=== PATIENT | female | born 1945 | race Caucasian/White ===

== ENCOUNTER 2019-11-11 13:44 | Outpatient (CLI) | payer MEDICARE, OTHER, SELFPAY ==
--- NOTE | 2019-11-11 | MR_ITS ---
WS: [id number] MRI THORACIC SPINE WITHOUT CONTRAST TECHNIQUE: Sagittal T1, T2 and STIR imaging. Axial T2 imaging. Noncontrast imaging obtained. Contrast not administered due to renal insufficiency. GFR less than 30. CLINICAL INFORMATION: SYRNIX OF SPINAL CORD COMPARISON: None. FINDINGS: Mild thoracic curve. Mild thoracic kyphosis. Chronic anterior wedging in the mid thoracic spine. 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 Small syrinx in the thoracic cord most prominent at T7-T8. This measu res 1.7 mm in maximum AP dimension. Degenerative disease worse at T6-T7. Tiny central disc protrusions more prominent at T4-T5, T9-T10, a nd T10-T11. Moderate facet arthropathy in the lower thoracic spine. Normal visualized thoracic aorta. Adrenal glands appear normal. MR/MR thoracic spin wo con* [id number] IMPRESSION: 1. Small syrinx within the thoracic cord most prominent at T7-T8 measuring 1.7 mm in maximum AP dimension. No cord edema. 2. Mild thoracic curve and thoracic kyphosis. No acute compression fractures. 3. Degenerative disc disease worse at T6-C7. 4. A few small disc protrusions more prominent at left T4-T5, right T9-T10, an d T10-11. 5. Mild to moderate facet arthropathy in the lower thoracic spine.
[2019-11-11 14:36] LABS: Blood Urea Nitrogen 25 mg/dL (8-23)
== END 2019-11-11 13:45 | disposition home or self-care (01) ==
PROVIDERS: Family Provider Physician Assistant; PCP Physician Assistant; Visit Provider Licensed Practical Nurse
DX: G95.0 Syringomyelia and syringobulbia (principal); M47.893 Other spondylosis, cervicothoracic region; M51.24 Other intervertebral disc displacement, thoracic region
CPT/HCPCS: 36415; 72146; 82565; 84520

== ENCOUNTER → 2019-12-02 13:53 | Outpatient (BNVA) | payer MEDICARE, OTHER, SELFPAY | PROVIDERS: Family Provider Physician Assistant; PCP Physician Assistant; Visit Provider Nurse Practitioner | DX: M48.062 Spinal stenosis, lumbar region with neurogenic claudication (principal); M47.816 Spondylosis without myelopathy or radiculopathy, lumbar region; M25.561 Pain in right knee; M25.562 Pain in left knee; E11.40 Type 2 diabetes mellitus with diabetic neuropathy, unspecified; F17.210 Nicotine dependence, cigarettes, uncomplicated; Z79.891 Long term (current) use of opiate analgesic | CPT/HCPCS: 99213; 99214 ==

== ENCOUNTER 2019-12-31 15:02 | Outpatient (CLI) | payer MEDICARE, OTHER, SELFPAY ==
--- NOTE | 2019-12-31 15:10 | MM_ITS ---
WS: [id number] BILATERAL SCREENING DIGITAL MAMMOGRAM WITH CAD HISTORY: SCREENING COMPARISON: 09/23/2018 and 12/07/2016 Bilateral CC and MLO views submitted. Computer aided detection analyzed. Breast composition: There are scattered areas of fibroglandular density. No suspicious masses, microc alcifications or architectural distortion. Stable 5 mm nodule upper outer quadrant of the RIGHT breas t and benign calcifications. MM/[place] [id number] IMPRESSION: BI-RADS: 2-Benign FOLLOW UP: 1 Year Follow-up
== END 2019-12-31 15:03 | disposition home or self-care (01) ==
PROVIDERS: Family Provider Physician Assistant; PCP Physician Assistant; Visit Provider Physician Assistant
DX: Z12.31 Encounter for screening mammogram for malignant neoplasm of breast (principal)
CPT/HCPCS: 77067

== ENCOUNTER → 2020-01-27 12:11 | Outpatient (BNVA) | payer MEDICARE, OTHER, SELFPAY | PROVIDERS: Family Provider Physician Assistant; PCP Physician Assistant; Visit Provider Anesthesiology | DX: Z76.89 Persons encountering health services in other specified circumstances (principal) ==

== ENCOUNTER → 2020-06-01 13:45 | Outpatient (BNVA) | payer MEDICARE, OTHER, SELFPAY | PROVIDERS: Family Provider Physician Assistant; PCP Physician Assistant; Visit Provider Anesthesiology | DX: M48.062 Spinal stenosis, lumbar region with neurogenic claudication (principal); M47.816 Spondylosis without myelopathy or radiculopathy, lumbar region; F17.210 Nicotine dependence, cigarettes, uncomplicated; Z79.891 Long term (current) use of opiate analgesic; Z71.6 Tobacco abuse counseling | CPT/HCPCS: 99214 ==

== ENCOUNTER → 2020-07-28 13:14 | Outpatient (BNVA) | payer MEDICARE, OTHER, SELFPAY | PROVIDERS: Family Provider Physician Assistant; PCP Physician Assistant; Visit Provider Anesthesiology | DX: M54.41 Lumbago with sciatica, right side (principal); M54.42 Lumbago with sciatica, left side; M48.062 Spinal stenosis, lumbar region with neurogenic claudication; M47.816 Spondylosis without myelopathy or radiculopathy, lumbar region; F17.210 Nicotine dependence, cigarettes, uncomplicated; Z79.891 Long term (current) use of opiate analgesic | CPT/HCPCS: 99213; 99214 ==

== ENCOUNTER 2020-08-18 13:08 | Outpatient (CLI) | payer MEDICARE, OTHER, SELFPAY ==
--- NOTE | 2020-08-18 13:14 | CT_ITS ---
WS: [id number] LDCT LUNG CANCER SCREENING TECHNIQUE: Noncontrast CT of the chest with coronal and sagittal reformatted images. CLINICAL INFORMATION: NICOTINE DEPENDENCE COMPARISON: None. DLP: 61.0 mGy.cm DIvol: 1.[address] scans at [facility] use at least one of these dose optimization techniques: automat ed exposure control; mA and/or kV adjustment per patient size (includes targeted exams where dose is matched to clinical indication); or iterative reconstruction. FINDINGS: No suspicious pulmonary parenchymal opacities Subsegmental atelectasis in the right midlung along the fissure. Subsegmental atelectasis in the righ t middle lobe. Slight atelectasis in the lung bases. Prior sternotomy. Aortic calcification. Coronary calcification. No axillary lymphadenopathy. No mediastinal or hilar lymphadenopathy. Adrenal glands appear normal where visualized. Moderate thoracic kyphosis. Mild thoracic curve. CT/CT lung screening [id number] IMPRESSION: LUNG-RADS: 1-Negative FOLLOW UP: 12 Month: Continue annual screening with LDCT
== END 2020-08-18 13:09 | disposition home or self-care (01) ==
LOC: RAD 13:12
PROVIDERS: PCP Physician Assistant; Visit Provider Physician Assistant
DX: Z12.2 Encounter for screening for malignant neoplasm of respiratory organs (principal); F17.210 Nicotine dependence, cigarettes, uncomplicated
CPT/HCPCS: G0297

== ENCOUNTER → 2020-09-30 12:41 | Outpatient (BNVA) | payer MEDICARE, OTHER, SELFPAY | PROVIDERS: PCP Physician Assistant; Visit Provider Anesthesiology | DX: M54.42 Lumbago with sciatica, left side (principal); M54.41 Lumbago with sciatica, right side; M48.062 Spinal stenosis, lumbar region with neurogenic claudication; M47.816 Spondylosis without myelopathy or radiculopathy, lumbar region; M25.561 Pain in right knee; M25.562 Pain in left knee; E11.40 Type 2 diabetes mellitus with diabetic neuropathy, unspecified; F17.210 Nicotine dependence, cigarettes, uncomplicated; Z79.891 Long term (current) use of opiate analgesic | CPT/HCPCS: 99214 ==

== ENCOUNTER 2020-10-04 13:59 | Outpatient (CLI) | payer MEDICARE, OTHER, SELFPAY ==
--- NOTE | 2020-10-04 14:05 | MR_ITS ---
WS: [id number] MRI LUMBAR SPINE NONCONTRAST TECHNIQUE: Sagittal T1, T2 and STIR imaging. Axial T1 and T2 imaging. CLINICAL INFORMATION: RADICULOPATHY COMPARISON: MRI 6 18,019 FINDINGS: Thoracic cord syrinx described on the thoracic spine MRI. Degenerative disc disease worse at L2-3 wit h endplate degenerative changes. This is slightly progressed since 2019. Mild edema in the superior e ndplate at L2 progressed from previous likely due to mild interval compression. L1-L2: Normal. L2-L3: Mild disc bulging with endplate ridging. New/progressed right subarticular protrusion impinges the traversing right L3 nerve root in the subarticular recess. Moderate central canal stenosis. Mild right and no significant left foraminal narrowing. Moderate facet arthropathy. L3-L4: Shallow left pericentral protrusion impinges the traversing left L4 nerve root. Mild central c anal stenosis. Foramen are patent. Mild facet arthropathy. L4-L5: Mild disc bulging with slight effacement of ventral thecal sac. Moderate central canal stenosi s. Moderate to advanced facet arthropathy. Mild right and no significant left foraminal narrowing. Sm all facet effusions. L5-S1: Disc osteophyte complex with endplate ridging. Slight effacement of ventral thecal sac. Mild l eft and no significant right foraminal narrowing. Mild facet arthropathy. Visualized pelvic bony structures: Normal. Paravertebral soft tissues: Normal. MR/MR lumbar spine wo con* [id number] IMPRESSION: 1. Mild lumbar curve. Mild compression superior endplate L2 with edema appears progressed from previous. No significant loss of vertebral body height. 2. Degenerative disc disease worse at L2-L3 slightly progressed from previous with a new right subarticular protrusion impinges the traversing right L3 nerve root. Moderate central canal stenosis at this level. Recommend correlation for right L3 nerve root symptoms. 3. Shallow left pericentral protrusion L3-4 impinges the traversing left L4 ne rve root. 4. Moderate central canal stenosis L4-5 due to disc bulging with facet arthrop athy and ligament flavum hypertrophy. Advanced facet arthropathy at this level. Mild right L4-5 foraminal narrowing. 5. No other significant changes from previous.
--- NOTE | 2020-10-04 14:05 | MR_ITS ---
WS: [id number] MRI THORACIC SPINE WITHOUT CONTRAST TECHNIQUE: Sagittal T1, T2 and STIR imaging. Axial T2 imaging. Noncontrast imaging obtained. CLINICAL INFORMATION: RADICULOPATHY COMPARISON: MRI November 11, 2019 FINDINGS: Mild thoracic curve. Mild thoracic kyphosis. Chronic anterior wedging in the mid thoracic spine. Thor acic cord atrophy unchanged. Small syrinx in the thoracic cord most prominent at T7-T8 is unchanged. This measures approximately 1.8 mm in maximum AP dimension. Degenerative disc disease worse at T6-T7. Tiny central disc protrusions more prominent at T4-T5, T9-T 10, and T10-T11 unchanged. Moderate facet arthropathy in the lower thoracic spine. Normal visualized thoracic aorta. Adrenal glands appear normal. MR/MR thoracic spin wo con* [id number] IMPRESSION: 1. Small syrinx within the thoracic cord most prominent at T7-T8 measuring 1.8 mm in maximum AP dimension unchanged. No progressed cord edema. 2. Mild thoracic curve and thoracic kyphosis. No acute compression fractures. 3. Degenerative disc disease worse at T6-T7 unchanged. 4. A few small disc protrusions described above unchanged.
== END 2020-10-04 14:00 | disposition home or self-care (01) ==
LOC: RADWPI 14:03
PROVIDERS: PCP Physician Assistant; Visit Provider Physician Assistant
DX: M54.10 Radiculopathy, site unspecified (principal); M51.34 Other intervertebral disc degeneration, thoracic region; M51.24 Other intervertebral disc displacement, thoracic region; M48.061 Spinal stenosis, lumbar region without neurogenic claudication; M51.36 Other intervertebral disc degeneration, lumbar region
CPT/HCPCS: 72146; 72148

== ENCOUNTER 2020-10-13 12:58 | Outpatient (CLI) | payer MEDICARE, OTHER, SELFPAY ==
--- NOTE | 2020-10-13 13:10 | USCV_ITS ---
Ivette Ruiz Age: 75 Gender: F : 1945 Exam Date: 10/13/2020 12:57 Ordering Phys: Leena Calderon Technologist: Exam Location: [facility] [place]_ Indication: PAD RIGHT LEFT Brachial 158.00 mmHg Brachial 159.00 mmHg Pressure (mmHg) Waveform Pressure (mmHg) Waveform 176.00 Below Knee 152.00 176.00 BRASS ROLLER 148.00 158.00 DPA 141.00 1.11 Ankle/Brachial Index 0.93 132.00 Pre-Exercise Toe Pressure 129.00 0.83 Pre-Exercise Toe/Brachial Index 0.81 FINDINGS Resting ABIs bilaterally Normal resting TBIs bilaterally PVR waveforms showing loss of dicrotic notch with a low amplitude waveforms CONCLUSIONS No significant arterial obstruction, based on the above findings. Possible extensive arterio sclerosis bilaterally Dr Luma Gonzales MD FAC (Electronically Signed) Final Date: 14 October 2020 18:45 S
== END 2020-10-13 12:59 | disposition home or self-care (01) ==
LOC: RAD 13:07
PROVIDERS: PCP Physician Assistant; Visit Provider Physician Assistant
DX: I73.9 Peripheral vascular disease, unspecified (principal)
CPT/HCPCS: 93923

== ENCOUNTER → 2020-12-01 13:20 | Outpatient (BNVA) | payer OTHER, SELFPAY | PROVIDERS: PCP Physician Assistant; Visit Provider Anesthesiology | DX: M48.062 Spinal stenosis, lumbar region with neurogenic claudication (principal); M47.816 Spondylosis without myelopathy or radiculopathy, lumbar region; M25.562 Pain in left knee; M25.561 Pain in right knee; F17.210 Nicotine dependence, cigarettes, uncomplicated; Z79.891 Long term (current) use of opiate analgesic | CPT/HCPCS: 99213 ==

== ENCOUNTER → 2021-02-04 13:48 | Outpatient (BNVA) | payer OTHER, SELFPAY | PROVIDERS: PCP Physician Assistant; Visit Provider Anesthesiology | DX: M48.062 Spinal stenosis, lumbar region with neurogenic claudication (principal); M47.816 Spondylosis without myelopathy or radiculopathy, lumbar region; M25.561 Pain in right knee; M25.562 Pain in left knee; E11.40 Type 2 diabetes mellitus with diabetic neuropathy, unspecified; F17.210 Nicotine dependence, cigarettes, uncomplicated; Z79.891 Long term (current) use of opiate analgesic | CPT/HCPCS: 99213 ==

== ENCOUNTER 2021-03-07 17:48 | Emergency (ER) | payer MEDICARE, OTHER, SELFPAY ==
[2021-03-07 18:23] VITALS: BP 176/73; PULSE 78; RESP 16; TEMP 36.8; O2SAT 94; BMI 34.9
[2021-03-07 21:06] VITALS: BP 173/94; PULSE 92; RESP 18; O2SAT 92
--- NOTE | 2021-03-07 21:09 | CTR_ITS ---
PROCEDURE INFORMATION: Exam: CT Abdomen And Pelvis With Contrast Exam date and time: 03/07/2021 11:00 PM Age: 75 years old Clinical indication: Nausea; Prior surgery; Surgery type: Hyst, cabg; Additional info: Abd pain TECHNIQUE: Imaging protocol: Computed tomography of the abdomen and pelvis with contrast. Radiation optimization: All CT scans at this facility use at least one of these dose optimization techniques: automated exposure control; mA and/or kV adjustment per patient size (includes targeted exams where dose is matched to clinical indication); or iterative reconstruction. Contrast material: VISI 320; Contrast volume: 95 ml; Contrast route: INTRAVENOUS (IV); COMPARISON: CR XR hip BI 3-4V wo/w pel [id number] 04/12/2020 3:38 PM RADIATION DOSE METRICS: Total DLP (mGy-cm): 1462.96 FINDINGS: Liver: There is no focal abnormality within the liver. There is a diffuse decrease in hepatic parenchymal density, consistent with mild fatty infiltration. Gallbladder and bile ducts: The gallbladder is normal. Pancreas: The pancreas is normal. Spleen: The spleen is normal. Adrenal glands: The adrenal glands are normal. Kidneys and ureters: The kidneys are normal. There is no evidence of hydronephrosis. Stomach and bowel: There is no evidence of colitis/diverticulitis. Appendix: A normal appendix is identified. Intraperitoneal space: Unremarkable. No free air. No significant fluid collection. Vasculature: The aorta demonstrates moderate atherosclerotic calcification. There is no evidence of an abdominal aortic aneurysm. Lymph nodes: Unremarkable. No enlarged lymph nodes. Urinary bladder: Unremarkable as visualized. Reproductive: There has been a hysterectomy. Bones/joints: The lumbar spine demonstrates marked degenerative changes at multiple levels. Soft tissues: Unremarkable. CT/CT abdomen pelvis w con* [id number] IMPRESSION: 1. Fatty liver 2. No acute finding Radiation Dose CTDIVOL = (mGy): DLP = 1462.96 (mGy-cm)
--- NOTE | 2021-03-07 21:27 | W.ED.NAVMDI ---
HPI - Nausea/Vomiting/Diarrhea General: Chief complaint: Nausea/Vomiting/Diarrhea Stated complaint: NAUSEA, DIARRHEA Time Seen by Provider: 03/07/21 21:03 Source: patient Mode of arrival: ambulatory Limitations: no limitations History of Present Illness: HPI Narrative: 75-year-old female states over the last week she has been having nausea and vomiting and very decreased appetite. States she just feels like she can eat anything or keep anything down. States she has had some diarrhea as well. States she has been taking Pepto-Bismol with slight improvement. Denies any worsening factors. She is got diffuse abdominal cramping. Denies any fevers. Associated nausea: Yes Associated symtoms: Reports nausea; Denies chest pain, dysuria or headache(s) Review of Systems Const: Denies: fever(s), chills, body aches or change in appetite Eyes: Denies: blurry vision or eye discomfort ENMT: Denies: throat pain or dental pain Card: Denies: chest pain Resp: Denies: dyspnea GI: Reports: nausea and vomiting : Denies: dysuria Musc: Denies: neck pain or back pain Skin/Breast: Denies: rash Neuro: Denies: headache(s) Psych: Denies: depression Shiva/Lymph: Denies: easy bruising All/Imm: Denies: urticaria PFSH ED PFSH: Medical History (Updated 03/08/21 @ 01:42 by Thalia Reyes MD) ASHD (arteriosclerotic heart disease) Bilateral knee pain Carotid stenosis, bilateral CHF (congestive heart failure) Chronic fatigue CKD (chronic kidney disease) COPD (chronic obstructive pulmonary disease) Diabetes Diabetic neuropathy DJD (degenerative joint disease), lumbar Dyslipidemia Essential hypertension GERD (gastroesophageal reflux disease) Long-term current use of opiate analgesic Lumbar stenosis with neurogenic claudication Lupus anticoagulant disorder Myocardial infarction Obesity PAD (peripheral artery disease) Pain management contract signed TIA (transient ischemic attack) Tobacco use disorder Surgical History S/P CABG (coronary artery bypass graft) (~10/01/14) S/P carotid endarterectomy S/P carpal tunnel release (Unknown) LEFT S/P cataract extraction (Unknown) RIGHT DR BATISTA S/P cataract extraction S/P hysterectomy Family History Unknown Adopted Social History (Updated 02/04/21 @ 14:02 by Nakia Sampson LPN) Smoking and tobacco status: current every day smoker cigarettes Packs smoked per day: 2 Quit status (tobacco): has tried quititng Alcohol intake: never Adopted: Yes Lives independently: Yes Household members: spouse Marital status: History of recent travel: No Physical Exam Const: COMMON NORMALS: no acute distress, patient oriented x3 and healthy appearing HENMT: COMMON NORMALS: normocephalic and atraumatic HEAD & SCALP: normocephalic and atraumatic Eye: COMMON NORMALS: Equal, round and reactive pupils present and EOMs intact bilaterally PUPIL: Yes Equal, round and reactive pupils present Neck/C-Spine: COMMON NORMALS: full ROM and supple Chest: COMMONS NORMALS: normal inspection of the chest and normal palpation of entire chest wall Resp: COMMON NORMALS: normal respiratory effort, No retractions, No use of accessory muscles and clear to auscultation bilaterally AUSCULTATION: clear to auscultation bilaterally Cardio: COMMON NORMALS: regular rate, regular rhythm and No murmurs present (Cardio) RATE: regular rate RHYTHM: regular rhythm GI: COMMON NORMALS: Normal to inspection, nondistended, normoactive bowel sounds present, Soft to palpation, non-tender and no masses PALPATION: Yes Soft to palpation Extremity: COMMON NORMALS: normal to inspection and full ROM Neuro: COMMON NORMALS: patient oriented x3, moves all extremities and no focal motor deficits Psych: COMMON NORMALS: mental status grossly normal, Normal thought process present and cooperative THOUGHT PROCESS: Normal thought process present Skin: COMMON NORMALS: no rashes or lesions noted and no wounds GENERAL SKIN EXAM: no rashes or lesions noted Course Vital Signs: Vital signs: Vital Signs Temperature 98.0 F 03/07/21 23:32 Pulse Rate 88 03/08/21 01:49 Respiratory Rate 21 H 03/08/21 01:49 Blood Pressure 156/89 03/08/21 01:49 Pulse Oximetry 94 03/08/21 01:49 MDM - Nausea/Vomiting/Diarrhea MDM Narrative: Medical decision making narrative: Patient presents her vomiting is likely viral in origin. She feels improved here after Zofran and blood work and CT abdomen are all negative. She has been able to tolerate p.o. fluids here. We will place her on Zofran and she is stable for discharge. She is to follow-up with her primary care doctor and return if worsening. Lab Data: Labs: Lab Results 03/07/21 03/07/21 Range/Units 22:20 22:20 WBC 11.4 H (4.0-10.0) 10^3/ uL RBC 5.18 (4.1-5.3) 10^6/u L Hgb 15.6 H (11.5-15.3) g/dL Hct 50.4 H (37.0-47.0) % MCV 97.3 (81-99) fL MCH 30.1 (28.0-34.0) pg MCHC 31.0 (30.0-36.0) g/dL RDW 13.5 (12.1-15.1) % Plt Count 212 (130-400) 10^3/c mm MPV 11.4 H (7.4-10.4) fL Neut % (Auto) 64.3 % Lymph % (Auto) 26.4 % [place] % (Auto) 7.0 % Eos % (Auto) 1.2 % Baso % (Auto) 0.7 % Neut # (Auto) 7.32 (1.8-7.7) 10^3/u L Lymph # (Auto) 3.0 (0.8-4.8) 10^3/u L [place] # (Auto) 0.8 (0.2-0.9) 10^3/u L Eos # (Auto) 0.1 (0.0-0.8) 10^3/u L Baso # (Auto) 0.1 (0.0-0.1) 10^3/u L Nucleated RBC % (a uto) 0 % Nucleated RBCs # 0.0 /100WBC Sodium 137 (136-145) mmol/L Potassium 4.0 (3.5-5.1) mmol/L Chloride 98 (98-107) mmol/L Carbon Dioxide 27 (22-29) mmol/L Anion Gap 16.0 (5-19) BUN 19 (8-23) mg/dL Creatinine 1.1 H (0.5-0.9) mg/dL GFR Calculation Not Reportable Glucose 127 H (65-115) mg/dL Calculated Osmolal ity 288 (285-295) mOsm/k g Calcium 9.4 (8.5-10.5) mg/dL Total Bilirubin 0.6 (0.15-1.2) mg/dL AST 19 (0-32) U/L ALT 14 (0-33) U/L Alkaline Phosphata se 91 (35-105) IU/L Total Protein 7.6 (6.6-8.7) g/dL Albumin 4.0 (3.5-5.2) g/dL Globulin 3.6 (1.3-4.6) g/dL Lipase 15 (13-60) U/L Imaging Data^: CT Abd/Pel: Attestation: I personally reviewed and interpreted this imaging study as follows: Radiologist's impression: [address] [address] [address] Scan Report Signed Patient: Ivette Ruiz Unit #: [id number] : 1945 Age/Sex: 75 / F ADM Date: 03/07/21 Loc: ER Room/Bed: Attending Dr: Ordering Provider/Ordering MD: Thalia Reyes MD Date of Service: 03/07/21 Procedure(s): CT abdomen pelvis w con* [id number] Accession Number(s): [id number] Report Number: [id number] PROCEDURE INFORMATION: Exam: CT Abdomen And Pelvis With Contrast Exam date and time: 03/07/2021 11:00 PM Age: 75 years old Clinical indication: Nausea; Prior surgery; Surgery type: Hyst, cabg; Additional info: Abd pain TECHNIQUE: Imaging protocol: Computed tomography of the abdomen and pelvis with contrast. Radiation optimization: All CT scans at this facility use at least one of these dose optimization techniques: automated exposure control; mA and/or kV adjustment per patient size (includes targeted exams where dose is matched to clinical indication); or iterative reconstruction. Contrast material: VISI 320; Contrast volume: 95 ml; Contrast route: INTRAVENOUS (IV); COMPARISON: CR XR hip BI 3-4V wo/w pel [id number] 04/12/2020 3:38 PM RADIATION DOSE METRICS: Total DLP (mGy-cm): 1462.96 FINDINGS: Liver: There is no focal abnormality within the liver. There is a diffuse decrease in hepatic parenchymal density, consistent with mild fatty infiltration. Gallbladder and bile ducts: The gallbladder is normal. Pancreas: The pancreas is normal. Spleen: The spleen is normal. Adrenal glands: The adrenal glands are normal. Kidneys and ureters: The kidneys are normal. There is no evidence of hydronephrosis. Stomach and bowel: There is no evidence of colitis/diverticulitis. Appendix: A normal appendix is identified. Intraperitoneal space: Unremarkable. No free air. No significant fluid collection. Vasculature: The aorta demonstrates moderate atherosclerotic calcification. There is no evidence of an abdominal aortic aneurysm. Lymph nodes: Unremarkable. No enlarged lymph nodes. Urinary bladder: Unremarkable as visualized. Reproductive: There has been a hysterectomy. Bones/joints: The lumbar spine demonstrates marked degenerative changes at multiple levels. Soft tissues: Unremarkable. CT/CT abdomen pelvis w con* [id number] IMPRESSION: 1. Fatty liver 2. No acute finding Radiation Dose CTDIVOL = (mGy): DLP Discharge Plan Discharge Patient Disposition: Home Clinical Impression: Vomiting Qualifiers: Vomiting type: unspecified Vomiting Intractability: non-intractable Nausea presence: with nausea Qualified Code(s): R11.2 - Nausea with vomiting, unspecified Condition: Stable Prescriptions: New ondansetron 4 mg tablet,disintegrating 4 mg PO Q6H PRN (Reason: nausea and vomiting) Qty: 14 RF: 0 No Action bupivacaine (PF) 0.25 % (2.5 mg/mL) solution 1 ml Infiltration ONCE Qty: 1 RF: 0 nitroglycerin [Nitrostat] 0.4 mg tablet, sublingual 0.4 mg SUBLINGUAL Q5M PRNRF: 0 One-A-Day Vitacraves [place]-3 200-16 mcg-mg tablet,chewable PO RF: 0 levothyroxine 25 mcg tablet 25 mcg PO DAILY RF: 0 magnesium oxide 400 mg magnesium capsule 400 mg PO DAILY RF: 0 fluticasone propion-salmeterol [Advair Diskus] 250-50 mcg/dose blister with device 1 inh INHALATION BID RF: 0 amlodipine 2.5 mg tablet 2.5 mg PO QDAY RF: 0 aspirin [Adult Low Dose Aspirin] 81 mg tablet,delayed release (DR/EC) 81 mg PO QDAY RF: 0 atenolol 50 mg tablet 50 mg PO QDAY RF: 0 [place] 5 mcg/dose (250 mcg/mL) 1.2 mL pen injector 5 mcg SUBCUT BID RF: 0 calcium carbonate 600 mg calcium (1,500 mg) tablet 600 mg PO QDAY RF: 0 cranberry extract 200 mg capsule 200 mg PO QDAY RF: 0 cholecalciferol (vitamin D3) 1,000 unit capsule 1,000 unit PO QDAY RF: 0 desloratadine 5 mg tablet 5 mg PO QDAY RF: 0 isosorbide mononitrate 120 mg tablet extended release 24 hr 120 mg PO BID RF: 0 Lantus U-100 Insulin 100 unit/mL solution 30 unit SUBCUT QDAY RF: 0 furosemide 40 mg tablet 40 mg PO QAM RF: 0 atorvastatin [Lipitor] 40 mg tablet 40 mg PO QDAY RF: 0 lisinopril 10 mg tablet 10 mg PO QDAY RF: 0 lovastatin 40 mg tablet 40 mg PO QDAY RF: 0 melatonin 5 mg tablet 5 mg PO QDAY RF: 0 metoclopramide HCl 10 mg tablet 10 mg PO Q6H PRNRF: 0 metoprolol succinate 50 mg tablet extended release 24 hr 50 mg PO QDAY RF: 0 clopidogrel 75 mg tablet 75 mg PO QDAY RF: 0 pantoprazole [Protonix] 40 mg tablet,delayed release (DR/EC) 40 mg PO QDAY RF: 0 albuterol sulfate [Proventil HFA] 90 mcg/actuation HFA aerosol inhaler 2 puff INHALATION Q6H PRNRF: 0 ranolazine [Ranexa] 500 mg tablet extended release 12 hr 500 mg PO BID RF: 0 ropinirole 0.5 mg tablet 0.5 mg PO QDAY RF: 0 methocarbamol 500 mg tablet 500 mg PO QID PRNRF: 0 Spiriva with HandiHaler 18 mcg capsule, w/inhalation device 1 cap INHALATION QDAY RF: 0 trazodone 100 mg tablet 100 mg PO QDAY RF: 0 venlafaxine 37.5 mg tablet 37.5 mg PO QDAY RF: 0 vitamin B complex [B Complex-Vitamin B12] Tablet 1 tab PO QDAY RF: 0 ascorbic acid (vitamin C) 500 mg tablet 250 mg PO QDAY RF: 0 ezetimibe [Zetia] 10 mg tablet 10 mg PO QDAY RF: 0 gabapentin 800 mg tablet 800 mg PO TID 90 Days Qty: 270 RF: 0 lidocaine 5 % adhesive patch,medicated 3 patch topical DAILY 90 Days Qty: 90 RF: 0 hydrocodone-acetaminophen 10-325 mg tablet 1 tab PO TID PRN (Reason: pain) 30 Days Qty: 90 RF: 0 hydrocodone-acetaminophen 10-325 mg tablet 1 tab PO TID PRN (Reason: pain) 30 Days Qty: 90 RF: 0 cyclobenzaprine 10 mg tablet 5 mg PO TID PRN (Reason: muscle spasm) 90 Days Qty: 135 RF: 0 Discharge Orders: Discharge ED (Routine); Ordered 03/08/21 Ordered By: Thalia Reyes Referrals: Leena Calderon PA [Primary Care Provider] - 1-3 days Discharge Diet: Advance as tolerated Discharge Activity: Resume usual activity Patient Instructions: Acute Nausea and Vomiting (ED) Coding Level of Care Code ED 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
[2021-03-07 22:27] LABS: Basophils # 0.1 10^3/uL (0.0-0.1); Basophils % 0.7 %; Eosinophils # 0.1 10^3/uL (0.0-0.8); Eosinophils % 1.2 %; Hematocrit 50.4 % (37.0-47.0); Hemoglobin 15.6 g/dL (11.5-15.3); Lymphocytes % 26.4 %; Mean Corpuscular Hemoglobin 30.1 pg (28.0-34.0); Mean Corpuscular Volume 97.3 fL (81-99); Mean Platelet Volume 11.4 fL (7.4-10.4); Monocytes # 0.8 10^3/uL (0.2-0.9); Neutrophils # 7.32 10^3/uL (1.8-7.7); Neutrophils % 64.3 %; Nucleated Red Blood Cells % 0 %; Platelet Count 212 10^3/cmm (130-400); Red Blood Count 5.18 10^6/uL (4.1-5.3); Red Cell Distribution Width 13.5 % (12.1-15.1); White Blood Count 11.4 10^3/uL (4.0-10.0)
[2021-03-07] MEDS: ondansetron 2 mg/ML SDV 2 mL 4 MG IVP (22:31)
[2021-03-07 22:42] LABS: Alanine Aminotransferase 14 U/L (0-33); Alkaline Phosphatase 91 IU/L (35-105); Aspartate Amino Transferase 19 U/L (0-32); Blood Urea Nitrogen 19 mg/dL (8-23); Calcium 9.4 mg/dL (8.5-10.5); Carbon Dioxide 27 mmol/L (22-29); Chloride 98 mmol/L (98-107); Globulin 3.6 g/dL (1.3-4.6); Glucose 127 mg/dL (65-115); Lipase 15 U/L (13-60); Osmolality Calculated 288 mOsm/kg (285-295); Sodium 137 mmol/L (136-145); Total Bilirubin 0.6 mg/dL (0.15-1.2); Total Protein 7.6 g/dL (6.6-8.7)
[2021-03-07 23:00] VITALS: BP 152/113; PULSE 71; RESP 18; TEMP 36.6; O2SAT 93
[2021-03-07 23:32] VITALS: BP 164/112; PULSE 98; RESP 20; TEMP 36.7; O2SAT 94
[2021-03-07] MEDS: LORazepam 2 mg/mL INJ 1 mL 0.5 MG IVP (23:57)
[2021-03-08] MEDS: iohexol 300 mg/mL 100 mL Btl IV (00:21)
[2021-03-08 01:49] VITALS: BP 156/89; PULSE 88; RESP 21; O2SAT 94
== END 2021-03-08 01:59 | disposition home or self-care (01) ==
PROVIDERS: Emergency Provider Emergency Medicine; PCP Physician Assistant
DX: R11.2 Nausea with vomiting, unspecified (principal); Z79.82 Long term (current) use of aspirin; Z79.02 Long term (current) use of antithrombotics/antiplatelets; Z79.4 Long term (current) use of insulin
CPT/HCPCS: 36415; 74177; 80053; 83690; 85025; 96374; 96375; 99283; J2060; J2405; Q9967

== ENCOUNTER → 2021-03-15 13:57 | Outpatient (BNVA) | payer MEDICARE, OTHER, SELFPAY | PROVIDERS: PCP Physician Assistant; Visit Provider Anesthesiology | DX: M48.062 Spinal stenosis, lumbar region with neurogenic claudication (principal); M47.816 Spondylosis without myelopathy or radiculopathy, lumbar region; F17.210 Nicotine dependence, cigarettes, uncomplicated; Z79.891 Long term (current) use of opiate analgesic | CPT/HCPCS: 99213 ==

== ENCOUNTER → 2021-05-26 08:27 | Outpatient (BNVA) | payer MEDICARE, OTHER, SELFPAY | PROVIDERS: PCP Physician Assistant; Visit Provider Anesthesiology | DX: G89.29 Other chronic pain (principal); M48.062 Spinal stenosis, lumbar region with neurogenic claudication; M47.816 Spondylosis without myelopathy or radiculopathy, lumbar region; M25.561 Pain in right knee; M25.562 Pain in left knee; M25.559 Pain in unspecified hip; F17.210 Nicotine dependence, cigarettes, uncomplicated; Z79.891 Long term (current) use of opiate analgesic | CPT/HCPCS: 99214 ==

== ENCOUNTER → 2021-07-27 12:56 | Outpatient (BNVA) | payer MEDICARE, OTHER, SELFPAY | PROVIDERS: PCP Physician Assistant; Visit Provider Anesthesiology | DX: M48.062 Spinal stenosis, lumbar region with neurogenic claudication (principal); M47.816 Spondylosis without myelopathy or radiculopathy, lumbar region; M25.561 Pain in right knee; M25.562 Pain in left knee; M25.559 Pain in unspecified hip; F17.210 Nicotine dependence, cigarettes, uncomplicated; Z79.891 Long term (current) use of opiate analgesic; Z71.6 Tobacco abuse counseling | CPT/HCPCS: 99214 ==

== ENCOUNTER → 2021-10-19 10:44 | Outpatient (BNVA) | payer MEDICARE, OTHER, SELFPAY | PROVIDERS: PCP Physician Assistant; Visit Provider Specialist | DX: M16.0 Bilateral primary osteoarthritis of hip (principal) | CPT/HCPCS: 73522; 73523 ==

== ENCOUNTER → 2021-11-16 14:34 | Outpatient (BNVA) | payer MEDICARE, OTHER, SELFPAY | PROVIDERS: PCP Physician Assistant; Visit Provider Specialist | DX: M17.0 Bilateral primary osteoarthritis of knee (principal) | CPT/HCPCS: 73560; 73565 ==

== ENCOUNTER → 2022-04-18 11:30 | Outpatient (BNVA) | payer MEDICARE, OTHER, SELFPAY | PROVIDERS: PCP Physician Assistant; Visit Provider Podiatrist Foot & Ankle Surgery | DX: E11.42 Type 2 diabetes mellitus with diabetic polyneuropathy (principal); L60.3 Nail dystrophy; L84 Corns and callosities; M21.41 Flat foot [pes planus] (acquired), right foot; M21.42 Flat foot [pes planus] (acquired), left foot; M21.611 Bunion of right foot; M21.612 Bunion of left foot | CPT/HCPCS: 11056; 11721; 99203; 99204 ==

== ENCOUNTER 2022-04-28 23:37 | Inpatient (IN) | payer MEDICARE, OTHER, SELFPAY ==
[2022-04-28 23:46] VITALS: BP 116/71; PULSE 95; RESP 22; TEMP 36.7; O2SAT 92; BMI 33.1
[2022-04-29] VITALS (44 sets, daily range): BP systolic 124–198; BP diastolic 65–120; PULSE 74–100; RESP 12–25; TEMP 36.4–37.1; O2SAT 78–100
--- NOTE | 2022-04-29 00:04 | XRR_ITS ---
PROCEDURE INFORMATION: Exam: XR Chest Exam date and time: 04/29/2022 12:11 AM Age: 76 years old Clinical indication: Angina; Additional info: Cp TECHNIQUE: Imaging protocol: Radiologic exam of the chest. Views: 1 view. COMPARISON: [facility] Chest 2 views 01/29/2019 2:01 PM FINDINGS: Lungs: Unremarkable. No consolidation. Pleural spaces: Unremarkable. No pleural effusion. No pneumothorax. Heart/Mediastinum: Cardiomegaly. Prior CABG. Bones/joints: Unremarkable. XR/XR chest 1V portable [id number] IMPRESSION: No acute chest abnormality identified.
--- NOTE | 2022-04-29 00:04 | ECG_ITS ---
[facility] Test Date: 2022-04-28 Pat Name: Ivette Ruiz Department: Room: Gender: Female Intramural Director: : 1945 Requested By: Juanjose Marcum Order Number: [id number] Ahsan MD: Malik Moore M.D. Measurements Intervals [place] Rate: 103 P: 81 SC: 149 QRS: 1 QRSD: 136 T: 119 QT: 375 QTc: 492 Interpretive Statements SINUS TACHYCARDIA WITH OCCASIONAL SUPRAVENTRICULAR PREMATURE COMPLEXES LEFT BUNDLE BRANCH BLOCK [120+ ms QRS DURATION, 80+ ms Q/S IN V1/V2, 85+ ms R IN I/aVL/V5/V6] Compared to ECG 06/08/2015 08:52:21 Sinus rhythm no longer present Electronically Signed On 04-29-2022 12:25:56 CDT by Malik Moore M.D. [id number]
[2022-04-29 00:15] LABS: Basophils # 0.1 10^3/uL (0.0-0.1); Basophils % 0.5 %; Eosinophils # 0.2 10^3/uL (0.0-0.8); Eosinophils % 1.5 %; Hemoglobin 15.2 g/dL (11.5-15.3); Lymphocytes # 5.8 10^3/uL (0.8-4.8); Mean Corpuscular Hemoglobin 30.2 pg (28.0-34.0); Mean Corpuscular Volume 91.5 fl (81-99); Mean Platelet Volume 12.4 fL (7.4-10.4); Monocytes # 1.1 10^3/uL (0.2-0.9); Monocytes % 7.5 %; Neutrophils # 7.26 10^3/uL (1.8-7.7); Nucleated Red Blood Cells % 0 %; Platelet Count 252 10^3/cmm (130-400); Red Blood Count 5.03 10^6/uL (4.1-5.3); Red Cell Distribution Width 12.8 % (12.1-15.1); White Blood Count 14.5 10^3/uL (4.0-10.0)
[2022-04-29 00:20] LABS: INR 0.88 (0.8-1.2)
[2022-04-29 00:21] LABS: Partial Thromboplastin Time 37.4 SECONDS (23.9-36.7)
[2022-04-29 00:32] LABS: Troponin(5th) Baseline 28 ng/L (0-10)
[2022-04-29 00:37] LABS: Alanine Aminotransferase 20 U/L (0-33); Alkaline Phosphatase 98 IU/L (35-105); Aspartate Amino Transferase 16 U/L (0-32); Blood Urea Nitrogen 31 mg/dL (8-23); Calcium 9.6 mg/dL (8.5-10.5); Carbon Dioxide 28 mmol/L (22-29); Chloride 92 mmol/L (98-107); Globulin 3.3 g/dL (1.3-4.6); Glucose 200 mg/dL (65-115); NT Pro B Type Natriuretic Pept 581 pg/mL (0-450); Osmolality Calculated 292 mOsm/kg (285-295); Sodium 135 mmol/L (136-145); Total Bilirubin 0.4 mg/dL (0.15-1.2); Total Protein 7.3 g/dL (6.6-8.7)
[2022-04-29 00:45] LABS: Slide Review Slide Review Perform
--- NOTE | 2022-04-29 02:04 | ECG_ITS ---
[facility] Test Date: 2022-04-29 Pat Name: Ivette Ruiz Department: Room: Gender: Female Unit Clerk: : 1945 Requested By: Juanjose Marcum Order Number: [id number] Ahsan MD: Malik Moore M.D. Measurements Intervals [place] Rate: 101 P: IA: QRS: 20 QRSD: 140 T: 92 QT: 353 QTc: 458 Interpretive Statements Sinus tachycardia with occasional PACs LEFT BUNDLE BRANCH BLOCK [120+ ms QRS DURATION, 80+ ms Q/S IN V1/V2, 85+ ms R IN I/aVL/V5/V6] Compared to ECG 06/08/2015 08:52:21 Sinus rhythm no longer present Electronically Signed On 04-29-2022 12:36:18 CDT by Malik Moore M.D. [id number]
[2022-04-29 02:55] LABS: Troponin 5 2HR 106.9 ng/L (0-10)
[2022-04-29 02:56] LABS: Troponin 5 2HR Delta 78.9 ABS# (0-10)
[2022-04-29] MEDS: metoprolol tartrate 1 mg/1 mL SDV 5 mL 5 MG IVP (03:12)
[2022-04-29] MEDS: nitroglycerin 1 gm/inch oint Pkt 2 INCH TOPICAL (03:13)
[2022-04-29] MEDS: enoxaparin 80 mg/0.8 mL Syringe 70 MG SUBCUT ×2 (03:13→15:30)
--- NOTE | 2022-04-29 04:36 | P.HP_ITS ---
Providers/Chief Complaint Admitting Physician: Elsie Strickland MD Primary Care Provider: Leena Calderon Chief Complaint: cp History of Present Illness Ivette Ruiz is a 76 year old female with past medical history of carotid disease, heavy tobacco abuse, diabetes, dyslipidemia, chronic kidney disease, obesity, coronary artery disease, COPD, history of myocardial infarction, history of bypass surgery, peripheral arterial disease?presenting with chest pain that started at 9:30 PM. Patient states the pain is central, radiates on to either side, was associated with diaphoresis and shortness of breath. She has noticed increased lower extremity edema, recently followed up with her hand upper and bottom lacer where it was recommended to discontinue amlodipine for lower extremity edema, however patient has not made this change yet. In the ER she was found to have elevated troponins. She additionally had an episode of 15 beats of V. tach during which she was transiently unresponsive recovered quickly. She is currently being admitted in view of NSTEMI. Review of Systems General: Reports: 10 or more systems reviewed and unremarkable except in HPI and below Const: Denies: fever(s), chills or body aches Eyes: Denies: change in vision, blurry vision or photophobia ENMT: Reports: hoarseness; Denies: throat pain, enlarged tonsils, odynophagia or nasal congestion Card: Denies: chest pain, palpitations, irregular heart rhythm, edema, swelling of feet/ankles, lightheadedness, pre-syncope, dyspnea on exertion or orthopnea Resp: Denies: dyspnea, productive cough, non-productive cough, wheezing, stridor, pain on inspiration, change in phlegm color, hemoptysis or chest congestion GI: Denies: abdominal pain, nausea, vomiting, hematemesis, coffee ground emesis, dysphagia, heartburn, diarrhea, constipation, GI cramping, change in stool character, hematochezia or melena : Denies: flank pain, difficulty voiding, dysuria, urinary frequency, urinary urgency, urinary hesitancy or hematuria Musc: Denies: neck pain, back pain, extremity pain, joint swelling, joint warmth or deformity Neuro: Denies: headache(s), numbness in extremities, weakness in extremities, sensory changes, difficulty walking, frequent falls, dizziness, vertigo, behavioral changes, Slurred speech present or seizure-like activity Psych: Denies: anxiety, depression, suicidal ideation or homicidal ideation Endo: Denies: polyuria, polydipsia, tired all the time, cold intolerance or hot flashes Shiva/Lymph: Denies: easy bruising or easy bleeding Medications/Allergies Home Medications Medication Instructions Recorded Confirmed Last Taken Type albuterol sulfate 90 mcg/actuation 2 puff INHALATION Q6H PRN 11/18/19 04/18/22 Unknown History aerosol inhaler (Proventil HFA) ascorbic acid (vitamin C) 500 mg 250 mg PO QDAY 11/18/19 04/18/22 Unknown History tablet aspirin 81 mg tablet,delayed 81 mg PO QDAY 11/18/19 04/18/22 Unknown History release (Adult Low Dose Aspirin) atenolol 50 mg tablet 50 mg PO QDAY 11/18/19 04/18/22 Unknown History atorvastatin 40 mg tablet (Lipitor) 40 mg PO QDAY 11/18/19 04/18/22 Unknown History calcium carbonate 600 mg calcium 600 mg PO QDAY 11/18/19 04/18/22 Unknown History (1,500 mg) tablet cholecalciferol (vitamin D3) 25 1,000 unit PO QDAY 11/18/19 04/18/22 Unknown History mcg (1,000 unit) capsule clopidogrel 75 mg tablet 75 mg PO QDAY 11/18/19 04/18/22 Unknown History cranberry extract 200 mg capsule 200 mg PO QDAY 11/18/19 04/18/22 Unknown History desloratadine 5 mg tablet 5 mg PO QDAY 11/18/19 04/18/22 Unknown History exenatide (Byetta) 5 mcg SUBCUT BID 11/18/19 04/18/22 Unknown History ezetimibe 10 mg tablet (Zetia) 10 mg PO QDAY 11/18/19 04/18/22 Unknown History fluticasone 250 mcg-salmeterol 50 1 inh INHALATION BID 11/18/19 04/18/22 Unknown History mcg/dose blistr powdr for inhalation (Advair Diskus) furosemide 40 mg tablet 40 mg PO QAM 11/18/19 04/18/22 Unknown History insulin glargine 100 unit/mL 30 unit SUBCUT QDAY ml 11/18/19 04/18/22 Unknown History subcutaneous solution (Lantus U-100 Insulin) isosorbide mononitrate 120 mg 120 mg PO BID tab 11/18/19 04/18/22 Unknown History tablet,extended release 24 hr lovastatin 40 mg tablet 40 mg PO QDAY 11/18/19 04/18/22 Unknown History melatonin 5 mg tablet 5 mg PO QDAY 11/18/19 04/18/22 Unknown History methocarbamol 500 mg tablet 500 mg PO QID PRN 11/18/19 04/18/22 Unknown History metoclopramide HCl 10 mg tablet 10 mg PO Q6H PRN 11/18/19 04/18/22 Unknown History metoprolol succinate 50 mg 50 mg PO QDAY 11/18/19 04/18/22 Unknown History tablet,extended release 24 hr pantoprazole 40 mg tablet,delayed 40 mg PO QDAY 11/18/19 04/18/22 Unknown History release (Protonix) ranolazine 500 mg tablet,extended 500 mg PO BID 11/18/19 04/18/22 Unknown History release,12 hr (Ranexa) ropinirole 0.5 mg tablet 0.5 mg PO QDAY 11/18/19 04/18/22 Unknown History tiotropium bromide 18 mcg capsule 1 cap INHALATION QDAY 11/18/19 04/18/22 Unknown History with inhalation device (Spiriva with HandiHaler) trazodone 100 mg tablet 100 mg PO QDAY 11/18/19 04/18/22 Unknown History venlafaxine 37.5 mg tablet 37.5 mg PO QDAY 11/18/19 04/18/22 Unknown History vitamin B complex (B 1 tab PO QDAY 11/18/19 04/18/22 Unknown History Complex-Vitamin B12) levothyroxine 25 mcg tablet 25 mcg PO DAILY 12/02/19 04/18/22 Unknown History magnesium oxide 400 mg PO DAILY 12/02/19 04/18/22 Unknown History zdhzyjmrqpst-AC-ibu 200 mcg-16 mg tab PO 12/02/19 04/18/22 Unknown History chewable tablet (One-A-Day Vitacraves [place]-3) nitroglycerin 0.4 mg sublingual 0.4 mg SUBLINGUAL Q5M PRN 12/02/19 04/18/22 Unknown History tablet (Nitrostat) gabapentin 800 mg tablet 800 mg PO TID 90 Days #270 tab 03/17/20 04/18/22 Unknown Rx lidocaine 5 % topical patch 3 patch TOPICAL DAILY 90 Days #90 03/17/20 04/18/22 Unknown Rx each ondansetron 4 mg disintegrating 4 mg PO Q6H PRN #14 tab 03/08/21 04/18/22 Unknown Rx tablet cyclobenzaprine 10 mg tablet 5 mg PO TID PRN 90 Days #135 tab 03/15/21 04/18/22 Unknown Rx lisinopril 10 mg tablet 20 mg PO QDAY tab 04/13/21 04/18/22 Unknown History hydrocodone 10 mg-acetaminophen 1 tab PO QID PRN 30 Days #120 tab 07/27/21 04/18/22 Unknown Rx 325 mg tablet hydrocodone 10 mg-acetaminophen 1 tab PO QID PRN 30 Days #120 tab 07/27/21 04/18/22 Unknown Rx 325 mg tablet meloxicam 15 mg tablet See Rx Instructions .ROUTE 12/13/21 04/18/22 Unknown Rx .COMPLEX #30 tab Diabetic Shoes with Inserts #1 ea 04/18/22 04/18/22 Unknown Rx Allergies Allergy/AdvReac Type Severity Reaction Status Date / Time No Known Allergies Allergy Verified 04/18/22 11:33 PFSH Acute PFSH: Medical History ASHD (arteriosclerotic heart disease) Bilateral knee pain Carotid stenosis, bilateral CHF (congestive heart failure) Chronic fatigue Chronic hip pain CKD (chronic kidney disease) COPD (chronic obstructive pulmonary disease) Diabetes Diabetic neuropathy DJD (degenerative joint disease), lumbar Dyslipidemia Essential hypertension GERD (gastroesophageal reflux disease) Long-term current use of opiate analgesic Lumbar stenosis with neurogenic claudication Lupus anticoagulant disorder Myocardial infarction Obesity PAD (peripheral artery disease) Pain management contract signed TIA (transient ischemic attack) Tobacco use disorder Surgical History S/P CABG (coronary artery bypass graft) (~10/01/14) S/P carotid endarterectomy S/P carpal tunnel release (Unknown) LEFT S/P cataract extraction (Unknown) RIGHT DR BATISTA S/P cataract extraction S/P hysterectomy Family History Unknown Adopted Social History Smoking and tobacco status: current every day smoker cigarettes Packs smoked per day: 2 Quit status (tobacco): has tried quititng Alcohol intake: never Adopted: Yes Lives independently: Yes Household members: spouse Marital status: History of recent travel: No Vitals/I&O/Wt Last Vital Signs Temp 98.2 F 04/29/22 00:22 Pulse 87 04/29/22 04:25 Resp 16 04/29/22 04:25 BP 140/80 04/29/22 04:25 Pulse Ox 100 04/29/22 04:25 04/28/22 04/28/22 04/29/22 14:59 22:59 06:59 Output Total 850 / 850 Balance -850 / -850 Weight last 48 hrs Weight 74.389 kg Physical Exam Narrative: General: No acute distress, AO x3 HEENT: PERRLA, pupils bilaterally equal and reactive, pallors not present Chest: B/L basal crepts CVS: S1-S2 regular, no murmurs, no tachycardia, no gallops, no rubs Abdomen: Soft, nontender, no organomegaly, bowel sounds present Neuro: No focal deficits, no facial deformity, AO x3, power 5/5 in all limbs Data : 04/28/22 23:55 04/28/22 23:55 A&P Assessment and plan (1) Non-STEMI (non-ST elevated myocardial infarction): Status: Acute (2) Chest pain: Status: Acute (3) CHF (congestive heart failure): Status: Acute (4) V-tach: Status: Acute Plan Admit to ICU in view of NSTEMI and arrhythmia. Baseline troponin 28, 2-hour at 106, 2-hour delta at 78.9 ruling in ACS. She has thus far received aspirin 325, Lovenox 70 and is already on Plavix. Will continue aspirin 81 Lovenox 1 mg/kg every 12 hours. Cardiology consult Monitor closely on telemetry, patient had transiently tach with routine visits associated with unresponsiveness. She is currently on metoprolol which will be continued. Home medication list lists both atenolol and metoprolol, for now we will DC atenolol and continue metoprolol only. N.p.o. postmidnight in case of angiogram. Attestations Medical Necessity Statement*: >2midnight admission anticipated for management of NSTEMI Coding Level of Care Code Acute [employer]ter[employer] T[employer]or for [employer]era Fwd Diagnoses Non-STEMI (non-ST elevated myocardial infarction) I21.4 Chest pain R07.9 CHF (congestive heart failure) I50.9 V-tach I47.2
[2022-04-29] MEDS: clopidogrel 75 mg Tablet PO (05:19)
[2022-04-29] MEDS: FUROsemide 10 mg/mL SDV 4mL 40 MG IVP (05:19)
[2022-04-29] MEDS: aspirin 81 mg EC Tablet PO (05:20)
[2022-04-29] MEDS: atorvastatin 40 mg Tablet PO ×2 (05:20→10:09)
[2022-04-29] MEDS: HYDROcodone-acetaminophen 10-325 mg Tablet 1 TAB PO ×2 (05:23→23:20)
[2022-04-29] MEDS: metoprolol succinate ER (24 HR) 50 mg Tablet PO (05:24)
--- NOTE | 2022-04-29 06:04 | ECG_ITS ---
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 Measurements Intervals Imogene Rate: 88 P: 76 DC: 158 QRS: 1 QRSD: 149 T: 157 QT: 396 QTc: 480 Interpretive Statements SINUS RHYTHM LEFT BUNDLE BRANCH BLOCK [120+ ms QRS DURATION, 80+ ms Q/S IN V1/V2, 85+ ms R IN I/aVL/V5/V6] Compared to ECG 04/29/2022 01:37:38 No change Electronically Signed On 04-29-2022 12:36:46 CDT by Malik Moore M.D. [id number]
--- NOTE | 2022-04-29 06:04 | PC.NURSE ---
ICU Arrival; Patient arrived to ICU via fredi @0454. A&O 4. 3LNC with VSS. Room orientation completed with current POC. Bed low and locked. Call light in reach. No further needs at this time.
--- NOTE | 2022-04-29 06:41 | PC.NURSE ---
Patients's daughter Ophelia updated on current POC. Contact information included below.
[2022-04-29 07:27] LABS: Glucose Point of Care 125 mg/dL (70-110)
[2022-04-29 08:11] LABS: Troponin 5 6HR 209.7 ng/L (0-10); Troponin 5 6HR Delta 181.7 ng/L (0-12)
[2022-04-29] MEDS: ipratropium-albuterol 3 mL Neb INHALATION ×3 (08:48→21:22)
--- NOTE | 2022-04-29 09:41 | P.CONIM_ITS ---
Providers/Reason For Consult Consulting Physician/Specialty*: Cardiovascular medicine Reason for Consult*: Non-ST segment elevation MD Requesting Physician: Hospitalist Attending Physician: Gerald Niño MD Primary Care Provider: Leena Calderon History of Present Illness History of Present Illness Ivette Ruiz is a 76 year old female who is well-known to me from when I was here full-time. She is a noncompliant woman with a very long list of medical problems. She has a history of coronary disease with prior MD. She had coronary bypass surgery in 2013 at this institution. She also has carotid disease and has had carotid endarterectomy I believe on both sides. She has a history of heart failure, chronic pain, chronic kidney disease, COPD, lifelong tobacco abuse which continues on oxygen, diabetes with neuropathy, dyslipidemia, hypertension and obesity. She does not take very good care of her self. Despite many admonitions to the contrary, she continues to insist upon smoking. Her also smokes heavily. Last evening after her meal she had shortness of breath, cold sweats, chest discomfort. She came to the emergency room. Her first troponin was 28. The second was 107 and the third 209. Her BNP is 581. Chest x-ray is basically normal. There might be some mild pulmonary vascular redistribution. Her EKG showed a left bundle branch block. I do not have her old bypass surgery report as it is in the old medical records. I am searching for that at this time. Review of Systems Narrative: Negative other than what is in the history of present illness. Medications/Allergies Home Medications Medication Instructions Recorded Confirmed Last Taken Type albuterol sulfate 90 mcg/actuation 2 puff INHALATION Q6H PRN 11/18/19 04/29/22 Unknown History aerosol inhaler (Proventil HFA) ascorbic acid (vitamin C) 500 mg 250 mg PO QDAY 11/18/19 04/29/22 Unknown History tablet aspirin 81 mg tablet,delayed 81 mg PO QDAY 11/18/19 04/29/22 Unknown History release (Adult Low Dose Aspirin) atenolol 50 mg tablet 50 mg PO QDAY 11/18/19 04/29/22 Unknown History atorvastatin 40 mg tablet (Lipitor) 40 mg PO QDAY 11/18/19 04/29/22 Unknown History calcium carbonate 600 mg calcium 600 mg PO QDAY 11/18/19 04/29/22 Unknown History (1,500 mg) tablet cholecalciferol (vitamin D3) 25 1,000 unit PO QDAY 11/18/19 04/29/22 Unknown History mcg (1,000 unit) capsule clopidogrel 75 mg tablet 75 mg PO QDAY 11/18/19 04/29/22 Unknown History cranberry extract 200 mg capsule 200 mg PO QDAY 11/18/19 04/29/22 Unknown History desloratadine 5 mg tablet 5 mg PO QDAY 11/18/19 04/29/22 Unknown History exenatide (Byetta) 5 mcg SUBCUT BID 11/18/19 04/29/22 Unknown History ezetimibe 10 mg tablet (Zetia) 10 mg PO QDAY 11/18/19 04/29/22 Unknown History fluticasone 250 mcg-salmeterol 50 1 inh INHALATION BID 11/18/19 04/29/22 Unknown History mcg/dose blistr powdr for inhalation (Advair Diskus) furosemide 40 mg tablet 40 mg PO QAM 11/18/19 04/29/22 Unknown History insulin glargine 100 unit/mL 10 unit SUBCUT QDAY ml 11/18/19 04/29/22 Unknown History subcutaneous solution (Lantus U-100 Insulin) isosorbide mononitrate 120 mg 120 mg PO BID tab 11/18/19 04/29/22 Unknown History tablet,extended release 24 hr melatonin 5 mg tablet 5 mg PO QDAY 11/18/19 04/29/22 Unknown History methocarbamol 500 mg tablet 500 mg PO QID PRN 11/18/19 04/29/22 Unknown History metoclopramide HCl 10 mg tablet 10 mg PO Q6H PRN 11/18/19 04/29/22 Unknown History metoprolol succinate 50 mg 50 mg PO QDAY 11/18/19 04/29/22 Unknown History tablet,extended release 24 hr pantoprazole 40 mg tablet,delayed 40 mg PO QDAY 11/18/19 04/29/22 Unknown History release (Protonix) ropinirole 0.5 mg tablet 0.5 mg PO QDAY 11/18/19 04/29/22 Unknown History tiotropium bromide 18 mcg capsule 1 cap INHALATION QDAY 11/18/19 04/29/22 Unknown History with inhalation device (Spiriva with HandiHaler) trazodone 100 mg tablet 100 mg PO QDAY 11/18/19 04/29/22 Unknown History venlafaxine 37.5 mg tablet 37.5 mg PO QDAY 11/18/19 04/29/22 Unknown History vitamin B complex (B 1 tab PO QDAY 11/18/19 04/29/22 Unknown History Complex-Vitamin B12) levothyroxine 25 mcg tablet 25 mcg PO DAILY 12/02/19 04/29/22 Unknown History magnesium oxide 400 mg PO BID 12/02/19 04/29/22 Unknown History bpigzifeeeds-MV-oie 200 mcg-16 mg 1 tab PO DAILY 12/02/19 04/29/22 Unknown History chewable tablet (One-A-Day Vitacraves [place]-3) nitroglycerin 0.4 mg sublingual 0.4 mg SUBLINGUAL Q5M PRN 12/02/19 04/29/22 Unknown History tablet (Nitrostat) gabapentin 800 mg tablet 800 mg PO TID 90 Days #270 tab 03/17/20 04/29/22 Unknown Rx lidocaine 5 % topical patch 3 patch TOPICAL DAILY 90 Days #90 03/17/20 04/29/22 Unknown Rx each cyclobenzaprine 10 mg tablet 5 mg PO TID PRN 90 Days #135 tab 03/15/21 04/29/22 Unknown Rx lisinopril 10 mg tablet 20 mg PO QDAY tab 04/13/21 04/29/22 Unknown History hydrocodone 10 mg-acetaminophen 1 tab PO QID PRN 30 Days #120 tab 07/27/21 04/29/22 Unknown Rx 325 mg tablet meloxicam 15 mg tablet See Rx Instructions .ROUTE 12/13/21 04/29/22 Unknown Rx .COMPLEX #30 tab Diabetic Shoes with Inserts #1 ea 04/18/22 04/29/22 Unknown Rx roflumilast 500 mcg tablet 500 mcg PO DAILY 04/29/22 04/29/22 Unknown History (Daliresp) Allergies Allergy/AdvReac Type Severity Reaction Status Date / Time No Known Allergies Allergy Verified 04/29/22 09:01 Current Medications Generic Name Dose Route Start Last Admin Trade Name Freq PRN Reason Stop Dose Admin Hydrocodone Bitart/Acetaminophen 1 tab 04/29/22 05:03 04/29/22 05:23 Hydrocodone-Acetaminophen 10-325 Mg Tablet PO 1 tab QID PRN Administration pain Albuterol/Ipratropium 3 ml 04/29/22 09:00 04/29/22 08:48 Ipratropium-Albuterol 3 Ml Neb INHALATION 3 ml Q6H.RESPIRATORY RIDGE Administration Aspirin 81 mg 04/29/22 05:03 04/29/22 05:20 Aspirin 81 Mg Ec Tablet PO 81 mg DAILY RIDGE Administration Atorvastatin Calcium 40 mg 04/29/22 05:03 04/29/22 05:20 Atorvastatin 40 Mg Tablet PO 40 mg DAILY RIDGE Administration Clopidogrel Bisulfate 75 mg 04/29/22 05:03 04/29/22 05:19 Clopidogrel 75 Mg Tablet PO 75 mg DAILY RIDGE Administration Insulin Human Lispro 0 unit 04/29/22 08:00 04/29/22 07:26 Insulin Lispro 100 Unit/1 Ml SUBCUT Not Given WM&BEDTIME RIDGE Protocol Metoprolol Succinate 50 mg 04/29/22 05:03 04/29/22 05:24 Metoprolol Succinate Er (24 Hr) 50 Mg Tablet PO 50 mg DAILY RIDGE Administration Fluticasone/Salmeterol 1 puff 04/29/22 08:00 04/29/22 08:47 Fluticasone-Salmeterol 250-50 Diskus INHALATION 1 puff BID.RESPIRATORY RIDGE Administration PFSH Acute PFSH: Medical History ASHD (arteriosclerotic heart disease) Bilateral knee pain Carotid stenosis, bilateral CHF (congestive heart failure) Chronic fatigue Chronic hip pain CKD (chronic kidney disease) COPD (chronic obstructive pulmonary disease) Diabetes Diabetic neuropathy DJD (degenerative joint disease), lumbar Dyslipidemia Essential hypertension GERD (gastroesophageal reflux disease) Long-term current use of opiate analgesic Lumbar stenosis with neurogenic claudication Lupus anticoagulant disorder Myocardial infarction Obesity PAD (peripheral artery disease) Pain management contract signed TIA (transient ischemic attack) Tobacco use disorder Surgical History S/P CABG (coronary artery bypass graft) (~10/01/14) S/P carotid endarterectomy S/P carpal tunnel release (Unknown) LEFT S/P cataract extraction (Unknown) RIGHT DR BATISTA S/P cataract extraction S/P hysterectomy Family History Unknown Adopted Social History Smoking and tobacco status: current every day smoker cigarettes Packs smoked per day: 2 Quit status (tobacco): has tried quititng Alcohol intake: never Adopted: Yes Lives independently: Yes Household members: spouse Marital status: History of recent travel: No Vitals/I&O/Wt Last Vital Signs Temp 98.6 F 04/29/22 08:00 Pulse 80 04/29/22 08:55 Resp 16 04/29/22 08:40 BP 124/82 04/29/22 08:00 Pulse Ox 97 04/29/22 08:40 04/28/22 04/29/22 04/29/22 22:59 06:59 14:59 Output Total 850 / 850 Balance -850 / -850 Weight last 48 hrs Weight 164 lb Physical Exam Narrative: GENERAL: She is comfortable at rest without any chest pain or shortness of breath HEENT: Exam within normal limits. NECK: Supple without jugular vein distention. The carotid upstroke is normal without bruits. BACK: Exam normal. LUNGS: Clear. Mild scattered inspiratory wheezes. HEART: Regular rate and rhythm. ABDOMEN: Benign without organomegaly or tenderness. EXTREMITIES: No edema. NEUROLOGIC: Exam normal. SKIN: Unremarkable. Data : 04/28/22 23:55 04/28/22 23:55 A&P Assessment and plan (1) V-tach: Status: Acute (2) Chest pain: Status: Acute (3) Non-STEMI (non-ST elevated myocardial infarction): Status: Acute (4) Diabetic peripheral neuropathy associated with type 2 diabetes mellitus: Status: Acute (5) S/P CABG (coronary artery bypass graft): Status: Acute (6) PAD (peripheral artery disease): Status: Acute (7) Myocardial infarction: Status: Acute (8) Essential hypertension: Status: Acute (9) Dyslipidemia: Status: Acute (10) Diabetes: Status: Acute (11) COPD (chronic obstructive pulmonary disease): Status: Acute (12) CKD (chronic kidney disease): Status: Acute (13) CHF (congestive heart failure): Status: Acute (14) Carotid stenosis, bilateral: Status: Acute (15) Tobacco use disorder: Status: Chronic (16) Obesity: Status: Chronic Plan This is an expected turn of events given her underlying illnesses and refusal to take care of her self. I had a lengthy conversation with her about how to manage this. The 2 choices really would be medical therapy and coronary angiography. She is at increased risk of angiography because of her underlying lung disease, heart disease and chronic kidney disease. Despite that she wishes to go through with angiography. I am making an attempt now to get into the old computerized medical record to find her bypass surgery report. In the meantime she is stable. Once I get the bypass surgery report we will schedule an angiogram. Consult Attestations Medical Necessity Statement: Hospitalization for acute non-ST segment elevation MD Coding Level of Care Code New Pt Acute Hand Collator for Chg Fwd Patient Type New History Comprehensive Exam Comprehensive Medical Decision Making High Complexity Diagnoses V-tach I47.2 Chest pain R07.9 Non-STEMI (non-ST elevated myocardial infarction) I21.4 Diabetic peripheral neuropathy associated with type 2 diabetes mellitus E11.42 S/P CABG (coronary artery bypass graft) Z95.1 PAD (peripheral artery disease) I73.9 Myocardial infarction I21.9 Essential hypertension I10 Dyslipidemia E78.5 Diabetes E11.9 COPD (chronic obstructive pulmonary disease) J44.9 CKD (chronic kidney disease) N18.9 CHF (congestive heart failure) I50.9 Carotid stenosis, bilateral I65.23 Tobacco use disorder F17.200 Obesity E66.9
[2022-04-29] MEDS: ropinirole 0.25 mg Tablet 0.5 MG PO (10:07)
[2022-04-29] MEDS: pantoprazole DR 40 mg Tablet PO (10:08)
[2022-04-29] MEDS: isosorbide mononitrate ER 60 mg Tablet 120 MG PO ×2 (10:08→17:26)
[2022-04-29] MEDS: gabapentin 400 mg Capsule 800 MG PO ×3 (10:08→21:00)
[2022-04-29] MEDS: ranolazine (12HR) 500 mg Tablet PO ×2 (10:08→17:26)
[2022-04-29] MEDS: levothyroxine 25 mcg Tablet PO (10:09)
[2022-04-29] MEDS: lisinopril 20 mg Tablet PO (10:09)
[2022-04-29] MEDS: atorvastatin 40 mg Tablet 20 MG PO (10:10)
[2022-04-29] MEDS: ezetimibe 10 mg Tablet PO (10:22)
[2022-04-29] MEDS: venlafaxine 75 mg Tablet 37.5 MG PO (10:22)
--- NOTE | 2022-04-29 11:10 | P.PN_ITS ---
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 Moore in the past Has started seeing Dr. Snyder Today Dr. Moore is seeing her today, might plan for an angiogram Previous CABG 2013 She had a left internal mammary artery to the LAD, single vein graft to the diagonal and single vein graft to the right coronary artery.? In May 2015 she underwent coronary angiography for similar problems and the diagonal graft was occluded.? The right coronary artery graft was patent as was the left internal mammary artery.? Her douglas circumflex was stented.? This was not bypassed at the time of surgery due to its intramyocardial location Vitals/I&O/Wt Last Vital Signs Temp 98.6 F 04/29/22 08:00 Pulse 80 04/29/22 08:55 Resp 16 04/29/22 08:40 BP 124/82 04/29/22 08:00 Pulse Ox 97 04/29/22 08:40 04/28/22 04/29/22 04/29/22 22:59 06:59 14:59 Output Total 850 / 850 Balance -850 / -850 Weight last 48 hrs Weight 74.389 kg Physical Exam Narrative: Very pleasant cooperative female Looks dehydrated No active wheezing or crackles Abdomen soft Patient using 5 to 6 L of oxygen No audible stridor Very pleasant and cooperative S1, S2 Awake and alert Nonfocal neuro exam Data : 04/28/22 23:55 04/28/22 23:55 A&P Assessment and plan (1) V-tach: Status: Acute (2) Chest pain: Status: Acute (3) Non-STEMI (non-ST elevated myocardial infarction): Status: Acute (4) Pes planus of both feet: Status: Acute (5) Bilateral bunions: Status: Acute (6) Callus of foot: Status: Acute (7) Onychodystrophy: Status: Acute (8) Diabetic peripheral neuropathy associated with type 2 diabetes mellitus: Status: Acute (9) Primary osteoarthritis of knees, bilateral: Status: Acute Plan NSTEMI: Plan for angiogram today by Dr. Hall Previous CABG report reviewed by Dr. Moore No active chest pain Currently on ACS/NSTEMI protocol Hemodynamically stable No recurrence of V. tach, currently managed with metoprolol, patient is hemodynamically stable, potassium 4.0, magnesium 2.0 Severe COPD uses 6 L of oxygen at home she is at high risk for worsening of COPD requiring intubation in any case of worsening of her respiratory status would recommend high settings of BiPAP with target O2 saturation above 88, I also recommended her to see Dr. Eaton outpatient Active smoker, patient has decided to quit smoking Hypothyroid: Continue levothyroxine Type 2 diabetes, sliding scale and start Lantus after her angiogram today Acute on chronic kidney disease current creatinine is 1.9 Clinically looks dehydrated Holding nephrotoxic agents Full code Attestations Medical Necessity Statement*: Continue medical management Time Spent in Patient Care: 30 Coding Level of Care Code Acute Joy Operator Helper for Chg Fwd Diagnoses V-tach I47.2 Chest pain R07.9 Non-STEMI (non-ST elevated myocardial infarction) I21.4 Pes planus of both feet M21.41; M21.42 Bilateral bunions M21.611; M21.612 Callus of foot L84 Onychodystrophy L60.3 Diabetic peripheral neuropathy associated with type 2 diabetes mellitus E11.42 Primary osteoarthritis of knees, bilateral M17.0
[2022-04-29 12:05] LABS: Glucose Point of Care 156 mg/dL (70-110)
[2022-04-29] MEDS: insulin lispro 100 unit/1 mL SUBCUT ×3 (12:15→21:38)
[2022-04-29 16:50] LABS: Glucose Point of Care 159 mg/dL (70-110)
--- NOTE | 2022-04-29 17:24 | ED_ITS ---
HPI - Chest Pain General: Chief Complaint: Chest Pain Stated Complaint: cp Time Seen by Provider: 04/28/22 23:54 Source: patient History of Present Illness: 76 year old female with a history of coronary disease, heart failure, and COPD. She presents with chest discomfort and shortness of breath. An ambulance was called, and she was given nitroglycerin times 3, 40 milligrams of furosemide, an albuterol treatment, and aspirin. She is essentially now pain free. She uses oxygen all the time at home. She is at her baseline oxygen level currently and not having significant symptoms. MD complaint: chest pain Pertinent past history: coronary artery disease, CABG and other Onset (ago): hour(s) Timing of current episode: constant Prior episodes: Yes Onset: during rest Pain location: substernal Pain radiation: none Severity: moderate Quality: aching and heaviness Relieving factors: nitroglycerin Exacerbating factors: nothing Associated symptoms: Reports dyspnea, leg edema, nausea and palpitations; Deny abdominal pain, diaphoresis, fever(s) or vomiting Treatment prior to arrival: aspirin, nitroglycerin, oxygen and other Review of Systems Const: Denies: fever(s) or diaphoresis Eyes: Reports: change in vision ENMT: Denies: throat pain Card: Reports: chest pain and palpitations Resp: Reports: dyspnea and productive cough GI: Reports: nausea; Denies: abdominal pain or vomiting Musc: Denies: neck pain Neuro: Reports: headache(s) PFS ED PFSH: Medical History ASHD (arteriosclerotic heart disease) Bilateral knee pain Carotid stenosis, bilateral CHF (congestive heart failure) Chronic fatigue Chronic hip pain CKD (chronic kidney disease) COPD (chronic obstructive pulmonary disease) Diabetes Diabetic neuropathy DJD (degenerative joint disease), lumbar Dyslipidemia Essential hypertension GERD (gastroesophageal reflux disease) Long-term current use of opiate analgesic Lumbar stenosis with neurogenic claudication Lupus anticoagulant disorder Myocardial infarction Obesity PAD (peripheral artery disease) Pain management contract signed TIA (transient ischemic attack) Tobacco use disorder Surgical History S/P CABG (coronary artery bypass graft) (~10/01/14) S/P carotid endarterectomy S/P carpal tunnel release (Unknown) LEFT S/P cataract extraction (Unknown) RIGHT DR BATISTA S/P cataract extraction S/P hysterectomy Family History Unknown Adopted Social History Smoking and tobacco status: current every day smoker cigarettes Packs smoked per day: 2 Quit status (tobacco): has tried quititng Alcohol intake: never Adopted: Yes Lives independently: Yes Household members: spouse Marital status: History of recent travel: No Physical Exam Const: GENERAL APPEARANCE: cooperative and frail appearing HENMT: COMMON NORMALS: normocephalic and atraumatic HEAD & SCALP: normocephalic and atraumatic FACE & SINUS: normal facial exam Eye: COMMON NORMALS: Equal, round and reactive pupils present and EOMs intact bilaterally PUPIL: Yes Equal, round and reactive pupils present Neck/C-Spine: GENERAL: Yes trachea midline Chest: CHEST: Yes Symmetrical chest wall rise Resp: EFFORT & INSPECTION: Yes tachypneic AUSCULTATION: rales and wheezes Cardio: COMMON NORMALS: regular rate RATE: regular rate GI: INSPECTION: Yes normal to inspection Extremity: GENERAL: Yes edema Neuro: ELSA COMA SCALE: document GCS findings [place] coma scale eye opening: Spontaneous [place] coma scale verbal response: Orientated Elsa coma scale motor response: Obey commands Elsa coma scale total score: 15 Course Vital Signs: Vital signs: Vital Signs Temperature 98.6 F 04/29/22 08:00 Pulse Rate 76 04/29/22 14:01 Respiratory Rate 16 04/29/22 14:01 Blood Pressure 134/88 04/29/22 12:00 Pulse Oximetry 92 04/29/22 14:01 MDM - Chest Pain Medical Decision Making No significant St changes on EKG. The patient is pain free now. She has been given nitroglycerin and aspirin. Her troponin level jeremi significantly at two hours indicating likely non-stemi. because of this she'll be hospitalized. Cardiology was consulted from the emergency room, and agrees with plan. She is already on Plavix. We will give her a dose of Lovenox. Topical nitroglycerin for blood pressure control. Lab Data : 04/28/22 23:55 04/28/22 23:55 Radiology Impressions Chest X-Ray 04/29/22 00:04 IMPRESSION: No acute chest abnormality identified. Laboratory Results WBC 14.5 10^3/uL (4.0-10.0) H 04/28/22 23:55 RBC 5.03 10^6/uL (4.1-5.3) 04/28/22 23:55 Hgb 15.2 g/dL (11.5-15.3) 04/28/22 23:55 Hct 46.0 % (37.0-47.0) 04/28/22 23:55 MCV 91.5 fl (81-99) 04/28/22 23:55 MCH 30.2 pg (28.0-34.0) 04/28/22 23:55 MCHC 33.0 g/dL (30.0-36.0) 04/28/22 23:55 RDW 12.8 % (12.1-15.1) 04/28/22 23:55 Plt Count 252 10^3/cmm (130-400) 04/28/22 23:55 MPV 12.4 fL (7.4-10.4) H 04/28/22 23:55 Neut % (Auto) 50.0 % 04/28/22 23:55 Lymph % (Auto) 40.0 % 04/28/22 23:55 [place] % (Auto) 7.5 % 04/28/22 23:55 Eos % (Auto) 1.5 % 04/28/22 23:55 Baso % (Auto) 0.5 % 04/28/22 23:55 Neut # (Auto) 7.26 10^3/uL (1.8-7.7) 04/28/22 23:55 Lymph # (Auto) 5.8 10^3/uL (0.8-4.8) H 04/28/22 23:55 [place] # (Auto) 1.1 10^3/uL (0.2-0.9) H 04/28/22 23:55 Eos # (Auto) 0.2 10^3/uL (0.0-0.8) 04/28/22 23:55 Baso # (Auto) 0.1 10^3/uL (0.0-0.1) 04/28/22 23:55 Nucleated RBC % (auto) 0 % 04/28/22 23:55 Nucleated RBCs # 0.0 /100WBC 04/28/22 23:55 PT 12.20 SECONDS (12.1-14.9) 04/28/22 23:55 INR 0.88 (0.8-1.2) 04/28/22 23:55 APTT 37.4 SECONDS (23.9-36.7) H 04/28/22 23:55 Sodium 135 mmol/L (136-145) L 04/28/22 23:55 Potassium 4.0 mmol/L (3.5-5.1) 04/28/22 23:55 Chloride 92 mmol/L (98-107) L 04/28/22 23:55 Carbon Dioxide 28 mmol/L (22-29) 04/28/22 23:55 Anion Gap 19.0 (5-19) 04/28/22 23:55 BUN 31 mg/dL (8-23) H 04/28/22 23:55 Creatinine 1.9 mg/dL (0.5-0.9) H 04/28/22 23:55 GFR Calculation Not Reportable 04/28/22 23:55 Glucose 200 mg/dL (65-115) H 04/28/22 23:55 Calculated Osmolality 292 mOsm/kg (285-295) 04/28/22 23:55 Calcium 9.6 mg/dL (8.5-10.5) 04/28/22 23:55 Total Bilirubin 0.4 mg/dL (0.15-1.2) 04/28/22 23:55 AST 16 U/L (0-32) 04/28/22 23:55 ALT 20 U/L (0-33) 04/28/22 23:55 Alkaline Phosphatase 98 IU/L (35-105) 04/28/22 23:55 Troponin T Baseline 28 ng/L (0-10) H 04/28/22 23:55 Troponin T 120 Minute 106.9 ng/L (0-10) H 04/29/22 01:50 Delta Troponin T 78.9 ABS# (0-10) H* 04/29/22 01:50 NT-Pro-B Natriuret Pep 581 pg/mL (0-450) H 04/28/22 23:55 Total Protein 7.3 g/dL (6.6-8.7) 04/28/22 23:55 Albumin 4.0 g/dL (3.5-5.2) 04/28/22 23:55 Globulin 3.3 g/dL (1.3-4.6) 04/28/22 23:55 Discharge Plan Discharge Patient Disposition: Admitted As Inpatient Admit Provider: Elsie Strickland Clinical Impression: Chest pain, Non-STEMI (non-ST elevated myocardial infarction) Condition: Stable Coding Level of Care Code ED Executive Chef for Chg Fwd Exam Comprehensive
[2022-04-29] MEDS: trazodone 100 mg Tablet PO (21:00)
[2022-04-29 21:30] LABS: Glucose Point of Care 148 mg/dL (70-110)
[2022-04-29] MEDS: insulin glargine 100 units/1 mL 30 UNIT SUBCUT (21:37)
[2022-04-30] VITALS (19 sets, daily range): BP systolic 81–139; BP diastolic 47–76; PULSE 70–95; RESP 13–30; TEMP 36.6–37.1; O2SAT 85–98
[2022-04-30] MEDS: ipratropium-albuterol 3 mL Neb INHALATION ×2 (03:05→08:31)
[2022-04-30] MEDS: enoxaparin 80 mg/0.8 mL Syringe 70 MG SUBCUT (03:15)
[2022-04-30 03:23] LABS: Basophils # 0.1 10^3/uL (0.0-0.1); Basophils % 0.4 %; Eosinophils # 0.2 10^3/uL (0.0-0.8); Eosinophils % 1.7 %; Hematocrit 40.5 % (37.0-47.0); Hemoglobin 13.2 g/dL (11.5-15.3); Lymphocytes # 3.7 10^3/uL (0.8-4.8); Lymphocytes % 32.6 %; Mean Corpuscular HGB Conc 32.6 g/dL (30.0-36.0); Mean Corpuscular Hemoglobin 29.9 pg (28.0-34.0); Mean Corpuscular Volume 91.6 fl (81-99); Mean Platelet Volume 11.8 fL (7.4-10.4); Monocytes # 1.1 10^3/uL (0.2-0.9); Monocytes % 9.8 %; Neutrophils % 55.1 %; Nucleated Red Blood Cells % 0 %; Platelet Count 211 10^3/cmm (130-400); Red Blood Count 4.42 10^6/uL (4.1-5.3); Red Cell Distribution Width 12.7 % (12.1-15.1); White Blood Count 11.4 10^3/uL (4.0-10.0)
[2022-04-30 03:46] LABS: Alanine Aminotransferase 15 U/L (0-33); Albumin Level 3.2 g/dL (3.5-5.2); Alkaline Phosphatase 77 IU/L (35-105); Aspartate Amino Transferase 19 U/L (0-32); Blood Urea Nitrogen 35 mg/dL (8-23); Calcium 9.7 mg/dL (8.5-10.5); Carbon Dioxide 29 mmol/L (22-29); Chloride 98 mmol/L (98-107); Globulin 2.9 g/dL (1.3-4.6); Glucose 112 mg/dL (65-115); Osmolality Calculated 295 mOsm/kg (285-295); Sodium 138 mmol/L (136-145); Total Bilirubin 0.3 mg/dL (0.15-1.2); Total Protein 6.1 g/dL (6.6-8.7)
[2022-04-30 03:51] LABS: Anion Gap 15.1 (5-19); Potassium 4.1 mmol/L (3.5-5.1)
--- NOTE | 2022-04-30 06:55 | PM.PN ---
Subjective Subjective: Ivette is feeling a little better this morning. She is not having more leg cramps but complains that her legs are restless. No further chest pain. Vitals/I&O/Wt Last Vital Signs Temp 97.8 F 04/30/22 04:00 Pulse 78 04/30/22 06:00 Resp 23 H 04/30/22 05:00 BP 119/63 04/30/22 05:00 Pulse Ox 97 04/30/22 05:00 04/29/22 04/29/22 04/30/22 14:59 22:59 06:59 Intake Total 370 / 370 Output Total 1300 / 1300 150 / 1450 Balance -930 / -930 -150 / -1080 Weight last 48 hrs Weight 164 lb Physical Exam Narrative: GENERAL: In general she is comfortable at rest HEENT: Exam within normal limits. NECK: Supple without jugular vein distention. The carotid upstroke is normal without bruits. BACK: Exam normal. LUNGS: Clear. HEART: Regular rate and rhythm. ABDOMEN: Benign without organomegaly or tenderness. EXTREMITIES: No edema. Some diminished pulses bilaterally NEUROLOGIC: Exam normal. SKIN: Unremarkable. Data : 04/30/22 03:06 04/30/22 03:06 A&P Assessment and plan (1) V-tach: Status: Acute (2) Chest pain: Status: Acute (3) Non-STEMI (non-ST elevated myocardial infarction): Status: Acute (4) S/P CABG (coronary artery bypass graft): Status: Acute (5) PAD (peripheral artery disease): Status: Acute (6) Myocardial infarction: Status: Acute (7) Essential hypertension: Status: Acute (8) Diabetes: Status: Acute (9) Dyslipidemia: Status: Acute (10) COPD (chronic obstructive pulmonary disease): Status: Acute (11) CKD (chronic kidney disease): Status: Acute (12) CHF (congestive heart failure): Status: Acute (13) Carotid stenosis, bilateral: Status: Acute (14) Tobacco use disorder: Status: Chronic Plan I spoke to her again about coronary angiography. She remains reluctant to lie flat after the procedure because of her legs. She is also quite nervous about her Kishore who is at home by himself. He is apparently not doing well. She is worried that something will happen to him while she is here. He is legally blind and is having difficulty negotiating things at home. After quite a long conversation she wishes to treat her cardiac status medically and be discharged to go home with her . Attestations Medical Necessity Statement*: Hospitalization for non-ST segment elevation ID. Coding Level of Care Code Established Pt Acute Bilingual Sales Assistant for Sera Harris Patient Type Established History Detailed Exam Detailed Medical Decision Making Moderate Complexity Diagnoses V-tach I47.2 Chest pain R07.9 Non-STEMI (non-ST elevated myocardial infarction) I21.4 S/P CABG (coronary artery bypass graft) Z95.1 PAD (peripheral artery disease) I73.9 Myocardial infarction I21.9 Essential hypertension I10 Diabetes E11.9 Dyslipidemia E78.5 COPD (chronic obstructive pulmonary disease) J44.9 CKD (chronic kidney disease) N18.9 CHF (congestive heart failure) I50.9 Carotid stenosis, bilateral I65.23 Tobacco use disorder F17.200
[2022-04-30 07:49] LABS: Glucose Point of Care 104 mg/dL (70-110)
[2022-04-30] MEDS: lidocaine 5% Patch 3 PATCH TOPICAL (08:25)
[2022-04-30] MEDS: atorvastatin 40 mg Tablet PO (08:25)
[2022-04-30] MEDS: aspirin 81 mg EC Tablet PO (08:25)
[2022-04-30] MEDS: atorvastatin 40 mg Tablet 20 MG PO (08:25)
[2022-04-30] MEDS: ezetimibe 10 mg Tablet PO (08:26)
[2022-04-30] MEDS: lisinopril 20 mg Tablet PO (08:26)
[2022-04-30] MEDS: metoprolol succinate ER (24 HR) 50 mg Tablet PO (08:26)
[2022-04-30] MEDS: clopidogrel 75 mg Tablet PO (08:26)
[2022-04-30] MEDS: ranolazine (12HR) 500 mg Tablet PO (08:26)
[2022-04-30] MEDS: levothyroxine 25 mcg Tablet PO (08:26)
[2022-04-30] MEDS: venlafaxine 75 mg Tablet 37.5 MG PO (08:27)
[2022-04-30] MEDS: pantoprazole DR 40 mg Tablet PO (08:27)
[2022-04-30] MEDS: ropinirole 0.25 mg Tablet 0.5 MG PO (08:28)
[2022-04-30] MEDS: gabapentin 400 mg Capsule 800 MG PO ×2 (08:28→12:54)
[2022-04-30] MEDS: isosorbide mononitrate ER 60 mg Tablet 120 MG PO (08:28)
[2022-04-30 12:09] LABS: Glucose Point of Care 155 mg/dL (70-110)
[2022-04-30] MEDS: insulin lispro 100 unit/1 mL SUBCUT (12:15)
--- NOTE | 2022-04-30 12:52 | PM.DCS ---
Discharge Providers Date of Admission: 04/29/22 03:21 Date of Discharge: April 30, 2022 Attending Provider at Admission: Elsie Strickland MD Attending Provider at Discharge: Gerald Niño MD Primary Care Provider: Leena Calderon Diagnoses at Discharge Discharge Diagnosis (1) V-tach: Status: Acute (2) Chest pain: Status: Acute (3) Non-STEMI (non-ST elevated myocardial infarction): Status: Acute (4) S/P CABG (coronary artery bypass graft): Status: Acute (5) PAD (peripheral artery disease): Status: Acute (6) Myocardial infarction: Status: Acute (7) Essential hypertension: Status: Acute (8) Diabetes: Status: Acute (9) Dyslipidemia: Status: Acute (10) COPD (chronic obstructive pulmonary disease): Status: Acute (11) CKD (chronic kidney disease): Status: Acute (12) CHF (congestive heart failure): Status: Acute (13) Carotid stenosis, bilateral: Status: Acute (14) Tobacco use disorder: Status: Chronic Reason for Visit Reason for Visit: cp Hospital Course Hospital Course 76-year female presented to the hospital with chief complaint of chest pain. She was diagnosed with unstable angina. She was treated for NSTEMI with ACS protocol. Dr. Moore was consulted. This patient is well-known to Dr. Moore. There was plan to do an angiogram considering her past history, patient refused angiogram because of her leg cramps. She is still smoking 2 packs of cigarettes daily, she stating that she is done with her smoking and she is not going to smoke anymore, she is also worried about her who is not able to take care of himself, he is blind and needs help with almost daily activities including his medicines. Her EKG is consistent with left bundle branch block, patient is known complaining of chest pain on 04/30 and wants to go home. She does understand the risk factors and complications involved related to her coronary disease and left bundle branch block, she is adamant that she does not want an angiogram at this point and would like to go home. She will be treated medically for now. At home she is requiring 6 L of oxygen, carries history of COPD has not seen a nuisance wildlife control operator. I would give her a referral to see Dr. Eaton outpatient. Previous CABG 2013 She had a left internal mammary artery to the LAD, single vein graft to the diagonal and single vein graft to the right coronary artery.? In May 2015 she underwent coronary angiography for similar problems and the diagonal graft was occluded.? The right coronary artery graft was patent as was the left internal mammary artery.? Her [place] circumflex was stented.? This was not bypassed at the time of surgery due to its intramyocardial location Physical Exam Narrative: ?In general she is comfortable at rest HEENT: Exam within normal limits. NECK: Supple without jugular vein distention. LUNGS: Clear. HEART: Regular rate and rhythm. ABDOMEN: Benign without organomegaly or tenderness. EXTREMITIES: No edema.? NEUROLOGIC: Exam normal. SKIN: Unremarkable Discharge Data Studies Completed and Pending Completed Studies During Hospitalization Category Date Time Status XR chest 1V portable [id number] Stat Exams 04/29/22 00:04 Completed Pending at discharge Category Date Time Status SUBWAY OPERATOR request for service Routine Exams 04/29/22 11:11 Ordered Radiology Impressions Chest X-Ray 04/29/22 00:04 IMPRESSION: No acute chest abnormality identified. Laboratory Results WBC 11.4 10^3/uL (4.0-10.0) H 04/30/22 03:06 RBC 4.42 10^6/uL (4.1-5.3) 04/30/22 03:06 Hgb 13.2 g/dL (11.5-15.3) 04/30/22 03:06 Hct 40.5 % (37.0-47.0) 04/30/22 03:06 MCV 91.6 fl (81-99) 04/30/22 03:06 MCH 29.9 pg (28.0-34.0) 04/30/22 03:06 MCHC 32.6 g/dL (30.0-36.0) 04/30/22 03:06 RDW 12.7 % (12.1-15.1) 04/30/22 03:06 Plt Count 211 10^3/cmm (130-400) 04/30/22 03:06 MPV 11.8 fL (7.4-10.4) H 04/30/22 03:06 Neut % (Auto) 55.1 % 04/30/22 03:06 Lymph % (Auto) 32.6 % 04/30/22 03:06 [place] % (Auto) 9.8 % 04/30/22 03:06 Eos % (Auto) 1.7 % 04/30/22 03:06 Baso % (Auto) 0.4 % 04/30/22 03:06 Neut # (Auto) 6.30 10^3/uL (1.8-7.7) 04/30/22 03:06 Lymph # (Auto) 3.7 10^3/uL (0.8-4.8) 04/30/22 03:06 [place] # (Auto) 1.1 10^3/uL (0.2-0.9) H 04/30/22 03:06 Eos # (Auto) 0.2 10^3/uL (0.0-0.8) 04/30/22 03:06 Baso # (Auto) 0.1 10^3/uL (0.0-0.1) 04/30/22 03:06 Nucleated RBC % (auto) 0 % 04/30/22 03:06 Nucleated RBCs # 0.0 /100WBC 04/30/22 03:06 PT 12.20 SECONDS (12.1-14.9) 04/28/22 23:55 INR 0.88 (0.8-1.2) 04/28/22 23:55 APTT 37.4 SECONDS (23.9-36.7) H 04/28/22 23:55 Sodium 138 mmol/L (136-145) 04/30/22 03:06 Potassium 4.1 mmol/L (3.5-5.1) 04/30/22 03:06 Chloride 98 mmol/L (98-107) 04/30/22 03:06 Carbon Dioxide 29 mmol/L (22-29) 04/30/22 03:06 Anion Gap 15.1 (5-19) 04/30/22 03:06 BUN 35 mg/dL (8-23) H 04/30/22 03:06 Creatinine 1.6 mg/dL (0.5-0.9) H 04/30/22 03:06 GFR Calculation Not Reportable 04/30/22 03:06 Glucose 112 mg/dL (65-115) 04/30/22 03:06 POC Glucose 155 mg/dL (70-110) H 04/30/22 12:06 Calculated Osmolality 295 mOsm/kg (285-295) 04/30/22 03:06 Calcium 9.7 mg/dL (8.5-10.5) 04/30/22 03:06 Magnesium 2.0 mg/dL (1.7-2.3) 04/30/22 03:06 Total Bilirubin 0.3 mg/dL (0.15-1.2) 04/30/22 03:06 AST 19 U/L (0-32) 04/30/22 03:06 ALT 15 U/L (0-33) 04/30/22 03:06 Alkaline Phosphatase 77 IU/L (35-105) 04/30/22 03:06 Troponin T Baseline 28 ng/L (0-10) H 04/28/22 23:55 Troponin T 120 Minute 106.9 ng/L (0-10) H 04/29/22 01:50 Delta Troponin T 78.9 ABS# (0-10) H* 04/29/22 01:50 Troponin T Hi Sens 6Hr 209.7 ng/L (0-10) H 04/29/22 07:30 Troponin T Hi Sens 6Hr Delta 181.7 ng/L (0-12) H* 04/29/22 07:30 NT-Pro-B Natriuret Pep 581 pg/mL (0-450) H 04/28/22 23:55 Total Protein 6.1 g/dL (6.6-8.7) L 04/30/22 03:06 Albumin 3.2 g/dL (3.5-5.2) L 04/30/22 03:06 Globulin 2.9 g/dL (1.3-4.6) 04/30/22 03:06 Vitals Last Vital Signs Temp 97.8 F 04/30/22 04:00 Pulse 89 04/30/22 08:45 Resp 16 04/30/22 08:32 BP 93/63 04/30/22 07:00 Pulse Ox 85 L 04/30/22 11:44 Discharge Plan Discharge Patient Disposition: Home Condition: Stable Prescriptions: New ranolazine 500 mg tablet extended release 12 hr 500 mg PO BID Qty: 60 3RF metoprolol succinate [Toprol XL] 25 mg tablet extended release 24 hr 12.5 mg PO DAILY Qty: 30 0RF Continued nitroglycerin [Nitrostat] 0.4 mg tablet, sublingual 0.4 mg SUBLINGUAL Q5M PRN (Reason: Chest Pain) 0RF One-A-Day Vitacraves [place]-3 200-16 mcg-mg tablet,chewable 1 tab PO DAILY 0RF levothyroxine 25 mcg tablet 25 mcg PO DAILY 0RF magnesium oxide 400 mg magnesium capsule 400 mg PO BID 0RF fluticasone propion-salmeterol [Advair Diskus] 250-50 mcg/dose blister with device 1 inh INHALATION BID 0RF aspirin [Adult Low Dose Aspirin] 81 mg tablet,delayed release (DR/EC) 81 mg PO QDAY 0RF [place] 5 mcg/dose (250 mcg/mL) 1.2 mL pen injector 5 mcg SUBCUT BID 0RF calcium carbonate 600 mg calcium (1,500 mg) tablet 600 mg PO QDAY 0RF cranberry extract 200 mg capsule 200 mg PO QDAY 0RF cholecalciferol (vitamin D3) 1,000 unit capsule 1,000 unit PO QDAY 0RF desloratadine 5 mg tablet 5 mg PO QDAY 0RF isosorbide mononitrate 120 mg tablet extended release 24 hr 120 mg PO BID 0RF Lantus U-100 Insulin 100 unit/mL solution 10 unit SUBCUT QDAY 0RF furosemide 40 mg tablet 40 mg PO QAM 0RF atorvastatin [Lipitor] 40 mg tablet 40 mg PO QDAY 0RF melatonin 5 mg tablet 5 mg PO QDAY 0RF metoclopramide HCl 10 mg tablet 10 mg PO Q6H PRN (Reason: Acid Reflux) 0RF metoprolol succinate 50 mg tablet extended release 24 hr 50 mg PO QDAY 0RF clopidogrel 75 mg tablet 75 mg PO QDAY 0RF pantoprazole [Protonix] 40 mg tablet,delayed release (DR/EC) 40 mg PO QDAY 0RF albuterol sulfate [Proventil HFA] 90 mcg/actuation HFA aerosol inhaler 2 puff INHALATION Q6H PRN (Reason: Shortness Of Breath) 0RF ropinirole 0.5 mg tablet 0.5 mg PO QDAY 0RF methocarbamol 500 mg tablet 500 mg PO QID PRN (Reason: Muscle Spasm) 0RF Spiriva with HandiHaler 18 mcg capsule, w/inhalation device 1 cap INHALATION QDAY 0RF trazodone 100 mg tablet 100 mg PO QDAY 0RF venlafaxine 37.5 mg tablet 37.5 mg PO QDAY 0RF vitamin B complex [B Complex-Vitamin B12] Tablet 1 tab PO QDAY 0RF ascorbic acid (vitamin C) 500 mg tablet 250 mg PO QDAY 0RF ezetimibe [Zetia] 10 mg tablet 10 mg PO QDAY 0RF gabapentin 800 mg tablet 800 mg PO TID 90 Days Qty: 270 0RF lidocaine 5 % adhesive patch,medicated 3 patch topical DAILY 90 Days Qty: 90 0RF Rx Instructions: APPLY 3 PATCHES TO AFFECTED AREA 12 HOURS ON / 12 HOURS OFF. cyclobenzaprine 10 mg tablet 5 mg PO TID PRN (Reason: muscle spasm) 90 Days Qty: 135 0RF (DME) Diabetic Shoes with Inserts See Rx Instructions .Route .MEDSUPPLY Qty: 1 3RF Rx Instructions: As directed lisinopril 10 mg tablet 20 mg PO QDAY 0RF hydrocodone-acetaminophen 10-325 mg tablet 1 tab PO QID PRN (Reason: pain) 30 Days Qty: 120 0RF Rx Instructions: fill on or after 08/26/21 meloxicam 15 mg tablet See Rx Instructions .ROUTE .COMPLEX Qty: 30 0RF Dose Instruction: TAKE 1 TABLET BY MOUTH DAILY Rx Instructions: TAKE 1 TABLET BY MOUTH DAILY Daliresp 500 mcg tablet 500 mcg PO DAILY 0RF Discontinued atenolol 50 mg tablet 50 mg PO QDAY 0RF Discharge Orders: Discharge Order (Routine); Ordered 04/30/22 Ordered By: Gerald Niño Other Ambulatory Orders: DME: Oxygen (Order) Location: None Selected Ordered By: Gerald Niño Referrals: ChristianrSelvin MD [Physician] - 1 week Rainer Anne M.D [Physician] - 4-7 days Leena Calderon PA [Primary Care Provider] - Discharge Diet: Cardiac Discharge Activity: Increase activity as tolerated Patient Instructions: Chest Pain (DC), Heart Healthy Diet (DC), Opioid Safety Discharge Attestations Time Spent in Discharge Care*: less than 30 min Quality Metrics Clinical Quality Measures [ No reported AMI, CVA or VTE this stay] Coding Level of Care Code Acute Chg FW DC note Diagnoses V-tach I47.2 Chest pain R07.9 Non-STEMI (non-ST elevated myocardial infarction) I21.4 S/P CABG (coronary artery bypass graft) Z95.1 PAD (peripheral artery disease) I73.9 Myocardial infarction I21.9 Essential hypertension I10 Diabetes E11.9 Dyslipidemia E78.5 COPD (chronic obstructive pulmonary disease) J44.9 CKD (chronic kidney disease) N18.9 CHF (congestive heart failure) I50.9 Carotid stenosis, bilateral I65.23 Tobacco use disorder F17.200
[2022-04-30] MEDS: HYDROcodone-acetaminophen 10-325 mg Tablet 1 TAB PO (12:53)
--- NOTE | 2022-04-30 13:31 | PC.NURSE ---
pt had monitor and blood pressure cuff off most of evening requesting to go home today doctor aware for discharge later
--- NOTE | 2022-04-30 15:02 | PC.NURSE ---
called and arranged for portable tank and company to check tank at home . dressed and assist called taxi discharged
== END 2022-04-30 15:04 | disposition home or self-care (01) | DRG 281 ==
LOC: ER 04-29 03:10 → ICU 04-29 04:02
PROVIDERS: Admitting Provider Student in an Organized Health Care Education/Training Program; Emergency Provider Emergency Medicine; PCP Physician Assistant; Visit Provider Internal Medicine
DX: I21.4 Non-ST elevation (NSTEMI) myocardial infarction (principal); I47.2 Ventricular tachycardia; I13.0 Hypertensive heart and chronic kidney disease with heart failure and stage 1 through stage 4 chronic kidney disease, or unspecified chronic kidney disease; F17.200 Nicotine dependence, unspecified, uncomplicated; I44.7 Left bundle-branch block, unspecified; I25.110 Atherosclerotic heart disease of native coronary artery with unstable angina pectoris; J44.9 Chronic obstructive pulmonary disease, unspecified; Z99.81 Dependence on supplemental oxygen; Z95.1 Presence of aortocoronary bypass graft; I73.9 Peripheral vascular disease, unspecified; E78.5 Hyperlipidemia, unspecified; I65.23 Occlusion and stenosis of bilateral carotid arteries; Z79.82 Long term (current) use of aspirin; Z79.02 Long term (current) use of antithrombotics/antiplatelets; Z79.4 Long term (current) use of insulin; E66.9 Obesity, unspecified; Z68.33 Body mass index [BMI] 33.0-33.9, adult; E11.22 Type 2 diabetes mellitus with diabetic chronic kidney disease; E11.51 Type 2 diabetes mellitus with diabetic peripheral angiopathy without gangrene; N18.9 Chronic kidney disease, unspecified; I50.9 Heart failure, unspecified; E11.40 Type 2 diabetes mellitus with diabetic neuropathy, unspecified; E03.9 Hypothyroidism, unspecified
CPT/HCPCS: 36415; 36416; 71045; 80053; 82962; 83735; 83880; 84484; 85025; 85610; 85730; 93005; 94640; 94664; 96372; 96374; 99285; J1644; J1650; J1815; J1940; J2250; J3010; J3490

== ENCOUNTER 2022-07-31 13:19 | Outpatient (CLI) | payer MEDICARE, OTHER, SELFPAY ==
--- NOTE | 2022-07-31 13:43 | CT_ITS ---
WS: [id number] LDCT LUNG CANCER SCREENING TECHNIQUE: Noncontrast CT of the chest with coronal and sagittal reformatted images. CLINICAL INFORMATION: NICOTINE DEPENDENCE,CIGARETTES COMPARISON: August 18, 2020 DLP: 65.40 mGy.cm DIvol: Mean CTDIvol: 1.60 (mGy) All CT scans at [facility] use at least one of these dose optimization techniques: automat ed exposure control; mA and/or kV adjustment per patient size (includes targeted exams where dose is matched to clinical indication); or iterative reconstruction. FINDINGS: Subsegmental atelectasis in the RIGHT middle lobe anteriorly and RIGHT lower lobe along the fissure similar to previous. Tiny noncalcified nodule RIGHT lower lobe measuring 3 mm. Sternotomy. Mediastinal clips. Normal caliber thoracic aorta. Aortic calcification. Coronary artery b ypass grafting. No axillary lymphadenopathy. No mediastinal or hilar lymphadenopathy. Normal GE junction. Adrenal glands are normal. Mild thoracic curve and kyphosis. Chronic anterior wed ging mid thoracic spine. CT/CT lung screening [id number] IMPRESSION: LUNG-RADS: 2-Benign Appearance or Behavior FOLLOW UP: 12 Month: Continue annual screening with LDCT
== END 2022-07-31 13:20 | disposition home or self-care (01) ==
PROVIDERS: PCP Physician Assistant; Visit Provider Physician Assistant
DX: Z12.2 Encounter for screening for malignant neoplasm of respiratory organs (principal); F17.210 Nicotine dependence, cigarettes, uncomplicated
CPT/HCPCS: 71271

== ENCOUNTER → 2023-01-09 13:13 | Outpatient (BNVA) | payer MEDICARE, OTHER, SELFPAY | PROVIDERS: PCP Physician Assistant; Visit Provider Nurse Practitioner Family | DX: M16.0 Bilateral primary osteoarthritis of hip (principal) | CPT/HCPCS: 73502; 99214 ==

== ENCOUNTER 2023-05-17 00:11 | Emergency (ER) | payer MEDICARE, OTHER, SELFPAY ==
[2023-05-17 00:13] VITALS: BP 191/87; PULSE 89; RESP 20; TEMP 36.6; O2SAT 92
--- NOTE | 2023-05-17 00:24 | XRR_ITS ---
PROCEDURE INFORMATION: Exam: XR Chest Exam date and time: 05/17/2023 12:49 AM Age: 77 years old Clinical indication: Shortness of breath; Prior surgery; Surgery date: 6+ months; Surgery type: Cabg; Additional info: SOB TECHNIQUE: Imaging protocol: Radiologic exam of the chest. Views: 1 view. COMPARISON: CT lung screening [id number] 07/31/2022 1:53 PM FINDINGS: Lungs: Unremarkable. No consolidation. Pleural spaces: Unremarkable. No pleural effusion. No pneumothorax. Heart/Mediastinum: CABG. Unremarkable cardiac silhouette. Bones/joints: Unremarkable. XR/XR chest 1V portable [id number] IMPRESSION: Negative for acute pathology.
--- NOTE | 2023-05-17 00:26 | ECG_ITS ---
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 Measurements Intervals [place] Rate: 86 P: 74 MT: 145 QRS: -3 QRSD: 143 T: 129 QT: 387 QTc: 463 Interpretive Statements SINUS RHYTHM WITH SINUS ARRHYTHMIA LEFT BUNDLE BRANCH BLOCK [120+ ms QRS DURATION, 80+ ms Q/S IN V1/V2, 85+ ms R IN I/aVL/V5/V6] Compared to ECG 04/29/2022 05:44:22 No significant changes Electronically Signed On 05-17-2023 12:33:21 CDT by Selma Pandey M.D. [id number]
--- NOTE | 2023-05-17 00:27 | ED_ITS ---
HPI - SOB/Dyspnea General: Chief Complaint: Shortness of Breath/Dyspnea Stated Complaint: SOB Time Seen by Provider: 05/17/23 00:13 Source: patient Limitations: no limitations History of Present Illness: HPI Narrative: 77-year-old female has a history of COPD she states that her air conditioning went out in her house tonight states she started to feel warm and started getting short of breath she wears oxygen as needed she is on 2 L here and is 94% she received Solu-Medrol breathing treatment in route states she had some slight increased wheezing denies any cough denies any fever denies any chest pain. Associated symptoms: Deny abdominal pain, chest pain, fever(s), nausea or vomiting Review of Systems Const: Denies: fever(s), chills, body aches or change in appetite Eyes: Denies: eye discomfort ENMT: Denies: throat pain or dental pain Card: Denies: chest pain Resp: Reports: dyspnea and wheezing GI: Denies: abdominal pain, nausea, vomiting or diarrhea : Denies: dysuria Musc: Denies: neck pain or back pain Skin/Breast: Denies: rash Neuro: Denies: headache(s) PFSH ED PFSH: Medical History ASHD (arteriosclerotic heart disease) Bilateral bunions Bilateral knee pain Callus of foot Carotid stenosis, bilateral Chest pain CHF (congestive heart failure) Chronic fatigue Chronic hip pain CKD (chronic kidney disease) COPD (chronic obstructive pulmonary disease) Diabetes Diabetic neuropathy Diabetic peripheral neuropathy associated with type 2 diabetes mellitus DJD (degenerative joint disease), lumbar Dyslipidemia Essential hypertension GERD (gastroesophageal reflux disease) Long-term current use of opiate analgesic Lumbar stenosis with neurogenic claudication Lupus anticoagulant disorder Myocardial infarction Non-STEMI (non-ST elevated myocardial infarction) Obesity Onychodystrophy PAD (peripheral artery disease) Pain management contract signed Pes planus of both feet Primary osteoarthritis of knees, bilateral TIA (transient ischemic attack) Tobacco use disorder V-tach Surgical History S/P CABG (coronary artery bypass graft) (~10/01/14) S/P carotid endarterectomy S/P carpal tunnel release (Unknown) LEFT S/P cataract extraction (Unknown) RIGHT DR BATISTA S/P cataract extraction S/P hysterectomy Family History Unknown Adopted Social History Smoking and tobacco status: current every day smoker cigarettes Packs smoked per day: 2 Quit status (tobacco): has tried quititng Alcohol intake: never Substance/Drug Use: never Adopted: Yes Lives independently: Yes Household members: spouse Marital status: Physical Exam Const: COMMON NORMALS: no acute distress, patient oriented x3 and healthy appearing HENMT: COMMON NORMALS: normocephalic and atraumatic HEAD & SCALP: normocephalic and atraumatic Eye: COMMON NORMALS: Equal, round and reactive pupils present and EOMs intact bilaterally PUPIL: Yes Equal, round and reactive pupils present Neck/C-Spine: COMMON NORMALS: full ROM and supple Chest: COMMONS NORMALS: normal inspection of the chest and normal palpation of entire chest wall Resp: COMMON NORMALS: normal respiratory effort, No retractions and No use of accessory muscles AUSCULTATION: wheezes Cardio: COMMON NORMALS: regular rate, regular rhythm and No murmurs present (Cardio) RATE: regular rate RHYTHM: regular rhythm GI: COMMON NORMALS: Normal to inspection, nondistended, normoactive bowel sounds present, Soft to palpation, non-tender and no masses PALPATION: Yes Soft to palpation Extremity: COMMON NORMALS: normal to inspection and full ROM Neuro: COMMON NORMALS: patient oriented x3, moves all extremities and no focal motor deficits Psych: COMMON NORMALS: mental status grossly normal, Normal thought process present and cooperative THOUGHT PROCESS: Normal thought process present Skin: COMMON NORMALS: no rashes or lesions noted and no wounds GENERAL SKIN EXAM: no rashes or lesions noted Course Vital Signs: Vital signs: Vital Signs Temperature 97.9 F 05/17/23 00:13 Pulse Rate 100 05/17/23 02:08 Respiratory Rate 18 05/17/23 02:08 Blood Pressure 185/107 05/17/23 02:00 Pulse Oximetry 96 05/17/23 02:07 Oxygen Delivery Me thod Room Air 05/17/23 02:07 MDM - SOB/Dyspnea Medical Decision Making Patient presents here with dyspnea likely from COPD exacerbation BNP is slightly elevated did give her dose of Lasix here she is continue her Lasix at home no signs of pneumonia she did not require any oxygen here she is stable for discharge she is to follow-up with PCP and return if worsening. Medical Records I reviewed the patient's medical records. Lab Data I reviewed the patient's lab results. 05/17/23 00:37 05/17/23 00:37 Labs/Radiology: Radiology Impressions Chest X-Ray 05/17/23 00:24 IMPRESSION: Negative for acute pathology. Laboratory Results WBC 8.8 10^3/uL (4.0-10.0) 05/17/23 00:37 RBC 5.05 10^6/uL (4.1-5.3) 05/17/23 00:37 Hgb 15.2 g/dL (11.5-15.3) 05/17/23 00:37 Hct 47.5 % (37.0-47.0) H 05/17/23 00:37 MCV 94.1 fl (81-99) 05/17/23 00:37 MCH 30.1 pg (28.0-34.0) 05/17/23 00:37 MCHC 32.0 g/dL (30.0-36.0) 05/17/23 00:37 RDW 12.6 % (12.1-15.1) 05/17/23 00:37 Plt Count 265 10^3/cmm (130-400) 05/17/23 00:37 MPV 11.6 fL (7.4-10.4) H 05/17/23 00:37 Neut % (Auto) 54.1 % 05/17/23 00:37 Lymph % (Auto) 37.1 % 05/17/23 00:37 [place] % (Auto) 5.9 % 05/17/23 00:37 Eos % (Auto) 1.9 % 05/17/23 00:37 Baso % (Auto) 0.7 % 05/17/23 00:37 Neut # (Auto) 4.76 10^3/uL (1.8-7.7) 05/17/23 00:37 Lymph # (Auto) 3.3 10^3/uL (0.8-4.8) 05/17/23 00:37 [place] # (Auto) 0.5 10^3/uL (0.2-0.9) 05/17/23 00:37 Eos # (Auto) 0.2 10^3/uL (0.0-0.8) 05/17/23 00:37 Baso # (Auto) 0.1 10^3/uL (0.0-0.1) 05/17/23 00:37 Nucleated RBC % (auto) 0 % 05/17/23 00:37 Nucleated RBCs # 0.0 /100WBC 05/17/23 00:37 Sodium 137 mmol/L (136-145) 05/17/23 00:37 Potassium 4.1 mmol/L (3.5-5.1) 05/17/23 00:37 Chloride 97 mmol/L (98-107) L 05/17/23 00:37 Carbon Dioxide 27 mmol/L (22-29) 05/17/23 00:37 Anion Gap 17.1 (5-19) 05/17/23 00:37 BUN 30 mg/dL (8-23) H 05/17/23 00:37 Creatinine 1.6 mg/dL (0.5-0.9) H 05/17/23 00:37 GFR Calculation Not Reportable 05/17/23 00:37 Glucose 133 mg/dL (65-115) H 05/17/23 00:37 Calculated Osmolality 292 mOsm/kg (285-295) 05/17/23 00:37 Calcium 10.2 mg/dL (8.5-10.5) 05/17/23 00:37 Total Bilirubin 0.5 mg/dL (0.15-1.2) 05/17/23 00:37 AST 13 U/L (0-32) 05/17/23 00:37 ALT 10 U/L (0-33) 05/17/23 00:37 Alkaline Phosphatase 82 U/L (35-105) 05/17/23 00:37 NT-Pro-B Natriuret Pep 4044 pg/mL (0-450) H 05/17/23 00:37 Total Protein 7.6 g/dL (6.6-8.7) 05/17/23 00:37 Albumin 4.1 g/dL (3.5-5.2) 05/17/23 00:37 Globulin 3.5 g/dL (1.3-4.6) 05/17/23 00:37 EKG Data EKG 1: I personally reviewed and interpreted this EKG as follows: EKG Interpretation Date: 05/17/23 EKG interpretation time: 00:26 Interpretation: nsr hr [address] or t wave abnormalities qrs 143 qtc 430 Discharge Plan Discharge Patient Disposition: Home Clinical Impression: Acute exacerbation of chronic obstructive airways disease Condition: Stable Prescriptions: No Action nitroglycerin [Nitrostat] 0.4 mg tablet, sublingual 0.4 mg SUBLINGUAL Q5M PRN (Reason: Chest Pain) One-A-Day Vitacraves Edwards-3 200-16 mcg-mg tablet,chewable 1 tab PO DAILY levothyroxine 25 mcg tablet 25 mcg PO DAILY magnesium oxide 400 mg magnesium capsule 400 mg PO BID fluticasone propion-salmeterol [Advair Diskus] 250-50 mcg/dose blister with device 1 inh INHALATION BID aspirin [Adult Low Dose Aspirin] 81 mg tablet,delayed release (DR/EC) 81 mg PO QDAY [place] 5 mcg/dose (250 mcg/mL) 1.2 mL pen injector 5 mcg SUBCUT BID calcium carbonate 600 mg calcium (1,500 mg) tablet 600 mg PO QDAY cranberry extract 200 mg capsule 200 mg PO QDAY cholecalciferol (vitamin D3) 1,000 unit capsule 1,000 unit PO QDAY desloratadine 5 mg tablet 5 mg PO QDAY isosorbide mononitrate 120 mg tablet extended release 24 hr 120 mg PO BID Lantus U-100 Insulin 100 unit/mL solution 10 unit SUBCUT QDAY furosemide 40 mg tablet 40 mg PO QAM atorvastatin [Lipitor] 40 mg tablet 40 mg PO QDAY melatonin 5 mg tablet 5 mg PO QDAY metoclopramide HCl 10 mg tablet 10 mg PO Q6H PRN (Reason: Acid Reflux) metoprolol succinate 50 mg tablet extended release 24 hr 50 mg PO QDAY clopidogrel 75 mg tablet 75 mg PO QDAY pantoprazole [Protonix] 40 mg tablet,delayed release (DR/EC) 40 mg PO QDAY albuterol sulfate [Proventil HFA] 90 mcg/actuation HFA aerosol inhaler 2 puff INHALATION Q6H PRN (Reason: Shortness Of Breath) ropinirole 0.5 mg tablet 0.5 mg PO QDAY methocarbamol 500 mg tablet 500 mg PO QID PRN (Reason: Muscle Spasm) Spiriva with HandiHaler 18 mcg capsule, w/inhalation device 1 cap INHALATION QDAY trazodone 100 mg tablet 100 mg PO QDAY venlafaxine 37.5 mg tablet 37.5 mg PO QDAY vitamin B complex [B Complex-Vitamin B12] Tablet 1 tab PO QDAY ascorbic acid (vitamin C) 500 mg tablet 250 mg PO QDAY ezetimibe [Zetia] 10 mg tablet 10 mg PO QDAY gabapentin 800 mg tablet 800 mg PO TID 90 Days Qty: 270 0RF lidocaine 5 % adhesive patch,medicated 3 patch topical DAILY 90 Days Qty: 90 0RF Rx Instructions: APPLY 3 PATCHES TO AFFECTED AREA 12 HOURS ON / 12 HOURS OFF. cyclobenzaprine 10 mg tablet 5 mg PO TID PRN (Reason: muscle spasm) 90 Days Qty: 135 0RF (DME) Diabetic Shoes with Inserts See Rx Instructions .Route .MEDSUPPLY Qty: 1 3RF Rx Instructions: As directed lisinopril 10 mg tablet 20 mg PO QDAY hydrocodone-acetaminophen 10-325 mg tablet 1 tab PO QID PRN (Reason: pain) 30 Days Qty: 120 0RF Rx Instructions: fill on or after 08/26/21 meloxicam 15 mg tablet See Rx Instructions .ROUTE .COMPLEX Qty: 30 0RF Dose Instruction: TAKE 1 TABLET BY MOUTH DAILY Rx Instructions: TAKE 1 TABLET BY MOUTH DAILY Daliresp 500 mcg tablet 500 mcg PO DAILY ranolazine 500 mg tablet extended release 12 hr 500 mg PO BID Qty: 60 3RF Toprol XL 25 mg tablet extended release 24 hr 12.5 mg PO DAILY Qty: 30 0RF Discharge Orders: Discharge ED (Routine); Ordered 05/17/23 Ordered By: Thalia Reyes Referrals: Leena Calderon PA [Primary Care Provider] - 1-3 days Discharge Diet: Advance as tolerated Discharge Activity: Resume usual activity Patient Instructions: COPD (Chronic Obstructive Pulmonary Disease) (ED) Coding Level of Care Code ED General Education Instructor for Sera Harris
[2023-05-17 00:52] LABS: Basophils # 0.1 10^3/uL (0.0-0.1); Basophils % 0.7 %; Eosinophils # 0.2 10^3/uL (0.0-0.8); Eosinophils % 1.9 %; Hematocrit 47.5 % (37.0-47.0); Hemoglobin 15.2 g/dL (11.5-15.3); Lymphocytes # 3.3 10^3/uL (0.8-4.8); Lymphocytes % 37.1 %; Mean Corpuscular Hemoglobin 30.1 pg (28.0-34.0); Mean Corpuscular Volume 94.1 fl (81-99); Mean Platelet Volume 11.6 fL (7.4-10.4); Monocytes # 0.5 10^3/uL (0.2-0.9); Monocytes % 5.9 %; Neutrophils # 4.76 10^3/uL (1.8-7.7); Neutrophils % 54.1 %; Nucleated Red Blood Cells % 0 %; Platelet Count 265 10^3/cmm (130-400); Red Blood Count 5.05 10^6/uL (4.1-5.3); Red Cell Distribution Width 12.6 % (12.1-15.1); White Blood Count 8.8 10^3/uL (4.0-10.0)
[2023-05-17 01:23] LABS: Alanine Aminotransferase 10 U/L (0-33); Albumin Level 4.1 g/dL (3.5-5.2); Alkaline Phosphatase 82 U/L (35-105); Aspartate Amino Transferase 13 U/L (0-32); Blood Urea Nitrogen 30 mg/dL (8-23); Calcium 10.2 mg/dL (8.5-10.5); Carbon Dioxide 27 mmol/L (22-29); Chloride 97 mmol/L (98-107); Globulin 3.5 g/dL (1.3-4.6); Glucose 133 mg/dL (65-115); NT Pro B Type Natriuretic Pept 4044 pg/mL (0-450); Osmolality Calculated 292 mOsm/kg (285-295); Sodium 137 mmol/L (136-145); Total Bilirubin 0.5 mg/dL (0.15-1.2); Total Protein 7.6 g/dL (6.6-8.7)
[2023-05-17 01:30] VITALS: BP 179/87; PULSE 97; RESP 29; O2SAT 95
[2023-05-17 01:38] LABS: Anion Gap 17.1 (5-19); Potassium 4.1 mmol/L (3.5-5.1)
[2023-05-17] MEDS: FUROsemide 10 mg/mL SDV 10mL 60 MG IVP (01:48)
[2023-05-17] MEDS: LORazepam 1 mg Tablet PO (01:48)
[2023-05-17 02:00] VITALS: BP 185/107; PULSE 99; RESP 23; O2SAT 99
[2023-05-17 02:07] VITALS: PULSE 97; RESP 18; O2SAT 96
[2023-05-17] MEDS: albuterol 2.5 mg/3 mL Neb INHALATION (02:07)
[2023-05-17 02:08] VITALS: PULSE 100; RESP 18
== END 2023-05-17 02:20 | disposition home or self-care (01) ==
PROVIDERS: Emergency Provider Emergency Medicine; PCP Physician Assistant
DX: J44.1 Chronic obstructive pulmonary disease with (acute) exacerbation (principal); F17.210 Nicotine dependence, cigarettes, uncomplicated
CPT/HCPCS: 36415; 71045; 80053; 83880; 85025; 93005; 94640; 96374; 99285; J1940; J7613

== ENCOUNTER 2023-06-09 16:04 | Inpatient (IN) | payer MEDICARE, OTHER, SELFPAY ==
[2023-06-09] VITALS (24 sets, daily range): BP systolic 135–199; BP diastolic 81–167; PULSE 91–164; RESP 16–31; TEMP 36.4–37.2; O2SAT 90–100; BMI 29.9
--- NOTE | 2023-06-09 16:15 | XRR_ITS ---
PROCEDURE INFORMATION: Exam: XR Chest Exam date and time: 06/09/2023 5:10 PM Age: 77 years old Clinical indication: Shortness of breath; Additional info: SOB TECHNIQUE: Imaging protocol: Radiologic exam of the chest. Views: 1 view. COMPARISON: CR (CHEST, ) 05/17/2023 12:49 AM FINDINGS: Lungs: There is increased density right lung base concerning for atelectasis and/or pneumonic infiltrate. Pleural spaces: Unremarkable. No pleural effusion. No pneumothorax. Heart/Mediastinum: The heart is enlarged. Bones/joints: Sternotomy wires and mediastinal surgical clips are present, consistent with previous coronary arterial bypass grafting. Old right rib fractures. No acute bony abnormality. XR/XR chest 1V portable [id number] IMPRESSION: There is increased density right lung base concerning for atelectasis and/or pneumonic infiltrate.
--- NOTE | 2023-06-09 16:15 | ECG_ITS ---
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 Measurements Intervals [place] Rate: 113 P: 0 WI: 0 QRS: 28 QRSD: 144 T: 150 QT: 342 QTc: 471 Interpretive Statements Sinus tachycardia with frequent PACs LEFT BUNDLE BRANCH BLOCK [120+ ms QRS DURATION, 80+ ms Q/S IN V1/V2, 85+ ms R IN I/aVL/V5/V6] Compared to ECG 05/17/2023 00:26:48 Sinus rhythm no longer present Sinus arrhythmia no longer present Electronically Signed On 06-10-2023 11:28:01 CDT by Malik Moore M.D. [id number]
[2023-06-09 17:13] LABS: Basophils # 0.1 10^3/uL (0.0-0.1); Basophils % 0.5 %; Eosinophils # 0.1 10^3/uL (0.0-0.8); Eosinophils % 0.5 %; Hematocrit 46.4 % (37.0-47.0); Hemoglobin 15.4 g/dL (11.5-15.3); Lymphocytes # 3.7 10^3/uL (0.8-4.8); Lymphocytes % 33.5 %; Mean Corpuscular HGB Conc 33.2 g/dL (30.0-36.0); Mean Corpuscular Hemoglobin 30.3 pg (28.0-34.0); Mean Corpuscular Volume 91.2 fl (81-99); Mean Platelet Volume 12.1 fL (7.4-10.4); Monocytes # 0.8 10^3/uL (0.2-0.9); Monocytes % 7.2 %; Neutrophils # 6.39 10^3/uL (1.8-7.7); Nucleated Red Blood Cells % 0 %; Platelet Count 221 10^3/cmm (130-400); Red Blood Count 5.09 10^6/uL (4.1-5.3); Red Cell Distribution Width 12.4 % (12.1-15.1)
[2023-06-09 17:31] LABS: INR 0.85 (0.8-1.2)
[2023-06-09] MEDS: dilTIAZem 100 MG in sodium chloride 0.9% (add-van) 100 ML 10 MG IV (17:39)
[2023-06-09] MEDS: dilTIAZem 5 mg/mL SDV 5 mL 10 MG IVP (17:39)
--- NOTE | 2023-06-09 17:48 | CTR_ITS ---
PROCEDURE INFORMATION: Exam: CT Chest Without Contrast; Diagnostic Exam date and time: 06/09/2023 6:01 PM Age: 77 years old Clinical indication: Cough and shortness of breath; Prior surgery; Surgery date: 6+ months; Surgery type: Cabg; Patient HX: Cough with SOB. ; Additional info: Tachycardia, hypoxia, possible pneumonia TECHNIQUE: Imaging protocol: Diagnostic computed tomography of the chest without contrast. Radiation optimization: All CT scans at this facility use at least one of these dose optimization techniques: automated exposure control; mA and/or kV adjustment per patient size (includes targeted exams where dose is matched to clinical indication); or iterative reconstruction. REPORTING DATA: Count of CT and Cardiac NM exams in prior 12 months: This patient has received [address] and 0 known cardiac nuclear medicine studies in the 12 months prior to the current study. COMPARISON: CT lung screening [id number] 07/31/2022 1:53 PM RADIATION DOSE METRICS: Total DLP (mGy-cm): 329.32 FINDINGS: Thyroid: There is a 6 mm hypodense nodule left thyroid lobe. No follow-up is necessary. Lungs: There is unchanged right middle lobe scarring. There is bronchiectasis with patchy mucous plugging and atelectasis right lower lobe. There is also mild ground-glass and tree-in-bud opacities in the lungs compatible with mild pneumonitis. Pleural spaces: Unremarkable. No pneumothorax. No pleural effusion. Heart: Unremarkable. No cardiomegaly. No pericardial effusion. Coronary arteries: There is severe atherosclerotic calcification of the coronary arteries. Lymph nodes: Unremarkable. No enlarged lymph nodes. Vasculature: Unremarkable. No aortic aneurysm. Diaphragm: A small hiatal hernia is present. Bones/joints: Sternotomy wires and mediastinal surgical clips are present, consistent with previous coronary arterial bypass grafting. Old right rib fracture deformities. No acute bony abnormality. Soft tissues: Unremarkable. CT/CT chest wo con [id number] IMPRESSION: 1. There is bronchiectasis with patchy mucous plugging and atelectasis right lower lobe. 2. There is also mild ground-glass and tree-in-bud opacities in the lungs compatible with mild pneumonitis. COMMENTS: Consistent with the [employer]'s Incidental Findings Committee white paper (J Am Gardenia Radiol 2015): In patients aged 35 years and older with an incidental thyroid nodule equal to or greater than 1.[address], MRI or extrathyroidal US, further evaluation with dedicated thyroid US is recommended for patients with normal life expectancy and without comorbidities. For smaller nodules without suspicious features, no further evaluation or follow up is recommended.
[2023-06-09 17:50] LABS: Alanine Aminotransferase 9 U/L (0-33); Alkaline Phosphatase 78 U/L (35-105); Anion Gap 18.7 (5-19); Aspartate Amino Transferase 14 U/L (0-32); Blood Urea Nitrogen 20 mg/dL (8-23); Calcium 10.1 mg/dL (8.5-10.5); Carbon Dioxide 24 mmol/L (22-29); Chloride 98 mmol/L (98-107); Creatinine Clr Calc Pharmacy 31.7012; Globulin 3.6 g/dL (1.3-4.6); Glucose 153 mg/dL (65-115); Magnesium 1.8 mg/dL (1.7-2.3); Osmolality Calculated 290 mOsm/kg (285-295); Potassium 3.7 mmol/L (3.5-5.1); Sodium 137 mmol/L (136-145); Thyroid Stimulating Hormone 0.99 uIU/mL (0.27-4.20); Total Bilirubin 0.5 mg/dL (0.15-1.2); Total Protein 7.6 g/dL (6.6-8.7)
[2023-06-09 18:16] LABS: NT Pro B Type Natriuretic Pept 45689 pg/mL (0-450)
--- NOTE | 2023-06-09 18:26 | ED_ITS ---
HPI - SOB/Dyspnea General: Chief Complaint: Shortness of Breath/Dyspnea Stated Complaint: swollen legs/ ankles Time Seen by Provider: 06/09/23 16:39 History of Present Illness: HPI Narrative: Presents to the ER with complaints of worsening shortness of breath over the last week or so. Patient normally wears home O2 only at night. Patient presents to the ER with O2 sat of about 90 to 92% on room air. With a heart rate of 130-140 beats a minute irregular. Atrial fibrillation that she knows of. Patient is on Plavix 75 mg a day. She does have a history of COPD. Review of Systems General: Reports: 10 or more systems reviewed and unremarkable except in HPI and below PFSH ED PFSH: Medical History ASHD (arteriosclerotic heart disease) Bilateral bunions Bilateral knee pain Callus of foot Carotid stenosis, bilateral Chest pain CHF (congestive heart failure) Chronic fatigue Chronic hip pain CKD (chronic kidney disease) COPD (chronic obstructive pulmonary disease) Diabetes Diabetic neuropathy Diabetic peripheral neuropathy associated with type 2 diabetes mellitus DJD (degenerative joint disease), lumbar Dyslipidemia Essential hypertension GERD (gastroesophageal reflux disease) Long-term current use of opiate analgesic Lumbar stenosis with neurogenic claudication Lupus anticoagulant disorder Myocardial infarction Non-STEMI (non-ST elevated myocardial infarction) Obesity Onychodystrophy PAD (peripheral artery disease) Pain management contract signed Pes planus of both feet Primary osteoarthritis of knees, bilateral TIA (transient ischemic attack) Tobacco use disorder V-tach Surgical History S/P CABG (coronary artery bypass graft) (~10/01/14) S/P carotid endarterectomy S/P carpal tunnel release (Unknown) LEFT S/P cataract extraction (Unknown) RIGHT DR BATISTA S/P cataract extraction S/P hysterectomy Family History Unknown Adopted Social History Smoking and tobacco status: current every day smoker cigarettes Packs smoked per day: 2 Quit status (tobacco): has tried quititng Alcohol intake: never Substance/Drug Use: never Adopted: Yes Lives independently: Yes Household members: spouse Marital status: Physical Exam Const: COMMON NORMALS: no acute distress, average body habitus, patient oriented x3, no limitations, healthy appearing, alert and well nourished HENMT: COMMON NORMALS: normocephalic, atraumatic, hearing grossly normal bilaterally, external ears normal, Normal external nose present and moist oral mucous membranes HEAD & SCALP: normocephalic and atraumatic NOSE: Normal external nose present EXTERNAL EAR: Yes external ears normal Neck/C-Spine: COMMON NORMALS: full ROM, no lymphadenopathy, supple, no me ningeal signs, no JVD and Thyroid normal THYROID: Thyroid normal Chest: COMMONS NORMALS: normal inspection of the chest and normal palpation of entire chest wall Resp: COMMON NORMALS: normal respiratory effort, No retractions and No use of accessory muscles; negative for clear to auscultation bilaterally (Rales rhonchi and wheezing diffusely) AUSCULTATION: not clear to auscultation bilaterally (Rales rhonchi and wheezing diffusely) Cardio: COMMON NORMALS: no JVD, S1 normal heart sound present and S2 normal heart sound present; negative for regular rate (Tachycardic) and negative for regular rhythm (Irregularly irregular) RATE: abnormal rate (Tachycardic) RHYTHM: abnormal rhythm (Irregularly irregular) HEART SOUNDS: S1 normal heart sound present and S2 normal heart sound present GI: COMMON NORMALS: Normal to inspection, nondistended, normoactive bowel sounds present, Soft to palpation, non-tender, No hepatosplenomegaly present and no masses PALPATION: Yes Soft to palpation and Yes No hepatosplenomegaly pre sent : COMMON NORMALS: Yes no CVA tenderness BLADDER/KIDNEY EXAM: Yes no CVA tenderness Back/Pelvis: COMMON NORMALS: no CVA tenderness Extremity: NARRATIVE EXTREMITY EXAM: 3+ pitting edema bilateral lower extremities Neuro: COMMON NORMALS: patient oriented x3 SENSORIUM/ORIENTATION: Yes alert MENINGEAL SIGNS: Yes no meningeal signs Course Vital Signs: Vital signs: Vital Signs Temperature 98.9 F 06/09/23 16:21 Pulse Rate 114 H 06/09/23 19:52 Respiratory Rate 22 H 06/09/23 19:52 Blood Pressure 150/113 06/09/23 19:22 Pulse Oximetry 96 06/09/23 19:52 Oxygen Delivery Me thod Nasal Cannula 06/09/23 19:52 Oxygen Flow Rate 4 06/09/23 19:52 Fraction of Inspir ed Oxygen 4 06/09/23 19:22 MDM - SOB/Dyspnea Medical Decision Making Presents to the ER with complaints of worsening shortness of breath. Patient coming to the ER hypoxic tachycardic and hypertensive. Patient was noted to be in atrial fibrillation with rapid ventricular response. Patient was given a 10 mg diltiazem bolus and then started on a diltiazem drip at first she started having good results bring her rate down from 130s to the 1 teens but then she creep back up to the 130s 140s and higher. Patient will be started on amiodarone drip after given an amiodarone bolus. Lab work was obtained which showed elevated creatinine of 1.6 along with a normal TSH, BNP of 45,000, elevated troponin of 79 and a 2-hour troponin of 82 patient be given a heparin bolus as well as started on heparin drip. Patient be transferred to the ICU, Dr. Niño is consulted for further evaluation and treatment as well as inpatient admission. Differential Diagnosis Unlikely acute exacerbation of chronic obstructive airways disease, congestive heart failure, community acquired pneumonia, asthma with exacerbation or pulmonary embolism Medical Records I reviewed the patient's medical records. Lab Data I reviewed the patient's lab results. 06/09/23 16:57 06/09/23 16:57 Labs/Radiology: Radiology Impressions Chest X-Ray 06/09/23 16:15 IMPRESSION: There is increased density right lung base concerning for atelectasis and/or pneumonic infiltrate. Chest CT 06/09/23 17:48 IMPRESSION: 1. There is bronchiectasis with patchy mucous plugging and atelectasis right lower lobe. 2. There is also mild ground-glass and tree-in-bud opacities in the lungs compatible with mild pneumonitis. COMMENTS: Consistent with the [employer]'s Incidental Findings Committee white paper (J Am [employer] Radiol 2015): In patients aged 35 years and older with an incidental thyroid nodule equal to or greater than 1.[address], MRI or extrathyroidal US, further evaluation with dedicated thyroid US is recommended for patients with normal life expectancy and without comorbidities. For smaller nodules without suspicious features, no further evaluation or follow up is recommended. Laboratory Results WBC 11.0 10^3/uL (4.0-10.0) H 06/09/23 16:57 RBC 5.09 10^6/uL (4.1-5.3) 06/09/23 16:57 Hgb 15.4 g/dL (11.5-15.3) H 06/09/23 16:57 Hct 46.4 % (37.0-47.0) 06/09/23 16:57 MCV 91.2 fl (81-99) 06/09/23 16:57 MCH 30.3 pg (28.0-34.0) 06/09/23 16:57 MCHC 33.2 g/dL (30.0-36.0) 06/09/23 16:57 RDW 12.4 % (12.1-15.1) 06/09/23 16:57 Plt Count 221 10^3/cmm (130-400) 06/09/23 16:57 MPV 12.1 fL (7.4-10.4) H 06/09/23 16:57 Neut % (Auto) 58.0 % 06/09/23 16:57 Lymph % (Auto) 33.5 % 06/09/23 16:57 Hudspeth % (Auto) 7.2 % 06/09/23 16:57 Eos % (Auto) 0.5 % 06/09/23 16:57 Baso % (Auto) 0.5 % 06/09/23 16:57 Neut # (Auto) 6.39 10^3/uL (1.8-7.7) 06/09/23 16:57 Lymph # (Auto) 3.7 10^3/uL (0.8-4.8) 06/09/23 16:57 Hudspeth # (Auto) 0.8 10^3/uL (0.2-0.9) 06/09/23 16:57 Eos # (Auto) 0.1 10^3/uL (0.0-0.8) 06/09/23 16:57 Baso # (Auto) 0.1 10^3/uL (0.0-0.1) 06/09/23 16:57 Nucleated RBC % (auto) 0 % 06/09/23 16:57 Nucleated RBCs # 0.0 /100WBC 06/09/23 16:57 PT 11.80 SECONDS (12.1-14.9) L 06/09/23 16:57 INR 0.85 (0.8-1.2) 06/09/23 16:57 Sodium 137 mmol/L (136-145) 06/09/23 16:57 Potassium 3.7 mmol/L (3.5-5.1) 06/09/23 16:57 Chloride 98 mmol/L (98-107) 06/09/23 16:57 Carbon Dioxide 24 mmol/L (22-29) 06/09/23 16:57 Anion Gap 18.7 (5-19) 06/09/23 16:57 BUN 20 mg/dL (8-23) 06/09/23 16:57 Creatinine 1.6 mg/dL (0.5-0.9) H 06/09/23 16:57 GFR Calculation Not Reportable 06/09/23 16:57 Glucose 153 mg/dL (65-115) H 06/09/23 16:57 Calculated Osmolality 290 mOsm/kg (285-295) 06/09/23 16:57 Calcium 10.1 mg/dL (8.5-10.5) 06/09/23 16:57 Magnesium 1.8 mg/dL (1.7-2.3) 06/09/23 16:57 Total Bilirubin 0.5 mg/dL (0.15-1.2) 06/09/23 16:57 AST 14 U/L (0-32) 06/09/23 16:57 ALT 9 U/L (0-33) 06/09/23 16:57 Alkaline Phosphatase 78 U/L (35-105) 06/09/23 16:57 Troponin T Gen 5 ng/L Cancelled 06/09/23 16:57 Troponin T Baseline 79 ng/L (0-10) H 06/09/23 16:57 Troponin T 120 Minute 82.56 ng/L (0-10) H 06/09/23 19:15 Delta Troponin T 3.56 ABS# (0-10) 06/09/23 19:15 NT-Pro-B Natriuret Pep 54012 pg/mL (0-450) H 06/09/23 16:57 Total Protein 7.6 g/dL (6.6-8.7) 06/09/23 16:57 Albumin 4.0 g/dL (3.5-5.2) 06/09/23 16:57 Globulin 3.6 g/dL (1.3-4.6) 06/09/23 16:57 TSH 0.99 uIU/mL (0.27-4.20) 06/09/23 16:57 EKG Data EKG 1: I personally reviewed and interpreted this EKG as follows: EKG Interpretation Date: 06/09/23 EKG interpretation time: 16:44 Prior EKG tracings: not available for review Interpretation: EKG shows atrial fibrillation with RVR, left bundle branch block, ventricular rate of 113 beats a minute, QRS duration 144, QTc of 409, EKG 2: I personally reviewed and interpreted this EKG as follows: EKG Interpretation Date: 06/09/23 EKG interpretation time: 19:22 Prior EKG tracings: available for review Interpretation: EKG showed A-fib with RVR with interventricular conduction delay, ventricular rate 135 bpm, QRS duration 143, QTc of 403, Discharge Plan Discharge Patient Disposition: Admitted As Inpatient Clinical Impression: Atrial fibrillation with rapid ventricular response, Hypertension, Hypoxia, Acute renal insufficiency, Pneumonitis, Elevated troponin, Elevated brain natriuretic peptide (BNP) level Condition: Stable Prescriptions: No Action nitroglycerin [Nitrostat] 0.4 mg tablet, sublingual 0.4 mg SUBLINGUAL Q5M PRN (Reason: Chest Pain) One-A-Day Vitacraves Woodruff-3 200-16 mcg-mg tablet,chewable 1 tab PO DAILY levothyroxine 25 mcg tablet 25 mcg PO DAILY magnesium oxide 400 mg magnesium capsule 400 mg PO BID fluticasone propion-salmeterol [Advair Diskus] 250-50 mcg/dose blister with device 1 inh INHALATION BID aspirin [Adult Low Dose Aspirin] 81 mg tablet,delayed release (DR/EC) 81 mg PO QDAY [place] 5 mcg/dose (250 mcg/mL) 1.2 mL pen injector 5 mcg SUBCUT BID calcium carbonate 600 mg calcium (1,500 mg) tablet 600 mg PO QDAY cranberry extract 200 mg capsule 200 mg PO QDAY cholecalciferol (vitamin D3) 1,000 unit capsule 1,000 unit PO QDAY desloratadine 5 mg tablet 5 mg PO QDAY isosorbide mononitrate 120 mg tablet extended release 24 hr 120 mg PO BID Lantus U-100 Insulin 100 unit/mL solution 10 unit SUBCUT QDAY furosemide 40 mg tablet 40 mg PO QAM atorvastatin [Lipitor] 40 mg tablet 40 mg PO QDAY melatonin 5 mg tablet 5 mg PO QDAY metoclopramide HCl 10 mg tablet 10 mg PO Q6H PRN (Reason: Acid Reflux) metoprolol succinate 50 mg tablet extended release 24 hr 50 mg PO QDAY clopidogrel 75 mg tablet 75 mg PO QDAY pantoprazole [Protonix] 40 mg tablet,delayed release (DR/EC) 40 mg PO QDAY albuterol sulfate [Proventil HFA] 90 mcg/actuation HFA aerosol inhaler 2 puff INHALATION Q6H PRN (Reason: Shortness Of Breath) ropinirole 0.5 mg tablet 0.5 mg PO QDAY methocarbamol 500 mg tablet 500 mg PO QID PRN (Reason: Muscle Spasm) Spiriva with HandiHaler 18 mcg capsule, w/inhalation device 1 cap INHALATION QDAY trazodone 100 mg tablet 100 mg PO QDAY venlafaxine 37.5 mg tablet 37.5 mg PO QDAY vitamin B complex [B Complex-Vitamin B12] Tablet 1 tab PO QDAY ascorbic acid (vitamin C) 500 mg tablet 250 mg PO QDAY ezetimibe [Zetia] 10 mg tablet 10 mg PO QDAY gabapentin 800 mg tablet 800 mg PO TID 90 Days Qty: 270 0RF lidocaine 5 % adhesive patch,medicated 3 patch topical DAILY 90 Days Qty: 90 0RF Rx Instructions: APPLY 3 PATCHES TO AFFECTED AREA 12 HOURS ON / 12 HOURS OFF. cyclobenzaprine 10 mg tablet 5 mg PO TID PRN (Reason: muscle spasm) 90 Days Qty: 135 0RF (DME) Diabetic Shoes with Inserts See Rx Instructions .Route .MEDSUPPLY Qty: 1 3RF Rx Instructions: As directed lisinopril 10 mg tablet 20 mg PO QDAY hydrocodone-acetaminophen 10-325 mg tablet 1 tab PO QID PRN (Reason: pain) 30 Days Qty: 120 0RF Rx Instructions: fill on or after 08/26/21 meloxicam 15 mg tablet See Rx Instructions .ROUTE .COMPLEX Qty: 30 0RF Dose Instruction: TAKE 1 TABLET BY MOUTH DAILY Rx Instructions: TAKE 1 TABLET BY MOUTH DAILY Daliresp 500 mcg tablet 500 mcg PO DAILY ranolazine 500 mg tablet extended release 12 hr 500 mg PO BID Qty: 60 3RF Toprol XL 25 mg tablet extended release 24 hr 12.5 mg PO DAILY Qty: 30 0RF Referrals: Leena Calderon PA [Primary Care Provider] - Coding Level of Care Code ED Group Account Director for Sera Harris
[2023-06-09] MEDS: morphine 4 mg/mL SDV 1 mL IVP (18:45)
[2023-06-09] MEDS: ondansetron 2 mg/ML SDV 2 mL 4 MG IVP (18:52)
[2023-06-09] MEDS: FUROsemide 10 mg/mL SDV 4mL 40 MG IVP (18:53)
[2023-06-09] MEDS: hyDRALAzine 20 mg/mL INJ 1 mL 10 MG IVP ×2 (18:53→20:04)
--- NOTE | 2023-06-09 18:57 | ECG_ITS ---
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 Measurements Intervals [place] Rate: 135 P: 0 VT: 0 QRS: 85 QRSD: 143 T: 90 QT: 324 QTc: 486 Interpretive Statements ATRIAL FIBRILLATION WITH RAPID VENTRICULAR RESPONSE Left bundle branch block Compared to ECG 06/09/2023 16:44:30 No change Electronically Signed On 06-10-2023 11:36:54 CDT by Malik Moore M.D. [id number]
[2023-06-09] MEDS: cefTRIAXone 1,000 MG in sodium chloride 0.9% (plus) 50 ML 100 MG IV (19:19)
[2023-06-09] MEDS: ipratropium-albuterol 3 mL Neb INHALATION (19:46)
[2023-06-09 19:53] LABS: Troponin(5th) Baseline 79 ng/L (0-10)
[2023-06-09 19:54] LABS: Troponin 5 2HR 82.56 ng/L (0-10); Troponin 5 2HR Delta 3.56 ABS# (0-10)
[2023-06-09] MEDS: amiodarone 50 mg/mL SDV 3 mL 150 MG IVP (20:32)
[2023-06-09] MEDS: heparin 5,000 unit/mL INJ 1 mL 4000 UNIT IVP (20:36)
[2023-06-09 20:55] LABS: D Dimer 16.18 ug/mIFEU (0-0.59)
--- NOTE | 2023-06-09 21:04 | P.HP_ITS ---
Providers/Chief Complaint Admitting Physician: Gerald Niño MD Primary Care Provider: Leena Calderon Chief Complaint: swollen legs/ ankles History of Present Illness Ivette Lj Ruiz is a 77 year old female who carries history of hypoxic respiratory failure required 5 to 6 L of oxygen at baseline, non-STEMI last year she did not go for angiogram considering chronic kidney disease creatinine baseline 1.5-1.6, lives with her at home, has dementia, presente d today with chief complaint of lower extremity weakness, pains all over her body. In the ER she was diagnosed with hypoxic respite failure requiring 5 L of oxygen, new onset A-fib RVR, non-STEMI, chronic kidney disease, she did not respond very well to Cardizem drip hence was switched to amiodarone, for non- STEMI she was put on heparin, she also has mucous plug with pneumonitis Patient is denying chest pain however endorsing orthopnea PND weight gain lower extremity severe edema She is still smoking 2 packs/day She is concerned about her who has severe dementia At the time of evaluation heart rate was 130s on amiodarone, she was given low- dose digoxin 250 mcg Patient is on vancomycin and Zosyn Mucomyst DuoNeb and steroids added Review of Systems Const: Denies: fever(s) Eyes: Denies: change in vision ENMT: Denies: throat pain Card: Reports: palpitations and swelling of feet/ankles Resp: Reports: dyspnea GI: Denies: abdominal pain : Denies: flank pain Musc: Reports: extremity pain; Denies: neck pain Skin/Breast: Denies: rash Neuro: Denies: headache(s) Psych: Reports: anxiety Medications/Allergies Home Medications Medication Instructions Recorded Confirmed Last Taken Type albuterol sulfate 90 mcg/actuation 2 puff inhalation Q6H PRN 11/18/19 06/09/23 06/09/23 History aerosol inhaler (Proventil HFA) Shortness Of Breath ascorbic acid (vitamin C) 500 mg 250 mg PO QDAY 11/18/19 06/09/23 06/07/23 History tablet aspirin 81 mg tablet,delayed 81 mg PO QDAY 11/18/19 06/09/23 Unknown History release (Adult Low Dose Aspirin) atorvastatin 40 mg tablet (Lipitor) 40 mg PO QDAY 11/18/19 06/09/23 Unknown Hi story calcium carbonate 600 mg calcium 600 mg PO QDAY 11/18/19 06/09/23 Unknown History (1,500 mg) tablet cholecalciferol (vitamin D3) 25 1,000 unit PO QDAY 11/18/19 06/09/23 Unknown History mcg (1,000 unit) capsule clopidogrel 75 mg tablet 75 mg PO QDAY 11/18/19 06/09/23 Unknown History cranberry extract 200 mg capsule 200 mg PO QDAY 11/18/19 06/09/23 Unknown History desloratadine 5 mg tablet 5 mg PO QDAY 11/18/19 06/09/23 Unknown History exenatide 5 mcg/dose (250 5 mcg SUBCUT BID 11/18/19 01/09/23 Unknown History mcg/mL)1.2 mL subcutaneous pen injector ([employer]) ezetimibe 10 mg tablet (Zetia) 10 mg PO QDAY 11/18/19 01/09/23 Unknown History fluticasone 250 mcg-salmeterol 50 1 inh inhalation BID 11/18/19 06/09/23 Unknown History mcg/dose blistr powdr for inhalation (Advair Diskus) furosemide 40 mg tablet 40 mg PO QAM 11/18/19 06/09/23 Unknown History insulin glargine 100 unit/mL 10 unit SUBCUT QDAY 11/18/19 01/09/23 Unknown History subcutaneous solution (Lantus U-100 Insulin) isosorbide mononitrate 120 mg 120 mg PO BID 11/18/19 06/09/23 Unknown History tablet,extended release 24 hr melatonin 5 mg tablet 5 mg PO QDAY 11/18/19 06/09/23 Unknown History methocarbamol 500 mg tablet 500 mg PO QID PRN Muscle Spasm 11/18/19 01/09/23 Unknown History metoclopramide HCl 10 mg tablet 10 mg PO Q6H PRN Acid Reflux 11/18/19 01/09/23 Unknown History metoprolol succinate 50 mg 50 mg PO QDAY 11/18/19 06/09/23 Unknown History tablet,extended release 24 hr pantoprazole 40 mg tablet,delayed 40 mg PO QDAY 11/18/19 06/09/23 Unknown History release (Protonix) ropinirole 0.5 mg tablet 0.5 mg PO QDAY 11/18/19 06/09/23 Unknown History tiotropium bromide 18 mcg capsule 1 cap inhalation QDAY 11/18/19 06/09/23 Unknown History with inhalation device (Spiriva with HandiHaler) trazodone 100 mg tablet 100 mg PO QDAY 11/18/19 06/09/23 Unknown History venlafaxine 37.5 mg tablet 37.5 mg PO QDAY 11/18/19 06/09/23 Unknown History vitamin B complex (B 1 tab PO QDAY 11/18/19 06/09/23 Unknown History Complex-Vitamin B12 tablet) levothyroxine 25 mcg tablet 25 mcg PO DAILY 12/02/19 06/09/23 Unknown History magnesium oxide 400 mg PO BID 12/02/19 06/09/23 Unknown History [id number]-FP-rrh 200 mcg-16 mg 1 tab PO DAILY 12/02/19 06/09/23 Unknown History chewable tablet (One-A-Day Vitacraves [place]-3) nitroglycerin 0.4 mg sublingual 0.4 mg sublingual Q5M PRN Chest 12/02/19 06/09/23 Unknown History tablet (Nitrostat) Pain gabapentin 800 mg tablet 800 mg PO TID PAIN 90 days #270 03/17/20 06/09/23 Unknown Rx tabs lidocaine 5 % topical patch 3 patch topical DAILY PAIN 90 days 03/17/20 06/09/23 Unknown Rx #90 ea cyclobenzaprine 10 mg tablet 5 mg PO TID PRN muscle spasm 90 03/15/21 06/09/23 Unknown Rx days #135 tabs lisinopril 10 mg tablet 20 mg PO QDAY 04/13/21 06/09/23 Unknown History hydrocodone 10 mg-acetaminophen 1 tab PO QID PRN pain 30 days #120 07/27/21 06/09/23 06/09/23 Rx 325 mg tablet tabs meloxicam 15 mg tablet See Rx Instructions .Route 12/13/21 06/09/23 Unknown Rx .COMPLEX #30 tabs Diabetic Shoes with Inserts #1 ea 04/18/22 01/09/23 Unknown Rx roflumilast 500 mcg tablet 500 mcg PO DAILY 04/29/22 06/09/23 Unknown History (Daliresp) metoprolol succinate 25 mg 12.5 mg PO DAILY #30 tabs 04/30/22 06/09/23 Unknown Rx tablet,extended release 24 hr (Toprol XL) ranolazine 500 mg tablet,extended 500 mg PO BID #60 tabs 04/30/22 06/09/23 Unknown Rx release,12 hr Allergies Allergy/AdvReac Type Severity Reaction Status Date / Time No Known Allergies Allergy Verified 05/17/23 00:24 PFSH Acute PFSH: Medical History ASHD (arteriosclerotic heart disease) Bilateral bunions Bilateral knee pain Callus of foot Carotid stenosis, bilateral Chest pain CHF (congestive heart failure) Chronic fatigue Chronic hip pain CKD (chronic kidney disease) COPD (chronic obstructive pulmonary disease) Diabetes Diabetic neuropathy Diabetic peripheral neuropathy associated with type 2 diabetes mellitus DJD (degenerative joint disease), lumbar Dyslipidemia Essential hypertension GERD (gastroesophageal reflux disease) Long-term current use of opiate analgesic Lumbar stenosis with neurogenic claudication Lupus anticoagulant disorder Myocardial infarction Non-STEMI (non-ST elevated myocardial infarction) Obesity Onychodystrophy PAD (peripheral artery disease) Pain management contract signed Pes planus of both feet Primary osteoarthritis of knees, bilateral TIA (transient ischemic attack) Tobacco use disorder V-tach Surgical History S/P CABG (coronary artery bypass graft) (~10/01/14) S/P carotid endarterectomy S/P carpal tunnel release (Unknown) LEFT S/P cataract extraction (Unknown) RIGHT DR BATISTA S/P cataract extraction S/P hysterectomy Family History Unknown Adopted Social History Smoking and tobacco status: current every day smoker cigarettes Packs smoked per day: 2 Quit status (tobacco): has tried quititng Alcohol intake: never Substance/Drug Use: never Adopted: Yes Lives independently: Yes Household members: spouse Marital status: Vitals/I&O/Wt Last Vital Signs Temp 98.9 F 06/09/23 16:21 Pulse 114 H 06/09/23 19:52 Resp 22 H 06/09/23 19:52 BP 150/113 06/09/23 19:22 Pulse Ox 96 06/09/23 19:52 O2 Del Method Nasal Cannula 06/09/23 19:52 O2 Flow Rate 4 06/09/23 19:52 FiO2 4 06/09/23 19:22 06/09/23 06/09/23 06/09/23 06:59 14:59 22:59 Intake Total 61.167 / 61.167 Balance 61.167 / 61.167 Weight last 48 hrs Weight 67.132 kg Physical Exam Narrative: Positive signs of fluid overload Tachycardic A-fib RVR Currently on 5 L of oxygen 3+ edema of legs GCS 15 Nonfocal neuro exam Abdomen soft Crackles positive bilaterally No active wheezing Pleasant and cooperative Data 06/09/23 16:57 06/09/23 16:57 Micro: Microbiology 06/09/23 19:17 Blood Culture - Preliminary Blood SPECIMEN COLLECTED 06/09/23 19:15 Blood Culture - Preliminary Blood SPECIMEN COLLECTED A&P Assessment and plan (1) Atrial fibrillation with rapid ventricular response: (2) Hypertension: Qualifiers: Hypertension type: primary hypertension Qualified Code(s): I10 - Essential (primary) hypertension (3) Hypoxia: (4) Pneumonitis: (5) Lupus anticoagulant disorder: (6) DJD (degenerative joint disease), lumbar: (7) Diabetic neuropathy: (8) CHF exacerbation: Plan Chronic hypoxia CT scan showing mucous plug bronchiectasis Patient is afebrile Mild leukocytosis Start patient on antibiotics Request urine cultures and antigen At baseline requires 5 to 6 L of oxygen Patient has not seen any overlock elastic attacher however referral was given to the patient last year around this month she is an active smoker smokes 2 packs/day My concern is related to thromboembolic phenomenon started patient on heparin Extremely high D-dimer Could not get CTA chest because she already got contrast for CT chest I will request venous Doppler Patient will stay on DuoNeb, steroids and Mucomyst in case of further worsening bronchoscopy might be needed Dr. Palacios will be on-call starting Sunday I will start chest vest physiotherapy in the morning Acute CHF exacerbation Start IV Lasix Patient is suffering from orthopnea PND with massive edema of legs Rule out DVT We will follow-up with echo report No previous echo to know her EF Start patient on IV Lasix with a goal urine output 100 mL/h Non-STEMI: Patient stating that she is willing to go for angiogram if that is indicated at this point, Currently on ACS protocol with heparin drip continue aspirin and Plavix No active chest pain EKG consistent with A-fib. Previous CABG 2013 She had a left internal mammary artery to the LAD, single vein graft to the diagonal and single vein graft to the right coronary artery.? In May 2015 she underwent coronary angiography for similar problems and the diagonal graft was occluded.? The right coronary artery graft was patent as was the left internal mammary artery.? Her [place] circumflex was stented.? This was not bypassed at the time of surgery due to its intramyocardial location New onset A-fib [id number] Currently on heparin drip Previous EKG showed left bundle branch block Currently patient is on amiodarone Received 250 mcg of digoxin Rule out thromboembolic phenomenon Acute on chronic kidney disease secondary to cardiorenal, baseline creatinine seems to be around 1.5 Anticipate improvement with diuresis Goals of care discussed with the patient: She is full code She is concerned about her who has Alzheimer's dementia, he is alone at home Patient stating that she would never go to a [facility] because she wants to take care of her Full code Cardiac diet/consistent carb with insulin and sliding scale Attestations Medical Necessity Statement*: More than 2 midnights anticipated Diagnoses Atrial fibrillation with rapid ventricular response I48.91 Hypertension I10 Hypertension type: primary hypertension Hypoxia R09.02 Pneumonitis J18.9 Lupus anticoagulant disorder D68.62 DJD (degenerative joint disease), lumbar M47.816 Diabetic neuropathy E11.40 CHF exacerbation I50.9
[2023-06-09 21:12] LABS: SARS Covid-2 Antigen negative (Negative)
[2023-06-09] MEDS: heparin drip 25,000 UNIT/500 ML PREMIX 42 UNIT IV (21:39)
--- NOTE | 2023-06-09 21:49 | PC.PHAR ---
Pharmacokinetic dosing service Date: 06/09/23 Time: 2148 Objective: Patient: Ivette Ruiz Floor: ICU-7 Age: 77 yo Serum creatinine: 1.6 mg/dL Height: 59.0 Inches Weight (kg): 67.132 Diagnosis: Relevant medical/social history: Cultures and sensitivities: Other labs: Assessment: IBW (kg): 44.74 Dosing wt(kg): 67.132 Estimated Creatinine clearance (ml/min): 21.1 CRCL method: Cockcroft and Gault using ibw(default). Drug selected: Vancomycin Loading dose (mg): 0 Vd (liters): 60.4 (factor used: 0.9 L/kg) Cem (hr-1): 0.022 Half life (hrs): 31.51 Recommended dose: 1000 mg Interval: 36 hrs Infusion time (hrs): 1.5 Predicted peak (mcg/mL): 29.8 Predicted trough (mcg/mL): 13.95 Total body weight is being used for vancomycin dosing. Renal function is stable [ ] /unstable [ ] Recommendations: Give Vancomycin 1000 mg q 36 hrs with an expected Cpeak of 29.8 mcg/ml and an expected Ctrough of 13.95 mcg/ml Renal dosing of other antibiotics (review renal dosing of other medications and list guidelines here): Thank you for the consult, will continue to follow. Signature: [facility] [place] [facility]
[2023-06-09 21:55] LABS: Estmated Average Glucose 151; Hemoglobin A1C 6.9 % (4.0-6.0)
[2023-06-09 22:02] LABS: Thyroid Stimulating Hormone 0.85 uIU/mL (0.27-4.20)
[2023-06-09 22:04] LABS: Procalcitonin 0.14 ng/mL (0-0.5)
[2023-06-09] MEDS: methylPREDNISolone sod succ 40 MG in water for injection-sterile 1 ML 12 MG IVP (22:13)
[2023-06-09 22:16] LABS: Lactic Sepsis W/Reflex 2.3 mmol/L (0.5-2.2)
[2023-06-09] MEDS: vancomycin 1,000 MG in sodium chloride 0.9% 250 ML 250 MG IV (22:21)
[2023-06-09] MEDS: HYDROcodone-acetaminophen 10-325 mg Tablet 1 TAB PO (22:32)
[2023-06-09] MEDS: digoxin 250 mcg/ml INJ 2 mL IVP (23:02)
[2023-06-09 23:39] LABS: Reflex Lactate Order REFLEX LACTIC ORDERD
[2023-06-09] MEDS: piperacillin-tazobactam 3.375 GM in sodium chloride 0.9% (plus) 50 ML IV (23:39)
--- NOTE | 2023-06-09 23:45 | PC.NURSE ---
Admission to ICU: Pt arrived to ICU 7 @2124. Continuos cardiac monitoring continued. Pt reporting pain 10/10 in bilateral hips and back. A&Ox4. 4L NC oxygen. Dr. Niño notified. New order for lidocaine patch 5% daily, hydrocodone 10mg BID PRN, and D/C Cardizem drip. See MAR for administration. Heat packs applied to affected areas. Dr. Niño at bedside to speak w/ nurse and patient @8220. New order for Digoxin 250mg NOW and Cardiac diet.
--- NOTE | 2023-06-09 23:57 | ECG_ITS ---
[facility] Test Date: 2023-06-09 Pat Name: Ivette Ruiz Department: Room: ICU07 Gender: Female Tumbler Tender: : 1945 Requested By: John Mckeon Order Number: [id number] Ahsan MD: Malik Moore M.D. Measurements Intervals [place] Rate: 114 P: 0 PA: 0 QRS: 19 QRSD: 144 T: 160 QT: 336 QTc: 463 Interpretive Statements ATRIAL FIBRILLATION WITH RAPID VENTRICULAR RESPONSE LEFT BUNDLE BRANCH BLOCK [120+ ms QRS DURATION, 80+ ms Q/S IN V1/V2, 85+ ms R IN I/aVL/V5/V6] Compared to ECG 06/09/2023 19:22:12 No change Electronically Signed On 06-10-2023 11:37:38 CDT by Malik Moore M.D. [email or web address]
[2023-06-10] VITALS (68 sets, daily range): BP systolic 100–200; BP diastolic 73–140; PULSE 73–144; RESP 14–39; TEMP 36.6–37.2; O2SAT 86–100
--- NOTE | 2023-06-10 | USR_ITS ---
PROCEDURE INFORMATION: Exam: US Duplex Lower Extremity Veins, Bilateral Exam date and time: 06/10/2023 7:18 PM Age: 77 years old Clinical indication: Swelling (edema) of limb; Lower extremity, bilateral; Additional info: Leg sqwelling TECHNIQUE: Imaging protocol: Real-time duplex ultrasound of the bilateral extremities with 2-D bxo scale, color Doppler flow and spectral waveform analysis including responses to compression and other maneuvers (when performed) with image documentation. Complete exam focused on the lower extremity veins. COMPARISON: [place] [id number] 01/02/2017 10:34 AM FINDINGS: Right deep veins: Unremarkable. The common femoral, femoral, proximal profunda femoral and popliteal veins are patent without thrombus. Normal Doppler waveforms. Normal compressibility and/or augmentation response. Left deep veins: Unremarkable. The common femoral, femoral, proximal profunda femoral and popliteal veins are patent without thrombus. Normal Doppler waveforms. Normal compressibility and/or augmentation response. Superficial veins: Bilateral saphenofemoral junctions are patent without thrombus. On cine 45, there is partial thrombus with incomplete compressibility in a superficial vein anterior to the left greater saphenous vein. Soft tissues: 1.4 x 0.9 x 1.0 cm left popliteal fossa cyst. US/CV venous duplex [facility] [id number] IMPRESSION: 1. No evidence for deep vein thrombosis in the right or left lower extremity. 2. Partial superficial thrombosis within a superficial venous branch, anterior to the left greater saphenous vein (visible only on cine 45).
[2023-06-10 00:13] LABS: Troponin 5 6HR 78.72 ng/L (0-10)
[2023-06-10 00:15] LABS: Troponin 5 6HR Delta -0.28 ng/L (0-12)
[2023-06-10] MEDS: FUROsemide 10 mg/mL SDV 4mL 60 MG IVP ×3 (00:20→23:39)
[2023-06-10 01:18] LABS: Lactic Acid level (Lactate) 1.3 mmol/L (0.5-2.2)
[2023-06-10 04:14] LABS: Basophils % 0.2 %; Hematocrit 42.2 % (37.0-47.0); Hemoglobin 13.7 g/dL (11.5-15.3); Lymphocytes # 1.1 10^3/uL (0.8-4.8); Lymphocytes % 9.8 %; Mean Corpuscular HGB Conc 32.5 g/dL (30.0-36.0); Mean Corpuscular Volume 92.5 fl (81-99); Mean Platelet Volume 12.4 fL (7.4-10.4); Monocytes # 0.2 10^3/uL (0.2-0.9); Monocytes % 1.6 %; Neutrophils # 9.53 10^3/uL (1.8-7.7); Neutrophils % 87.9 %; Nucleated Red Blood Cells % 0 %; Platelet Count 202 10^3/cmm (130-400); Red Blood Count 4.56 10^6/uL (4.1-5.3); Red Cell Distribution Width 12.8 % (12.1-15.1); White Blood Count 10.8 10^3/uL (4.0-10.0)
[2023-06-10 04:29] LABS: Partial Thromboplastin Time 109.3 SECONDS (23.9-36.7)
[2023-06-10 04:30] LABS: Alanine Aminotransferase 9 U/L (0-33); Albumin Level 3.7 g/dL (3.5-5.2); Alkaline Phosphatase 75 U/L (35-105); Aspartate Amino Transferase 15 U/L (0-32); Blood Urea Nitrogen 26 mg/dL (8-23); Calcium 9.1 mg/dL (8.5-10.5); Carbon Dioxide 25 mmol/L (22-29); Chloride 97 mmol/L (98-107); Creatinine Clr Calc Pharmacy 28.3577; Globulin 2.6 g/dL (1.3-4.6); Glucose 261 mg/dL (65-115); Magnesium 1.7 mg/dL (1.7-2.3); Osmolality Calculated 298 mOsm/kg (285-295); Sodium 137 mmol/L (136-145); Total Bilirubin 0.5 mg/dL (0.15-1.2); Total Protein 6.3 g/dL (6.6-8.7)
[2023-06-10 04:43] LABS: Anion Gap 19.2 (5-19); Potassium 4.2 mmol/L (3.5-5.1)
[2023-06-10] MEDS: nitroglycerin 1 gm/inch oint Pkt 0.5 INCH TOPICAL (04:50)
[2023-06-10] MEDS: hyDRALAzine 20 mg/mL INJ 1 mL 10 MG IVP (04:53)
--- NOTE | 2023-06-10 05:06 | PC.NURSE ---
Increased BP: Notified Dr. Niño of increased BP @ approximately 0430. New order for Hydralazine 10mg IVP ONCE NOW, Nitro-Bib 0.5 inch topical ONCE NOW. See MAR for medical administration.
[2023-06-10] MEDS: piperacillin-tazobactam 3.375 GM in sodium chloride 0.9% (plus) 50 ML IV ×3 (06:06→23:04)
[2023-06-10 07:53] LABS: Glucose Point of Care 245 mg/dL (70-110)
[2023-06-10] MEDS: insulin lispro 100 unit/1 mL SUBCUT ×3 (07:53→20:49)
[2023-06-10] MEDS: HYDROcodone-acetaminophen 10-325 mg Tablet 1 TAB PO ×2 (07:54→20:50)
--- NOTE | 2023-06-10 08:21 | PC.RESP ---
pt unable to tolerate chest vest
[2023-06-10 09:16] LABS: C Reactive Protein 3.4 mg/L (0.0-4.9)
[2023-06-10] MEDS: aspirin 81 mg EC Tablet PO (09:19)
[2023-06-10] MEDS: atorvastatin 40 mg Tablet PO (09:20)
[2023-06-10] MEDS: levothyroxine 25 mcg Tablet PO (09:20)
[2023-06-10] MEDS: clopidogrel 75 mg Tablet PO (09:20)
[2023-06-10] MEDS: pantoprazole DR 40 mg Tablet PO (09:20)
[2023-06-10] MEDS: ropinirole 0.25 mg Tablet 0.5 MG PO (09:20)
[2023-06-10] MEDS: isosorbide mononitrate ER 60 mg Tablet 120 MG PO ×2 (09:20→18:23)
[2023-06-10] MEDS: metoprolol succinate ER (24 HR) 25 mg Tablet 12.5 MG PO (09:20)
[2023-06-10] MEDS: magnesium oxide 400 mg tablet PO ×2 (09:23→18:22)
[2023-06-10] MEDS: lidocaine 5% Patch 1 PATCH TOPICAL ×2 (09:24→20:49)
[2023-06-10] MEDS: insulin glargine 100 units/1 mL 10 UNIT SUBCUT (09:26)
[2023-06-10] MEDS: methylPREDNISolone sod succ 40 MG in water for injection-sterile 1 ML 12 MG IVP ×2 (10:23→22:15)
[2023-06-10] MEDS: amiodarone 200 mg Tablet 400 MG PO ×3 (10:24→18:24)
[2023-06-10] MEDS: morphine 4 mg/mL SDV 1 mL 2 MG IVP ×3 (10:24→22:25)
[2023-06-10 11:24] LABS: Glucose Point of Care 122 mg/dL (70-110)
[2023-06-10 11:46] LABS: Partial Thromboplastin Time 65.7 SECONDS (23.9-36.7)
--- NOTE | 2023-06-10 16:16 | P.PN_ITS ---
Subjective Subjective: - Patient was examined this morning -She is very worried about her who is at home, who is Alzheimer's disease, she is worried about him being at home as she takes care of him -There is no other family members to take care of him, most of their family is in [place] -We did call the peanut picker's department who went out to his home for a wellness check -She does report shortness of breath, no chest pain, no palpitations, no fevers, no chills -She apologizes to me she tells me that she might have to leave AGAINST MEDICAL ADVICE if there is no one to take care of her -I discussed with her detailed the morbidity and mortality associated with leaving AGAINST MEDICAL ADVICE, she voiced understanding, all questions answered, but she apologizes the situation is difficult -We will see if case management can help Vitals/I&O/Wt Last Vital Signs Temp 98.9 F 06/10/23 12:00 Pulse 85 06/10/23 14:00 Resp 16 06/10/23 16:04 BP 185/97 06/10/23 14:00 Pulse Ox 94 06/10/23 16:04 O2 Del Method Nasal Cannula 06/10/23 14:00 O2 Flow Rate 3 06/10/23 14:00 FiO2 4 06/09/23 21:06 06/10/23 06/10/23 06/10/23 06:59 14:59 22:59 Intake Total 1139.098 / 1494.515 521.525 / 521.525 0.208 / 521.733 Output Total 1200 / 1200 Balance -60.902 / 294.515 521.525 / 521.525 0.208 / 521.733 Weight last 48 hrs Weight 67.54 kg Weight 67.558 kg Weight 67.132 kg Physical Exam Const: COMMON NORMALS: no acute distress and patient oriented x3 Chest: COMMONS NORMALS: normal inspection of the chest Resp: COMMON NORMALS: normal respiratory effort, No retractions and No use of accessory muscles AUSCULTATION: crackles Cardio: COMMON NORMALS: S1 normal heart sound present and S2 normal heart sound present RATE: tachycardic RHYTHM: abnormal rhythm HEART SOUNDS: S1 normal heart sound present and S2 normal heart sound present GI: COMMON NORMALS: Normal to inspection, nondistended, normoactive bowel sounds present and non-tender Extremity: NARRATIVE EXTREMITY EXAM: 1+ pitting edema Neuro: COMMON NORMALS: patient oriented x3 Psych: COMMON NORMALS: mental status grossly normal Urinary Catheter Management: Gibbs: Cath Placed During This Visit: yes Reason for Continuing Indwelling Catheter: Accurate Measurement of Urinary Output in Critically Ill Patients Urinary Catheter Date of Insertion: 06/09/23 Urinary Catheter Time of Insertion: 21:15 Data 06/10/23 03:49 06/10/23 03:49 Micro: Microbiology 06/09/23 19:17 Blood Culture - Preliminary Blood SPECIMEN COLLECTED 06/09/23 19:15 Blood Culture - Preliminary Blood SPECIMEN COLLECTED A&P Assessment and plan (1) Atrial fibrillation with rapid ventricular response: (2) Hypertension: Qualifiers: Hypertension type: primary hypertension Qualified Code(s): I10 - Essential (primary) hypertension (3) Hypoxia: (4) Pneumonitis: (5) Lupus anticoagulant disorder: (6) DJD (degenerative joint disease), lumbar: (7) Diabetic neuropathy: (8) CHF exacerbation: (9) Acute respiratory failure with hypoxia: (10) Pneumonia: Plan Acute on chronic respiratory failure Multifactorial A-fib with RVR, fluid overload Diastolic CHF exacerbation COPD exacerbation Pneumonia CT scan showing 1. ? There is bronchiectasis with patchy mucous plugging and atelectasis right lower lobe. 2. ? There is also mild ground-glass and tree-in-bud opacities in the lungs compatible with mild pneumonitis. Possible pulmonary embolism with elevated D-dimer, cannot perform CT angiogram given creatinine Patient is afebrile Mild leukocytosis Request urine cultures and antigen At baseline requires 5 to 6 L of oxygen Patient has not seen any special education director however referral was given to the patient last year around this month she is an active smoker smokes 2 packs/day My concern is related to thromboembolic phenomenon started patient on heparin Extremely high D-dimer Could not get CTA chest because she already got contrast for CT chest I will request venous Doppler Patient will stay on DuoNeb, steroids and Mucomyst in case of further worsening bronchoscopy might be needed Dr. Palacios will be on-call starting Sunday I will start chest vest physiotherapy in the morning Lasix 60 IV twice daily Continue Solu-Medrol 40 IV every 12 hours Continue vancomycin, Zosyn Acute CHF exacerbation Start IV Lasix, 60 IV twice daily Patient is suffering from orthopnea PND with massive edema of legs Rule out DVT We will follow-up with echo report No previous echo to know her EF, cardiac echo Serial EKGs, troponins, telemetry monitoring Start patient on IV Lasix with a goal urine output 100 mL/h Non-STEMI: Patient stating that she is willing to go for angiogram if that is indicated at this point, Currently on ACS protocol with heparin drip continue aspirin and Plavix No active chest pain EKG consistent with A-fib. Previous CABG 2013 She had a left internal mammary artery to the LAD, single vein graft to the diagonal and single vein graft to the right coronary artery.? In May 2015 she underwent coronary angiography for similar problems and the diagonal graft was occluded.? The right coronary artery graft was patent as was the left internal mammary artery.? Her [place] circumflex was stented.? This was not bypassed at the time of surgery due to its intramyocardial location New onset A-fib [id number] Currently on heparin drip Previous EKG showed left bundle branch block Currently patient is on amiodarone, start 400 twice daily amiodarone Received 250 mcg of digoxin Rule out thromboembolic phenomenon Acute on chronic kidney disease secondary to cardiorenal, baseline creatinine seems to be around 1.5 Anticipate improvement with diuresis Goals of care discussed with the patient: She is full code She is concerned about her who has Alzheimer's dementia, he is alone at home Patient stating that she would never go to a halfway because she wants to take care of her Full code Cardiac diet/consistent carb with insulin and sliding scale Attestations Medical Necessity Statement*: Patient requires hospitalization for acute hypoxic respiratory failure, multifactorial from CHF, COPD, pneumonia, A-fib, NSTEMI Diagnoses Atrial fibrillation with rapid ventricular response I48.91 Hypertension I10 Hypertension type: primary hypertension Hypoxia R09.02 Pneumonitis J18.9 Lupus anticoagulant disorder D68.62 DJD (degenerative joint disease), lumbar M47.816 Diabetic neuropathy E11.40 CHF exacerbation I50.9 Acute respiratory failure with hypoxia J96.01 Pneumonia J18.9
[2023-06-10 17:16] LABS: Glucose Point of Care 246 mg/dL (70-110)
[2023-06-10 18:11] LABS: Partial Thromboplastin Time 75.5 SECONDS (23.9-36.7)
[2023-06-10 20:16] LABS: Glucose Point of Care 232 mg/dL (70-110)
[2023-06-10] MEDS: ALPRAZolam 0.5 mg Tablet PO (20:50)
--- NOTE | 2023-06-10 21:05 | USCV_ITS ---
Ivette Ruiz Age: 77 Gender: F : 1945 Exam Date: 06/10/2023 19:48 Ordering Phys: Gerald Niño MD Technologist: Chang Garcia Exam Location: [facility] – [place] Indication: afib BP: 187 / 88 HR: Rhythm: Atrial fibrillation Technical Quality: Poor MEASUREMENTS (Male / Female) Normal Values 2D ECHO LVOT Diameter 2.0 cm LV Ejection Fraction MOD 2C 36.1 % LV Ejection Fraction 2C AL 33.6 % LA Diameter 3.3 cm LA Width 3.5 cm LA Height 4.9 cm RA Width 3.0 cm RA Height 4.2 cm Aorta at Sinotubular Diameter 1.8 cm IVC Diameter 2.0 cm M-MODE Aortic Annulus Diameter 2.4 cm LA Ao Ratio MM 1.5 MV E Point Septal Separation 0.8 cm DOPPLER AV Peak Velocity 192.3 cm/s LVOT Peak Velocity 81.0 cm/s AV Area Cont Eq vti 1.1 cm squared AV Area Cont Eq pk 1.3 cm squared MV Peak Velocity 126.0 cm/s MV Area PHT 5.0 cm squared Mitral E to A Ratio 1.2 MV E' Velocity 53.5 cm/s Mitral E to MV E' Ratio 16.1 Mitral E to LV E' Lateral Ratio 12.6 Mitral E to LV E' Septal Ratio 22.4 TR Peak Velocity 263.6 cm/s TR Peak Gradient 27.8 mmHg TR Mean Velocity 195.8 cm/s TR Mean Gradient 16.9 mmHg TR Velocity Time Integral 58.3 cm Right Atrial Pressure 3.0 mmHg Pulmonary Artery Systolic Pressu 30.8 mmHg PV Peak Velocity 117.3 cm/s RV Acceleration Time 0.1 s RV Ejection Time 0.3 s RV AcT/ET 0.3 FINDINGS Left Ventricle The study is poor secondary to underlying COPD. The patient has atrial fibrillation and an underlying left bundle branch block making sensitivity less. The only view available for interpretation is the apical view. In this view the apex is thinned and hypokinetic. There is a large sigmoid septum. The lateral wall appears to contract normally. There is moderate reduction in left ventricular function. A rough estimate of the ejection fraction is 35 to 40%. Diastolic function cannot be determined due to the rhythm disturbance. Right Ventricle Normal right ventricular size and systolic function. Normal right ventricular systolic pressure. Right Atrium The right atrium is normal in size. Left Atrium Mildly increased left atrial size. Mitral Valve Structurally normal mitral valve. Moderate mitral valve regurgitation. Aortic Valve Aortic valve not well visualized. Mild aortic valve calcification. Mild aortic valve stenosis, mean gradient 7.3 mmHg, AYDIN 1.1 cm squared. Tricuspid Valve Structurally normal tricuspid valve. Moderate tricuspid valve regurgitation. Pulmonic Valve Pulmonic valve not well visualized. Pericardium Normal pericardium without effusion. Aorta Normal ascending aorta dimension. IVC Inferior vena cava slightly dilated. CONCLUSIONS The study is poor secondary to underlying COPD. The patient has atrial fibrillation and an underlying left bundle branch block making sensitivity less. The only view available for interpretation is the apical view. In this view the apex is thinned and hypokinetic. There is a large sigmoid septum. The lateral wall appears to contract normally. There is moderate reduction in left ventricular function. A rough estimate of the ejection fraction is 35 to 40%. Diastolic function cannot be determined due to the rhythm disturbance. Mildly increased left atrial size. Structurally normal mitral valve. Moderate mitral valve regurgitation. Aortic valve not well visualized. Mild aortic valve calcification. Mild aortic valve stenosis, mean gradient 7.3 mmHg, AYDIN 1.1 cm squared. From the previous echo done 04/07/2014, the decrease in left ventricular function is new. The wall motion disturbances are new. Mitral regurgitation appears worse. Aortic stenosis is new however due to the poor quality of the exam I am not confident of the aortic valve calculations. Dr. Malik Moore MD (Electronically Signed) Final Date: 11 June 2023 09:34 S
[2023-06-10] MEDS: trazodone 100 mg Tablet PO (23:02)
[2023-06-11] VITALS (73 sets, daily range): BP systolic 106–200; BP diastolic 72–141; PULSE 67–144; RESP 18–37; TEMP 36.6–37.1; O2SAT 86–98
[2023-06-11 00:10] LABS: Partial Thromboplastin Time 43.6 SECONDS (23.9-36.7)
[2023-06-11] MEDS: heparin 5,000 unit/mL INJ 1 mL IV (00:34)
[2023-06-11] MEDS: heparin drip 25,000 UNIT/500 ML PREMIX 16.5 UNIT IV (03:39)
[2023-06-11 04:45] LABS: Basophils % 0.1 %; Eosinophils % 0.1 %; Hematocrit 44.3 % (37.0-47.0); Hemoglobin 14.4 g/dL (11.5-15.3); Lymphocytes # 1.4 10^3/uL (0.8-4.8); Lymphocytes % 14.3 %; Mean Corpuscular HGB Conc 32.5 g/dL (30.0-36.0); Mean Corpuscular Hemoglobin 29.9 pg (28.0-34.0); Mean Corpuscular Volume 92.1 fl (81-99); Mean Platelet Volume 12.4 fL (7.4-10.4); Monocytes # 0.2 10^3/uL (0.2-0.9); Monocytes % 1.9 %; Neutrophils # 8.37 10^3/uL (1.8-7.7); Neutrophils % 83.2 %; Nucleated Red Blood Cells % 0 %; Platelet Count 229 10^3/cmm (130-400); Red Blood Count 4.81 10^6/uL (4.1-5.3); Red Cell Distribution Width 12.5 % (12.1-15.1); White Blood Count 10.1 10^3/uL (4.0-10.0)
[2023-06-11 05:16] LABS: C Reactive Protein 5.9 mg/L (0.0-4.9); Magnesium 1.8 mg/dL (1.7-2.3); Phosphorus 3.7 mg/dL (2.5-4.5)
[2023-06-11 05:17] LABS: Procalcitonin 0.15 ng/mL (0-0.5)
[2023-06-11 05:29] LABS: Blood Urea Nitrogen 44 mg/dL (8-23); Calcium 9.8 mg/dL (8.5-10.5); Carbon Dioxide 27 mmol/L (22-29); Chloride 93 mmol/L (98-107); Glucose 216 mg/dL (65-115); Osmolality Calculated 298 mOsm/kg (285-295); Sodium 135 mmol/L (136-145)
[2023-06-11 05:31] LABS: Anion Gap 18.9 (5-19); Potassium 3.9 mmol/L (3.5-5.1)
[2023-06-11 05:38] LABS: NT Pro B Type Natriuretic Pept 48006 pg/mL (0-450)
[2023-06-11] MEDS: piperacillin-tazobactam 3.375 GM in sodium chloride 0.9% (plus) 50 ML IV ×2 (06:15→18:00)
[2023-06-11] MEDS: hyDRALAzine 20 mg/mL INJ 1 mL 10 MG IVP (06:15)
[2023-06-11 06:40] LABS: Glucose Point of Care 202 mg/dL (70-110)
[2023-06-11 07:22] LABS: Partial Thromboplastin Time 171.4 SECONDS (23.9-36.7)
--- NOTE | 2023-06-11 07:42 | PC.NURSE ---
notified Dr. Tellez at 0738 of critical PTT 171.4. Pump was shut off. Waiting for reply from Dr. Tellez. Let Dr. Tellez kow of Patients blood pressure 178/111. Lisinopril home medications has not been restarted.
[2023-06-11] MEDS: insulin lispro 100 unit/1 mL SUBCUT ×4 (08:04→21:11)
[2023-06-11] MEDS: isosorbide mononitrate ER 60 mg Tablet 120 MG PO ×2 (08:31→18:00)
[2023-06-11] MEDS: amiodarone 200 mg Tablet 400 MG PO ×2 (08:31→18:01)
[2023-06-11] MEDS: aspirin 81 mg EC Tablet PO (08:31)
[2023-06-11] MEDS: levothyroxine 25 mcg Tablet PO (08:31)
[2023-06-11] MEDS: magnesium oxide 400 mg tablet PO ×2 (08:31→18:01)
[2023-06-11] MEDS: ropinirole 0.25 mg Tablet 0.5 MG PO (08:31)
[2023-06-11] MEDS: atorvastatin 40 mg Tablet PO (08:32)
[2023-06-11] MEDS: pantoprazole 40 mg SDV IVP (08:32)
[2023-06-11] MEDS: clopidogrel 75 mg Tablet PO (08:32)
[2023-06-11] MEDS: lidocaine 5% Patch 1 PATCH TOPICAL (08:38)
[2023-06-11] MEDS: insulin glargine 100 units/1 mL 10 UNIT SUBCUT (08:38)
[2023-06-11] MEDS: metoprolol tartrate 25 mg Tablet PO (08:38)
[2023-06-11] MEDS: hyDRALAzine 10 mg Tablet PO ×3 (10:13→21:10)
[2023-06-11] MEDS: vancomycin 1,000 MG in sodium chloride 0.9% 250 ML 250 MG IV (10:13)
[2023-06-11] MEDS: methylPREDNISolone sod succ 40 MG in water for injection-sterile 1 ML 12 MG IVP ×2 (10:14→21:10)
[2023-06-11 11:17] LABS: Glucose Point of Care 303 mg/dL (70-110)
[2023-06-11] MEDS: FUROsemide 10 mg/mL SDV 4mL 40 MG IVP (12:11)
--- NOTE | 2023-06-11 13:08 | P.CONIM_ITS ---
Providers/Reason For Consult Consulting Physician/Specialty*: Dr. Pandey, Cardiology Reason for Consult*: CHF. NSTEMI Attending Physician: Ludwin Tellez MD Primary Care Provider: Leena Calderon History of Present Illness History of Present Illness Ivette Ruiz is a 77 year old female with past medical history of coronary disease with prior GA, h/o coronary bypass surgery x 3 in 2013, carotid disease and has had carotid endarterectomy.? She has a history of heart failure, chronic pain, chronic kidney disease, COPD, lifelong tobacco abuse (2 PPD), on home oxygen, diabetes with neuropathy, dyslipidemia, hypertension and obesity. She was hospitalized last year for Chest pain and troponin went up from 28-->209. EKG with LBBB. Cath was not done as patient refused to lay flat post procedure and was concerned about renal function. Surprisingly, I do not see an echo or stress test from that visit. She was discharged home on medical management with ASA, plavix, metoprolol, ranexa, statin and imdur. She did not follow up for her office visit. She presented again with swelling in legs. No CP at anypoint. c/o some SOB. Troponin T flat 79->82. EKG with sinus rhythm with frequent PAC's. Few paroxysms of atrial tachycardia and NSVT. Intermittent runs of atrial fibrillation with RVR noted. She was started on cardizem gtt f/b amiodarone drip. She was started on heparin gtt for Possible NSTEMI. She lives with her and is worried about her who has dementia. Review of Systems Const: Denies: fever(s) Eyes: Denies: change in vision ENMT: Denies: throat pain Card: Reports: palpitations and swelling of feet/ankles Resp: Reports: dyspnea GI: Reports: abdominal pain : Denies: flank pain Musc: Reports: extremity pain; Denies: neck pain Skin/Breast: Denies: rash Neuro: Denies: headache(s) Psych: Reports: anxiety Shiva/Lymph: Reports: easy bleeding Medications/Allergies Home Medications Medication Instructions Recorded Confirmed Last Taken Type albuterol sulfate 90 mcg/actuation 2 puff inhalation Q6H PRN 11/18/19 06/09/23 06/09/23 History aerosol inhaler (Proventil HFA) Shortness Of Breath ascorbic acid (vitamin C) 500 mg 250 mg PO QDAY 11/18/19 06/09/23 06/07/23 History tablet aspirin 81 mg tablet,delayed 81 mg PO QDAY 11/18/19 06/09/23 Unknown History release (Adult Low Dose Aspirin) atorvastatin 40 mg tablet (Lipitor) 40 mg PO QDAY 11/18/19 06/09/23 Unknown History calcium carbonate 600 mg calcium 600 mg PO QDAY 11/18/19 06/09/23 Unknown History (1,500 mg) tablet cholecalciferol (vitamin D3) 25 1,000 unit PO QDAY 11/18/19 06/09/23 Unknown History mcg (1,000 unit) capsule clopidogrel 75 mg tablet 75 mg PO QDAY 11/18/19 06/09/23 Unknown History cranberry extract 200 mg capsule 200 mg PO QDAY 11/18/19 06/09/23 Unknown History desloratadine 5 mg tablet 5 mg PO QDAY 11/18/19 06/09/23 Unknown History fluticasone 250 mcg-salmeterol 50 1 inh inhalation BID 11/18/19 06/09/23 Unknown History mcg/dose blistr powdr for inhalation (Advair Diskus) furosemide 40 mg tablet 40 mg PO QAM 11/18/19 06/09/23 Unknown History isosorbide mononitrate 120 mg 120 mg PO BID 11/18/19 06/09/23 Unknown History tablet,extended release 24 hr melatonin 5 mg tablet 5 mg PO QDAY 11/18/19 06/09/23 Unknown History metoclopramide HCl 10 mg tablet 10 mg PO Q6H PRN Acid Reflux 11/18/19 06/10/23 Unknown History metoprolol succinate 50 mg 50 mg PO QDAY 11/18/19 06/09/23 Unknown History tablet,extended release 24 hr pantoprazole 40 mg tablet,delayed 40 mg PO QDAY 11/18/19 06/09/23 Unknown Hi story release (Protonix) ropinirole 0.5 mg tablet 0.5 mg PO QDAY 11/18/19 06/09/23 Unknown History tiotropium bromide 18 mcg capsule 1 cap inhalation QDAY 11/18/19 06/09/23 Unknown History with inhalation device (Spiriva with HandiHaler) trazodone 100 mg tablet 100 mg PO QDAY 11/18/19 06/09/23 Unknown History venlafaxine 37.5 mg tablet 37.5 mg PO QDAY 11/18/19 06/09/23 Unknown History vitamin B complex (B 1 tab PO QDAY 11/18/19 06/09/23 Unknown History Complex-Vitamin B12 tablet) levothyroxine 25 mcg tablet 25 mcg PO DAILY 12/02/19 06/09/23 Unknown History magnesium oxide 400 mg PO BID 12/02/19 06/09/23 Unknown History tlbupoluoljc-EK-qvh 200 mcg-16 mg 1 tab PO DAILY 12/02/19 06/09/23 Unknown History chewable tablet (One-A-Day Vitacraves Oradell-3) nitroglycerin 0.4 mg sublingual 0.4 mg sublingual Q5M PRN Chest 12/02/19 06/09/23 Unknown History tablet (Nitrostat) Pain gabapentin 800 mg tablet 800 mg PO TID PAIN 90 days #270 03/17/20 06/09/23 Unknown Rx tabs lidocaine 5 % topical patch 3 patch topical DAILY PAIN 90 days 03/17/20 06/09/23 Unknown Rx #90 ea cyclobenzaprine 10 mg tablet 5 mg PO TID PRN muscle spasm 90 03/15/21 06/09/23 Unknown Rx days #135 tabs lisinopril 10 mg tablet 20 mg PO QDAY 04/13/21 06/09/23 Unknown History hydrocodone 10 mg-acetaminophen 1 tab PO QID PRN pain 30 days #120 07/27/21 06/09/23 06/09/23 Rx 325 mg tablet tabs meloxicam 15 mg tablet See Rx Instructions .Route 12/13/21 06/09/23 Unknown Rx .COMPLEX #30 tabs Diabetic Shoes with Inserts #1 ea 04/18/22 06/10/23 Unknown Rx roflumilast 500 mcg tablet 500 mcg PO DAILY 04/29/22 06/09/23 Unknown History (Daliresp) metoprolol succinate 25 mg 12.5 mg PO DAILY #30 tabs 04/30/22 06/09/23 Unknown Rx tablet,extended release 24 hr (Toprol XL) ranolazine 500 mg tablet,extended 500 mg PO BID #60 tabs 04/30/22 06/09/23 Unknown Rx release,12 hr Allergies Allergy/AdvReac Type Severity Reaction Status Date / Time No Known Allergies Allergy Verified 05/17/23 00:24 Current Medications Generic Name Dose Route Start Last Admin Trade Name Freq PRN Reason Stop Dose Admin Hydrocodone Bitart/Acetaminophen 1 tab 06/09/23 22:11 06/10/23 20:50 Hydrocodone-Acetaminophen 10-325 Mg Tablet PO 1 tab BID PRN Administration MODERATE PAIN Alprazolam 0.5 mg 06/10/23 09:47 06/10/23 20:50 Alprazolam 0.5 Mg Tablet PO 0.5 mg BID PRN Administration ANXIETY Amiodarone HCl 400 mg 06/10/23 10:05 06/11/23 08:31 Amiodarone 200 Mg Tablet PO 400 mg BID RIDGE Administration Aspirin 81 mg 06/10/23 09:00 06/11/23 08:31 Aspirin 81 Mg Ec Tablet PO 81 mg DAILY RIDGE Administration Atorvastatin Calcium 40 mg 06/10/23 09:00 06/11/23 08:32 Atorvastatin 40 Mg Tablet PO 40 mg DAILY RIDGE Administration Clopidogrel Bisulfate 75 mg 06/10/23 09:00 06/11/23 08:32 Clopidogrel 75 Mg Tablet PO 75 mg DAILY RIDGE Administration Furosemide 60 mg 06/09/23 23:45 06/10/23 23:39 Furosemide 10 Mg/Ml Sdv 4ml IVP 60 mg Q12H RIDGE Administration Heparin Sodium (Porcine) 0 unit 06/09/23 20:14 06/11/23 00:34 Heparin 5,000 Unit/Ml Inj 1 Ml IV 2,700 unit PRN PRN Administration Heparin weight-base protocol Protocol Hydralazine HCl 10 mg 06/11/23 09:45 06/11/23 10:13 Hydralazine 10 Mg Tablet PO 10 mg Q6H RIDGE Administration Heparin Sodium/Sodium Chloride 25,000 unit in 500 mls @ 0 mls/hr 06/09/23 20:15 06/11/23 03:39 Heparin Drip IV 12.29 unit/kg/hr .Q0M RIDGE 16.5 mls/hr Administration Protocol Per Protocol Amiodarone HCl 900 mg/ 518 mls @ 0 mls/hr 06/09/23 20:30 06/10/23 12:10 Dextrose/ IV Miscellaneous IV 0 mg/min Supplies .Q0M RIDGE 0 mls/hr Titration Protocol Per Protocol Methylprednisolone Sodium 1 mls @ 12 mls/hr 06/10/23 10:00 06/11/23 10:45 Succinate 40 mg/ Sterile Water IVP Infused Q12H RIDGE Infusion Insulin Glargine 10 unit 06/10/23 09:00 06/11/23 08:38 Insulin Glargine 100 Units/1 Ml SUBCUT 10 unit DAILY RIDGE Administration Insulin Human Lispro 0 unit 06/10/23 08:00 06/11/23 11:41 Insulin Lispro 100 Unit/1 Ml SUBCUT 10 unit WM&BEDTIME RIDGE Administration Protocol Isosorbide Mononitrate 120 mg 06/10/23 09:00 06/11/23 08:31 Isosorbide Mononitrate Er 60 Mg Tablet PO 120 mg BID RIDGE Administration Levothyroxine Sodium 25 mcg 06/10/23 09:00 06/11/23 08:31 Levothyroxine 25 Mcg Tablet PO 25 mcg DAILY RIDGE Administration Lidocaine 1 patch 06/10/23 09:00 06/11/23 08:38 Lidocaine 5% Patch TOPICAL 1 patch [id number] RIDGE Administration Magnesium Oxide 400 mg 06/10/23 09:00 06/11/23 08:31 Magnesium Oxide 400 Mg Tablet PO 400 mg BID RIDGE Administration Metoprolol Tartrate 25 mg 06/11/23 09:00 06/11/23 08:38 Metoprolol Tartrate 25 Mg Tablet PO 25 mg BID@0900,2100 RIDGE Administration Morphine Sulfate 2 mg 06/10/23 09:51 06/10/23 22:25 Morphine 4 Mg/Ml Sdv 1 Ml IVP 2 mg Q4H PRN Administration SEVERE PAIN Pantoprazole Sodium 40 mg 06/10/23 09:00 06/11/23 08:32 Pantoprazole 40 Mg Sdv IVP 40 mg DAILY RIDGE Administration Ropinirole HCl 0.5 mg 06/10/23 09:00 06/11/23 08:31 Ropinirole 0.25 Mg Tablet PO 0.5 mg DAILY RIDGE Administration Trazodone HCl 100 mg 06/10/23 22:44 06/10/23 23:02 Trazodone 100 Mg Tablet PO 100 mg BEDTIME PRN Administration SLEEP PFSH Acute PFSH: Medical History ASHD (arteriosclerotic heart disease) Bilateral bunions Bilateral knee pain Callus of foot Carotid stenosis, bilateral Chest pain CHF (congestive heart failure) Chronic fatigue Chronic hip pain CKD (chronic kidney disease) COPD (chronic obstructive pulmonary disease) Diabetes Diabetic neuropathy Diabetic peripheral neuropathy associated with type 2 diabetes mellitus DJD (degenerative joint disease), lumbar Dyslipidemia Essential hypertension GERD (gastroesophageal reflux disease) Long-term current use of opiate analgesic Lumbar stenosis with neurogenic claudication Lupus anticoagulant disorder Myocardial infarction Non-STEMI (non-ST elevated myocardial infarction) Obesity Onychodystrophy PAD (peripheral artery disease) Pain management contract signed Pes planus of both feet Primary osteoarthritis of knees, bilateral TIA (transient ischemic attack) Tobacco use disorder V-tach Surgical History S/P CABG (coronary artery bypass graft) (~10/01/14) S/P carotid endarterectomy S/P carpal tunnel release (Unknown) LEFT S/P cataract extraction (Unknown) RIGHT DR BATISTA S/P cataract extraction S/P hysterectomy Family History Unknown Adopted Social History Smoking and tobacco status: current every day smoker cigarettes Packs smoked per day: 2 Quit status (tobacco): has tried quititng Alcohol intake: never Substance/Drug Use: never Adopted: Yes Lives independently: Yes Household members: spouse Marital status: Vitals/I&O/Wt Last Vital Signs Temp 98.0 F 06/11/23 11:45 Pulse 82 06/11/23 12:00 Resp 24 H 06/11/23 12:00 BP 177/84 06/11/23 12:00 Pulse Ox 94 06/11/23 12:00 O2 Del Method Nasal Cannula 06/10/23 14:00 O2 Flow Rate 2 06/11/23 05:00 FiO2 2 06/11/23 08:00 06/10/23 06/11/23 06/11/23 22:59 06:59 14:59 Intake Total 618.816 / 1276.198 545.825 / 0427.927 2304 / 1124 Output Total 850 / 850 1800 / 2650 Balance -231.184 / 426.198 -1254.175 / -187.751 5518 / 1124 Weight last 48 hrs Weight 158 lb 6.4 oz Weight 148 lb 14.4 oz Weight 148 lb 15.04 oz Weight 148 lb Physical Exam Narrative: GENERAL: Averagely built and averagely nourished in no acute distress HEENT: Extraocular movement intact. No pallor or icterus. NECK: central trachea, No JVD, No carotid bruit. CARDIOVASCULAR SYSTEM: S1-S2 regular. No murmur rubs or gallops. RESPIRATORY SYSTEM: Chest clear to auscultation. No wheezes rhonchi or rubs heard. No use of accessory muscles. ABDOMEN: Soft, nontender and nondistended. Normal bowel sounds present. EXTREMITIES: No cyanosis, 1+ edema. No signs of chronic venous insufficiency. NEWS VIDEOGRAPHER: Patient is alert oriented ?3. No focal neurological deficits. SKIN: Normal turgor and temperature. No breakdown, rash or nail changes noted. PSYCH: Normal insight and judgment. Urinary Catheter Management: Gibbs: Cath Placed During This Visit: yes Reason for Continuing Indwelling Catheter: Accurate Measurement of Urinary Output in Critically Ill Patients Urinary Catheter Date of Insertion: 06/09/23 Urinary Catheter Time of Insertion: 21:15 Data 06/12/23 05:25 06/12/23 05:25 Other Labs: In September 2014 the patient had three-vessel bypass surgery.? She had a left internal mammary artery to the LAD, single vein graft to the diagonal and single vein graft to the right coronary artery.? In May 2015 she underwent coronary angiography for similar problems and the diagonal graft was occluded.? The right coronary artery graft was patent as was the left internal mammary artery.? Her [place] circumflex was stented.? This was not bypassed at the time of surgery due to its intramyocardial location. TTE (06/10/23) CONCLUSIONS ?The study is poor secondary to underlying COPD.? The patient has ?atrial fibrillation and an underlying left bundle branch block ?making sensitivity less.? The only view available for ?interpretation is the apical view.? In this view the apex is ?thinned and hypokinetic.? There is a large sigmoid septum.? The ?lateral wall appears to contract normally.? There is moderate ?reduction in left ventricular function.? A rough estimate of the ?ejection fraction is 35 to 40%.? Diastolic function cannot be ?determined due to the rhythm disturbance. ?Mildly increased left atrial size. ?Structurally normal mitral valve. Moderate mitral valve ?regurgitation. ?Aortic valve not well visualized. Mild aortic valve ?calcification. Mild aortic valve stenosis, mean gradient 7.3 ?mmHg, AYDIN 1.1 cm squared. ?From the previous echo done 04/07/2014, the decrease in left ?ventricular function is new.? The wall motion disturbances are ?new.? Mitral regurgitation appears worse.? Aortic stenosis is ?new however due to the poor quality of the exam I am not ?confident of the aortic valve calculations. Micro: Microbiology 06/09/23 19:17 Blood Culture - Preliminary Blood NEGATIVE TO DATE 06/09/23 19:15 Blood Culture - Preliminary Blood NEGATIVE TO DATE A&P Assessment and plan (1) CHF exacerbation: HFrEF (LVEF=35-40%); new when compared to 2013 However, TDS study. apex appears thinned out which is not a sign of acute drop in LV function. will plan for repeat study with echocontrast -cont. medical management -May consider stress/viability study before a [facility] is considered to further assessment more so with her renal dysfunction (2) Atrial fibrillation with rapid ventricular response: on amio gtt and heparin drip will stop amio gtt and transition to PO amiodarone may change to lovenox based on renal function (3) Acute kidney injury superimposed on CKD: Plan Elevated troponin 2/2 a, fib with RVR and decompensated CHF CAD s/p CABG x3 Carotid artery disease LBBB HTN Hypothyroidism Dyslipidemia COPD on home oxygen Coding Level of Care Code 05154 Diagnoses CHF exacerbation I50.9 Atrial fibrillation with rapid ventricular response I48.91 Acute kidney injury superimposed on CKD N17.9; N18.9
[2023-06-11 13:51] LABS: Partial Thromboplastin Time 19.1 SECONDS (23.9-36.7)
--- NOTE | 2023-06-11 14:07 | PC.NURSE ---
Dr. Tellez gave verbal orders to give Lasix 40 mg IVP once at [address] Tellez patients PTT 19.1. Verbal orders to restart Heparin at same rate 825 units (16.5 ml/min).
--- NOTE | 2023-06-11 14:14 | PM.PN ---
Subjective Subjective: Patient was seen this morning, denies any fevers, no chills, no cough, I did tell her that we had the tape deck installer go out to her home, her was there, but they could not go and sign the house due to the large dog that was present inside the house, and he did not want to come outside the house, she is worried about her , as he has severe dementia, and there is no one to take care of him except her, I did discuss her echocardiogram findings with a diminished ejection fraction 35%, and her CKD with a creatinine of 2.1, her heart rates are also elevated, she remains in A-fib, which is difficult to control and she needs diuresis she needs antibiotics she will be here for a few days, I will have to consult cardiology with her diminished ejection fraction, she voices understanding, all questions answered, will reach out to the tape deck installer department again so they can do a wellness check -Patient remains in A-fib with RVR, with complaints of shortness of breath, heart rates in the 150s she was placed on back on amiodarone drip, given amiodarone bolus -Heart rates now improved into the 80s -She given 1 dose of Lasix IV given elevated BNP -Spoke to cardiology, spoke to Dr. jarquin, will consult Vitals/I&O/Wt Last Vital Signs Temp 98.0 F 06/11/23 11:45 Pulse 82 06/11/23 14:01 Resp 24 H 06/11/23 12:00 BP 177/84 06/11/23 12:00 Pulse Ox 96 06/11/23 14:01 O2 Del Method Nasal Cannula 06/11/23 14:01 O2 Flow Rate 2 06/11/23 14:01 FiO2 2 06/11/23 08:00 06/10/23 06/11/23 06/11/23 22:59 06:59 14:59 Intake Total 618.816 / 1276.198 545.825 / 2354.182 5388 / 1124 Output Total 850 / 850 1800 / 2650 Balance -231.184 / 426.198 -1254.175 / -290.879 1426 / 1124 Weight last 48 hrs Weight 71.849 kg Weight 67.54 kg Weight 67.558 kg Weight 67.132 kg Physical Exam Const: COMMON NORMALS: no acute distress and patient oriented x3 Resp: OTHER: Wheezing and crackles in all lung chang, sitting up at the side of bed, tachypneic, with nasal flaring, no intercostal retractions, suprasternal retractions Cardio: COMMON NORMALS: S1 normal heart sound present and S2 normal heart sound present RATE: tachycardic RHYTHM: abnormal rhythm irregularly irregular HEART SOUNDS: S1 normal heart sound present and S2 normal heart sound present GI: COMMON NORMALS: Normal to inspection, nondistended, normoactive bowel sounds present and non-tender Extremity: NARRATIVE EXTREMITY EXAM: 2+ pitting edema Neuro: COMMON NORMALS: patient oriented x3 Psych: COMMON NORMALS: mental status grossly normal Urinary Catheter Management: Gibbs: Cath Placed During This Visit: yes Reason for Continuing Indwelling Catheter: Accurate Measurement of Urinary Output in Critically Ill Patients Urinary Catheter Date of Insertion: 06/09/23 Urinary Catheter Time of Insertion: 21:15 Data 06/11/23 04:30 06/11/23 04:30 Micro: Microbiology 06/09/23 19:17 Blood Culture - Preliminary Blood NEGATIVE TO DATE 06/09/23 19:15 Blood Culture - Preliminary Blood NEGATIVE TO DATE A&P Assessment and plan (1) Atrial fibrillation with rapid ventricular response: (2) Hypertension: Qualifiers: Hypertension type: primary hypertension Qualified Code(s): I10 - Essential (primary) hypertension (3) Hypoxia: (4) Pneumonitis: (5) Lupus anticoagulant disorder: (6) DJD (degenerative joint disease), lumbar: (7) Diabetic neuropathy: (8) CHF exacerbation: (9) Acute respiratory failure with hypoxia: (10) Pneumonia: (11) Systolic CHF: (12) Acute kidney injury superimposed on CKD: Plan Acute on chronic respiratory failure Multifactorial A-fib with RVR, fluid overload Diastolic CHF exacerbation COPD exacerbation Pneumonia CT scan showing 1. ? There is bronchiectasis with patchy mucous plugging and atelectasis right lower lobe. 2. ? There is also mild ground-glass and tree-in-bud opacities in the lungs compatible with mild pneumonitis. Possible pulmonary embolism with elevated D-dimer, cannot perform CT angiogram given creatinine Patient is afebrile Mild leukocytosis Request urine cultures and antigen At baseline requires 5 to 6 L of oxygen Patient has not seen any java technical architect however referral was given to the patient last year around this month she is an active smoker smokes 2 packs/day There was concern for thromboembolic phenomenon given elevated D-dimer, however venous ultrasound negative for DVT, continue heparin drip for now Could not get CTA chest because she already got contrast for CT chest Patient will stay on DuoNeb, steroids and Mucomyst in case of further Plan -A-fib with RVR, amiodarone drip, and amiodarone bolus, will have to get heart rate under control as she will continue to have flash pulm edema fluid overload from A-fib with RVR -Creatinine up to 2.11 dose of Lasix today -Continue Solu-Medrol 40 IV every 12 hours -Continue vancomycin, Zosyn MARIO on CKD -Diuresis elevated creatinine versus cardiorenal syndrome -Will monitor urine output closely, 1 dose Lasix today we will consider dose in the evening based on clinical progress Pneumonia -With findings as above -Follow sputum culture, blood cultures -Vancomycin, Zosyn as above Acute CHF exacerbation, BNP over 4800 Lasix 40 IV once today, possible dose in the evening based on clinical progress Non-STEMI: Patient stating that she is willing to go for angiogram if that is indicated at this point, Currently on ACS protocol with heparin drip continue aspirin and Plavix No active chest pain Cardiac echo CONCLUSIONS ?The study is poor secondary to underlying COPD.? The patient has ?atrial fibrillation and an underlying left bundle branch block ?making sensitivity less.? The only view available for ?interpretation is the apical view.? In this view the apex is ?thinned and hypokinetic.? There is a large sigmoid septum.? The ?lateral wall appears to contract normally.? There is moderate ?reduction in left ventricular function.? A rough estimate of the ?ejection fraction is 35 to 40%.? Diastolic function cannot be ?determined due to the rhythm disturbance. ?Mildly increased left atrial size. ?Structurally normal mitral valve. Moderate mitral valve ?regurgitation. ?Aortic valve not well visualized. Mild aortic valve ?calcification. Mild aortic valve stenosis, mean gradient 7.3 ?mmHg, AYDIN 1.1 cm squared. ?From the previous echo done 04/07/2014, the decrease in left ?ventricular function is new.? The wall motion disturbances are ?new.? Mitral regurgitation appears worse.? Aortic stenosis is ?new however due to the poor quality of the exam I am not ?confident of the aortic valve calculations. Previous CABG 2013 She had a left internal mammary artery to the LAD, single vein graft to the diagonal and single vein graft to the right coronary artery.? In May 2015 she underwent coronary angiography for similar problems and the diagonal graft was occluded.? The right coronary artery graft was patent as was the left internal mammary artery.? Her [place] circumflex was stented.? This was not bypassed at the time of surgery due to its intramyocardial location New onset A-fib [id number] 5 Currently on heparin drip Previous EKG showed left bundle branch block Received 250 mcg of digoxin Acute on chronic kidney disease secondary to cardiorenal, baseline creatinine seems to be around 1.5 Anticipate improvement with diuresis Goals of care discussed with the patient: She is full code She is concerned about her who has Alzheimer's dementia, he is alone at home Patient stating that she would never go to a penitentiary because she wants to take care of her Full code Cardiac diet/consistent carb with insulin and sliding scale Attestations Medical Necessity Statement*: Patient requires hospitalization for A-fib with RVR requiring amiodarone bolus, amiodarone drip, shortness of breath, respiratory failure, Lasix, antibiotics, cardiology consultation, patient seen multiple times, spoke with nursing staff, spoke with patient Coding Level of Care Code Critical Care >/= 30 minutes Critical care time (in minutes): 45 The high probability of a clinically significant, sudden or life threatening deterioration, as referenced in this documentation, required my full and direct attention, intervention and personal management. The critical care time shown is in addition to time spent performing any reported separately billable procedures and includes the following: [x] Data and vital sign review and interpretation [x] Patient assessment, examination and intervention [x] Medication orders and management [x] Patient/Family updates as able [x] Care Coordination and Documentation. Diagnoses Atrial fibrillation with rapid ventricular response I48.91 Hypertension I10 Hypertension type: primary hypertension Hypoxia R09.02 Pneumonitis J18.9 Lupus anticoagulant disorder D68.62 DJD (degenerative joint disease), lumbar M47.816 Diabetic neuropathy E11.40 CHF exacerbation I50.9 Acute respiratory failure with hypoxia J96.01 Pneumonia J18.9 Systolic CHF I50.20 Acute kidney injury superimposed on CKD N17.9; N18.9
[2023-06-11] MEDS: polyethylene glycol 3350 Pkt 17 gm PO (16:02)
[2023-06-11 16:39] LABS: Adenovirus Not Detected (NOT DETECT); Chlamydia Pneumoniae Not Detected (NOT DETECT); Coronavirus 229E,HKU1,NL63,OC4 Not Detected (NOT DETECT); Human Metapneumovirus Not Detected (NOT DETECT); Human Rhinovirus/Enterovirus Not Detected (NOT DETECT); Influenza A Not Detected (NOT DETECT); Influenza A H1 Not Detected (NOT DETECT); Influenza A H1-2009 Not Detected (NOT DETECT); Influenza A H3 Not Detected (NOT DETECT); Influenza B Not Detected (NOT DETECT); Mycoplasma Pneumoniae Not Detected (NOT DETECT); Parainfluenza Virus Type 1 Not Detected (NOT DETECT); Parainfluenza Virus Type 2 Not Detected (NOT DETECT); Parainfluenza Virus Type 3 Not Detected (NOT DETECT); Parainfluenza Virus Type 4 Not Detected (NOT DETECT); Respiratory Syncytial Virus A Not Detected (NOT DETECT); Respiratory Syncytial Virus B Not Detected (NOT DETECT); SARS-COV-2 Not Detected (NOT DETECT)
[2023-06-11 17:00] LABS: Glucose Point of Care 165 mg/dL (70-110)
[2023-06-11] MEDS: carvedilol 6.25 mg Tablet PO (18:00)
[2023-06-11 20:33] LABS: Partial Thromboplastin Time 56.4 SECONDS (23.9-36.7)
[2023-06-11 20:37] LABS: Glucose Point of Care 233 mg/dL (70-110)
[2023-06-11] MEDS: sennosides-docusate Tablet 1 TAB PO (22:08)
[2023-06-11] MEDS: Fleet Enema 133 mL Enema PR (22:08)
[2023-06-12] VITALS (47 sets, daily range): BP systolic 119–197; BP diastolic 54–125; PULSE 64–85; RESP 16–30; TEMP 36.2–36.7; O2SAT 88–100
--- NOTE | 2023-06-12 00:49 | PC.NURSE ---
Dr. Niño was notified about the patient's Hypertension, with the blood pressure staying consistently in the 180/100.
[2023-06-12] MEDS: ipratropium-albuterol 3 mL Neb INHALATION (02:07)
[2023-06-12] MEDS: nitroglycerin 1 gm/inch oint Pkt 0.5 INCH TOPICAL (02:09)
[2023-06-12] MEDS: nicardipine 20 MG/200 ML PREMIX 50 MG IV (02:10)
[2023-06-12] MEDS: morphine 4 mg/mL SDV 1 mL 2 MG IVP ×3 (02:49→21:35)
[2023-06-12] MEDS: FUROsemide 10 mg/mL SDV 2mL 20 MG IVP (03:18)
[2023-06-12] MEDS: hyDRALAzine 10 mg Tablet PO (03:19)
--- NOTE | 2023-06-12 03:34 | USCV_ITS ---
Joseph Ivette Age: 77 Gender: F : 1945 Exam Date: 06/12/2023 03:55 Ordering Phys: Selma Pandey MD ([email or web address]) Technologist: TETE Exam Location[place] [facility] [place] Indication: TDS study. assess LV function and . prior echo done 06/10/23 BP: 154 / 86 HR: 76 Rhythm: Sinus Technical Quality: Adequate with OPTISON MEASUREMENTS (Male / Female) Normal Values 2D ECHO LV Diastolic Diameter PLAX 3.8 cm 4.2 - 5.9 / 3.9 - 5.3 cm LV Systolic Diameter PLAX 2.6 cm IVS Diastolic Thickness 1.6 cm 0.6 - 1.0 / 0.6 - 0.9 cm IVS Systolic Thickness 2.0 cm LVPW Diastolic Thickness 1.0 cm 0.6 - 1.0 / 0.6 - 0.9 cm LVPW Systolic Thickness 1.3 cm LVOT Diameter 1.9 cm LV Ejection Fraction 2D Teich 60.0 % LV Ejection Fraction MOD 2C 54.3 % LV Ejection Fraction 2C AL 55.1 % LA Diameter 4.3 cm LA Width 4.7 cm LA Height 6.4 cm RA Width 4.9 cm RA Height 4.7 cm Aorta at Sinotubular Diameter 2.0 cm IVC Diameter 1.1 cm M-MODE Aortic Annulus Diameter 3.0 cm LA Ao Ratio MM 1.6 MV E Point Septal Separation 0.4 cm DOPPLER AV Peak Velocity 175.0 cm/s LVOT Peak Velocity 132.0 cm/s AV Area Cont Eq vti 1.8 cm squared AV Area Cont Eq pk 2.1 cm squared MV Area PHT 3.0 cm squared Mitral E to A Ratio 0.9 MV E' Velocity 46.5 cm/s Mitral E to MV E' Ratio 13.8 Mitral E to LV E' Lateral Ratio 12.1 Mitral E to LV E' Septal Ratio 16.5 TR Peak Velocity 266.7 cm/s TR Peak Gradient 29.1 mmHg TV Peak E Velocity 27.0 cm/s Right Atrial Pressure 10.0 mmHg Pulmonary Artery Systolic Pressu 38.4 mmHg PV Peak Velocity 120.0 cm/s RV Acceleration Time 0.1 s RV Ejection Time 0.3 s RV AcT/ET 0.3 FINDINGS Left Ventricle Normal left ventricular cavity size and increased wall thickness. Mildly decreased left ventricular systolic function. Left ventricular ejection fraction is estimated at 45-50 %. There seems to be severe hypokinesis of apical septal. apical inferior and apical hernandez. Grade II diastolic dysfunction, moderately elevated filling pressures. Abnormal septal motion consistent with conduction abnormality. Right Ventricle Normal right ventricular size. Right ventricular systolic pressure 38 mmHg. Right Atrium Normal right atrial size. Left Atrium Moderately increased left atrial size. Mitral Valve Structurally normal mitral valve. No mitral valve stenosis. Mild to moderate mitral valve regurgitation. Aortic Valve Thickened trileaflet aortic valve. No aortic valve stenosis. No aortic valve regurgitation. Tricuspid Valve Structurally normal tricuspid valve. No tricuspid valve stenosis. Trace to mild tricuspid valve regurgitation. Pulmonic Valve Structurally normal pulmonic valve. No pulmonary valve stenosis. Trace pulmonary valve regurgitation. Pericardium No pericardial effusion. Aorta Normal size aortic root and proximal ascending aorta. IVC Normal IVC dimension with >50% respiratory change of the inferior vena cava. CONCLUSIONS 1. Normal left ventricular cavity size and increased wall thickness. Mildly decreased left ventricular systolic function. Left ventricular ejection fraction is estimated at 45-50 %. There seems to be severe hypokinesis of apical septal. apical inferior and apical hernandez. Grade II diastolic dysfunction, moderately elevated filling pressures. 2. Pulmonary artery pressure estimated at 38 mmHg. 3. Mild to moderate mitral valve regurgitation. 4. Optison was used per protocol. Selma Pandey MD (Electronically Signed) Final Date: 12 June 2023 17:47 S
[2023-06-12 05:32] LABS: Partial Thromboplastin Time 20.2 SECONDS (23.9-36.7)
[2023-06-12] MEDS: HYDROcodone-acetaminophen 10-325 mg Tablet 1 TAB PO (05:35)
[2023-06-12] MEDS: perflutren protein-a microsphr 0.22 mg/mL SDV 3 mL IV (05:40)
[2023-06-12 05:54] LABS: Basophils % 0.1 %; Hematocrit 39.5 % (37.0-47.0); Hemoglobin 13.2 g/dL (11.5-15.3); Lymphocytes # 1.8 10^3/uL (0.8-4.8); Lymphocytes % 13.5 %; Mean Corpuscular HGB Conc 33.4 g/dL (30.0-36.0); Mean Corpuscular Hemoglobin 29.7 pg (28.0-34.0); Monocytes # 0.4 10^3/uL (0.2-0.9); Monocytes % 3.2 %; Neutrophils # 10.88 10^3/uL (1.8-7.7); Neutrophils % 82.8 %; Nucleated Red Blood Cells % 0 %; Platelet Count 237 10^3/cmm (130-400); Red Blood Count 4.44 10^6/uL (4.1-5.3); Red Cell Distribution Width 12.7 % (12.1-15.1); White Blood Count 13.1 10^3/uL (4.0-10.0)
[2023-06-12] MEDS: piperacillin-tazobactam 3.375 GM in sodium chloride 0.9% (plus) 50 ML IV ×2 (06:05→17:25)
[2023-06-12] MEDS: heparin 5,000 unit/mL INJ 1 mL IV (06:17)
[2023-06-12 06:19] LABS: C Reactive Protein 3.1 mg/L (0.0-4.9); Magnesium 1.7 mg/dL (1.7-2.3); Phosphorus 3.6 mg/dL (2.5-4.5)
[2023-06-12 06:30] LABS: Procalcitonin 0.11 ng/mL (0-0.5)
[2023-06-12 06:43] LABS: Anion Gap 18.4 (5-19); Blood Urea Nitrogen 48 mg/dL (8-23); Calcium 9.1 mg/dL (8.5-10.5); Carbon Dioxide 26 mmol/L (22-29); Chloride 93 mmol/L (98-107); Glucose 214 mg/dL (65-115); Osmolality Calculated 297 mOsm/kg (285-295); Potassium 3.4 mmol/L (3.5-5.1); Sodium 134 mmol/L (136-145)
[2023-06-12 08:02] LABS: Glucose Point of Care 94 mg/dL (70-110)
[2023-06-12 08:14] LABS: Glucose Point of Care 193 mg/dL (70-110)
[2023-06-12] MEDS: magnesium oxide 400 mg tablet PO ×2 (08:21→17:23)
[2023-06-12] MEDS: nicardipine 20 MG/200 ML PREMIX 5 MG IV (08:21)
[2023-06-12] MEDS: potassium chloride ER 20 mEq Tablet 40 MEQ PO (08:21)
[2023-06-12] MEDS: sennosides-docusate Tablet 1 TAB PO ×2 (08:21→17:23)
[2023-06-12] MEDS: levothyroxine 25 mcg Tablet PO (08:22)
[2023-06-12] MEDS: clopidogrel 75 mg Tablet PO (08:22)
[2023-06-12] MEDS: amiodarone 200 mg Tablet 400 MG PO ×2 (08:22→17:21)
[2023-06-12] MEDS: carvedilol 12.5 mg Tablet PO ×2 (08:22→17:22)
[2023-06-12] MEDS: atorvastatin 40 mg Tablet PO (08:22)
[2023-06-12] MEDS: isosorbide mononitrate ER 60 mg Tablet 120 MG PO ×2 (08:22→17:23)
[2023-06-12] MEDS: ropinirole 0.25 mg Tablet 0.5 MG PO (08:23)
[2023-06-12] MEDS: pantoprazole 40 mg SDV IVP (08:23)
[2023-06-12] MEDS: aspirin 81 mg EC Tablet PO (08:23)
[2023-06-12] MEDS: FUROsemide 10 mg/mL SDV 4mL 40 MG IVP ×2 (08:23→17:23)
[2023-06-12] MEDS: insulin glargine 100 units/1 mL 10 UNIT SUBCUT (08:35)
[2023-06-12] MEDS: hyDRALAzine 25 mg Tablet PO ×3 (09:38→20:10)
[2023-06-12] MEDS: methylPREDNISolone sod succ 40 MG in water for injection-sterile 1 ML 12 MG IVP ×2 (09:38→21:30)
[2023-06-12 11:50] LABS: Glucose Point of Care 209 mg/dL (70-110)
[2023-06-12 12:44] LABS: Partial Thromboplastin Time 115.4 SECONDS (23.9-36.7)
[2023-06-12] MEDS: insulin lispro 100 unit/1 mL SUBCUT ×3 (12:56→20:15)
[2023-06-12] MEDS: enoxaparin 80 mg/0.8 mL Syringe 70 MG SUBCUT (14:04)
--- NOTE | 2023-06-12 16:53 | PM.PN ---
Subjective Subjective: No events on telemetry. She feels better. Medications: Reviewed: Yes Vitals/I&O/Wt Last Vital Signs Temp 97.9 F 06/12/23 14:00 Pulse 79 06/12/23 16:00 Resp 27 H 06/12/23 16:00 BP 168/75 06/12/23 15:30 Pulse Ox 97 06/12/23 15:00 O2 Del Method Nasal Cannula 06/12/23 15:00 O2 Flow Rate 3 06/12/23 06:00 FiO2 2 06/11/23 08:00 06/12/23 06/12/23 06/12/23 06:59 14:59 22:59 Intake Total 539.467 / 1915.317 957.521 / 957.521 Output Total 825 / 2575 900 / 900 Balance -285.533 / -659.683 57.521 / 57.521 Weight last 48 hrs Weight 159 lb Weight 158 lb 6.4 oz Physical Exam Narrative: GENERAL: Averagely built and averagely nourished in no acute distress HEENT: Extraocular movement intact. No pallor or icterus. NECK: central trachea, No JVD, No carotid bruit. CARDIOVASCULAR SYSTEM: S1-S2 regular. No murmur rubs or gallops. RESPIRATORY SYSTEM: Chest clear to auscultation. No wheezes rhonchi or rubs heard. No use of accessory muscles. ABDOMEN: Soft, nontender and nondistended. Normal bowel sounds present. EXTREMITIES: No cyanosis, 1+ edema. No signs of chronic venous insufficiency. LODGING FACILITIES ATTENDANT: Patient is alert oriented ?3. No focal neurological deficits. SKIN: Normal turgor and temperature. No breakdown, rash or nail changes noted. PSYCH: Normal insight and judgment. Urinary Catheter Management: Gibbs: Cath Placed During This Visit: yes Reason for Continuing Indwelling Catheter: Accurate Measurement of Urinary Output in Critically Ill Patients Urinary Catheter Date of Insertion: 06/09/23 Urinary Catheter Time of Insertion: 21:15 Data 06/13/23 04:23 06/13/23 04:23 Micro: Microbiology 06/11/23 09:40 Gram Stain - Final Sputum - Expectorated Sputum Sputum Culture - Preliminary 06/11/23 09:44 MRSA Culture - Final Nose 06/11/23 14:40 Bacterial Antigens - Final Urine,Voided A&P Assessment and plan (1) CHF exacerbation: HFrEF (LVEF=35-40%); new when compared to 2014 However,TDS study. apex appears thinned out which is not a sign of acute drop in LV function. Repeat study with echocontrast showing LV funtion to be 45-50% with severe hypokinesis of apical wall -cont. medical management -Will plan for stress study in morning. Decision for [facility] based on the findings (2) Atrial fibrillation with rapid ventricular response: on amio gtt and heparin drip will stop amio gtt and transition to PO amiodarone may change to lovenox based on renal function (3) Acute kidney injury superimposed on CKD: Plan Elevated troponin 2/2 a, fib with RVR and decompensated CHF CAD s/p CABG x3 Carotid artery disease LBBB HTN Hypothyroidism Dyslipidemia COPD on home oxygen Attestations Medical Necessity Statement*: needs hospital stay for uncontrolled HTN, CHF, NSTEMI type 2 and atrial fibrillation Coding Level of Care Code 65309 Diagnoses CHF exacerbation I50.9 Atrial fibrillation with rapid ventricular response I48.91 Acute kidney injury superimposed on CKD N17.9; N18.9
[2023-06-12 16:54] LABS: Glucose Point of Care 257 mg/dL (70-110)
--- NOTE | 2023-06-12 16:54 | P.PN_ITS ---
Subjective Subjective: Patient was seen this morning, she is alert oriented x3, sitting up to the side of the bed, her shortness of breath has improved, denies any chest pain, no palpitations, no lightheadedness, dizziness, currently she is on a amiodarone drip at 0.5, she was started on a Cardene drip overnight due to hypertensive urgency, currently remains on Cardene drip, remains on heparin drip, she is worried about her as she did not hear from him last night, Vitals/I&O/Wt Last Vital Signs Temp 97.9 F 06/12/23 14:00 Pulse 79 06/12/23 16:00 Resp 27 H 06/12/23 16:00 BP 168/75 06/12/23 15:30 Pulse Ox 97 06/12/23 15:00 O2 Del Method Nasal Cannula 06/12/23 15:00 O2 Flow Rate 3 06/12/23 06:00 FiO2 2 06/11/23 08:00 06/12/23 06/12/23 06/12/23 06:59 14:59 22:59 Intake Total 539.467 / 1915.317 957.521 / 957.521 Output Total 825 / 2575 900 / 900 Balance -285.533 / -659.683 57.521 / 57.521 Weight last 48 hrs Weight 72.121 kg Weight 71.849 kg Physical Exam Const: COMMON NORMALS: no acute distress and patient oriented x3 Resp: COMMON NORMALS: normal respiratory effort, No retractions, No use of accessory muscles and clear to auscultation bilaterally AUSCULTATION: clear to auscultation bilaterally Cardio: COMMON NORMALS: regular rate, S1 normal heart sound present and S2 normal heart sound present RATE: regular rate RHYTHM: abnormal rhythm irregularly irregular HEART SOUNDS: S1 normal heart sound present and S2 normal heart sound present GI: COMMON NORMALS: Normal to inspection, nondistended, normoactive bowel sounds present and non-tender Extremity: NARRATIVE EXTREMITY EXAM: 1+ pitting edema Neuro: COMMON NORMALS: patient oriented x3 Psych: COMMON NORMALS: mental status grossly normal Urinary Catheter Management: Gibbs: Cath Placed During This Visit: yes Reason for Continuing Indwelling Catheter: Accurate Measurement of Urinary Output in Critically Ill Patients Urinary Catheter Date of Insertion: 06/09/23 Urinary Catheter Time of Insertion: 21:15 Data 06/12/23 05:25 06/12/23 05:25 Micro: Microbiology 06/11/23 09:40 Gram Stain - Final Sputum - Expectorated Sputum Sputum Culture - Preliminary 06/11/23 09:44 MRSA Culture - Final Nose 06/11/23 14:40 Bacterial Antigens - Final Urine,Voided A&P Assessment and plan (1) Atrial fibrillation with rapid ventricular response: (2) Hypertension: Qualifiers: Hypertension type: primary hypertension Qualified Code(s): I10 - Essential (primary) hypertension (3) Hypoxia: (4) Pneumonitis: (5) Lupus anticoagulant disorder: (6) DJD (degenerative joint disease), lumbar: (7) Diabetic neuropathy: (8) CHF exacerbation: (9) Acute respiratory failure with hypoxia: (10) Pneumonia: (11) Systolic CHF: (12) Acute kidney injury superimposed on CKD: (13) Hypertensive urgency: Plan Acute on chronic respiratory failure Multifactorial A-fib with RVR, fluid overload Diastolic CHF exacerbation COPD exacerbation Pneumonia CT scan showing 1. ? There is bronchiectasis with patchy mucous plugging and atelectasis right lower lobe. 2. ? There is also mild ground-glass and tree-in-bud opacities in the lungs compatible with mild pneumonitis. Possible pulmonary embolism with elevated D-dimer, cannot perform CT angiogram given creatinine Patient is afebrile Mild leukocytosis Request urine cultures and antigen At baseline requires 5 to 6 L of oxygen Patient has not seen any bracelet and brooch maker however referral was given to the patient last year around this month she is an active smoker smokes 2 packs/day There was concern for thromboembolic phenomenon given elevated D-dimer, however venous ultrasound negative for DVT, continue heparin drip for now Could not get CTA chest because she already got contrast for CT chest Patient will stay on DuoNeb, steroids and Mucomyst in case of further Plan -A-fib with RVR, amiodarone drip, and amiodarone bolus, will have to get heart rate under control as she will continue to have flash pulm edema fluid overload from A-fib with RVR -Creatinine up to 1.8, 2 doses of Lasix today -Continue Solu-Medrol 40 IV every 12 hours -Continue vancomycin, Zosyn MARIO on CKD -Diuresis elevated creatinine versus cardiorenal syndrome -Will monitor urine output closely, 1 dose Lasix today we will consider dose in the evening based on clinical progress Pneumonia -With findings as above -Follow sputum culture, blood cultures -Vancomycin, Zosyn as above Acute CHF exacerbation, BNP over [address]1220 As below Non-STEMI: Patient stating that she is willing to go for angiogram if that is indicated at this point, Currently on ACS protocol with heparin drip continue aspirin and Plavix No active chest pain Cardiac echo CONCLUSIONS ?The study is poor secondary to underlying COPD.? The patient has ?atrial fibrillation and an underlying left bundle branch block ?making sensitivity less.? The only view available for ?interpretation is the apical view.? In this view the apex is ?thinned and hypokinetic.? There is a large sigmoid septum.? The ?lateral wall appears to contract normally.? There is moderate ?reduction in left ventricular function.? A rough estimate of the ?ejection fraction is 35 to 40%.? Diastolic function cannot be ?determined due to the rhythm disturbance. ?Mildly increased left atrial size. ?Structurally normal mitral valve. Moderate mitral valve ?regurgitation. ?Aortic valve not well visualized. Mild aortic valve ?calcification. Mild aortic valve stenosis, mean gradient 7.3 ?mmHg, AYDIN 1.1 cm squared. ?From the previous echo done 04/07/2014, the decrease in left ?ventricular function is new.? The wall motion disturbances are ?new.? Mitral regurgitation appears worse.? Aortic stenosis is ?new however due to the poor quality of the exam I am not ?confident of the aortic valve calculations. Previous CABG 2013 She had a left internal mammary artery to the LAD, single vein graft to the diagonal and single vein graft to the right coronary artery.? In May 2015 she underwent coronary angiography for similar problems and the diagonal graft was occluded.? The right coronary artery graft was patent as was the left internal mammary artery.? Her [place] circumflex was stented.? This was not bypassed at the time of surgery due to its intramyocardial location New onset A-fib [id number] Therapeutic Lovenox Previous EKG showed left bundle branch block Received 250 mcg of digoxin Hypertensive urgency, currently on Cardene drip Acute on chronic kidney disease secondary to cardiorenal, baseline creatinine seems to be around 1.5 Anticipate improvement with diuresis Goals of care discussed with the patient: She is full code She is concerned about her who has Alzheimer's dementia, he is alone at home Patient stating that she would never go to a long term because she wants to take care of her Full code Cardiac diet/consistent carb with insulin and sliding scale Plan for today we will wean off amiodarone drip at 0.5, wean off Cardene drip, add hydralazine 25 mg 3 times daily, stop heparin drip switch to therapeutic Lovenox, will dose based on creatinine clearance, 2 doses of Lasix today, monitor urine output, monitor creatinine, monitor sputum cultures, blood cultures spoke to cardiology, plans on performing stress test tomorrow morning, nursing staff will reach out to [facility]'s department for a wellness check on patient's Attestations Medical Necessity Statement*: Patient requires hospitalization for acute hypoxic respiratory failure, multifactorial from systolic and diastolic CHF, pneumonia, fluid overload, pulm edema, A-fib, hypertensive urgency Diagnoses Atrial fibrillation with rapid ventricular response I48.91 Hypertension I10 Hypertension type: primary hypertension Hypoxia R09.02 Pneumonitis J18.9 Lupus anticoagulant disorder D68.62 DJD (degenerative joint disease), lumbar M47.816 Diabetic neuropathy E11.40 CHF exacerbation I50.9 Acute respiratory failure with hypoxia J96.01 Pneumonia J18.9 Systolic CHF I50.20 Acute kidney injury superimposed on CKD N17.9; N18.9 Hypertensive urgency I16.0
[2023-06-12] MEDS: potassium chloride ER 20 mEq Tablet PO (17:23)
--- NOTE | 2023-06-12 18:45 | PC.NURSE ---
Patient increasingly concerned about S/O. Multiple calls to [facility] department for well being check. [place] informed this nurse and patient that attempts at making contact with patients S/O unsuccessful.
[2023-06-12] MEDS: lidocaine 5% Patch 1 PATCH TOPICAL (20:06)
[2023-06-12] MEDS: trazodone 100 mg Tablet PO (21:34)
[2023-06-13] VITALS (29 sets, daily range): BP systolic 147–201; BP diastolic 64–119; PULSE 60–86; RESP 15–29; TEMP 36.8–37.1; O2SAT 91–98
[2023-06-13 04:46] LABS: Basophils % 0.1 %; Hematocrit 39.7 % (37.0-47.0); Hemoglobin 13.2 g/dL (11.5-15.3); Lymphocytes # 1.5 10^3/uL (0.8-4.8); Lymphocytes % 14.3 %; Mean Corpuscular HGB Conc 33.2 g/dL (30.0-36.0); Mean Corpuscular Hemoglobin 30.5 pg (28.0-34.0); Mean Corpuscular Volume 91.7 fl (81-99); Mean Platelet Volume 12.4 fL (7.4-10.4); Monocytes # 0.3 10^3/uL (0.2-0.9); Monocytes % 2.8 %; Neutrophils # 8.74 10^3/uL (1.8-7.7); Neutrophils % 82.1 %; Nucleated Red Blood Cells % 0 %; Platelet Count 219 10^3/cmm (130-400); Red Blood Count 4.33 10^6/uL (4.1-5.3); Red Cell Distribution Width 12.9 % (12.1-15.1); White Blood Count 10.6 10^3/uL (4.0-10.0)
[2023-06-13 05:09] LABS: Magnesium 1.9 mg/dL (1.7-2.3); Phosphorus 3.5 mg/dL (2.5-4.5)
[2023-06-13 05:13] LABS: NT Pro B Type Natriuretic Pept 28598 pg/mL (0-450)
[2023-06-13 05:26] LABS: Anion Gap 17.7 (5-19); Blood Urea Nitrogen 55 mg/dL (8-23); Calcium 9.2 mg/dL (8.5-10.5); Carbon Dioxide 28 mmol/L (22-29); Chloride 95 mmol/L (98-107); Glucose 207 mg/dL (65-115); Osmolality Calculated 303 mOsm/kg (285-295); Potassium 4.7 mmol/L (3.5-5.1); Sodium 136 mmol/L (136-145)
[2023-06-13] MEDS: morphine 4 mg/mL SDV 1 mL 2 MG IVP (05:42)
[2023-06-13] MEDS: piperacillin-tazobactam 3.375 GM in sodium chloride 0.9% (plus) 50 ML IV (06:29)
[2023-06-13 06:47] LABS: Glucose Point of Care 193 mg/dL (70-110)
[2023-06-13] MEDS: hyDRALAzine 25 mg Tablet PO ×2 (07:30→12:15)
[2023-06-13] MEDS: carvedilol 12.5 mg Tablet PO ×2 (07:31→17:05)
[2023-06-13] MEDS: isosorbide mononitrate ER 60 mg Tablet 120 MG PO ×2 (07:31→17:03)
[2023-06-13] MEDS: magnesium oxide 400 mg tablet PO ×2 (08:42→17:05)
[2023-06-13] MEDS: doxycycline 100 mg Tablet PO ×2 (08:42→17:04)
[2023-06-13] MEDS: amiodarone 200 mg Tablet 400 MG PO ×2 (08:42→17:04)
[2023-06-13] MEDS: predniSONE 20 mg Tablet 40 MG PO (08:42)
[2023-06-13] MEDS: sennosides-docusate Tablet 1 TAB PO ×2 (08:42→17:04)
[2023-06-13] MEDS: clopidogrel 75 mg Tablet PO (08:42)
[2023-06-13] MEDS: levothyroxine 25 mcg Tablet PO (08:43)
[2023-06-13] MEDS: ropinirole 0.25 mg Tablet 0.5 MG PO (08:43)
[2023-06-13] MEDS: amlodipine 10 mg Tablet PO (08:43)
[2023-06-13] MEDS: atorvastatin 40 mg Tablet PO (08:43)
[2023-06-13] MEDS: aspirin 81 mg EC Tablet PO (08:43)
[2023-06-13] MEDS: pantoprazole 40 mg SDV IVP (08:44)
[2023-06-13] MEDS: insulin lispro 100 unit/1 mL SUBCUT ×4 (08:44→21:51)
--- NOTE | 2023-06-13 09:00 | PC.NURSE ---
Dr. Tellez notified of patient hypertension and that 0900 meds given at 0730. See MAR for administration. No new orders received.
[2023-06-13] MEDS: insulin glargine 100 units/1 mL 10 UNIT SUBCUT (10:00)
--- NOTE | 2023-06-13 10:29 | P.PN_ITS ---
Subjective Subjective: She feels well overall. Denies any CP, swelling has improved. Medications: Reviewed: Yes Vitals/I&O/Wt Last Vital Signs Temp 98.8 F 06/13/23 07:00 Pulse 72 06/13/23 10:00 Resp 24 H 06/13/23 10:00 BP 181/82 06/13/23 10:00 Pulse Ox 97 06/13/23 10:00 O2 Del Method Nasal Cannula 06/13/23 10:00 O2 Flow Rate 2 06/13/23 08:00 FiO2 2 06/11/23 08:00 06/12/23 06/13/23 06/13/23 22:59 06:59 14:59 Intake Total 351 / 1308.521 236 / 236 Output Total 1050 / 1950 550 / 2500 Balance -699 / -641.479 -550 / -1191.479 236 / 236 Weight last 48 hrs Weight 161 lb Weight 159 lb Physical Exam Narrative: GENERAL: Averagely built and averagely nourished in no acute distress HEENT: Extraocular movement intact. No pallor or icterus. NECK: central trachea, No JVD, No carotid bruit. CARDIOVASCULAR SYSTEM: S1-S2 regular. No murmur rubs or gallops. RESPIRATORY SYSTEM: Chest clear to auscultation. No wheezes rhonchi or rubs heard. No use of accessory muscles. ABDOMEN: Soft, nontender and nondistended. Normal bowel sounds present. EXTREMITIES: No cyanosis, trace-1+ edema. No signs of chronic venous insufficiency. ENVIRONMENTAL SAMPLER: Patient is alert oriented ?3. No focal neurological deficits. SKIN: Normal turgor and temperature. No breakdown, rash or nail changes noted. PSYCH: Normal insight and judgment. Urinary Catheter Management: Gibbs: Cath Placed During This Visit: yes Reason for Continuing Indwelling Catheter: Accurate Measurement of Urinary Output in Critically Ill Patients Urinary Catheter Date of Insertion: 06/09/23 Urinary Catheter Time of Insertion: 21:15 Data 06/13/23 04:23 06/13/23 04:23 Micro: Microbiology 06/11/23 09:40 Gram Stain - Final Sputum - Expectorated Sputum Sputum Culture - Preliminary A&P Assessment and plan (1) CHF exacerbation: HFrEF (LVEF=35-40%); new when compared to 2014 However,TDS study. apex appears thinned out which is not a sign of acute drop in LV function. Repeat study with echocontrast showing LV funtion to be 45-50% with severe hypokinesis of apical wall -cont. medical management; -2.8 L since admission. -Will plan for stress study in morning. Decision for C based on the findings (2) Atrial fibrillation with rapid ventricular response: Now in SR on PO amiodarone and coreg now on lovenox (3) Acute kidney injury superimposed on CKD: creatinine 2 today Plan Elevated troponin 2/2 a, fib with RVR and decompensated CHF CAD s/p CABG x3 Carotid artery disease LBBB HTN Hypothyroidism Dyslipidemia COPD on home oxygen Attestations Medical Necessity Statement*: needs hospital stay for uncontrolled HTN, CHF, NSTEMI type 2 and atrial fibrillation Coding Level of Care Code Acute Code for Chg Fwd Diagnoses CHF exacerbation I50.9 Atrial fibrillation with rapid ventricular response I48.91 Acute kidney injury superimposed on CKD N17.9; N18.9
[2023-06-13 11:58] LABS: Glucose Point of Care 289 mg/dL (70-110)
--- NOTE | 2023-06-13 12:49 | PC.NURSE ---
notified of patient persistent high blood pressure, order received to give one time dose, 25mg hydralazine. See MAR for administration.
[2023-06-13] MEDS: enoxaparin 80 mg/0.8 mL Syringe 70 MG SUBCUT (13:45)
--- NOTE | 2023-06-13 14:19 | PM.PN ---
Subjective Subjective: ,Patient was seen this morning she feels significantly better, no fevers, chills, or shortness of breath is improved, she is able to get up with physical therapy, remains off amiodarone drip, Cardene drip, heparin drip, spoke to cardiology, plans on stress testing tomorrow Vitals/I&O/Wt Last Vital Signs Temp 98.8 F 06/13/23 07:00 Pulse 73 06/13/23 12:00 Resp 28 H 06/13/23 12:00 BP 185/91 06/13/23 12:00 Pulse Ox 96 06/13/23 12:00 O2 Del Method Nasal Cannula 06/13/23 12:00 O2 Flow Rate 2 06/13/23 08:00 FiO2 2 06/11/23 08:00 06/12/23 06/13/23 06/13/23 22:59 06:59 14:59 Intake Total 351 / 1308.521 386 / 386 Output Total 1050 / 1950 550 / 2500 Balance -699 / -641.479 -550 / -1191.479 386 / 386 Weight last 48 hrs Weight 73.028 kg Weight 72.121 kg Physical Exam Const: COMMON NORMALS: no acute distress and patient oriented x3 Resp: COMMON NORMALS: normal respiratory effort, No retractions, No use of accessory muscles and clear to auscultation bilaterally AUSCULTATION: clear to auscultation bilaterally Cardio: COMMON NORMALS: regular rate, regular rhythm, S1 normal heart sound present and S2 normal heart sound present RATE: regular rate RHYTHM: regular rhythm HEART SOUNDS: S1 normal heart sound present and S2 normal heart sound present GI: COMMON NORMALS: Normal to inspection, nondistended, normoactive bowel sounds present and non-tender Extremity: COMMON NORMALS: no pedal edema Neuro: COMMON NORMALS: patient oriented x3 Psych: COMMON NORMALS: mental status grossly normal Urinary Catheter Management: Gibbs: Cath Placed During This Visit: yes Reason for Continuing Indwelling Catheter: Accurate Measurement of Urinary Output in Critically Ill Patients Urinary Catheter Date of Insertion: 06/09/23 Urinary Catheter Time of Insertion: 21:15 Data 06/13/23 04:23 06/13/23 04:23 Micro: Microbiology 06/11/23 09:40 Gram Stain - Final Sputum - Expectorated Sputum Sputum Culture - Preliminary A&P Assessment and plan (1) Atrial fibrillation with rapid ventricular response: (2) Hypertension: Qualifiers: Hypertension type: primary hypertension Qualified Code(s): I10 - Essential (primary) hypertension (3) Hypoxia: (4) Pneumonitis: (5) Lupus anticoagulant disorder: (6) DJD (degenerative joint disease), lumbar: (7) Diabetic neuropathy: (8) CHF exacerbation: (9) Acute respiratory failure with hypoxia: (10) Pneumonia: (11) Systolic CHF: (12) Acute kidney injury superimposed on CKD: (13) Hypertensive urgency: Plan Acute on chronic respiratory failure Multifactorial A-fib with RVR, fluid overload Diastolic CHF exacerbation COPD exacerbation Pneumonia CT scan showing 1. ? There is bronchiectasis with patchy mucous plugging and atelectasis right lower lobe. 2. ? There is also mild ground-glass and tree-in-bud opacities in the lungs compatible with mild pneumonitis. Possible pulmonary embolism with elevated D-dimer, cannot perform CT angiogram given creatinine Patient is afebrile Mild leukocytosis Request urine cultures and antigen At baseline requires 5 to 6 L of oxygen Patient has not seen any manufacturing engineering technician however referral was given to the patient last year around this month she is an active smoker smokes 2 packs/day There was concern for thromboembolic phenomenon given elevated D-dimer, however venous ultrasound negative for DVT, continue heparin drip for now Could not get CTA chest because she already got contrast for CT chest Patient will stay on DuoNeb, steroids and Mucomyst in case of further Plan -A-fib with RVR, amiodarone drip, and amiodarone bolus, will have to get heart rate under control as she will continue to have flash pulm edema fluid overload from A-fib with RVR -Creatinine up to 2.0, patient is -2 L -Currently on prednisone 40 mg p.o. daily s -Currently on doxycycline MARIO on CKD -Diuresis elevated creatinine versus cardiorenal syndrome -Will monitor urine output closely, 1 dose Lasix today we will consider dose in the evening based on clinical progress Pneumonia -With findings as above -Follow sputum culture, blood cultures -Antibiotics de-escalated to doxycycline Acute CHF exacerbation, [place] [address] As below Non-STEMI: Patient stating that she is willing to go for angiogram if that is indicated at this point, Currently on ACS protocol with heparin drip continue aspirin and Plavix No active chest pain Cardiac echo CONCLUSIONS ?The study is poor secondary to underlying COPD.? The patient has ?atrial fibrillation and an underlying left bundle branch block ?making sensitivity less.? The only view available for ?interpretation is the apical view.? In this view the apex is ?thinned and hypokinetic.? There is a large sigmoid septum.? The ?lateral wall appears to contract normally.? There is moderate ?reduction in left ventricular function.? A rough estimate of the ?ejection fraction is 35 to 40%.? Diastolic function cannot be ?determined due to the rhythm disturbance. ?Mildly increased left atrial size. ?Structurally normal mitral valve. Moderate mitral valve ?regurgitation. ?Aortic valve not well visualized. Mild aortic valve ?calcification. Mild aortic valve stenosis, mean gradient 7.3 ?mmHg, AYDIN 1.1 cm squared. ?From the previous echo done 04/07/2014, the decrease in left ?ventricular function is new.? The wall motion disturbances are ?new.? Mitral regurgitation appears worse.? Aortic stenosis is ?new however due to the poor quality of the exam I am not ?confident of the aortic valve calculations. Previous CABG 2013 She had a left internal mammary artery to the LAD, single vein graft to the diagonal and single vein graft to the right coronary artery.? In May 2015 she underwent coronary angiography for similar problems and the diagonal graft was occluded.? The right coronary artery graft was patent as was the left internal mammary artery.? Her teller circumflex was stented.? This was not bypassed at the time of surgery due to its intramyocardial location New onset A-fib [id number] 5 Therapeutic Lovenox Previous EKG showed left bundle branch block Received 250 mcg of digoxin Hypertensive urgency, currently on Cardene drip Acute on chronic kidney disease secondary to cardiorenal, baseline creatinine seems to be around 1.5 Anticipate improvement with diuresis Goals of care discussed with the patient: She is full code She is concerned about her who has Alzheimer's dementia, he is alone at home Patient stating that she would never go to a group home because she wants to take care of her Full code Cardiac diet/consistent carb with insulin and sliding scale Plan for today remains hypertensive, carvedilol dose increased, hydralazine dose increased, Norvasc added, n.p.o. midnight, for cardiac stress test tomorrow morning, spoke to patient spoke to nursing staff spoke to cardiology hold off on diuresis given creatinine at 2.0 Attestations Medical Necessity Statement*: Patient requires hospitalization for hypertensive urgency with persistently elevated blood pressure requiring further titration of blood pressure medications, elevated troponins, diminished ejection fraction requiring stress testing, elevated creatinine, for further diuresis Diagnoses Atrial fibrillation with rapid ventricular response I48.91 Hypertension I10 Hypertension type: primary hypertension Hypoxia R09.02 Pneumonitis J18.9 Lupus anticoagulant disorder D68.62 DJD (degenerative joint disease), lumbar M47.816 Diabetic neuropathy E11.40 CHF exacerbation I50.9 Acute respiratory failure with hypoxia J96.01 Pneumonia J18.9 Systolic CHF I50.20 Acute kidney injury superimposed on CKD N17.9; N18.9 Hypertensive urgency I16.0
[2023-06-13] MEDS: hyDRALAzine 50 mg Tablet PO ×2 (14:48→20:31)
[2023-06-13 16:29] LABS: Glucose Point of Care 274 mg/dL (70-110)
--- NOTE | 2023-06-13 18:48 | PC.NURSE ---
Patient transferred to CSU room 105. Patient resting comfortably in bed with belongings at bedside. Chart and insulin from refrigerator left with staff at front office manager. Report given to MERRILL Braden.
[2023-06-13 21:21] LABS: Glucose Point of Care 258 mg/dL (70-110)
[2023-06-13] MEDS: trazodone 100 mg Tablet PO (22:21)
[2023-06-14] VITALS (27 sets, daily range): BP systolic 142–192; BP diastolic 66–112; PULSE 62–94; RESP 9–34; TEMP 36.6–36.9; O2SAT 24–98
--- NOTE | 2023-06-14 | ECG_ITS ---
[facility] Test Date: 2023-06-14 Pat Name: Ivette Ruiz Department: Room: 105 Gender: Female Philanthropy Officer: Kristan Lujan : 1945 Requested By: Selma Pandey Order Number: [id number] Ahsan MD: Selma Pandey M.D. Interpretive Statements NAME OF STUDY: LEXISCAN SESTAMIBI STRESS TEST INDICATION: Chest Pain PROCEDURE: At the baseline, the blood pressure was 116/113 mmHg, oxygen saturation 98% with a heart rate of 78 bpm. The electrocardiogram showed sinus rhythm, left bundle branch block. The Lexiscan was infused over a period of 20 seconds. A total of 0.4 milligrams of Lexiscan was infused. The stress phase was continued for a total of 5 minutes. Heart rate at the end of the stress phase was 87 bpm, oxygen saturation 96% with a blood pressure 193/91 mm. The EKG at the peak infusion revealed sinus rhythm with left bundle branch block. Sestamibi was injected 20 seconds after the Lexiscan infusion. Blood pressure at the end of the recovery phase was 180/94 mmHg with a heart rate of 89 beats per minute oxygen saturation of 98%. CONCLUSION: 1. Nondiagnostic EKG with LexiScan infusion due to baseline left bundle branch block. 2. No LexiScan induced chest pain or cardiac arrhythmia. 3. Normal blood pressure and heart rate response. 4. Sestamibi/sestamibi perfusion scan pending; see separate report. Electronically Signed On 06-18-2023 17:57:47 CDT by Selma Pandey M.D. [id number]
[2023-06-14] MEDS: acetaminophen 325 mg Tablet 650 MG PO ×2 (03:39→21:22)
[2023-06-14 03:55] LABS: Basophils % 0.1 %; Eosinophils % 0.1 %; Hematocrit 41.1 % (37.0-47.0); Hemoglobin 13.2 g/dL (11.5-15.3); Lymphocytes # 3.1 10^3/uL (0.8-4.8); Lymphocytes % 26.1 %; Mean Corpuscular HGB Conc 32.1 g/dL (30.0-36.0); Mean Corpuscular Hemoglobin 30.1 pg (28.0-34.0); Mean Corpuscular Volume 93.6 fl (81-99); Mean Platelet Volume 12.3 fL (7.4-10.4); Monocytes # 1.2 10^3/uL (0.2-0.9); Monocytes % 10.2 %; Neutrophils # 7.54 10^3/uL (1.8-7.7); Neutrophils % 62.7 %; Nucleated Red Blood Cells % 0.2 %; Platelet Count 215 10^3/cmm (130-400); Red Blood Count 4.39 10^6/uL (4.1-5.3); Red Cell Distribution Width 13.2 % (12.1-15.1)
[2023-06-14 04:29] LABS: Alanine Aminotransferase 12 U/L (0-33); Albumin Level 3.5 g/dL (3.5-5.2); Alkaline Phosphatase 56 U/L (35-105); Blood Urea Nitrogen 58 mg/dL (8-23); Calcium 9.2 mg/dL (8.5-10.5); Carbon Dioxide 28 mmol/L (22-29); Chloride 97 mmol/L (98-107); Globulin 2.5 g/dL (1.3-4.6); Glucose 89 mg/dL (65-115); Osmolality Calculated 300 mOsm/kg (285-295); Phosphorus 3.5 mg/dL (2.5-4.5); Sodium 137 mmol/L (136-145); Total Bilirubin 0.3 mg/dL (0.15-1.2)
[2023-06-14 04:39] LABS: Anion Gap 16.9 (5-19); Aspartate Amino Transferase 14 U/L (0-32); Potassium 4.9 mmol/L (3.5-5.1)
[2023-06-14 04:49] LABS: NT Pro B Type Natriuretic Pept 24504 pg/mL (0-450)
[2023-06-14 06:48] LABS: Glucose Point of Care 126 mg/dL (70-110)
[2023-06-14] MEDS: regadenoson 0.4 Mg/5 ml Syringe IVP (07:38)
--- NOTE | 2023-06-14 08:00 | NMCV_ITS ---
NM sangita perf SPECT r/s* [id number] Ruiz, Ivette Age: 77 Gender: F : 1945 Exam Date: 06/14/2023 08:00 Ordering Phys: Selma Pandey MD ([email or web address]) Technologist: AMY Beverly Exam Location: [facility] Indications: CHEST PAIN STRESS TEST Please see separate stress test report in [facility] for full findings IMAGE PROTOCOL Rest/Stress 1 Lexiscan Day Radiopharmaceutical Dose (mCi) Administration Site Administered by Rest: Tc-99m 10.9 IV Colin Hercules, TURFGRASS MANAGEMENT PROFESSOR Sestamibi Stress:Tc-99m 32.9 IV Colin Hercules, TURFGRASS MANAGEMENT PROFESSOR Sestamibi Rest: 14-Jun-2023 60 Discovery 630 Stress: 14-Jun-2023 30 Discovery 630 0.4mg Lexiscan. Supine position only as patient was unable to lay prone. SPECT RESULTS Technical Quality: Excellent Raw Data Analysis: Normal Image Corrections: No attenuation or motion correction applied Summed Stress Score: 18 Summed Rest Score: 2 Summed Difference Score: 16 PERFUSION FINDINGS Large sized perfusion abnormality of moderate severity of mid to apical anterior, basal to mid anterolateral, basal to mid inferolateral, apical lateral, apical septal, apical inferior and apical hernandez on stress images. FUNCTIONAL RESULTS (calculated via Gated SPECT) Stress Image LV EF (%): 42 Stress EDV (mL):142 TID: 1.01 Stress ESV (mL):82 FUNCTIONAL FINDINGS: The left ventricle is normal in size. Transient Ischemia Dilatation of 1. The left ventricular ejection fraction is mildly reduced with a value of 42%. There is severe hypokinesis of mid to apical anterior and apical hernandez. There is mild hypokinesis of mid to apical inferior hernandez. Increased end diastolic volume. IMPRESSIONS 1. Large sized reversible perfusion abnormality of moderate severity of mid to apical anterior, basal to mid anterolateral, basal to mid inferolateral, apical lateral, apical septal, apical inferior and apical hernandez. 2. This is likely suggestive of ischemia in left anterior descending and circumflex artery territory. 3. The left ventricular ejection fraction is mildly reduced with a value of 42%. 4. There is severe hypokinesis of mid to apical anterior and apical hernandez. There is mild hypokinesis of mid to apical inferior hernandez. 5. EKG portion of the study will be reported separately. Selma Pandey MD (Electronically Signed) Final Date: 14 June 2023 11:07 S
[2023-06-14] MEDS: ipratropium-albuterol 3 mL Neb INHALATION (09:21)
[2023-06-14] MEDS: isosorbide mononitrate ER 60 mg Tablet 120 MG PO ×2 (09:31→17:38)
[2023-06-14] MEDS: carvedilol 12.5 mg Tablet PO ×2 (09:31→17:38)
[2023-06-14] MEDS: amiodarone 200 mg Tablet 400 MG PO (09:31)
[2023-06-14] MEDS: levothyroxine 25 mcg Tablet PO (09:31)
[2023-06-14] MEDS: clopidogrel 75 mg Tablet PO (09:31)
[2023-06-14] MEDS: hyDRALAzine 50 mg Tablet PO (09:31)
[2023-06-14] MEDS: pantoprazole 40 mg SDV IVP (09:31)
[2023-06-14] MEDS: doxycycline 100 mg Tablet PO ×2 (09:32→17:38)
[2023-06-14] MEDS: atorvastatin 40 mg Tablet PO (09:32)
[2023-06-14] MEDS: amlodipine 10 mg Tablet PO (09:32)
[2023-06-14] MEDS: ropinirole 0.25 mg Tablet 0.5 MG PO (09:32)
[2023-06-14] MEDS: magnesium oxide 400 mg tablet PO ×2 (09:32→17:38)
[2023-06-14] MEDS: aspirin 81 mg EC Tablet PO (09:32)
[2023-06-14] MEDS: predniSONE 20 mg Tablet 40 MG PO (09:32)
[2023-06-14] MEDS: FUROsemide 10 mg/mL SDV 4mL 40 MG IVP (09:37)
[2023-06-14] MEDS: lidocaine 5% Patch 1 PATCH TOPICAL (09:38)
[2023-06-14] MEDS: insulin glargine 100 units/1 mL 10 UNIT SUBCUT (09:38)
--- NOTE | 2023-06-14 10:44 | PM.PN ---
Subjective Subjective: She was moved out of ICU. She c/o SOB earlier today. She had stress test earlier today Medications: Reviewed: Yes Vitals/I&O/Wt Last Vital Signs Temp 98.0 F 06/14/23 08:00 Pulse 94 06/14/23 08:00 Resp 18 06/14/23 08:00 BP 165/112 06/14/23 08:00 Pulse Ox 24 L 06/14/23 08:00 O2 Del Method Nasal Cannula 06/14/23 08:00 O2 Flow Rate 2 06/14/23 08:00 FiO2 2 06/11/23 08:00 06/13/23 06/14/23 06/14/23 22:59 06:59 14:59 Intake Total 100 / 486 0 / 486 360 / 360 Output Total 950 / 950 200 / 1150 Balance -850 / -464 -200 / -664 360 / 360 Weight last 48 hrs Weight 155 lb Weight 161 lb Physical Exam Narrative: GENERAL: Averagely built and averagely nourished in no acute distress HEENT: Extraocular movement intact. No pallor or icterus. NECK: central trachea, No JVD, No carotid bruit. CARDIOVASCULAR SYSTEM: S1-S2 regular. No murmur rubs or gallops. RESPIRATORY SYSTEM: Chest clear to auscultation. No wheezes rhonchi or rubs heard. No use of accessory muscles. ABDOMEN: Soft, nontender and nondistended. Normal bowel sounds present. EXTREMITIES: No cyanosis or edema. No signs of chronic venous insufficiency. INSURANCE SALES REPRESENTATIVE: Patient is alert oriented ?3. No focal neurological deficits. SKIN: Normal turgor and temperature. No breakdown, rash or nail changes noted. PSYCH: Normal insight and judgment. Urinary Catheter Management: Gibbs: Cath Placed During This Visit: yes Reason for Continuing Indwelling Catheter: Accurate Measurement of Urinary Output in Critically Ill Patients Urinary Catheter Date of Insertion: 06/09/23 Urinary Catheter Time of Insertion: 21:15 Data 06/14/23 03:25 06/14/23 03:25 Micro: Microbiology 06/11/23 09:40 Gram Stain - Final Sputum - Expectorated Sputum Sputum Culture - Final A&P Assessment and plan (1) CHF exacerbation: HFrEF (LVEF=35-40%); new when compared to 2014 However,TDS study. apex appears thinned out which is not a sign of acute drop in LV function. Repeat study with echo contrast showing LV funtion to be 45-50% with severe hypokinesis of apical wall -cont. medical management; -Large area of reversible ischemia in lateral and apical hernandez on stress study thsi morning. -I discussed with her findings of stress test. -I discussed with her option of medical management given no significant symptoms at this time and cath based on findings of the test and option of LHC with high risk of renal failure and dialysis. -She tells even with higher risk of dialysis she would want to proceed with LHC. (2) Atrial fibrillation with rapid ventricular response: Now in SR on PO amiodarone and coreg now on lovenox (3) Acute kidney injury superimposed on CKD: creatinine 1.9 today Plan Elevated troponin 2/2 a, fib with RVR and decompensated CHF CAD s/p CABG x3 Carotid artery disease LBBB Uncontrolled HTN Hypothyroidism Dyslipidemia COPD on home oxygen Attestations Medical Necessity Statement*: needs hospital stay for uncontrolled HTN, CHF, NSTEMI type 2 and atrial fibrillation Coding Level of Care Code Acute Code for g Fwd Diagnoses CHF exacerbation I50.9 Atrial fibrillation with rapid ventricular response I48.91 Acute kidney injury superimposed on CKD N17.9; N18.9
[2023-06-14 11:48] LABS: Glucose Point of Care 324 mg/dL (70-110)
[2023-06-14] MEDS: insulin lispro 100 unit/1 mL SUBCUT ×3 (11:52→21:23)
[2023-06-14] MEDS: cloNIDine 0.1 mg Tablet PO (12:58)
[2023-06-14] MEDS: enoxaparin 80 mg/0.8 mL Syringe 70 MG SUBCUT (12:59)
--- NOTE | 2023-06-14 13:56 | PC.SOCIAL ---
IMM update IMM updated with patient. Verbalized an understanding. Copy PG 2 provided. Initialled, dated, timed, and placed in chart.
--- NOTE | 2023-06-14 14:41 | P.PN_ITS ---
Subjective Subjective: Patient was seen this morning, she is hypertensive, blood pressure 210s over 110, she has a headache, she was given her blood pressure medications, reexamined after her stress test, currently blood pressure was 180s over 90s, she is alert awake, no headache, blurry vision, no nausea, vomiting, no chest pain, we discussed her permissive hypertensive state, I would add on clonidine, her creatinine is 1.9, we discussed her positive stress test, I would have cardiology talk with her about the risks and benefits of coronary angiography Vitals/I&O/Wt Last Vital Signs Temp 98.0 F 06/14/23 08:00 Pulse 80 06/14/23 12:00 Resp 24 H 06/14/23 12:00 BP 187/86 06/14/23 12:58 Pulse Ox 92 06/14/23 12:00 O2 Del Method Nasal Cannula 06/14/23 12:00 O2 Flow Rate 2 06/14/23 08:00 FiO2 2 06/11/23 08:00 06/13/23 06/14/23 06/14/23 22:59 06:59 14:59 Intake Total 100 / 486 0 / 486 480 / 480 Output Total 950 / 950 200 / 1150 750 / 750 Balance -850 / -464 -200 / -664 -270 / -270 Weight last 48 hrs Weight 70.307 kg Weight 73.028 kg Physical Exam Const: COMMON NORMALS: no acute distress and patient oriented x3 Resp: COMMON NORMALS: normal respiratory effort, No retractions, No use of accessory muscles and clear to auscultation bilaterally AUSCULTATION: clear to auscultation bilaterally Cardio: COMMON NORMALS: regular rate, regular rhythm, S1 normal heart sound present and S2 normal heart sound present RATE: regular rate RHYTHM: regular rhythm HEART SOUNDS: S1 normal heart sound present and S2 normal heart sound present GI: COMMON NORMALS: Normal to inspection, nondistended, normoactive bowel sounds present and non-tender Extremity: COMMON NORMALS: no pedal edema Neuro: COMMON NORMALS: patient oriented x3 Psych: COMMON NORMALS: mental status grossly normal Urinary Catheter Management: Gibbs: Cath Placed During This Visit: yes Reason for Continuing Indwelling Catheter: Accurate Measurement of Urinary Outp ut in Critically Ill Patients Urinary Catheter Date of Insertion: 06/09/23 Urinary Catheter Time of Insertion: 21:15 Data 06/14/23 03:25 06/14/23 03:25 Micro: Microbiology 06/11/23 09:40 Gram Stain - Final Sputum - Expectorated Sputum Sputum Culture - Final A&P Assessment and plan (1) Atrial fibrillation with rapid ventricular response: (2) Hypertension: Qualifiers: Hypertension type: primary hypertension Qualified Code(s): I10 - Essential (primary) hypertension (3) Hypoxia: (4) Pneumonitis: (5) Lupus anticoagulant disorder: (6) DJD (degenerative joint disease), lumbar: (7) Diabetic neuropathy: (8) CHF exacerbation: (9) Acute respiratory failure with hypoxia: (10) Pneumonia: (11) Systolic CHF: (12) Acute kidney injury superimposed on CKD: (13) Hypertensive urgency: Plan Acute on chronic respiratory failure Multifactorial A-fib with RVR, fluid overload Diastolic CHF exacerbation COPD exacerbation Pneumonia CT scan showing 1. ? There is bronchiectasis with patchy mucous plugging and atelectasis right lower lobe. 2. ? There is also mild ground-glass and tree-in-bud opacities in the lungs compatible with mild pneumonitis. Possible pulmonary embolism with elevated D-dimer, cannot perform CT angiogram given creatinine Patient is afebrile Mild leukocytosis Request urine cultures and antigen At baseline requires 5 to 6 L of oxygen Patient has not seen any material specialist however referral was given to the patient last year around this month she is an active smoker smokes 2 packs/day There was concern for thromboembolic phenomenon given elevated D-dimer, however venous ultrasound negative for DVT, felt to be unlikely Patient will stay on DuoNeb, steroids and Mucomyst in case of further Plan -Hold Lasix for today -Creatinine up to 1.9, -3 L -Currently on prednisone 40 mg p.o. daily -Currently on doxycycline MARIO on CKD -Diuresis elevated creatinine versus cardiorenal syndrome -Will monitor urine output closely, Pneumonia -With findings as above -Follow sputum culture, blood cultures -Antibiotics de-escalated to doxycycline Acute CHF exacerbation, BNP over 20,000 As below Non-STEMI: Patient stating that she is willing to go for angiogram if that is indicated at this point, Currently on ACS protocol with therapeutic Lovenox continue aspirin and Plavix No active chest pain Cardiac echo CONCLUSIONS ?The study is poor secondary to underlying COPD.? The patient has ?atrial fibrillation and an underlying left bundle branch block ?making sensitivity less.? The only view available for ?interpretation is the apical view.? In this view the apex is ?thinned and hypokinetic.? There is a large sigmoid septum.? The ?lateral wall appears to contract normally.? There is moderate ?reduction in left ventricular function.? A rough estimate of the ?ejection fraction is 35 to 40%.? Diastolic function cannot be ?determined due to the rhythm disturbance. ?Mildly increased left atrial size. ?Structurally normal mitral valve. Moderate mitral valve ?regurgitation. ?Aortic valve not well visualized. Mild aortic valve ?calcification. Mild aortic valve stenosis, mean gradient 7.3 ?mmHg, AYDIN 1.1 cm squared. ?From the previous echo done 04/07/2014, the decrease in left ?ventricular function is new.? The wall motion disturbances are ?new.? Mitral regurgitation appears worse.? Aortic stenosis is ?new however due to the poor quality of the exam I am not ?confident of the aortic valve calculations. -Cardiac stress test shows -?IMPRESSIONS ?1. Large sized reversible perfusion abnormality of moderate severity of mid to ?apical anterior, basal to mid anterolateral, basal to mid inferolateral, apical ?lateral, apical septal, apical inferior and apical hernandez. ?2. This is likely suggestive of ischemia in left anterior descending and ?circumflex artery territory. ?3. The left ventricular ejection fraction is mildly reduced with a value of ?42%. ?4. There is severe hypokinesis of mid to apical anterior and apical hernandez. ?There is mild hypokinesis of mid to apical inferior hernandez. ?5. EKG portion of the study will be reported separately. -We will await her discussion with cardiology about possible coronary angiography Previous CABG 2013 She had a left internal mammary artery to the LAD, single vein graft to the diagonal and single vein graft to the right coronary artery.? In May 2015 she underwent coronary angiography for similar problems and the diagonal graft was occluded.? The right coronary artery graft was patent as was the left internal mammary artery.? Her [place] circumflex was stented.? This was not bypassed at the time of surgery due to its intramyocardial location New onset A-fib [id number] 5 Therapeutic Lovenox Previous EKG showed left bundle branch block Received 250 mcg of digoxin On amiodarone Hypertensive urgency, add clonidine today Acute on chronic kidney disease secondary to cardiorenal, baseline creatinine seems to be around 1.5 Anticipate improvement with diuresis Goals of care discussed with the patient: She is full code She is concerned about her who has Alzheimer's dementia, he is alone at home Patient stating that she would never go to a fci because she wants to take care of her Full code Cardiac diet/consistent carb with insulin and sliding scale Plan for today remains hypertensive, will add clonidine, reviewed stress testin g, will await patient was discussed with cardiology, possible coronary angiography, hold on for for further diuresis today, monitor urine output monitor creatinine monitor blood pressure, Attestations Medical Necessity Statement*: Patient requires hospitalization for positive stress test, shortness of breath, fluid overload, A-fib Diagnoses Atrial fibrillation with rapid ventricular response I48.91 Hypertension I10 Hypertension type: primary hypertension Hypoxia R09.02 Pneumonitis J18.9 Lupus anticoagulant disorder D68.62 DJD (degenerative joint disease), lumbar M47.816 Diabetic neuropathy E11.40 CHF exacerbation I50.9 Acute respiratory failure with hypoxia J96.01 Pneumonia J18.9 Systolic CHF I50.20 Acute kidney injury superimposed on CKD N17.9; N18.9 Hypertensive urgency I16.0
[2023-06-14] MEDS: hyDRALAzine 50 mg Tablet 100 MG PO ×2 (15:02→20:32)
[2023-06-14 17:00] LABS: Glucose Point of Care 244 mg/dL (70-110)
[2023-06-14] MEDS: amiodarone 200 mg Tablet PO (17:38)
[2023-06-14] MEDS: trazodone 100 mg Tablet PO (20:32)
[2023-06-14 21:00] LABS: Glucose Point of Care 264 mg/dL (70-110)
[2023-06-14] MEDS: morphine 4 mg/mL SDV 1 mL 2 MG IVP (21:52)
--- NOTE | 2023-06-14 22:00 | PC.NURSE ---
Pt had a 17 beat run of Vtach/Vfib at 2147. Pt assessed, asymptomatic. Strip was printed and Dr notified. No new orders received at this time.
[2023-06-15] VITALS (30 sets, daily range): BP systolic 132–188; BP diastolic 64–99; PULSE 56–76; RESP 4–31; TEMP 36.5–36.8; O2SAT 93–98
[2023-06-15] MEDS: cloNIDine 0.1 mg Tablet PO ×3 (00:53→21:24)
[2023-06-15] MEDS: HYDROcodone-acetaminophen 10-325 mg Tablet 1 TAB PO ×2 (00:56→22:55)
[2023-06-15 03:20] LABS: Basophils % 0.1 %; Eosinophils % 0.1 %; Hematocrit 37.5 % (37.0-47.0); Hemoglobin 12.4 g/dL (11.5-15.3); Lymphocytes # 2.4 10^3/uL (0.8-4.8); Lymphocytes % 22.7 %; Mean Corpuscular HGB Conc 33.1 g/dL (30.0-36.0); Mean Corpuscular Hemoglobin 29.9 pg (28.0-34.0); Mean Corpuscular Volume 90.4 fl (81-99); Mean Platelet Volume 12.5 fL (7.4-10.4); Monocytes # 0.8 10^3/uL (0.2-0.9); Monocytes % 7.6 %; Neutrophils % 68.7 %; Nucleated Red Blood Cells % 0 %; Platelet Count 218 10^3/cmm (130-400); Red Blood Count 4.15 10^6/uL (4.1-5.3); Red Cell Distribution Width 12.9 % (12.1-15.1); White Blood Count 10.5 10^3/uL (4.0-10.0)
[2023-06-15 03:41] LABS: Alanine Aminotransferase 10 U/L (0-33); Albumin Level 3.1 g/dL (3.5-5.2); Alkaline Phosphatase 49 U/L (35-105); Anion Gap 13.2 (5-19); Aspartate Amino Transferase 8 U/L (0-32); Blood Urea Nitrogen 65 mg/dL (8-23); Calcium 9.1 mg/dL (8.5-10.5); Carbon Dioxide 30 mmol/L (22-29); Chloride 94 mmol/L (98-107); Creatinine Clr Calc Pharmacy 21.2483; Globulin 2.5 g/dL (1.3-4.6); Glucose 146 mg/dL (65-115); Magnesium 1.9 mg/dL (1.7-2.3); Osmolality Calculated 297 mOsm/kg (285-295); Phosphorus 3.4 mg/dL (2.5-4.5); Potassium 4.2 mmol/L (3.5-5.1); Sodium 133 mmol/L (136-145); Total Bilirubin 0.2 mg/dL (0.15-1.2); Total Protein 5.6 g/dL (6.6-8.7)
[2023-06-15 03:50] LABS: NT Pro B Type Natriuretic Pept 28856 pg/mL (0-450)
[2023-06-15] MEDS: sodium chloride 0.9% 1,000 ML 50 ML IV (05:04)
[2023-06-15] MEDS: diphenhydrAMINE 50 mg Capsule PO (06:11)
[2023-06-15] MEDS: aspirin 325 mg Tablet PO (06:11)
[2023-06-15 06:15] LABS: Glucose Point of Care 168 mg/dL (70-110)
--- NOTE | 2023-06-15 08:05 | PM.PN ---
Subjective Subjective: [facility] cancelled this morning as creatinine went up. Medications: Reviewed: Yes Vitals/I&O/Wt Last Vital Signs Temp 98.4 F 06/14/23 20:00 Pulse 68 06/15/23 07:00 Resp 27 H 06/15/23 07:00 BP 173/82 06/15/23 07:00 Pulse Ox 93 06/15/23 07:00 O2 Del Method Room Air 06/15/23 07:00 O2 Flow Rate 2 06/14/23 20:00 FiO2 2 06/11/23 08:00 06/14/23 06/15/23 06/15/23 22:59 06:59 14:59 Intake Total 120 / 600 Output Total 650 / 1400 375 / 1775 Balance -530 / -800 -375 / -1175 Weight last 48 hrs Weight 156 lb 5 oz Weight 155 lb Physical Exam Narrative: GENERAL: Averagely built and averagely nourished in no acute distress HEENT: Extraocular movement intact. No pallor or icterus. NECK: central trachea, No JVD, No carotid bruit. CARDIOVASCULAR SYSTEM: S1-S2 regular. No murmur rubs or gallops. RESPIRATORY SYSTEM: Chest clear to auscultation. No wheezes rhonchi or rubs heard. No use of accessory muscles. ABDOMEN: Soft, nontender and nondistended. Normal bowel sounds present. EXTREMITIES: No cyanosis or edema. No signs of chronic venous insufficiency. SIGNAL FITTER: Patient is alert oriented ?3. No focal neurological deficits. SKIN: Normal turgor and temperature. No breakdown, rash or nail changes noted. PSYCH: Normal insight and judgment. Urinary Catheter Management: Gibbs: Cath Placed During This Visit: yes Reason for Continuing Indwelling Catheter: Accurate Measurement of Urinary Output in Critically Ill Patients Urinary Catheter Date of Insertion: 06/09/23 Urinary Catheter Time of Insertion: 21:15 Data 06/15/23 02:52 06/15/23 02:52 Micro: Microbiology 06/09/23 19:17 Blood Culture - Final Blood NO GROWTH AFTER 5 DAYS 06/09/23 19:15 Blood Culture - Final Blood NO GROWTH AFTER 5 DAYS A&P Assessment and plan (1) CHF exacerbation: HFrEF (LVEF=35-40%); new when compared to 2014 However,TDS study. apex appears thinned out which is not a sign of acute drop in LV function. Repeat study with echo contrast showing LV funtion to be 45-50% with severe hypokinesis of apical wall -cont. medical management; -Large area of reversible ischemia in lateral and apical hernandez on stress study. -I discussed with her findings of stress test. -I discussed with her option of medical management given no significant symptoms at this time and cath based on findings of the test and option of LHC with high risk of renal failure and dialysis. -She tells even with higher risk of dialysis she would want to proceed with LHC. Plan for LHC once renal function improves (2) Atrial fibrillation with rapid ventricular response: Paroxysmal atrial fibrillation Now in SR on PO amiodarone and coreg now on lovenox (3) Acute kidney injury superimposed on CKD: creatinine 2.5 today Plan LBBB Uncontrolled HTN : Minoxidil and clonidine added. continue coreg, hydralazine, amlodipine, imdur Elevated troponin 2/2 a, fib with RVR and decompensated CHF CAD s/p CABG x3 Carotid artery disease Hypothyroidism Dyslipidemia COPD on home oxygen Attestations Medical Necessity Statement*: needs hospital stay for uncontrolled HTN, CHF, NSTEMI type 2 and atrial fibrillation Coding Level of Care Code Acute Code for Chg Fwd Diagnoses CHF exacerbation I50.9 Atrial fibrillation with rapid ventricular response I48.91 Acute kidney injury superimposed on CKD N17.9; N18.9
[2023-06-15] MEDS: insulin lispro 100 unit/1 mL SUBCUT ×4 (09:03→21:24)
[2023-06-15] MEDS: pantoprazole 40 mg SDV IVP (09:04)
[2023-06-15] MEDS: acetaminophen 325 mg Tablet 650 MG PO (09:04)
[2023-06-15] MEDS: ropinirole 0.25 mg Tablet 0.5 MG PO (09:05)
[2023-06-15] MEDS: amlodipine 10 mg Tablet PO (09:05)
[2023-06-15] MEDS: aspirin 81 mg EC Tablet PO (09:05)
[2023-06-15] MEDS: magnesium oxide 400 mg tablet PO ×2 (09:05→17:41)
[2023-06-15] MEDS: doxycycline 100 mg Tablet PO ×2 (09:05→17:41)
[2023-06-15] MEDS: atorvastatin 40 mg Tablet PO (09:05)
[2023-06-15] MEDS: sennosides-docusate Tablet 1 TAB PO ×2 (09:06→17:41)
[2023-06-15] MEDS: hyDRALAzine 50 mg Tablet 100 MG PO ×3 (09:06→21:24)
[2023-06-15] MEDS: carvedilol 12.5 mg Tablet PO ×2 (09:06→17:42)
[2023-06-15] MEDS: predniSONE 20 mg Tablet 40 MG PO (09:06)
[2023-06-15] MEDS: clopidogrel 75 mg Tablet PO (09:06)
[2023-06-15] MEDS: amiodarone 200 mg Tablet PO ×2 (09:06→17:42)
[2023-06-15] MEDS: levothyroxine 25 mcg Tablet PO (09:07)
[2023-06-15] MEDS: insulin glargine 100 units/1 mL 10 UNIT SUBCUT (09:49)
[2023-06-15] MEDS: isosorbide mononitrate ER 60 mg Tablet 120 MG PO ×2 (09:49→17:41)
[2023-06-15 11:48] LABS: Glucose Point of Care 221 mg/dL (70-110)
--- NOTE | 2023-06-15 14:04 | PM.PN ---
Subjective Subjective: Patient was seen this morning, she denies any chest pain, no palpitations, she tells me that her coronary angiogram this morning was canceled because her elevated kidney function, she denies any fevers, no chills, no headaches, Vitals/I&O/Wt Last Vital Signs Temp 98.2 F 06/15/23 12:00 Pulse 63 06/15/23 12:00 Resp 22 H 06/15/23 12:00 BP 168/76 06/15/23 12:15 Pulse Ox 95 06/15/23 12:00 O2 Del Method Room Air 06/15/23 08:30 O2 Flow Rate 2 06/15/23 12:00 FiO2 2 06/11/23 08:00 06/14/23 06/15/23 06/15/23 22:59 06:59 14:59 Intake Total 120 / 600 240 / 240 Output Total 650 / 1400 375 / 1775 Balance -530 / -800 -375 / -1175 240 / 240 Weight last 48 hrs Weight 70.902 kg Weight 70.307 kg Physical Exam Const: COMMON NORMALS: no acute distress and patient oriented x3 Resp: COMMON NORMALS: normal respiratory effort, No retractions, No use of accessory muscles and clear to auscultation bilaterally AUSCULTATION: clear to auscultation bilaterally Cardio: COMMON NORMALS: regular rate, regular rhythm, S1 normal heart sound present and S2 normal heart sound present RATE: regular rate RHYTHM: regular rhythm HEART SOUNDS: S1 normal heart sound present and S2 normal heart sound present GI: COMMON NORMALS: Normal to inspection, nondistended, normoactive bowel sounds present and non-tender Extremity: COMMON NORMALS: no pedal edema Neuro: COMMON NORMALS: patient oriented x3 Psych: COMMON NORMALS: mental status grossly normal Urinary Catheter Management: Gibbs: Cath Placed During This Visit: yes Reason for Continuing Indwelling Catheter: Accurate Measurement of Urinary Output in Critically Ill Patients Urinary Catheter Date of Insertion: 06/09/23 Urinary Catheter Time of Insertion: 21:15 Data 06/15/23 02:52 06/15/23 02:52 Micro: Microbiology 06/09/23 19:17 Blood Culture - Final Blood NO GROWTH AFTER 5 DAYS 06/09/23 19:15 Blood Culture - Final Blood NO GROWTH AFTER 5 DAYS A&P Assessment and plan (1) Atrial fibrillation with rapid ventricular response: (2) Hypertension: Qualifiers: Hypertension type: primary hypertension Qualified Code(s): I10 - Essential (primary) hypertension (3) Hypoxia: (4) Pneumonitis: (5) Lupus anticoagulant disorder: (6) DJD (degenerative joint disease), lumbar: (7) Diabetic neuropathy: (8) CHF exacerbation: (9) Acute respiratory failure with hypoxia: (10) Pneumonia: (11) Systolic CHF: (12) Acute kidney injury superimposed on CKD: (13) Hypertensive urgency: Plan Acute on chronic respiratory failure Multifactorial A-fib with RVR, fluid overload Diastolic CHF exacerbation COPD exacerbation Pneumonia CT scan showing 1. ? There is bronchiectasis with patchy mucous plugging and atelectasis right lower lobe. 2. ? There is also mild ground-glass and tree-in-bud opacities in the lungs compatible with mild pneumonitis. Possible pulmonary embolism with elevated D-dimer, cannot perform CT angiogram given creatinine Patient is afebrile Mild leukocytosis Request urine cultures and antigen At baseline requires 5 to 6 L of oxygen Patient has not seen any chair car attendant however referral was given to the patient last year around this month she is an active smoker smokes 2 packs/day There was concern for thromboembolic phenomenon given elevated D-dimer, however venous ultrasound negative for DVT, felt to be unlikely Patient will stay on DuoNeb, steroids and Mucomyst in case of further Plan -Diuretics on hold -Creatinine up to 2.5 -Currently on prednisone 40 mg p.o. daily -Currently on doxycycline MARIO on CKD -Diuresis elevated creatinine versus cardiorenal syndrome -Will monitor urine output closely, Pneumonia -With findings as above -Follow sputum culture, blood cultures -Antibiotics de-escalated to doxycycline Acute CHF exacerbation, BNP over 20,000 As below Non-STEMI: Patient stating that she is willing to go for angiogram if that is indicated at this point, Currently on ACS protocol with therapeutic Lovenox continue aspirin and Plavix No active chest pain Cardiac echo CONCLUSIONS ?The study is poor secondary to underlying COPD.? The patient has ?atrial fibrillation and an underlying left bundle branch block ?making sensitivity less.? The only view available for ?interpretation is the apical view.? In this view the apex is ?thinned and hypokinetic.? There is a large sigmoid septum.? The ?lateral wall appears to contract normally.? There is moderate ?reduction in left ventricular function.? A rough estimate of the ?ejection fraction is 35 to 40%.? Diastolic function cannot be ?determined due to the rhythm disturbance. ?Mildly increased left atrial size. ?Structurally normal mitral valve. Moderate mitral valve ?regurgitation. ?Aortic valve not well visualized. Mild aortic valve ?calcification. Mild aortic valve stenosis, mean gradient 7.3 ?mmHg, AYDIN 1.1 cm squared. ?From the previous echo done 04/07/2014, the decrease in left ?ventricular function is new.? The wall motion disturbances are ?new.? Mitral regurgitation appears worse.? Aortic stenosis is ?new however due to the poor quality of the exam I am not ?confident of the aortic valve calculations. -Cardiac stress test shows -?IMPRESSIONS ?1. Large sized reversible perfusion abnormality of moderate severity of mid to ?apical anterior, basal to mid anterolateral, basal to mid inferolateral, apical ?lateral, apical septal, apical inferior and apical hernandez. ?2. This is likely suggestive of ischemia in left anterior descending and ?circumflex artery territory. ?3. The left ventricular ejection fraction is mildly reduced with a value of ?42%. ?4. There is severe hypokinesis of mid to apical anterior and apical hernandez. ?There is mild hypokinesis of mid to apical inferior hernandez. ?5. EKG portion of the study will be reported separately. -Creatinine 2.5, coronary cath counseled for today, will await cardiology's recommendation Previous CABG 2013 She had a left internal mammary artery to the LAD, single vein graft to the diagonal and single vein graft to the right coronary artery.? In May 2015 she underwent coronary angiography for similar problems and the diagonal graft was occluded.? The right coronary artery graft was patent as was the left internal mammary artery.? Her [place] circumflex was stented.? This was not bypassed at the time of surgery due to its intramyocardial location New onset A-fib [id number] 5 Therapeutic Lovenox Previous EKG showed left bundle branch block Received 250 mcg of digoxin On amiodarone Hypertensive urgency, on clonidine 0.1 increased to 3 times daily Acute on chronic kidney disease secondary to cardiorenal, baseline creatinine seems to be around 1.5 Anticipate improvement with diuresis Goals of care discussed with the patient: She is full code She is concerned about her who has Alzheimer's dementia, he is alone at home Patient stating that she would never go to a fpc because she wants to take care of her Full code Cardiac diet/consistent carb with insulin and sliding scale Plan for today remains hypertensive, increase clonidine dose, her heart rates have been on the lower end, her Coreg dose has been decreased to 12.5 twice daily, will continue to monitor for now, consider minoxidil, wait cardiology recommendation about angiogram Attestations Medical Necessity Statement*: Patient requires hospitalization for hypertensive urgency, diminished ejection fraction, cardiac cath canceled today as creatinine is 2.5, will await cardiology's recommendation and High MDM includes number and complexity of problems actively addressed during encounter, amount and/or complexity of data reviewed/ordered and described risk of complication, morbidity or mortality of management as documented Diagnoses Atrial fibrillation with rapid ventricular response I48.91 Hypertension I10 Hypertension type: primary hypertension Hypoxia R09.02 Pneumonitis J18.9 Lupus anticoagulant disorder D68.62 DJD (degenerative joint disease), lumbar M47.816 Diabetic neuropathy E11.40 CHF exacerbation I50.9 Acute respiratory failure with hypoxia J96.01 Pneumonia J18.9 Systolic CHF I50.20 Acute kidney injury superimposed on CKD N17.9; N18.9 Hypertensive urgency I16.0
[2023-06-15] MEDS: enoxaparin 80 mg/0.8 mL Syringe 70 MG SUBCUT (14:07)
[2023-06-15] MEDS: minoxidil 10 mg Tablet 5 MG PO (14:47)
--- NOTE | 2023-06-15 14:49 | PC.NURSE ---
Nurse called to patients room. She is requesting that I rub her lower back mainly on the left side. She states My back gets sore for being in the bed and chair for so long. Nurse rubs the whole back and her discomfort is better.
[2023-06-15 17:37] LABS: Glucose Point of Care 321 mg/dL (70-110)
--- NOTE | 2023-06-15 17:46 | XRR_ITS ---
PROCEDURE INFORMATION: Exam: XR Chest Exam date and time: 06/15/2023 5:58 PM Age: 77 years old Clinical indication: Shortness of breath; Prior surgery; Surgery date: 6+ months; Surgery type: Open heart surgery; Additional info: SOB TECHNIQUE: Imaging protocol: Radiologic exam of the chest. Views: 1 view. COMPARISON: 1. CT chest wo con [id number] 06/09/2023 6:01 PM 2. CR (CHEST, ) 06/09/2023 5:10 PM FINDINGS: Lungs: There is platelike atelectasis or scarring at the right lung base unchanged from previous. There is no pulmonary vascular congestion. Pleural spaces: Unremarkable. No pleural effusion. No pneumothorax. Heart/Mediastinum: Heart is upper limits of normal in size. Bones/joints: Sternotomy wires and mediastinal surgical clips are present, consistent with coronary arterial bypass grafting. XR/XR chest 1V portable [id number] IMPRESSION: Right basilar atelectasis.
[2023-06-15 21:07] LABS: Glucose Point of Care 263 mg/dL (70-110)
[2023-06-15] MEDS: trazodone 100 mg Tablet PO (21:24)
[2023-06-15] MEDS: lidocaine 5% Patch 1 PATCH TOPICAL (21:30)
[2023-06-15] MEDS: morphine 4 mg/mL SDV 1 mL 2 MG IVP (22:08)
[2023-06-16] VITALS (26 sets, daily range): BP systolic 120–178; BP diastolic 45–71; PULSE 60–71; RESP 3–30; TEMP 36.4–36.9; O2SAT 92–99
[2023-06-16] MEDS: acetaminophen 325 mg Tablet 650 MG PO ×3 (01:00→21:45)
[2023-06-16 03:42] LABS: Basophils % 0.1 %; Eosinophils % 0.2 %; Hemoglobin 12.3 g/dL (11.5-15.3); Lymphocytes # 2.9 10^3/uL (0.8-4.8); Lymphocytes % 26.2 %; Mean Corpuscular HGB Conc 33.2 g/dL (30.0-36.0); Mean Corpuscular Hemoglobin 30.4 pg (28.0-34.0); Mean Corpuscular Volume 91.4 fl (81-99); Mean Platelet Volume 12.2 fL (7.4-10.4); Monocytes # 0.9 10^3/uL (0.2-0.9); Monocytes % 8.6 %; Neutrophils # 6.97 10^3/uL (1.8-7.7); Neutrophils % 64.1 %; Nucleated Red Blood Cells % 0 %; Platelet Count 229 10^3/cmm (130-400); Red Blood Count 4.05 10^6/uL (4.1-5.3); White Blood Count 10.9 10^3/uL (4.0-10.0)
[2023-06-16 04:15] LABS: Alanine Aminotransferase 11 U/L (0-33); Alkaline Phosphatase 45 U/L (35-105); Anion Gap 13.7 (5-19); Aspartate Amino Transferase 8 U/L (0-32); Blood Urea Nitrogen 80 mg/dL (8-23); Calcium 8.9 mg/dL (8.5-10.5); Carbon Dioxide 28 mmol/L (22-29); Chloride 97 mmol/L (98-107); Globulin 2.3 g/dL (1.3-4.6); Glucose 92 mg/dL (65-115); Magnesium 2.1 mg/dL (1.7-2.3); NT Pro B Type Natriuretic Pept 15033 pg/mL (0-450); Osmolality Calculated 302 mOsm/kg (285-295); Phosphorus 3.6 mg/dL (2.5-4.5); Potassium 4.7 mmol/L (3.5-5.1); Sodium 134 mmol/L (136-145); Total Bilirubin 0.2 mg/dL (0.15-1.2); Total Protein 5.3 g/dL (6.6-8.7)
[2023-06-16] MEDS: morphine 4 mg/mL SDV 1 mL 2 MG IVP ×2 (04:23→20:24)
[2023-06-16] MEDS: cloNIDine 0.1 mg Tablet PO ×3 (05:17→21:45)
[2023-06-16 06:30] LABS: Glucose Point of Care 154 mg/dL (70-110)
[2023-06-16] MEDS: insulin lispro 100 unit/1 mL SUBCUT ×4 (09:20→21:46)
[2023-06-16] MEDS: sennosides-docusate Tablet 1 TAB PO ×2 (09:21→18:29)
[2023-06-16] MEDS: atorvastatin 40 mg Tablet PO (09:21)
[2023-06-16] MEDS: carvedilol 12.5 mg Tablet PO ×2 (09:21→17:19)
[2023-06-16] MEDS: amiodarone 200 mg Tablet PO ×2 (09:21→17:20)
[2023-06-16] MEDS: amlodipine 10 mg Tablet PO (09:21)
[2023-06-16] MEDS: magnesium oxide 400 mg tablet PO ×2 (09:22→17:19)
[2023-06-16] MEDS: levothyroxine 25 mcg Tablet PO (09:22)
[2023-06-16] MEDS: aspirin 81 mg EC Tablet PO (09:22)
[2023-06-16] MEDS: clopidogrel 75 mg Tablet PO (09:22)
[2023-06-16] MEDS: doxycycline 100 mg Tablet PO ×2 (09:22→17:19)
[2023-06-16] MEDS: hyDRALAzine 50 mg Tablet 100 MG PO ×3 (09:22→20:14)
[2023-06-16] MEDS: predniSONE 20 mg Tablet 40 MG PO (09:22)
[2023-06-16] MEDS: isosorbide mononitrate ER 60 mg Tablet 120 MG PO ×2 (09:22→17:19)
[2023-06-16] MEDS: pantoprazole 40 mg SDV IVP (09:23)
[2023-06-16] MEDS: insulin glargine 100 units/1 mL 10 UNIT SUBCUT (09:23)
[2023-06-16] MEDS: ropinirole 0.25 mg Tablet 0.5 MG PO (09:23)
[2023-06-16] MEDS: minoxidil 10 mg Tablet 5 MG PO (10:08)
--- NOTE | 2023-06-16 10:13 | PC.SOCIAL ---
IMM Update pg 2 of IMM updated and reviewed w/ patient. Copy provided and copy in chart dated and initialed.
[2023-06-16 11:23] LABS: Glucose Point of Care 148 mg/dL (70-110)
[2023-06-16] MEDS: enoxaparin 80 mg/0.8 mL Syringe 70 MG SUBCUT (14:47)
[2023-06-16] MEDS: lidocaine 5% Patch 1 PATCH TOPICAL (14:52)
--- NOTE | 2023-06-16 15:00 | P.PN_ITS ---
Subjective Subjective: No new events overnight Medications: Reviewed: Yes Vitals/I&O/Wt Last Vital Signs Temp 98.4 F 06/16/23 12:00 Pulse 60 06/16/23 12:00 Resp 16 06/16/23 12:00 BP 138/55 06/16/23 14:47 Pulse Ox 92 06/16/23 12:00 O2 Del Method Nasal Cannula 06/16/23 08:00 O2 Flow Rate 2 06/16/23 08:00 FiO2 2 06/11/23 08:00 06/16/23 06/16/23 06/16/23 06:59 14:59 22:59 Intake Total 0 / 1816 240 / 240 Output Total 100 / 700 Balance -100 / 1116 240 / 240 Weight last 48 hrs Weight 258 lb 1.6 oz Weight 156 lb 5 oz Physical Exam Narrative: GENERAL: Averagely built and averagely nourished in no acute distress HEENT: Extraocular movement intact. No pallor or icterus. NECK: central trachea, No JVD, No carotid bruit. CARDIOVASCULAR SYSTEM: S1-S2 regular. No murmur rubs or gallops. RESPIRATORY SYSTEM: Chest clear to auscultation. No wheezes rhonchi or rubs heard. No use of accessory muscles. ABDOMEN: Soft, nontender and nondistended. Normal bowel sounds present. EXTREMITIES: No cyanosis or edema. No signs of chronic venous insufficiency. 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 No focal neurological deficits. SKIN: Normal turgor and temperature. No breakdown, rash or nail changes noted. PSYCH: Normal insight and judgment. Urinary Catheter Management: Gbibs: Cath Placed During This Visit: yes Reason for Continuing Indwelling Catheter: Accurate Measurement of Urinary Output in Critically Ill Patients Urinary Catheter Date of Insertion: 06/09/23 Urinary Catheter Time of Insertion: 21:15 Data 06/16/23 03:10 06/16/23 03:10 A&P Assessment and plan (1) CHF exacerbation: HFrEF (LVEF=35-40%); new when compared to 2014 However,TDS study. apex appears thinned out which is not a sign of acute drop in LV function. Repeat study with echo contrast showing LV funtion to be 45-50% with severe hypokinesis of apical wall -cont. medical management; -Large area of reversible ischemia in lateral and apical hernandez on stress study. -I discussed with her findings of stress test. -I discussed with her option of medical management given no significant symptoms at this time and cath based on findings of the test and option of LHC with high risk of renal failure and dialysis. -She tells even with higher risk of dialysis she would want to proceed with LHC. Plan for LHC once renal function improves (2) Atrial fibrillation with rapid ventricular response: Paroxysmal atrial fibrillation Now in SR on PO amiodarone and coreg now on lovenox (3) Acute kidney injury superimposed on CKD: creatinine 2.4 today Plan LBBB Uncontrolled HTN : Minoxidil and clonidine added. continue coreg, hydralazine, amlodipine, imdur Elevated troponin 2/2 a, fib with RVR and decompensated CHF CAD s/p CABG x3 Carotid artery disease Hypothyroidism Dyslipidemia COPD on home oxygen Attestations Medical Necessity Statement*: needs hospital stay for uncontrolled HTN, CHF, NSTEMI type 2 and atrial fibrillation Coding Level of Care Code 05243 Diagnoses CHF exacerbation I50.9 Atrial fibrillation with rapid ventricular response I48.91 Acute kidney injury superimposed on CKD N17.9; N18.9
--- NOTE | 2023-06-16 15:40 | P.PN_ITS ---
Subjective Subjective: Patient was seen this morning, she denies any chest pain, no palpitations, no shortness of breath, abdominal pain Vitals/I&O/Wt Last Vital Signs Temp 98.4 F 06/16/23 12:00 Pulse 70 06/16/23 14:00 Resp 16 06/16/23 12:00 BP 138/55 06/16/23 14:47 Pulse Ox 92 06/16/23 12:00 O2 Del Method Nasal Cannula 06/16/23 08:00 O2 Flow Rate 2 06/16/23 08:00 FiO2 2 06/11/23 08:00 06/16/23 06/16/23 06/16/23 06:59 14:59 22:59 Intake Total 0 / 1816 240 / 240 Output Total 100 / 700 300 / 300 Balance -100 / 1116 240 / 240 -300 / -60 Weight last 48 hrs Weight 117.072 kg Weight 70.902 kg Physical Exam Const: COMMON NORMALS: no acute distress and patient oriented x3 Resp: COMMON NORMALS: normal respiratory effort, No retractions, No use of accessory muscles and clear to auscultation bilaterally AUSCULTATION: clear to auscultation bilaterally Cardio: COMMON NORMALS: regular rate, regular rhythm, S1 normal heart sound present and S2 normal heart sound present RATE: regular rate RHYTHM: regular rhythm HEART SOUNDS: S1 normal heart sound present and S2 normal heart sound present GI: COMMON NORMALS: Normal to inspection, nondistended, normoactive bowel sounds present and non-tender Extremity: COMMON NORMALS: no clubbing, cyanosis or edema and no pedal edema Neuro: COMMON NORMALS: patient oriented x3 Psych: COMMON NORMALS: mental status grossly normal Urinary Catheter Management: Gibbs: Cath Placed During This Visit: yes Reason for Continuing Indwelling Catheter: Accurate Measurement of Urinary Output in Critically Ill Patients Urinary Catheter Date of Insertion: 06/09/23 Urinary Catheter Time of Insertion: 21:15 Data 06/16/23 03:10 06/16/23 03:10 A&P Assessment and plan (1) Atrial fibrillation with rapid ventricular response: (2) Hypertension: Qualifiers: Hypertension type: primary hypertension Qualified Code(s): I10 - Essential (primary) hypertension (3) Hypoxia: (4) Pneumonitis: (5) Lupus anticoagulant disorder: (6) DJD (degenerative joint disease), lumbar: (7) Diabetic neuropathy: (8) CHF exacerbation: (9) Acute respiratory failure with hypoxia: (10) Pneumonia: (11) Systolic CHF: (12) Acute kidney injury superimposed on CKD: (13) Hypertensive urgency: Plan Acute on chronic respiratory failure Multifactorial A-fib with RVR, fluid overload Diastolic CHF exacerbation COPD exacerbation Pneumonia CT scan showing 1. ? There is bronchiectasis with patchy mucous plugging and atelectasis right lower lobe. 2. ? There is also mild ground-glass and tree-in-bud opacities in the lungs compatible with mild pneumonitis. Possible pulmonary embolism with elevated D-dimer, cannot perform CT angiogram given creatinine Patient is afebrile Mild leukocytosis Request urine cultures and antigen At baseline requires 5 to 6 L of oxygen Patient has not seen any panel edge painter however referral was given to the patient last year around this month she is an active smoker smokes 2 packs/day There was concern for thromboembolic phenomenon given elevated D-dimer, however venous ultrasound negative for DVT, felt to be unlikely Patient will stay on DuoNeb, steroids and Mucomyst in case of further Plan -Diuretics on hold -Creatinine up to 2.4 -Currently on prednisone 40 mg p.o. daily -Currently on doxycycline MARIO on CKD -Diuresis elevated creatinine versus cardiorenal syndrome -Will monitor urine output closely, Pneumonia -With findings as above -Follow sputum culture, blood cultures -Antibiotics de-escalated to doxycycline Acute CHF exacerbation, BNP over 20,000 As below Non-STEMI: Patient stating that she is willing to go for angiogram if that is indicated at this point, Currently on ACS protocol with therapeutic Lovenox continue aspirin and Plavix No active chest pain Cardiac echo CONCLUSIONS ?The study is poor secondary to underlying COPD.? The patient has ?atrial fibrillation and an underlying left bundle branch block ?making sensitivity less.? The only view available for ?interpretation is the apical view.? In this view the apex is ?thinned and hypokinetic.? There is a large sigmoid septum.? The ?lateral wall appears to contract normally.? There is moderate ?reduction in left ventricular function.? A rough estimate of the ?ejection fraction is 35 to 40%.? Diastolic function cannot be ?determined due to the rhythm disturbance. ?Mildly increased left atrial size. ?Structurally normal mitral valve. Moderate mitral valve ?regurgitation. ?Aortic valve not well visualized. Mild aortic valve ?calcification. Mild aortic valve stenosis, mean gradient 7.3 ?mmHg, AYDIN 1.1 cm squared. ?From the previous echo done 04/07/2014, the decrease in left ?ventricular function is new.? The wall motion disturbances are ?new.? Mitral regurgitation appears worse.? Aortic stenosis is ?new however due to the poor quality of the exam I am not ?confident of the aortic valve calculations. -Cardiac stress test shows -?IMPRESSIONS ?1. Large sized reversible perfusion abnormality of moderate severity of mid to ?apical anterior, basal to mid anterolateral, basal to mid inferolateral, apical ?lateral, apical septal, apical inferior and apical hernandez. ?2. This is likely suggestive of ischemia in left anterior descending and ?circumflex artery territory. ?3. The left ventricular ejection fraction is mildly reduced with a value of ?42%. ?4. There is severe hypokinesis of mid to apical anterior and apical hernandez. ?There is mild hypokinesis of mid to apical inferior hernandez. ?5. EKG portion of the study will be reported separately. -Creatinine 2.5, coronary cath counseled for today, will await cardiology's recommendation Previous CABG 2013 She had a left internal mammary artery to the LAD, single vein graft to the diagonal and single vein graft to the right coronary artery.? In May 2015 she underwent coronary angiography for similar problems and the diagonal graft was occluded.? The right coronary artery graft was patent as was the left internal mammary artery.? Her [place] circumflex was stented.? This was not bypassed at the time of surgery due to its intramyocardial location New onset A-fib [id number] 5 Therapeutic Lovenox Previous EKG showed left bundle branch block Received 250 mcg of digoxin On amiodarone Hypertensive urgency, on clonidine 0.1 increased to 3 times daily Acute on chronic kidney disease secondary to cardiorenal, baseline creatinine seems to be around 1.5 Anticipate improvement with diuresis Goals of care discussed with the patient: She is full code She is concerned about her who has Alzheimer's dementia, he is alone at home Patient stating that she would never go to a senior living because she wants to take care of her Full code Cardiac diet/consistent carb with insulin and sliding scale Plan for today monitor blood pressures, monitor creatinine, monitor urine output, plans on possible cardiac catheterization based on kidney function Attestations Medical Necessity Statement*: Patient requires hospitalization for MARIO, creatinine 2.4, plans on cardiac catheterization we will hold for now given elevated creatinine Coding Level of Care Code 67827 Moderate MDM includes number and complexity of problems actively addressed during encounter, amount and/or complexity of data reviewed/ordered and described risk of complication, morbidity or mortality of management as do cumented Diagnoses Atrial fibrillation with rapid ventricular response I48.91 Hypertension I10 Hypertension type: primary hypertension Hypoxia R09.02 Pneumonitis J18.9 Lupus anticoagulant disorder D68.62 DJD (degenerative joint disease), lumbar M47.816 Diabetic neuropathy E11.40 CHF exacerbation I50.9 Acute respiratory failure with hypoxia J96.01 Pneumonia J18.9 Systolic CHF I50.20 Acute kidney injury superimposed on CKD N17.9; N18.9 Hypertensive urgency I16.0
[2023-06-16 17:14] LABS: Glucose Point of Care 505 mg/dL (70-110)
[2023-06-16 17:14] LABS: Glucose Point of Care 530 mg/dL (70-110)
[2023-06-16] MEDS: HYDROcodone-acetaminophen 10-325 mg Tablet 1 TAB PO (18:04)
[2023-06-16] MEDS: ipratropium-albuterol 3 mL Neb INHALATION (20:35)
[2023-06-16 21:08] LABS: Glucose Point of Care 241 mg/dL (70-110)
[2023-06-16] MEDS: trazodone 100 mg Tablet PO (21:45)
[2023-06-17] VITALS (15 sets, daily range): BP systolic 105–148; BP diastolic 5–72; PULSE 62–73; RESP 15–34; TEMP 36.3–36.7; O2SAT 94–98
[2023-06-17] MEDS: morphine 4 mg/mL SDV 1 mL 2 MG IVP (00:30)
[2023-06-17] MEDS: HYDROcodone-acetaminophen 10-325 mg Tablet 1 TAB PO (02:38)
[2023-06-17 03:31] LABS: Basophils % 0.1 %; Eosinophils % 0.2 %; Hematocrit 36.7 % (37.0-47.0); Hemoglobin 12.2 g/dL (11.5-15.3); Lymphocytes # 2.5 10^3/uL (0.8-4.8); Lymphocytes % 24.3 %; Mean Corpuscular HGB Conc 33.2 g/dL (30.0-36.0); Mean Corpuscular Hemoglobin 30.7 pg (28.0-34.0); Mean Corpuscular Volume 92.2 fl (81-99); Mean Platelet Volume 12.2 fL (7.4-10.4); Monocytes # 0.9 10^3/uL (0.2-0.9); Monocytes % 8.4 %; Neutrophils # 6.84 10^3/uL (1.8-7.7); Neutrophils % 65.8 %; Nucleated Red Blood Cells % 0 %; Platelet Count 230 10^3/cmm (130-400); Red Blood Count 3.98 10^6/uL (4.1-5.3); Red Cell Distribution Width 13.2 % (12.1-15.1); White Blood Count 10.4 10^3/uL (4.0-10.0)
[2023-06-17 04:00] LABS: Anion Gap 16.3 (5-19); Blood Urea Nitrogen 97 mg/dL (8-23); Carbon Dioxide 26 mmol/L (22-29); Chloride 92 mmol/L (98-107); Glucose 114 mg/dL (65-115); Osmolality Calculated 299 mOsm/kg (285-295); Potassium 5.3 mmol/L (3.5-5.1); Sodium 129 mmol/L (136-145)
[2023-06-17] MEDS: cloNIDine 0.1 mg Tablet PO ×2 (05:19→13:42)
[2023-06-17] MEDS: acetaminophen 325 mg Tablet 650 MG PO ×2 (05:25→14:17)
[2023-06-17 06:30] LABS: Glucose Point of Care 133 mg/dL (70-110)
[2023-06-17] MEDS: insulin glargine 100 units/1 mL 10 UNIT SUBCUT (09:10)
[2023-06-17] MEDS: ondansetron 2 mg/ML SDV 2 mL 4 MG IVP (09:10)
[2023-06-17] MEDS: sodium chloride 0.9% 1,000 ML 30 ML IV (10:13)
--- NOTE | 2023-06-17 10:37 | PC.NURSE ---
Patient has been nausated and vomiting this morning. Provider has been notified and gave orders to keep her on clear fluids. Holding her medications until her nausea is gone.
[2023-06-17] MEDS: metoclopramide 5 mg/mL SDV 2 mL IVP (10:46)
[2023-06-17] MEDS: isosorbide mononitrate ER 60 mg Tablet 120 MG PO ×2 (11:40→17:23)
[2023-06-17] MEDS: ropinirole 0.25 mg Tablet 0.5 MG PO (11:41)
[2023-06-17] MEDS: predniSONE 20 mg Tablet 40 MG PO (11:41)
[2023-06-17] MEDS: sennosides-docusate Tablet 1 TAB PO ×2 (11:44→17:23)
[2023-06-17] MEDS: magnesium oxide 400 mg tablet PO ×2 (11:45→17:22)
[2023-06-17] MEDS: aspirin 81 mg EC Tablet PO (11:45)
[2023-06-17] MEDS: levothyroxine 25 mcg Tablet PO (11:45)
[2023-06-17] MEDS: hyDRALAzine 50 mg Tablet 100 MG PO (11:46)
[2023-06-17] MEDS: carvedilol 12.5 mg Tablet PO ×2 (11:46→17:23)
[2023-06-17] MEDS: clopidogrel 75 mg Tablet PO (11:46)
[2023-06-17] MEDS: amlodipine 10 mg Tablet PO (11:47)
[2023-06-17] MEDS: amiodarone 200 mg Tablet PO ×2 (11:47→17:22)
[2023-06-17] MEDS: doxycycline 100 mg Tablet PO ×2 (11:47→17:23)
[2023-06-17] MEDS: pantoprazole 40 mg SDV IVP (11:47)
[2023-06-17] MEDS: atorvastatin 40 mg Tablet PO (11:47)
[2023-06-17 11:54] LABS: Glucose Point of Care 182 mg/dL (70-110)
[2023-06-17] MEDS: insulin lispro 100 unit/1 mL SUBCUT ×3 (12:18→21:22)
--- NOTE | 2023-06-17 12:47 | PM.CONSULT ---
Providers/Reason For Consult Consulting Physician/Specialty*: [facility]/Nephrology Reason for Consult*: Acute on CKD Attending Physician: Ludwin Tellez MD Primary Care Provider: Leena Calderon History of Present Illness History of Present Illness Ivette Ruiz is a 77 year old female With past medical history of chronic respiratory failure requiring 5 to 6 L of oxygen at baseline, chronic kidney disease with a baseline creatinine of 1.6-2 range, hypertension, presented to the emergency department due to weakness. Patient was found to have new onset A-fib and non-ST elevation NV and was placed on Cardizem drip. Patient's presentation creatinine was 1.8 and worsened to 3.2 after aggressive diuresis. Patient was also noted to be in CHF with elevated BNP levels and received IV diuresis. Patient also followed by cardiology and is planned for left heart cath. There is concern for renal function to get further worse after cardiac cath and may require dialysis. Patient currently denies any complaints. Review of Systems General: Reports: 10 or more systems reviewed and unremarkable except in HPI and below Medications/Allergies Home Medications Medication Instructions Recorded Confirmed Last Taken Type albuterol sulfate 90 mcg/actuation 2 puff inhalation Q6H PRN 11/18/19 06/09/23 06/09/23 History aerosol inhaler (Proventil HFA) Shortness Of Breath ascorbic acid (vitamin C) 500 mg 250 mg PO QDAY 11/18/19 06/09/23 06/07/23 History tablet aspirin 81 mg tablet,delayed 81 mg PO QDAY 11/18/19 06/09/23 Unknown History release (Adult Low Dose Aspirin) atorvastatin 40 mg tablet (Lipitor) 40 mg PO QDAY 11/18/19 06/09/23 Unknown History calcium carbonate 600 mg calcium 600 mg PO QDAY 11/18/19 06/09/23 Unknown History (1,500 mg) tablet cholecalciferol (vitamin D3) 25 1,000 unit PO QDAY 11/18/19 06/09/23 Unknown History mcg (1,000 unit) capsule clopidogrel 75 mg tablet 75 mg PO QDAY 11/18/19 06/09/23 Unknown History cranberry extract 200 mg capsule 200 mg PO QDAY 11/18/19 06/09/23 Unknown History desloratadine 5 mg tablet 5 mg PO QDAY 11/18/19 06/09/23 Unknown History fluticasone 250 mcg-salmeterol 50 1 inh inhalation BID 11/18/19 06/09/23 Unknown History mcg/dose blistr powdr for inhalation (Advair Diskus) furosemide 40 mg tablet 40 mg PO QAM 11/18/19 06/09/23 Unknown History isosorbide mononitrate 120 mg 120 mg PO BID 11/18/19 06/09/23 Unknown History tablet,extended release 24 hr melatonin 5 mg tablet 5 mg PO QDAY 11/18/19 06/09/23 Unknown History metoclopramide HCl 10 mg tablet 10 mg PO Q6H PRN Acid Reflux 11/18/19 06/10/23 Unknown History metoprolol succinate 50 mg 50 mg PO QDAY 11/18/19 06/09/23 Unknown History tablet,extended release 24 hr pantoprazole 40 mg tablet,delayed 40 mg PO QDAY 11/18/19 06/09/23 Unknown History release (Protonix) ropinirole 0.5 mg tablet 0.5 mg PO QDAY 11/18/19 06/09/23 Unknown History tiotropium bromide 18 mcg capsule 1 cap inhalation QDAY 11/18/19 06/09/23 Unknown History with inhalation device (Spiriva with HandiHaler) trazodone 100 mg tablet 100 mg PO QDAY 11/18/19 06/09/23 Unknown History venlafaxine 37.5 mg tablet 37.5 mg PO QDAY 11/18/19 06/09/23 Unknown History vitamin B complex (B 1 tab PO QDAY 11/18/19 06/09/23 Unknown History Complex-Vitamin B12 tablet) levothyroxine 25 mcg tablet 25 mcg PO DAILY 12/02/19 06/09/23 Unknown History magnesium oxide 400 mg PO BID 12/02/19 06/09/23 Unknown History [id number]-oyz 200 mcg-16 mg 1 tab PO DAILY 12/02/19 06/09/23 Unknown History chewable tablet (One-A-Day Vitacraves [place]-3) nitroglycerin 0.4 mg sublingual 0.4 mg sublingual Q5M PRN Chest 12/02/19 06/09/23 Unknown History tablet (Nitrostat) Pain gabapentin 800 mg tablet 800 mg PO TID PAIN 90 days #270 03/17/20 06/09/23 Unknown Rx tabs lidocaine 5 % topical patch 3 patch topical DAILY PAIN 90 days 03/17/20 06/09/23 Unknown Rx #90 ea cyclobenzaprine 10 mg tablet 5 mg PO TID PRN muscle spasm 90 03/15/21 06/09/23 Unknown Rx days #135 tabs lisinopril 10 mg tablet 20 mg PO QDAY 04/13/21 06/09/23 Unknown History hydrocodone 10 mg-acetaminophen 1 tab PO QID PRN pain 30 days #120 07/27/21 06/09/23 06/09/23 Rx 325 mg tablet tabs meloxicam 15 mg tablet See Rx Instructions .Route 12/13/21 06/09/23 Unknown Rx .COMPLEX #30 tabs Diabetic Shoes with Inserts #1 ea 04/18/22 06/10/23 Unknown Rx roflumilast 500 mcg tablet 500 mcg PO DAILY 04/29/22 06/09/23 Unknown History (Daliresp) metoprolol succinate 25 mg 12.5 mg PO DAILY #30 tabs 04/30/22 06/09/23 Unknown Rx tablet,extended release 24 hr (Toprol XL) ranolazine 500 mg tablet,extended 500 mg PO BID #60 tabs 04/30/22 06/09/23 Unknown Rx release,12 hr Allergies Allergy/AdvReac Type Severity Reaction Status Date / Time No Known Allergies Allergy Verified 05/17/23 00:24 Current Medications Generic Name Dose Route Start Last Admin Trade Name Freq PRN Reason Stop Dose Admin Acetaminophen 650 mg 06/09/23 21:05 06/17/23 05:25 Acetaminophen 325 Mg Tablet PO 650 mg Q6H PRN Administration MILD PAIN Hydrocodone Bitart/Acetaminophen 1 tab 06/09/23 22:11 06/17/23 02:38 Hydrocodone-Acetaminophen 10-325 Mg Tablet PO 1 tab BID PRN Administration MODERATE PAIN Albuterol/Ipratropium 3 ml 06/12/23 02:03 06/16/23 20:35 Ipratropium-Albuterol 3 Ml Neb INHALATION 3 ml Q6H PRN Administration SHORTNESS OF BREATH Amiodarone HCl 200 mg 06/14/23 18:00 06/17/23 11:47 Amiodarone 200 Mg Tablet PO 200 mg BID RIDGE Administration Amlodipine Besylate 10 mg 06/13/23 09:00 06/17/23 11:47 Amlodipine 10 Mg Tablet PO 10 mg DAILY RIDGE Administration Aspirin 81 mg 06/10/23 09:00 06/17/23 11:45 Aspirin 81 Mg Ec Tablet PO 81 mg DAILY RIDGE Administration Atorvastatin Calcium 40 mg 06/10/23 09:00 06/17/23 11:47 Atorvastatin 40 Mg Tablet PO 40 mg DAILY RIDGE Administration Carvedilol 12.5 mg 06/13/23 18:00 06/17/23 11:46 Carvedilol 12.5 Mg Tablet PO 12.5 mg BID RIDGE Administration Clonidine HCl 0.1 mg 06/15/23 14:15 06/17/23 05:19 Clonidine 0.1 Mg Tablet PO 0.1 mg Q8H RIDGE Administration Clopidogrel Bisulfate 75 mg 06/10/23 09:00 06/17/23 11:46 Clopidogrel 75 Mg Tablet PO 75 mg DAILY RIDGE Administration Doxycycline Monohydrate 100 mg 06/13/23 09:00 06/17/23 11:47 Doxycycline 100 Mg Tablet PO 100 mg BID RIDGE Administration Protocol Enoxaparin Sodium 70 mg 06/12/23 13:30 06/16/23 14:47 Enoxaparin 80 Mg/0.8 Ml Syringe SUBCUT 70 mg Q24H RIDGE Administration Hydralazine HCl 100 mg 06/14/23 15:00 06/17/23 11:46 Hydralazine 50 Mg Tablet PO 100 mg TID RIDGE Administration Amiodarone HCl 900 mg/ 518 mls @ 0 mls/hr 06/09/23 20:30 06/15/23 19:00 Dextrose/ IV Miscellaneous IV Infused Supplies .Q0M RIDGE Titration Protocol Per Protocol Sodium Chloride 1,000 mls @ 30 mls/hr 06/17/23 09:15 06/17/23 10:13 Sodium Chloride 0.9% IV 30 mls/hr .Q24H RIDGE Administration Insulin Glargine 10 unit 06/10/23 09:00 06/17/23 09:10 Insulin Glargine 100 Units/1 Ml SUBCUT 10 unit DAILY RIDGE Administration Insulin Human Lispro 0 unit 06/10/23 08:00 06/17/23 12:18 Insulin Lispro 100 Unit/1 Ml SUBCUT 2 unit WM&BEDTIME RIDGE Administration Protocol Isosorbide Mononitrate 120 mg 06/10/23 09:00 06/17/23 11:40 Isosorbide Mononitrate Er 60 Mg Tablet PO 120 mg BID RIDGE Administration Levothyroxine Sodium 25 mcg 06/10/23 09:00 06/17/23 11:45 Levothyroxine 25 Mcg Tablet PO 25 mcg DAILY RIDGE Administration Lidocaine 1 patch 06/10/23 09:00 06/16/23 21:48 Lidocaine 5% Patch TOPICAL Not Given [id number] [facility] Magnesium Oxide 400 mg 06/10/23 09:00 06/17/23 11:45 Magnesium Oxide 400 Mg Tablet PO 400 mg BID RIDGE Administration Metoclopramide HCl 5 mg 06/17/23 09:10 06/17/23 10:46 Metoclopramide 5 Mg/Ml Sdv 2 Ml IVP 5 mg Q6H PRN Administration NAUSEA AND VOMITING Minoxidil 5 mg 06/15/23 14:05 06/16/23 10:08 Minoxidil 10 Mg Tablet PO 5 mg DAILY RIDGE Administration Morphine Sulfate 2 mg 06/16/23 19:33 06/17/23 00:30 Morphine 4 Mg/Ml Sdv 1 Ml IVP 2 mg Q4H PRN Administration SEVERE PAIN Ondansetron HCl 4 mg 06/09/23 21:05 06/17/23 09:10 Ondansetron 2 Mg/Ml Sdv 2 Ml IVP 4 mg Q6H PRN Administration NAUSEA AND VOMITING Pantoprazole Sodium 40 mg 06/10/23 09:00 06/17/23 11:47 Pantoprazole 40 Mg Sdv IVP 40 mg DAILY RIDGE Administration Prednisone 40 mg 06/13/23 09:00 06/17/23 11:41 Prednisone 20 Mg Tablet PO 40 mg DAILY RIDGE Administration Ropinirole HCl 0.5 mg 06/10/23 09:00 06/17/23 11:41 Ropinirole 0.25 Mg Tablet PO 0.5 mg DAILY RIDGE Administration Senna/Docusate Sodium 1 tab 06/11/23 22:00 06/17/23 11:44 Sennosides-Docusate Tablet PO 1 tab BID RIDGE Administration Trazodone HCl 100 mg 06/10/23 22:44 06/16/23 21:45 Trazodone 100 Mg Tablet PO 100 mg BEDTIME PRN Administration SLEEP PFSH Acute PFSH: Medical History ASHD (arteriosclerotic heart disease) Bilateral bunions Bilateral knee pain Callus of foot Carotid stenosis, bilateral Chest pain CHF (congestive heart failure) Chronic fatigue Chronic hip pain CKD (chronic kidney disease) COPD (chronic obstructive pulmonary disease) Diabetes Diabetic neuropathy Diabetic peripheral neuropathy associated with type 2 diabetes mellitus DJD (degenerative joint disease), lumbar Dyslipidemia Essential hypertension GERD (gastroesophageal reflux disease) Long-term current use of opiate analgesic Lumbar stenosis with neurogenic claudication Lupus anticoagulant disorder Myocardial infarction Non-STEMI (non-ST elevated myocardial infarction) Obesity Onychodystrophy PAD (peripheral artery disease) Pain management contract signed Pes planus of both feet Primary osteoarthritis of knees, bilateral TIA (transient ischemic attack) Tobacco use disorder V-tach Surgical History S/P CABG (coronary artery bypass graft) (~10/01/14) S/P carotid endarterectomy S/P carpal tunnel release (Unknown) LEFT S/P cataract extraction (Unknown) RIGHT DR BATISTA S/P cataract extraction S/P hysterectomy Family History Unknown Adopted Social History Smoking and tobacco status: current every day smoker cigarettes Packs smoked per day: 2 Quit status (tobacco): has tried quititng Alcohol intake: never Substance/Drug Use: never Adopted: Yes Lives independently: Yes Household members: spouse Marital status: Vitals/I&O/Wt Last Vital Signs Temp 97.7 F 06/17/23 11:36 Pulse 68 06/17/23 11:36 Resp 15 06/17/23 11:36 BP 132/5 06/17/23 11:36 Pulse Ox 98 06/17/23 11:36 O2 Del Method Nasal Cannula 06/17/23 11:36 O2 Flow Rate 2 06/16/23 20:35 FiO2 2 06/11/23 08:00 06/16/23 06/17/23 06/17/23 22:59 06:59 14:59 Intake Total 458 / 698 300 / 998 600 / 600 Output Total 375 / 375 175 / 550 Balance 83 / 323 125 / 448 600 / 600 Weight last 48 hrs Weight 73.936 kg Weight 117.072 kg Physical Exam Narrative: awake ,a lert No distress S1S2 RRR Lungs clear + edema Urinary Catheter Management: Gibbs: Cath Placed During This Visit: yes Reason for Continuing Indwelling Catheter: Accurate Measurement of Urinary Output in Critically Ill Patients Urinary Catheter Date of Insertion: 06/09/23 Urinary Catheter Time of Insertion: 21:15 Data 06/17/23 03:13 06/17/23 03:13 A&P Assessment and plan (1) Acute kidney injury superimposed on CKD: Plan 1. Acute on chronic kidney disease stage III: Baseline creatinine in the 1.6-2 range. Most likely from hypertensive nephrosclerosis and possible prerenal. Now has creatinine of 3.2 after aggressive diuresis. If p patient agrees to undergo left heart cath, renal function likely will get further worse and may end up on dialysis. -Continue 1500 mL fluid restriction and 2 g sodium restriction, -Patient agrees to hemodialysis if necessary - Agree agree with holding diuretics for now . Will give IV albumin. -If renal function worse in a.m., will request temporary HD catheter placement tomorrow. 2. Hyperkalemia: Mild, potassium 5.3, low K diet advised, will give a dose of Kayexalate. 3. Hyponatremia: Sodium 129 , likely Hypervolemic 4. Acute on chronic respiratory failure: On 2 L oxygen currently, status post aggressive diuresis 5. New onset A-fib with RVR Patient evaluated using audiovisual cart. Time spent 40 minutes. Consult Attestations Medical Necessity Statement: per medicine Coding Level of Care Code Acute Code for Chg Fwd Diagnoses Acute kidney injury superimposed on CKD N17.9; N18.9
[2023-06-17] MEDS: enoxaparin 80 mg/0.8 mL Syringe 70 MG SUBCUT (13:42)
[2023-06-17] MEDS: albumin 25 G/100 ML BAG 60 G IV (13:43)
--- NOTE | 2023-06-17 13:55 | PC.NURSE ---
Patient is feeling better, her nausea and vomiting has stopped and she was able to tolerate soup for lunch and her morning medication.
--- NOTE | 2023-06-17 15:29 | P.PN_ITS ---
Subjective Subjective: - Patient was seen this morning -She is very nauseous, she vomited, she is alert to person, to place, to time she follows commands, no shortness of breath -I went over her kidney function her creatinine is up to 3.2 I think her nausea vomiting is from her uremia as her BUN is 97 -Spoke to nephrology, to consult on her worsening renal function, she has not been on nephrotoxic agents for the last 72 hours -We also discussed the possibility of dialysis, she is agreeable wants to talk to nephrology -Spoke to nephrology, plan on monitoring for the next 24 hours but there is a significant likelihood she will need dialysis, possibly dialysis catheter placement and thereafter can have her cardiac catheterization but we will monitor her kidney function until tomorrow keep n.p.o. midnight -Spoke to cardiology Vitals/I&O/Wt Last Vital Signs Temp 97.7 F 06/17/23 11:36 Pulse 62 06/17/23 14:22 Resp 20 H 06/17/23 14:22 BP 107/42 06/17/23 14:22 Pulse Ox 94 06/17/23 14:22 O2 Del Method Nasal Cannula 06/17/23 14:22 O2 Flow Rate 2 06/17/23 14:22 FiO2 2 06/11/23 08:00 06/17/23 06/17/23 06/17/23 06:59 14:59 22:59 Intake Total 300 / 998 600 / 600 Output Total 175 / 550 Balance 125 / 448 600 / 600 Weight last 48 hrs Weight 73.936 kg Weight 117.072 kg Physical Exam Const: COMMON NORMALS: no acute distress and patient oriented x3 Resp: COMMON NORMALS: normal respiratory effort, No retractions, No use of accessory muscles and clear to auscultation bilaterally AUSCULTATION: clear to auscultation bilaterally Cardio: COMMON NORMALS: regular rate, regular rhythm, S1 normal heart sound present and S2 normal heart sound present RATE: regular rate RHYTHM: regular rhythm HEART SOUNDS: S1 normal heart sound present and S2 normal heart sound present GI: COMMON NORMALS: Normal to inspection, nondistended, normoactive bowel sounds present and non-tender Neuro: COMMON NORMALS: patient oriented x3 Psych: COMMON NORMALS: mental status grossly normal Urinary Catheter Management: Gibbs: Cath Placed During This Visit: yes Reason for Continuing Indwelling Catheter: Accurate Measurement of Urinary Output in Critically Ill Patients Urinary Catheter Date of Insertion: 06/09/23 Urinary Catheter Time of Insertion: 21:15 Data 06/17/23 03:13 06/17/23 03:13 A&P Assessment and plan (1) Atrial fibrillation with rapid ventricular response: (2) Hypertension: Qualifiers: Hypertension type: primary hypertension Qualified Code(s): I10 - Essential (primary) hypertension (3) Hypoxia: (4) Pneumonitis: (5) Lupus anticoagulant disorder: (6) DJD (degenerative joint disease), lumbar: (7) Diabetic neuropathy: (8) CHF exacerbation: (9) Acute respiratory failure with hypoxia: (10) Pneumonia: (11) Systolic CHF: (12) Acute kidney injury superimposed on CKD: (13) Hypertensive urgency: (14) Uremia: (15) ARF (acute renal failure): Plan Uremia, acute renal failure -Consult nephrology -Control nausea, vomiting with Zofran and Reglan -Monitor mentation -Nephrology consulted -If renal function worsens by tomorrow, plans on temporary dialysis catheter placement, and possibly coronary angiography thereafter Acute on chronic respiratory failure Multifactorial A-fib with RVR, fluid overload Diastolic CHF exacerbation COPD exacerbation Pneumonia CT scan showing 1. ? There is bronchiectasis with patchy mucous plugging and atelectasis right lower lobe. 2. ? There is also mild ground-glass and tree-in-bud opacities in the lungs compatible with mild pneumonitis. Possible pulmonary embolism with elevated D-dimer, cannot perform CT angiogram given creatinine Patient is afebrile Mild leukocytosis Request urine cultures and antigen At baseline requires 5 to 6 L of oxygen Patient has not seen any pharmaceutical sales specialist however referral was given to the patient last year around this month she is an active smoker smokes 2 packs/day There was concern for thromboembolic phenomenon given elevated D-dimer, however venous ultrasound negative for DVT, felt to be unlikely Patient will stay on DuoNeb, steroids and Mucomyst in case of further Plan -Diuretics on hold -Creatinine up to 3.2 -Currently on prednisone 40 mg p.o. daily -Currently on doxycycline MARIO on CKD -Diuresis elevated creatinine versus cardiorenal syndrome -Will monitor urine output closely, Pneumonia -With findings as above -Follow sputum culture, blood cultures -Antibiotics de-escalated to doxycycline Acute CHF exacerbation, BNP over 20,000 As below Non-STEMI: Patient stating that she is willing to go for angiogram if that is indicated at this point, Currently on ACS protocol with therapeutic Lovenox continue aspirin and Plavix No active chest pain Cardiac echo CONCLUSIONS ?The study is poor secondary to underlying COPD.? The patient has ?atrial fibrillation and an underlying left bundle branch block ?making sensitivity less.? The only view available for ?interpretation is the apical view.? In this view the apex is ?thinned and hypokinetic.? There is a large sigmoid septum.? The ?lateral wall appears to contract normally.? There is moderate ?reduction in left ventricular function.? A rough estimate of the ?ejection fraction is 35 to 40%.? Diastolic function cannot be ?determined due to the rhythm disturbance. ?Mildly increased left atrial size. ?Structurally normal mitral valve. Moderate mitral valve ?regurgitation. ?Aortic valve not well visualized. Mild aortic valve ?calcification. Mild aortic valve stenosis, mean gradient 7.3 ?mmHg, AYDIN 1.1 cm squared. ?From the previous echo done 04/07/2014, the decrease in left ?ventricular function is new.? The wall motion disturbances are ?new.? Mitral regurgitation appears worse.? Aortic stenosis is ?new however due to the poor quality of the exam I am not ?confident of the aortic valve calculations. -Cardiac stress test shows -?IMPRESSIONS ?1. Large sized reversible perfusion abnormality of moderate severity of mid to ?apical anterior, basal to mid anterolateral, basal to mid inferolateral, apical ?lateral, apical septal, apical inferior and apical hernandez. ?2. This is likely suggestive of ischemia in left anterior descending and ?circumflex artery territory. ?3. The left ventricular ejection fraction is mildly reduced with a value of ?42%. ?4. There is severe hypokinesis of mid to apical anterior and apical hernandez. ?There is mild hypokinesis of mid to apical inferior hernandez. ?5. EKG portion of the study will be reported separately. -Creatinine 2.5, coronary cath counseled for today, will await cardiology's recommendation Previous CABG 2013 She had a left internal mammary artery to the LAD, single vein graft to the diagonal and single vein graft to the right coronary artery.? In May 2015 she underwent coronary angiography for similar problems and the diagonal graft was occluded.? The right coronary artery graft was patent as was the left internal mammary artery.? Her [facility] circumflex was stented.? This was not bypassed at the time of surgery due to its intramyocardial location New onset A-fib [id number] Therapeutic Lovenox Previous EKG showed left bundle branch block Received 250 mcg of digoxin On amiodarone Hypertensive urgency, on clonidine 0.1 increased to 3 times daily Acute on chronic kidney disease secondary to cardiorenal, baseline creatinine seems to be around 1.5 Anticipate improvement with diuresis Goals of care discussed with the patient: She is full code She is concerned about her who has Alzheimer's dementia, he is alone at home Patient stating that she would never go to a fpc because she wants to take care of her Full code Cardiac diet/consistent carb with insulin and sliding scale Plan for today monitor blood pressures, monitor creatinine, monitor urine out put, nephrology consulted, spoke to cardiology, treated output, n.p.o. midnight possible dialysis catheter placement tomorrow Attestations Medical Necessity Statement*: Patient requires hospitalization for uremia, acute renal failure, diminished ejection fraction Diagnoses Atrial fibrillation with rapid ventricular response I48.91 Hypertension I10 Hypertension type: primary hypertension Hypoxia R09.02 Pneumonitis J18.9 Lupus anticoagulant disorder D68.62 DJD (degenerative joint disease), lumbar M47.816 Diabetic neuropathy E11.40 CHF exacerbation I50.9 Acute respiratory failure with hypoxia J96.01 Pneumonia J18.9 Systolic CHF I50.20 Acute kidney injury superimposed on CKD N17.9; N18.9 Hypertensive urgency I16.0 Uremia N19 ARF (acute renal failure) N17.9
[2023-06-17] MEDS: lidocaine 5% Patch 1 PATCH TOPICAL (16:32)
[2023-06-17 16:48] LABS: Glucose Point of Care 212 mg/dL (70-110)
[2023-06-17 17:05] LABS: Creatine Phosphokinase 17 U/L (26-192)
--- NOTE | 2023-06-17 17:24 | P.PN_ITS ---
Subjective Subjective: Creatinine increased and UO decreased Medications: Reviewed: Yes Vitals/I&O/Wt Last Vital Signs Temp 98.0 F 06/17/23 16:14 Pulse 65 06/17/23 16:14 Resp 27 H 06/17/23 16:14 BP 115/54 06/17/23 16:14 Pulse Ox 94 06/17/23 16:14 O2 Del Method Nasal Cannula 06/17/23 16:14 O2 Flow Rate 2 06/17/23 14:22 FiO2 2 06/11/23 08:00 06/17/23 06/17/23 06/17/23 06:59 14:59 22:59 Intake Total 300 / 998 600 / 600 100 / 700 Output Total 175 / 550 Balance 125 / 448 600 / 600 100 / 700 Weight last 48 hrs Weight 163 lb Weight 258 lb 1.6 oz Physical Exam Narrative: GENERAL: Averagely built and averagely nourished in no acute distress HEENT: Extraocular movement intact. No pallor or icterus. NECK: central trachea, No JVD, No carotid bruit. CARDIOVASCULAR SYSTEM: S1-S2 regular. No murmur rubs or gallops. RESPIRATORY SYSTEM: Chest clear to auscultation. No wheezes rhonchi or rubs heard. No use of accessory muscles. ABDOMEN: Soft, nontender and nondistended. Normal bowel sounds present. EXTREMITIES: No cyanosis or edema. No signs of chronic venous insufficiency. 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 No focal neurological deficits. SKIN: Normal turgor and temperature. No breakdown, rash or nail changes noted. PSYCH: Normal insight and judgment. Urinary Catheter Management: Gibbs: Cath Placed During This Visit: yes Reason for Continuing Indwelling Catheter: Accurate Measurement of Urinary Output in Critically Ill Patients Urinary Catheter Date of Insertion: 06/09/23 Urinary Catheter Time of Insertion: 21:15 Data 06/18/23 03:24 06/18/23 03:24 A&P Assessment and plan (1) CHF exacerbation: HFrEF (LVEF=35-40%); new when compared to 2014 However,TDS study. apex appears thinned out which is not a sign of acute drop in LV function. Repeat study with echo contrast showing LV funtion to be 45-50% with severe hypokinesis of apical wall -cont. medical management; -Large area of reversible ischemia in lateral and apical hernandez on stress study. -I discussed with her findings of stress test. -I discussed with her option of medical management given no significant symptoms at this time and cath based on findings of the test and option of LHC with high risk of renal failure and dialysis. -She tells even with higher risk of dialysis she would want to proceed with LHC. Plan for LHC once renal function improves (2) Atrial fibrillation with rapid ventricular response: Paroxysmal atrial fibrillation Now in SR on PO amiodarone and coreg (3) Acute kidney injury superimposed on CKD: creatinine 3.5 today Plan LBBB Uncontrolled HTN : Minoxidil and clonidine added. continue coreg, hydralazine, amlodipine, imdur Elevated troponin 2/2 a, fib with RVR and decompensated CHF CAD s/p CABG x3 Carotid artery disease Hypothyroidism Dyslipidemia COPD on home oxygen Attestations Medical Necessity Statement*: needs hospital stay for renal failure, CHF Coding Level of Care Code 04845 Diagnoses CHF exacerbation I50.9 Atrial fibrillation with rapid ventricular response I48.91 Acute kidney injury superimposed on CKD N17.9; N18.9
[2023-06-17 20:02] LABS: Glucose Point of Care 415 mg/dL (70-110)
[2023-06-17] MEDS: hyDRALAzine 50 mg Tablet PO (21:21)
[2023-06-17] MEDS: trazodone 100 mg Tablet PO (23:39)
[2023-06-18] VITALS (25 sets, daily range): BP systolic 107–168; BP diastolic 50–79; PULSE 60–71; RESP 15–35; TEMP 36.3–36.9; O2SAT 91–98
[2023-06-18] MEDS: acetaminophen 325 mg Tablet 650 MG PO (01:28)
[2023-06-18 04:16] LABS: Basophils % 0.1 %; Hematocrit 36.2 % (37.0-47.0); Hemoglobin 11.6 g/dL (11.5-15.3); Lymphocytes # 2.2 10^3/uL (0.8-4.8); Lymphocytes % 22.6 %; Mean Corpuscular Hemoglobin 30.5 pg (28.0-34.0); Mean Corpuscular Volume 95.3 fl (81-99); Mean Platelet Volume 12.5 fL (7.4-10.4); Monocytes # 0.6 10^3/uL (0.2-0.9); Neutrophils # 6.92 10^3/uL (1.8-7.7); Nucleated Red Blood Cells % 0 %; Platelet Count 240 10^3/cmm (130-400); Red Cell Distribution Width 13.6 % (12.1-15.1); White Blood Count 9.9 10^3/uL (4.0-10.0)
[2023-06-18] MEDS: morphine 4 mg/mL SDV 1 mL 2 MG IVP (04:27)
[2023-06-18 04:51] LABS: Anion Gap 18.2 (5-19); Calcium 8.9 mg/dL (8.5-10.5); Carbon Dioxide 25 mmol/L (22-29); Chloride 93 mmol/L (98-107); Glucose 80 mg/dL (65-115); Magnesium 2.3 mg/dL (1.7-2.3); NT Pro B Type Natriuretic Pept 7391 pg/mL (0-450); Osmolality Calculated 305 mOsm/kg (285-295); Phosphorus 6.5 mg/dL (2.5-4.5); Potassium 5.2 mmol/L (3.5-5.1); Sodium 131 mmol/L (136-145)
[2023-06-18 04:52] LABS: Blood Urea Nitrogen 107 mg/dL (8-23)
[2023-06-18] MEDS: HYDROcodone-acetaminophen 10-325 mg Tablet 1 TAB PO (05:40)
[2023-06-18 06:31] LABS: Glucose Point of Care 113 mg/dL (70-110)
--- NOTE | 2023-06-18 09:17 | PM.PN ---
Subjective Subjective: UOP dropped Medications: Reviewed: Yes Vitals/I&O/Wt Last Vital Signs Temp 97.8 F 06/18/23 08:00 Pulse 71 06/18/23 08:00 Resp 28 H 06/18/23 08:00 BP 107/52 06/18/23 08:00 Pulse Ox 93 06/18/23 08:00 O2 Del Method Room Air 06/18/23 08:00 O2 Flow Rate 2 06/18/23 07:59 FiO2 2 06/11/23 08:00 06/17/23 06/18/23 06/18/23 22:59 06:59 14:59 Intake Total 340 / 940 Output Total 75 / 75 250 / 325 Balance 265 / 865 -250 / 615 Weight last 48 hrs Weight 76.702 kg Weight 73.936 kg Physical Exam Narrative: awake ,alert No distress S1S2 RRR Lungs clear + edema Urinary Catheter Management: Gibbs: Cath Placed During This Visit: yes Reason for Continuing Indwelling Catheter: Accurate Measurement of Urinary Output in Critically Ill Patients Urinary Catheter Date of Insertion: 06/09/23 Urinary Catheter Time of Insertion: 21:15 Data 06/18/23 03:24 06/18/23 03:24 A&P Assessment and plan (1) Acute kidney injury superimposed on CKD: Plan 1. Acute on chronic kidney disease stage III: Baseline creatinine in the 1.6-2 range. Most likely from hypertensive nephrosclerosis and possible prerenal. Now has creatinine of 3.7 after aggressive diuresis. If patient agrees to undergo left heart cath, renal function likely will get further worse and may end up on dialysis. -Continue 1500 mL fluid restriction and 2 g sodium restriction, -Patient agrees to hemodialysis if necessary - Agree with holding diuretics for now . on IV albumin. -Renal function worse today , plan for temporary catheter and inititate HD 2. Hyperkalemia: Mild, potassium 5.3, low K diet advised, will give a dose of Kayexalate. 3. Hyponatremia: Sodium 131 today , likely Hypervolemic 4. Acute on chronic respiratory failure: On 2 L oxygen currently, status post aggressive diuresis 5. New onset A-fib with RVR Patient evaluated using audiovisual cart. Time spent 40 minutes. Attestations Medical Necessity Statement*: per medicine Coding Level of Care Code Acute Code for Chg Fwd Diagnoses Acute kidney injury superimposed on CKD N17.9; N18.9
--- NOTE | 2023-06-18 10:01 | PM.CONSULT ---
Providers/Reason For Consult Consulting Physician/Specialty*: General surgery Reason for Consult*: Need for dialysis access Attending Physician: Ludwin Tellez MD Primary Care Provider: Leena Calderon History of Present Illness History of Present Illness Ivette Ruiz is a 77 year old female who was admitted to the hospital with CHF, and was noted to have elevated creatinine and worsening renal failure over the last 2 to 3 days. Patient was discussed with nephrology and the decision was made to start her on intermittent hemodialysis. I have been asked to evaluate this patient for dialysis access. Per patient report she is feeling fine, she is willing to undergo dialysis access, but he has requested to do it under anesthesia, due to severe back and knee pain that we will make positioning challenging the patient is not sedated. Medications/Allergies Home Medications Medication Instructions Recorded Confirmed Last Taken Type albuterol sulfate 90 mcg/actuation 2 puff inhalation Q6H PRN 11/18/19 06/09/23 06/09/23 History aerosol inhaler (Proventil HFA) Shortness Of Breath ascorbic acid (vitamin C) 500 mg 250 mg PO QDAY 11/18/19 06/09/23 06/07/23 History tablet aspirin 81 mg tablet,delayed 81 mg PO QDAY 11/18/19 06/09/23 Unknown History release (Adult Low Dose Aspirin) atorvastatin 40 mg tablet (Lipitor) 40 mg PO QDAY 11/18/19 06/09/23 Unknown History calcium carbonate 600 mg calcium 600 mg PO QDAY 11/18/19 06/09/23 Unknown History (1,500 mg) tablet cholecalciferol (vitamin D3) 25 1,000 unit PO QDAY 11/18/19 06/09/23 Unknown History mcg (1,000 unit) capsule clopidogrel 75 mg tablet 75 mg PO QDAY 11/18/19 06/09/23 Unknown History cranberry extract 200 mg capsule 200 mg PO QDAY 11/18/19 06/09/23 Unknown History desloratadine 5 mg tablet 5 mg PO QDAY 11/18/19 06/09/23 Unknown History fluticasone 250 mcg-salmeterol 50 1 inh inhalation BID 11/18/19 06/09/23 Unknown History mcg/dose blistr powdr for inhalation (Advair Diskus) furosemide 40 mg tablet 40 mg PO QAM 11/18/19 06/09/23 Unknown History isosorbide mononitrate 120 mg 120 mg PO BID 11/18/19 06/09/23 Unknown History tablet,extended release 24 hr melatonin 5 mg tablet 5 mg PO QDAY 11/18/19 06/09/23 Unknown History metoclopramide HCl 10 mg tablet 10 mg PO Q6H PRN Acid Reflux 11/18/19 06/10/23 Unknown History metoprolol succinate 50 mg 50 mg PO QDAY 11/18/19 06/09/23 Unknown History tablet,extended release 24 hr pantoprazole 40 mg tablet,delayed 40 mg PO QDAY 11/18/19 06/09/23 Unknown History release (Protonix) ropinirole 0.5 mg tablet 0.5 mg PO QDAY 11/18/19 06/09/23 Unknown History tiotropium bromide 18 mcg capsule 1 cap inhalation QDAY 11/18/19 06/09/23 Unknown History with inhalation device (Spiriva with HandiHaler) trazodone 100 mg tablet 100 mg PO QDAY 11/18/19 06/09/23 Unknown History venlafaxine 37.5 mg tablet 37.5 mg PO QDAY 11/18/19 06/09/23 Unknown History vitamin B complex (B 1 tab PO QDAY 11/18/19 06/09/23 Unknown History Complex-Vitamin B12 tablet) levothyroxine 25 mcg tablet 25 mcg PO DAILY 12/02/19 06/09/23 Unknown History magnesium oxide 400 mg PO BID 12/02/19 06/09/23 Unknown History [id number] 200 mcg-16 mg 1 tab PO DAILY 12/02/19 06/09/23 Unknown History chewable tablet (One-A-Day Vitacraves [place]-3) nitroglycerin 0.4 mg sublingual 0.4 mg sublingual Q5M PRN Chest 12/02/19 06/09/23 Unknown History tablet (Nitrostat) Pain gabapentin 800 mg tablet 800 mg PO TID PAIN 90 days #270 03/17/20 06/09/23 Unknown Rx tabs lidocaine 5 % topical patch 3 patch topical DAILY PAIN 90 days 03/17/20 06/09/23 Unknown Rx #90 ea cyclobenzaprine 10 mg tablet 5 mg PO TID PRN muscle spasm 90 03/15/21 06/09/23 Unknown Rx days #135 tabs lisinopril 10 mg tablet 20 mg PO QDAY 04/13/21 06/09/23 Unknown History hydrocodone 10 mg-acetaminophen 1 tab PO QID PRN pain 30 days #120 07/27/21 06/09/23 06/09/23 Rx 325 mg tablet tabs meloxicam 15 mg tablet See Rx Instructions .Route 12/13/21 06/09/23 Unknown Rx .COMPLEX #30 tabs Diabetic Shoes with Inserts #1 ea 04/18/22 06/10/23 Unknown Rx roflumilast 500 mcg tablet 500 mcg PO DAILY 04/29/22 06/09/23 Unknown History (Daliresp) metoprolol succinate 25 mg 12.5 mg PO DAILY #30 tabs 04/30/22 06/09/23 Unknown Rx tablet,extended release 24 hr (Toprol XL) ranolazine 500 mg tablet,extended 500 mg PO BID #60 tabs 04/30/22 06/09/23 Unknown Rx release,12 hr Allergies Allergy/AdvReac Type Severity Reaction Status Date / Time No Known Allergies Allergy Verified 05/17/23 00:24 Current Medications Generic Name Dose Route Start Last Admin Trade Name Freq PRN Reason Stop Dose Admin Acetaminophen 650 mg 06/09/23 21:05 06/18/23 01:28 Acetaminophen 325 Mg Tablet PO 650 mg Q6H PRN Administration MILD PAIN Hydrocodone Bitart/Acetaminophen 1 tab 06/09/23 22:11 06/18/23 05:40 Hydrocodone-Acetaminophen 10-325 Mg Tablet PO 1 tab BID PRN Administration MODERATE PAIN Albuterol/Ipratropium 3 ml 06/12/23 02:03 06/16/23 20:35 Ipratropium-Albuterol 3 Ml Neb INHALATION 3 ml Q6H PRN Administration SHORTNESS OF BREATH Aspirin 81 mg 06/10/23 09:00 06/17/23 11:45 Aspirin 81 Mg Ec Tablet PO 81 mg DAILY RIDGE Administration Atorvastatin Calcium 40 mg 06/10/23 09:00 06/17/23 11:47 Atorvastatin 40 Mg Tablet PO 40 mg DAILY RIDGE Administration Carvedilol 12.5 mg 06/13/23 18:00 06/17/23 17:23 Carvedilol 12.5 Mg Tablet PO 12.5 mg BID RIDGE Administration Clopidogrel Bisulfate 75 mg 06/10/23 09:00 06/17/23 11:46 Clopidogrel 75 Mg Tablet PO 75 mg DAILY [facility] Administration Doxycycline Monohydrate 100 mg 06/13/23 09:00 06/17/23 17:23 Doxycycline 100 Mg Tablet PO 100 mg BID [facility] Administration Protocol Enoxaparin Sodium 70 mg 06/12/23 13:30 06/17/23 13:42 Enoxaparin 80 Mg/0.8 Ml Syringe SUBCUT 70 mg Q24H RIDGE Administration Hydralazine HCl 50 mg 06/17/23 21:00 06/17/23 21:21 Hydralazine 50 Mg Tablet PO 50 mg TID [facility] Administration Sodium Chloride 1,000 mls @ 30 mls/hr 06/17/23 09:15 06/17/23 10:13 Sodium Chloride 0.9% IV 30 mls/hr .Q24H [facility] Administration Insulin Glargine 10 unit 06/10/23 09:00 06/17/23 09:10 Insulin Glargine 100 Units/1 Ml SUBCUT 10 unit DAILY [facility] Administration Insulin Human Lispro 0 unit 06/10/23 08:00 06/18/23 07:56 Insulin Lispro 100 Unit/1 Ml SUBCUT Not Given WM&BEDTIME [facility] Protocol Isosorbide Mononitrate 120 mg 06/10/23 09:00 06/17/23 17:23 Isosorbide Mononitrate Er 60 Mg Tablet PO 120 mg BID [facility] Administration Levothyroxine Sodium 25 mcg 06/10/23 09:00 06/17/23 11:45 Levothyroxine 25 Mcg Tablet PO 25 mcg DAILY [facility] Administration Lidocaine 1 patch 06/10/23 09:00 06/17/23 21:24 Lidocaine 5% Patch TOPICAL Not Given [id number] [facility] Magnesium Oxide 400 mg 06/10/23 09:00 06/17/23 17:22 Magnesium Oxide 400 Mg Tablet PO 400 mg BID [facility] Administration Metoclopramide HCl 5 mg 06/17/23 09:10 06/17/23 10:46 Metoclopramide 5 Mg/Ml Sdv 2 Ml IVP 5 mg Q6H PRN Administration NAUSEA AND VOMITING Morphine Sulfate 2 mg 06/16/23 19:33 06/18/23 04:27 Morphine 4 Mg/Ml Sdv 1 Ml IVP 2 mg Q4H PRN Administration SEVERE PAIN Ondansetron HCl 4 mg 06/09/23 21:05 06/17/23 09:10 Ondansetron 2 Mg/Ml Sdv 2 Ml IVP 4 mg Q6H PRN Administration NAUSEA AND VOMITING Pantoprazole Sodium 40 mg 06/10/23 09:00 06/17/23 11:47 Pantoprazole 40 Mg Sdv IVP 40 mg DAILY RIDGE Administration Prednisone 40 mg 06/13/23 09:00 06/17/23 11:41 Prednisone 20 Mg Tablet PO 40 mg DAILY RIDGE Administration Ropinirole HCl 0.5 mg 06/10/23 09:00 06/17/23 11:41 Ropinirole 0.25 Mg Tablet PO 0.5 mg DAILY RIDGE Administration Senna/Docusate Sodium 1 tab 06/11/23 22:00 06/17/23 17:23 Sennosides-Docusate Tablet PO 1 tab BID RIDGE Administration Trazodone HCl 100 mg 06/10/23 22:44 06/17/23 23:39 Trazodone 100 Mg Tablet PO 100 mg BEDTIME PRN Administration SLEEP PFSH Acute PFSH: Medical History ASHD (arteriosclerotic heart disease) Bilateral bunions Bilateral knee pain Callus of foot Carotid stenosis, bilateral Chest pain CHF (congestive heart failure) Chronic fatigue Chronic hip pain CKD (chronic kidney disease) COPD (chronic obstructive pulmonary disease) Diabetes Diabetic neuropathy Diabetic peripheral neuropathy associated with type 2 diabetes mellitus DJD (degenerative joint disease), lumbar Dyslipidemia Essential hypertension GERD (gastroesophageal reflux disease) Long-term current use of opiate analgesic Lumbar stenosis with neurogenic claudication Lupus anticoagulant disorder Myocardial infarction Non-STEMI (non-ST elevated myocardial infarction) Obesity Onychodystrophy PAD (peripheral artery disease) Pain management contract signed Pes planus of both feet Primary osteoarthritis of knees, bilateral TIA (transient ischemic attack) Tobacco use disorder V-tach Surgical History S/P CABG (coronary artery bypass graft) (~10/01/14) S/P carotid endarterectomy S/P carpal tunnel release (Unknown) LEFT S/P cataract extraction (Unknown) RIGHT DR BATISTA S/P cataract extraction S/P hysterectomy Family History Unknown Adopted Social History Smoking and tobacco status: current every day smoker cigarettes Packs smoked per day: 2 Quit status (tobacco): has tried quititng Alcohol intake: never Substance/Drug Use: never Adopted: Yes Lives independently: Yes Household members: spouse Marital status: Vitals/I&O/Wt Last Vital Signs Temp 97.8 F 06/18/23 08:00 Pulse 71 06/18/23 08:00 Resp 28 H 06/18/23 08:00 BP 107/52 06/18/23 08:00 Pulse Ox 93 06/18/23 08:00 O2 Del Method Room Air 06/18/23 08:00 O2 Flow Rate 2 06/18/23 07:59 FiO2 2 06/11/23 08:00 06/17/23 06/18/23 06/18/23 22:59 06:59 14:59 Intake Total 340 / 940 Output Total 75 / 75 250 / 325 Balance 265 / 865 -250 / 615 Weight last 48 hrs Weight 169 lb 1.6 oz Weight 163 lb Physical Exam Narrative: General : Patient is frail Head : Normal cephalic, a-traumatic. Nose : Mucous membranes are without erythema. Lungs : Equal chest rise bilaterally, no use of accessory muscles, trachea is midline. CV : There is a scar from sternotomy noted Abdomen : Soft, ND, NT, no g/r/m Extremities : Bilateral lower extremity edema. Upper extremities are normal bilaterally. Back : non-tender to palpation, no CVA tenderness. Urinary Catheter Management: Gibbs: Cath Placed During This Visit: yes Reason for Continuing Indwelling Catheter: Accurate Measurement of Urinary Output in Critically Ill Patients Urinary Catheter Date of Insertion: 06/09/23 Urinary Catheter Time of Insertion: 21:15 Data 06/18/23 03:24 06/18/23 03:24 A&P Assessment and plan (1) Acute kidney injury superimposed on CKD: Plan 77-year-old female with CHF and orthopnea who has been noted to have acute on chronic CKD with elevated creatinine and BUN, patient will require access for dialysis. I have offered the patient on tonight with dialysis catheter placement.-Informed the patient that likely will proceed with her right IJ for access, other possible access will be left IJ or femoral vessels in case of poor anatomy configuration. I have discussed all the risk and benefits of the procedure including the risk of bleeding, cannulation of carotid artery, perforation of great vessels at the level of the chest, pneumothorax, need for additional procedures. Patient acknowledged the risks and wants to proceed with the operation. Case is booked for today at noon. Coding Level of Care Code 24529 Diagnoses Acute kidney injury superimposed on CKD N17.9; N18.9
--- NOTE | 2023-06-18 10:29 | PC.NURSE ---
All po medications are on hold for this pt at this time due to being NPO for dialysis cath placement procedure today. Will give following procedure.
[2023-06-18 11:48] LABS: Glucose Point of Care 114 mg/dL (70-110)
[2023-06-18] MEDS: sodium chloride 0.9% 1,000 ML 30 ML IV (12:08)
--- NOTE | 2023-06-18 12:24 | ANES.PREANE2 ---
Pre-Anesthetic Assessment Height/Weight: Height 1.5 m Weight 76.702 kg Temp Pulse Resp BP Pulse Ox O2 Del Method O2 Flow Rate 97.4 F L 71 18 166/62 94 Room Air 2 06/18/23 11:56 06/18/23 11:56 06/18/23 11:56 06/18/23 11:56 06/18/23 11:56 06/18/23 11:56 06/18/23 07:59 FiO2 2 06/11/23 08:00 Preop Diagnosis: ARF Operation Date: 06/18/23 12:30 Proposed Procedures p Dialysis Catheter Insertion-NONTUNNELLED(Not Applicable) - Amador Sherman MD Familial anesthetic complications: none Was Beta Leena taken within 24 hours: Yes Was Clonidine taken within 24 hours: N/A Last intake: Intake Last Liquid Date 06/17/23 Last Liquid Time 23:00 Last Solid Date 06/17/23 Last Solid Time 18:00 Last Intake: 23:00 Social Tobacco and No tobacco 1ppd pack(s) per day 50+ pack years Exam alert, oriented x 3, clear to auscultation bilaterally and regular rate & rhythm Airway Submandibular: within normal limits Cervical ROM: within normal limits Mallampati: Class II Dentition: false Pulmonary Chronic Obstructive Pulmonary Disease, Cough, Exertional Dyspnea and Shortness of Breath o2 at night CV/HEM Anemia, Coronary Artery Disease, Congestive Heart Failure, Hypertension and Myocardial Infarction (HX PTCA) Chronic Renal Failure (Acute) Hepatic None reported GI Gastroesophageal Reflux Disease Metabolic Diabetes Mellitus Musc/skel Lower Back Pain, Osteoarthritis/DJD and Weakness Neuropsych None reported Anesthetic Plan ASA status: 4 Anesthesia: MAC Medications/Allergies Home Medications Medication Instructions Recorded Confirmed Last Taken Type albuterol sulfate 90 mcg/actuation 2 puff inhalation Q6H PRN 11/18/19 06/09/23 06/09/23 History aerosol inhaler (Proventil HFA) Shortness Of Breath ascorbic acid (vitamin C) 500 mg 250 mg PO QDAY 11/18/19 06/09/23 06/07/23 History tablet aspirin 81 mg tablet,delayed 81 mg PO QDAY 11/18/19 06/09/23 Unknown History release (Adult Low Dose Aspirin) atorvastatin 40 mg tablet (Lipitor) 40 mg PO QDAY 11/18/19 06/09/23 Unknown History calcium carbonate 600 mg calcium 600 mg PO QDAY 11/18/19 06/09/23 Unknown History (1,500 mg) tablet cholecalciferol (vitamin D3) 25 1,000 unit PO QDAY 11/18/19 06/09/23 Unknown History mcg (1,000 unit) capsule clopidogrel 75 mg tablet 75 mg PO QDAY 11/18/19 06/09/23 Unknown History cranberry extract 200 mg capsule 200 mg PO QDAY 11/18/19 06/09/23 Unknown History desloratadine 5 mg tablet 5 mg PO QDAY 11/18/19 06/09/23 Unknown History fluticasone 250 mcg-salmeterol 50 1 inh inhalation BID 11/18/19 06/09/23 Unknown History mcg/dose blistr powdr for inhalation (Advair Diskus) furosemide 40 mg tablet 40 mg PO QAM 11/18/19 06/09/23 Unknown History isosorbide mononitrate 120 mg 120 mg PO BID 11/18/19 06/09/23 Unknown History tablet,extended release 24 hr melatonin 5 mg tablet 5 mg PO QDAY 11/18/19 06/09/23 Unknown History metoclopramide HCl 10 mg tablet 10 mg PO Q6H PRN Acid Reflux 11/18/19 06/10/23 Unknown History metoprolol succinate 50 mg 50 mg PO QDAY 11/18/19 06/09/23 Unknown History tablet,extended release 24 hr pantoprazole 40 mg tablet,delayed 40 mg PO QDAY 11/18/19 06/09/23 Unknown History release (Protonix) ropinirole 0.5 mg tablet 0.5 mg PO QDAY 11/18/19 06/09/23 Unknown History tiotropium bromide 18 mcg capsule 1 cap inhalation QDAY 11/18/19 06/09/23 Unknown History with inhalation device (Spiriva with HandiHaler) trazodone 100 mg tablet 100 mg PO QDAY 11/18/19 06/09/23 Unknown History venlafaxine 37.5 mg tablet 37.5 mg PO QDAY 11/18/19 06/09/23 Unknown History vitamin B complex (B 1 tab PO QDAY 11/18/19 06/09/23 Unknown History Complex-Vitamin B12 tablet) levothyroxine 25 mcg tablet 25 mcg PO DAILY 12/02/19 06/09/23 Unknown History magnesium oxide 400 mg PO BID 12/02/19 06/09/23 Unknown History [id number] 200 mcg-16 mg 1 tab PO DAILY 12/02/19 06/09/23 Unknown History chewable tablet (One-A-Day Vitacraves [place]-3) nitroglycerin 0.4 mg sublingual 0.4 mg sublingual Q5M PRN Chest 12/02/19 06/09/23 Unknown History tablet (Nitrostat) Pain gabapentin 800 mg tablet 800 mg PO TID PAIN 90 days #270 03/17/20 06/09/23 Unknown Rx tabs lidocaine 5 % topical patch 3 patch topical DAILY PAIN 90 days 03/17/20 06/09/23 Unknown Rx #90 ea cyclobenzaprine 10 mg tablet 5 mg PO TID PRN muscle spasm 90 03/15/21 06/09/23 Unknown Rx days #135 tabs lisinopril 10 mg tablet 20 mg PO QDAY 04/13/21 06/09/23 Unknown History hydrocodone 10 mg-acetaminophen 1 tab PO QID PRN pain 30 days #120 07/27/21 06/09/23 06/09/23 Rx 325 mg tablet tabs meloxicam 15 mg tablet See Rx Instructions .Route 12/13/21 06/09/23 Unknown Rx .COMPLEX #30 tabs Diabetic Shoes with Inserts #1 ea 04/18/22 06/10/23 Unknown Rx roflumilast 500 mcg tablet 500 mcg PO DAILY 04/29/22 06/09/23 Unknown History (Daliresp) metoprolol succinate 25 mg 12.5 mg PO DAILY #30 tabs 04/30/22 06/09/23 Unknown Rx tablet,extended release 24 hr (Toprol XL) ranolazine 500 mg tablet,extended 500 mg PO BID #60 tabs 04/30/22 06/09/23 Unknown Rx release,12 hr Allergies Allergy/AdvReac Type Severity Reaction Status Date / Time No Known Allergies Allergy Verified 05/17/23 00:24 Current Medications Generic Name Dose Route Start Last Admin Trade Name Freq PRN Reason Stop Dose Admin Acetaminophen 650 mg 06/09/23 21:05 06/18/23 01:28 Acetaminophen 325 Mg Tablet PO 650 mg Q6H PRN Administration MILD PAIN Hydrocodone Bitart/Acetaminophen 1 tab 06/09/23 22:11 06/18/23 05:40 Hydrocodone-Acetaminophen 10-325 Mg Tablet PO 1 tab BID PRN Administration MODERATE PAIN Albuterol/Ipratropium 3 ml 06/12/23 02:03 06/16/23 20:35 Ipratropium-Albuterol 3 Ml Neb INHALATION 3 ml Q6H PRN Administration SHORTNESS OF BREATH Aspirin 81 mg 06/10/23 09:00 06/17/23 11:45 Aspirin 81 Mg Ec Tablet PO 81 mg DAILY RIDGE Administration Atorvastatin Calcium 40 mg 06/10/23 09:00 06/17/23 11:47 Atorvastatin 40 Mg Tablet PO 40 mg DAILY RIDGE Administration Carvedilol 12.5 mg 06/13/23 18:00 06/17/23 17:23 Carvedilol 12.5 Mg Tablet PO 12.5 mg BID RIDGE Administration Clopidogrel Bisulfate 75 mg 06/10/23 09:00 06/17/23 11:46 Clopidogrel 75 Mg Tablet PO 75 mg DAILY RIDGE Administration Doxycycline Monohydrate 100 mg 06/13/23 09:00 06/17/23 17:23 Doxycycline 100 Mg Tablet PO 100 mg BID RIDGE Administration Protocol Enoxaparin Sodium 70 mg 06/12/23 13:30 06/17/23 13:42 Enoxaparin 80 Mg/0.8 Ml Syringe SUBCUT 70 mg Q24H RIDGE Administration Hydralazine HCl 50 mg 06/17/23 21:00 06/17/23 21:21 Hydralazine 50 Mg Tablet PO 50 mg TID RIDGE Administration Sodium Chloride 1,000 mls @ 30 mls/hr 06/17/23 09:15 06/18/23 10:27 Sodium Chloride 0.9% IV 0 mls/hr .Q24H RIDGE Infusion Sodium Chloride 1,000 mls @ 30 mls/hr 06/18/23 12:00 06/18/23 12:08 Sodium Chloride 0.9% IV 06/19/23 11:59 30 mls/hr .Q24H RIDGE Administration Insulin Glargine 10 unit 06/10/23 09:00 06/17/23 09:10 Insulin Glargine 100 Units/1 Ml SUBCUT 10 unit DAILY RIDGE Administration Insulin Human Lispro 0 unit 06/10/23 08:00 06/18/23 07:56 Insulin Lispro 100 Unit/1 Ml SUBCUT Not Given WM&BEDTIME RIDGE Protocol Isosorbide Mononitrate 120 mg 06/10/23 09:00 06/17/23 17:23 Isosorbide Mononitrate Er 60 Mg Tablet PO 120 mg BID RIDGE Administration Levothyroxine Sodium 25 mcg 06/10/23 09:00 06/17/23 11:45 Levothyroxine 25 Mcg Tablet PO 25 mcg DAILY RIDGE Administration Lidocaine 1 patch 06/10/23 09:00 06/17/23 21:24 Lidocaine 5% Patch TOPICAL Not Given [id number] [facility] Magnesium Oxide 400 mg 06/10/23 09:00 06/17/23 17:22 Magnesium Oxide 400 Mg Tablet PO 400 mg BID RIDGE Administration Metoclopramide HCl 5 mg 06/17/23 09:10 06/17/23 10:46 Metoclopramide 5 Mg/Ml Sdv 2 Ml IVP 5 mg Q6H PRN Administration NAUSEA AND VOMITING Morphine Sulfate 2 mg 06/16/23 19:33 06/18/23 04:27 Morphine 4 Mg/Ml Sdv 1 Ml IVP 2 mg Q4H PRN Administration SEVERE PAIN Ondansetron HCl 4 mg 06/09/23 21:05 06/17/23 09:10 Ondansetron 2 Mg/Ml Sdv 2 Ml IVP 4 mg Q6H PRN Administration NAUSEA AND VOMITING Pantoprazole Sodium 40 mg 06/10/23 09:00 06/17/23 11:47 Pantoprazole 40 Mg Sdv IVP 40 mg DAILY RIDGE Administration Prednisone 40 mg 06/13/23 09:00 06/17/23 11:41 Prednisone 20 Mg Tablet PO 40 mg DAILY RIDGE Administration Ropinirole HCl 0.5 mg 06/10/23 09:00 06/17/23 11:41 Ropinirole 0.25 Mg Tablet PO 0.5 mg DAILY RIDGE Administration Senna/Docusate Sodium 1 tab 06/11/23 22:00 06/17/23 17:23 Sennosides-Docusate Tablet PO 1 tab BID RIDGE Administration Trazodone HCl 100 mg 06/10/23 22:44 06/17/23 23:39 Trazodone 100 Mg Tablet PO 100 mg BEDTIME PRN Administration SLEEP PFSH Anesthesia Medical History ASHD (arteriosclerotic heart disease) Bilateral bunions Bilateral knee pain Callus of foot Carotid stenosis, bilateral Chest pain CHF (congestive heart failure) Chronic fatigue Chronic hip pain CKD (chronic kidney disease) COPD (chronic obstructive pulmonary disease) Diabetes Diabetic neuropathy Diabetic peripheral neuropathy associated with type 2 diabetes mellitus DJD (degenerative joint disease), lumbar Dyslipidemia Essential hypertension GERD (gastroesophageal reflux disease) Long-term current use of opiate analgesic Lumbar stenosis with neurogenic claudication Lupus anticoagulant disorder Myocardial infarction Non-STEMI (non-ST elevated myocardial infarction) Obesity Onychodystrophy PAD (peripheral artery disease) Pain management contract signed Pes planus of both feet Primary osteoarthritis of knees, bilateral TIA (transient ischemic attack) Tobacco use disorder V-tach Surgical History S/P CABG (coronary artery bypass graft) (~10/01/14) S/P carotid endarterectomy S/P carpal tunnel release (Unknown) LEFT S/P cataract extraction (Unknown) RIGHT DR BATISTA S/P cataract extraction S/P hysterectomy Family History Unknown Adopted Social History Smoking and tobacco status: current every day smoker cigarettes Packs smoked per day: 2 Quit status (tobacco): has tried quititng Alcohol intake: never Substance/Drug Use: never Adopted: Yes Lives independently: Yes Household members: spouse Marital status: Data Anesthesia 06/18/23 03:24 06/18/23 03:24 Short CBC 06/17/23 06/18/23 Range/Units 03:13 03:24 WBC 10.4 H 9.9 (4.0-10.0) 10^3/uL Hgb 12.2 11.6 (11.5-15.3) g/dL Hct 36.7 L 36.2 L (37.0-47.0) % MCV 92.2 95.3 (81-99) fl Plt Count 230 240 (130-400) 10^3/cmm Neut % (Auto) 65.8 70.0 % Neut # (Auto) 6.84 6.92 (1.8-7.7) 10^3/uL BMP 06/17/23 06/18/23 06/18/23 03:13 03:24 03:24 Sodium 129 L 131 L Cancelled Potassium 5.3 H 5.2 H Cancelled Chloride 92 L 93 L Cancelled Carbon Dioxide 26 25 Cancelled BUN 97 H* 107 H* Cancelled Creatinine 3.2 H 3.7 H Cancelled Glucose 114 80 Cancelled Calcium 9.0 8.9 Cancelled Cardiac Enzymes 06/17/23 06/18/23 Range/Units 03:13 03:24 Creatine Kinase 17 L (26-192) U/L NT-Pro-B Natriuret Pep 7391 H (0-450) pg/mL Cardiac Studies: Echocardiogram 06/12/23 Sestamibi Stress Test (Cardiology) 06/14/23
--- NOTE | 2023-06-18 13:02 | PC.SOCIAL ---
IMM Update pg 2 of IMM updated and reviewed w/ patient. Copy provided and copy in chart dated, and initialed.
--- NOTE | 2023-06-18 13:16 | PM.OP ---
Operative Report Date of procedure: June 18, 2023 Pre-op diagnosis: Preop Diagnosis ARF Post-op diagnosis: Acute on chronic renal failure Procedure done: Insertion of right internal jugular nontunneled dialysis catheter Implants: Nontunneled dialysis catheter Surgeon: Amador Sherman MD Estimated blood loss: 5cc Complications: Known Findings: normal vascular anatomy, IJ cannulation verified with ultrasound Brief History: 77-year-old female with CHF who has acute on chronic kidney injury, nephrology has related patient decided to start dialysis I have been asked to place a nontunneled dialysis catheter. Consent was obtained from the patient after all risk and benefits of the procedure were discussed as documented in my previous consult note. Procedure: Patient was brought to the OR. Right IJ was evaluated with ultrasound and noted to be a good anatomic target. The skin was prepped and draped in the usual sterile fashion. Timeout was conducted. Lidocaine was administered on the right neck. Right internal jugular vein was cannulated under ultrasound visualization, needle tip was seen entering the IJ. Dark nonpulsatile blood was aspirated. Guidewire was advanced and needle removed, the position of the guidewire was verified with ultrasound. The tract was then dilated with 2 different sizes of dilators. I previously flush 16 cm dialysis catheter was then advanced over the wire. The wire was removed. Return of blood was noted in both ports, the catheter was flushing fine. The flushing volume was equivalent to more than 600 cc/min. The catheter was fixed in place with #2-0 silk. A sterile dressing was applied. The patient tolerating well the procedure and was transferred to the postanesthesia care unit in stable condition.
--- NOTE | 2023-06-18 13:19 | XR_ITS ---
WS: [id number] EXAMINATION: XR chest 1V portable [id number] REASON FOR EXAM: post dialysis catheter insertion COMPARISON: 06/15/2023 ORDER DATE: 06/18/2023 1:20 PM TECHNIQUE: A single, portable frontal chest x-ray was obtained. X-RAY FINDINGS: Lungs: There is platelike atelectasis or scarring at the right lung base unchanged from previous. There is no pulmonary vascular congestion. Pleural spaces: Unremarkable. No pleural effusion. No pneumothorax. Heart/Mediastinum: There is a right IJ temporary dialysis catheter in place. Heart is upper limits of normal in size. Bones/joints: Sternotomy wires and mediastinal surgical clips are present, unchanged old healed right upper rib fractures with coronary arterial bypass grafting. IMPRESSION: Right basilar atelectasis. Slight improvement compared to the prior study with interval placement of the dialysis catheter. No pneumothorax.
--- NOTE | 2023-06-18 13:23 | SUR.OPER ---
3ML OF 1% LIDOCAINE INJECTED SUBQ CHEST
--- NOTE | 2023-06-18 14:22 | P.PN_ITS ---
Subjective Subjective: - Patient was seen this morning -Her creatinine is up to 3.7, BUN 107, sodium 131, potassium 5.2 -Patient had discussion with nephrology, and with me this morning, agreeable to proceed with dialysis -Spoke to general surgery, dialysis catheter will be replaced to this afternoon, and dialyze thereafter, plan on n.p.o. after midnight for coronary angiography tomorrow morning -Patient was seen after dialysis catheter placement, she is doing well, no shortness of breath, but she is on 2 L, she is going to likely need to have dialysis today for fluid overload, Vitals/I&O/Wt Last Vital Signs Temp 98.0 F 06/18/23 13:56 Pulse 60 06/18/23 13:56 Resp 16 06/18/23 13:56 BP 154/69 06/18/23 13:56 Pulse Ox 98 06/18/23 13:56 O2 Del Method Room Air 06/18/23 13:56 O2 Flow Rate 6 06/18/23 13:11 FiO2 2 06/11/23 08:00 06/17/23 06/18/23 06/18/23 22:59 06:59 14:59 Intake Total 340 / 940 827 / 827 Output Total 75 / 75 250 / 325 5 / 5 Balance 265 / 865 -250 / 615 822 / 822 Weight last 48 hrs Weight 76.702 kg Weight 73.936 kg Physical Exam Const: COMMON NORMALS: no acute distress and patient oriented x3 Resp: COMMON NORMALS: normal respiratory effort, No retractions, No use of accessory muscles and clear to auscultation bilaterally AUSCULTATION: clear to auscultation bilaterally Cardio: COMMON NORMALS: regular rate, regular rhythm, S1 normal heart sound present and S2 normal heart sound present RATE: regular rate RHYTHM: regular rhythm HEART SOUNDS: S1 normal heart sound present and S2 normal heart sound present GI: COMMON NORMALS: Normal to inspection, nondistended, normoactive bowel sounds present and non-tender Extremity: COMMON NORMALS: no pedal edema Neuro: COMMON NORMALS: patient oriented x3 Psych: COMMON NORMALS: mental status grossly normal Urinary Catheter Management: Gibbs: Cath Placed During This Visit: yes Reason for Continuing Indwelling Catheter: Accurate Measurement of Urinary Outp ut in Critically Ill Patients Urinary Catheter Date of Insertion: 06/09/23 Urinary Catheter Time of Insertion: 21:15 Data 06/18/23 03:24 06/18/23 03:24 A&P Assessment and plan (1) Atrial fibrillation with rapid ventricular response: (2) Hypertension: Qualifiers: Hypertension type: primary hypertension Qualified Code(s): I10 - Essential (primary) hypertension (3) Hypoxia: (4) Pneumonitis: (5) Lupus anticoagulant disorder: (6) DJD (degenerative joint disease), lumbar: (7) Diabetic neuropathy: (8) CHF exacerbation: (9) Acute respiratory failure with hypoxia: (10) Pneumonia: (11) Systolic CHF: (12) Acute kidney injury superimposed on CKD: (13) Hypertensive urgency: (14) Uremia: (15) ARF (acute renal failure): Plan Uremia, acute renal failure -Consult nephrology -Control nausea, vomiting with Zofran and Reglan -Monitor mentation -Nephrology consulted, s/p dialysis cath placement, will dialyze today -plans on possible cardiac cath tomorrow after discussion with cardiology Acute on chronic respiratory failure Multifactorial A-fib with RVR, fluid overload Diastolic CHF exacerbation COPD exacerbation Pneumonia CT scan showing 1. ? There is bronchiectasis with patchy mucous plugging and atelectasis right lower lobe. 2. ? There is also mild ground-glass and tree-in-bud opacities in the lungs compatible with mild pneumonitis. Possible pulmonary embolism with elevated D-dimer, cannot perform CT angiogram given creatinine Patient is afebrile Mild leukocytosis Request urine cultures and antigen At baseline requires 5 to 6 L of oxygen Patient has not seen any inspector brake lining however referral was given to the patient last year around this month she is an active smoker smokes 2 packs/day There was concern for thromboembolic phenomenon given elevated D-dimer, however venous ultrasound negative for DVT, felt to be unlikely Patient will stay on DuoNeb, steroids and Mucomyst in case of further Plan -Fluid overloaded, will do dialysis -Creatinine up to 3.7 -Currently on prednisone 40 mg p.o. daily -Currently on doxycycline Pneumonia -With findings as above -Follow sputum culture, blood cultures -Antibiotics de-escalated to doxycycline Acute CHF exacerbation, BNP over 20,000 As below Non-STEMI: Patient stating that she is willing to go for angiogram if that is indicated at this point, Currently on ACS protocol with therapeutic Lovenox continue aspirin and Plavix No active chest pain Cardiac echo CONCLUSIONS ?The study is poor secondary to underlying COPD.? The patient has ?atrial fibrillation and an underlying left bundle branch block ?making sensitivity less.? The only view available for ?interpretation is the apical view.? In this view the apex is ?thinned and hypokinetic.? There is a large sigmoid septum.? The ?lateral wall appears to contract normally.? There is moderate ?reduction in left ventricular function.? A rough estimate of the ?ejection fraction is 35 to 40%.? Diastolic function cannot be ?determined due to the rhythm disturbance. ?Mildly increased left atrial size. ?Structurally normal mitral valve. Moderate mitral valve ?regurgitation. ?Aortic valve not well visualized. Mild aortic valve ?calcification. Mild aortic valve stenosis, mean gradient 7.3 ?mmHg, AYDIN 1.1 cm squared. ?From the previous echo done 04/07/2014, the decrease in left ?ventricular function is new.? The wall motion disturbances are ?new.? Mitral regurgitation appears worse.? Aortic stenosis is ?new however due to the poor quality of the exam I am not ?confident of the aortic valve calculations. -Cardiac stress test shows -?IMPRESSIONS ?1. Large sized reversible perfusion abnormality of moderate severity of mid to ?apical anterior, basal to mid anterolateral, basal to mid inferolateral, apical ?lateral, apical septal, apical inferior and apical hernandez. ?2. This is likely suggestive of ischemia in left anterior descending and ?circumflex artery territory. ?3. The left ventricular ejection fraction is mildly reduced with a value of ?42%. ?4. There is severe hypokinesis of mid to apical anterior and apical hernandez. ?There is mild hypokinesis of mid to apical inferior hernandez. ?5. EKG portion of the study will be reported separately. -Creatinine 3.7, hopefully can have cardiac cath tomorrow, and dialyze her after Previous CABG 2013 She had a left internal mammary artery to the LAD, single vein graft to the diagonal and single vein graft to the right coronary artery.? In May 2015 she underwent coronary angiography for similar problems and the diagonal graft was o ccluded.? The right coronary artery graft was patent as was the left internal mammary artery.? Her resighini circumflex was stented.? This was not bypassed at the time of surgery due to its intramyocardial location New onset A-fib [id number] 5 Therapeutic Lovenox Previous EKG showed left bundle branch block Received 250 mcg of digoxin On amiodarone Hypertensive urgency, resolved Acute on chronic kidney disease secondary to cardiorenal, baseline creatinine seems to be around 1.5 Anticipate improvement with diuresis Goals of care discussed with the patient: She is full code She is concerned about her who has Alzheimer's dementia, he is alone at home Patient stating that she would never go to a senior living because she wants to take care of her Full code Cardiac diet/consistent carb with insulin and sliding scale Plan for today monitor blood pressures, monitor creatinine, monitor urine output, nephrology consulted, will speak to cardiology, hopefully can be dialyzed today, with cardiac cath tomorrow, has evidence of fluid overload, is requiring 2 L, scattered crackles, will dialyze for fluid overload today Attestations Medical Necessity Statement*: Patient requires hospitalization for acute renal failure, uremia, NSTEMI, will need dialysis catheter placement, dialyzed today, possible coronary angiography tomorrow morning Diagnoses Atrial fibrillation with rapid ventricular response I48.91 Hypertension I10 Hypertension type: primary hypertension Hypoxia R09.02 Pneumonitis J18.9 Lupus anticoagulant disorder D68.62 DJD (degenerative joint disease), lumbar M47.816 Diabetic neuropathy E11.40 CHF exacerbation I50.9 Acute respiratory failure with hypoxia J96.01 Pneumonia J18.9 Systolic CHF I50.20 Acute kidney injury superimposed on CKD N17.9; N18.9 Hypertensive urgency I16.0 Uremia N19 ARF (acute renal failure) N17.9
[2023-06-18] MEDS: aspirin 81 mg EC Tablet PO (16:35)
[2023-06-18] MEDS: carvedilol 12.5 mg Tablet PO ×2 (16:36→21:04)
[2023-06-18] MEDS: amiodarone 200 mg Tablet PO (16:36)
[2023-06-18] MEDS: atorvastatin 40 mg Tablet PO (16:36)
[2023-06-18 16:50] LABS: Glucose Point of Care 340 mg/dL (70-110)
--- NOTE | 2023-06-18 16:57 | ANE.PACU2 ---
Inpatient post-anesthesia follow up: Airway intact: Yes Vital signs: Temperature 98.0 F Pulse Rate 60 Respiratory Rate 16 Blood Pressure 154/69 Pulse Oximetry 98 Oxygen Delivery Me thod [ Nasal Cannula Current Rate & Del reymundo] Oxygen Delivery Me thod Room Air Oxygen Flow Rate [ Current Rate 2 & Delivery] Oxygen Flow Rate 6 Fraction of Inspir ed Oxygen 2 Hydration adequate: Yes Nausea and vomiting: No Pain level: 2 Mental status: Baseline
--- NOTE | 2023-06-18 17:06 | PM.PN ---
Subjective Subjective: Creatinine increased and UO decreased, She is due to have dialysis today Medications: Reviewed: Yes Vitals/I&O/Wt Last Vital Signs Temp 98.0 F 06/18/23 13:56 Pulse 60 06/18/23 13:56 Resp 16 06/18/23 13:56 BP 154/69 06/18/23 13:56 Pulse Ox 98 06/18/23 13:56 O2 Del Method Room Air 06/18/23 13:56 O2 Flow Rate 6 06/18/23 13:11 FiO2 2 06/11/23 08:00 06/18/23 06/18/23 06/18/23 06:59 14:59 22:59 Intake Total 827 / 827 Output Total 250 / 325 Balance -250 / 615 822 / 822 Weight last 48 hrs Weight 169 lb 1.6 oz Weight 163 lb Physical Exam Narrative: GENERAL: Averagely built and averagely nourished in no acute distress HEENT: Extraocular movement intact. No pallor or icterus. NECK: central trachea, No JVD, No carotid bruit. CARDIOVASCULAR SYSTEM: S1-S2 regular. No murmur rubs or gallops. RESPIRATORY SYSTEM: Chest clear to auscultation. No wheezes rhonchi or rubs heard. No use of accessory muscles. ABDOMEN: Soft, nontender and nondistended. Normal bowel sounds present. EXTREMITIES: No cyanosis or edema. No signs of chronic venous insufficiency. [employer]: Patient is alert oriented ?3. No focal neurological deficits. SKIN: Normal turgor and temperature. No breakdown, rash or nail changes noted. PSYCH: Normal insight and judgment. Urinary Catheter Management: Gibbs: Cath Placed During This Visit: yes Reason for Continuing Indwelling Catheter: Accurate Measurement of Urinary Output in Critically Ill Patients Urinary Catheter Date of Insertion: 06/09/23 Urinary Catheter Time of Insertion: 21:15 Data 06/18/23 03:24 06/18/23 03:24 A&P Assessment and plan (1) CHF exacerbation: HFrEF (LVEF=35-40%); new when compared to 2014 However,TDS study. apex appears thinned out which is not a sign of acute drop in LV function. Repeat study with echo contrast showing LV funtion to be 45-50% with severe hypokinesis of apical wall -cont. medical management; -Large area of reversible ischemia in lateral and apical hernandez on stress study. -I discussed with her findings of stress test. -I discussed with her option of medical management given no significant symptoms at this time and cath based on findings of the test and option of LHC with high risk of renal failure and dialysis. -She tells even with higher risk of need for permanent dialysis she would want to proceed with LHC. Plan for LHC tomorrow (2) Acute kidney injury superimposed on CKD: creatinine 3.7 today (3) Atrial fibrillation with rapid ventricular response: Paroxysmal atrial fibrillation Now in SR on PO amiodarone and coreg Plan LBBB Uncontrolled HTN : Minoxidil and clonidine added. continue coreg, hydralazine, amlodipine, imdur Elevated troponin 2/2 a, fib with RVR and decompensated CHF CAD s/p CABG x3(PADILLA-LAD, SVG-RCA and occluded SVG to diagonal) Carotid artery disease Hypothyroidism Dyslipidemia COPD on home oxygen Attestations Medical Necessity Statement*: needs hospital stay for renal failure, CHF Coding Level of Care Code 92592 Diagnoses CHF exacerbation I50.9 Acute kidney injury superimposed on CKD N17.9; N18.9 Atrial fibrillation with rapid ventricular response I48.91
[2023-06-18] MEDS: heparin, porcine 1,000 unit/mL INJ 10 mL 1000 UNIT IV (17:50)
[2023-06-18] MEDS: albumin 12.5 GM/50 ML VIAL IV (18:00)
--- NOTE | 2023-06-18 20:09 | PC.HD ---
Addendum entered by Maria Antonia Barry RN 06/18/23 20:19: Dr Maryam galo of noted issues. Original Note: Initial dialysis treatment went fairly well. New RIJ catheter draws and flushes well, worked well during treatment except that AP frequently spiked, initially r/t pt coughing or talking but as treatment progressed it occurred without cause and required large flush to release, suspect intrvascular dryness. AP spiking improved with holding UF and reducing blood flow rate. Albumin given and UF was able to be resumed. Fluid removal goal not met d/t UF on hold part of treatment and additional fluid given with flushes.
[2023-06-18 20:55] LABS: Glucose Point of Care 227 mg/dL (70-110)
[2023-06-18] MEDS: doxycycline 100 mg Tablet PO (21:04)
[2023-06-18] MEDS: hyDRALAzine 50 mg Tablet PO (21:04)
[2023-06-18] MEDS: insulin lispro 100 unit/1 mL SUBCUT (21:04)
[2023-06-18 22:39] LABS: Hepatitis B Core AB, Total Non-Reactive (Nonreactive); Hepatitis B Surface AB 3.5 (11.5-1000); Hepatitis B Surface Antigen Non-Reactive (Nonreactive)
[2023-06-18] MEDS: trazodone 100 mg Tablet PO (23:29)
[2023-06-18] MEDS: ipratropium-albuterol 3 mL Neb INHALATION (23:48)
[2023-06-19] VITALS (60 sets, daily range): BP systolic 139–179; BP diastolic 48–79; PULSE 59–75; RESP 0–28; TEMP 36.6–37.1; O2SAT 92–99
[2023-06-19] MEDS: morphine 4 mg/mL SDV 1 mL 2 MG IVP ×2 (03:24→21:49)
[2023-06-19 05:38] LABS: Basophils % 0.2 %; Eosinophils # 0.1 10^3/uL (0.0-0.8); Hematocrit 34.5 % (37.0-47.0); Hemoglobin 11.3 g/dL (11.5-15.3); Lymphocytes # 2.4 10^3/uL (0.8-4.8); Mean Corpuscular HGB Conc 32.8 g/dL (30.0-36.0); Mean Corpuscular Hemoglobin 30.5 pg (28.0-34.0); Mean Corpuscular Volume 93.2 fl (81-99); Mean Platelet Volume 11.5 fL (7.4-10.4); Monocytes % 10.9 %; Neutrophils # 5.72 10^3/uL (1.8-7.7); Nucleated Red Blood Cells % 0 %; Platelet Count 195 10^3/cmm (130-400); Red Cell Distribution Width 13.5 % (12.1-15.1); White Blood Count 9.4 10^3/uL (4.0-10.0)
[2023-06-19] MEDS: HYDROcodone-acetaminophen 10-325 mg Tablet 1 TAB PO ×2 (05:51→15:01)
[2023-06-19 06:03] LABS: Magnesium 2.2 mg/dL (1.7-2.3); Phosphorus 5.5 mg/dL (2.5-4.5)
[2023-06-19 06:13] LABS: Anion Gap 14.3 (5-19); Blood Urea Nitrogen 69 mg/dL (8-23); Calcium 8.8 mg/dL (8.5-10.5); Carbon Dioxide 27 mmol/L (22-29); Chloride 100 mmol/L (98-107); Glucose 103 mg/dL (65-115); NT Pro B Type Natriuretic Pept 5147 pg/mL (0-450); Osmolality Calculated 304 mOsm/kg (285-295); Potassium 4.3 mmol/L (3.5-5.1); Sodium 137 mmol/L (136-145)
[2023-06-19 07:13] LABS: Glucose Point of Care 112 mg/dL (70-110)
--- NOTE | 2023-06-19 07:49 | P.PN_ITS ---
Subjective Subjective: no new complaints Medications: Reviewed: Yes Vitals/I&O/Wt Last Vital Signs Temp 97.9 F 06/19/23 03:31 Pulse 61 06/19/23 07:23 Resp 18 06/19/23 07:23 BP 169/66 06/19/23 03:31 Pulse Ox 97 06/19/23 07:18 O2 Del Method Nasal Cannula 06/19/23 07:18 O2 Flow Rate 2 06/19/23 07:18 FiO2 2 06/11/23 08:00 06/18/23 06/19/23 06/19/23 22:59 06:59 14:59 Intake Total 1800 / 2627 340 / 340 Output Total 2939 / 2944 250 / 3194 955 / 955 Balance -1139 / -317 -250 / -567 -615 / -615 Weight last 48 hrs Weight 75.931 kg Weight 75.2 kg Weight 76.702 kg Physical Exam Narrative: awake , alert No distress S1 S2 RRR Lungs clear candy per report + edema Urinary Catheter Management: Gibbs: Cath Placed During This Visit: yes Reason for Continuing Indwelling Catheter: Accurate Measurement of Urinary Output in Critically Ill Patients Urinary Catheter Date of Insertion: 06/09/23 Urinary Catheter Time of Insertion: 21:15 Data 06/19/23 05:24 06/19/23 05:24 A&P Assessment and plan (1) Acute kidney injury superimposed on CKD: Plan 1. Acute on chronic kidney disease stage III: Baseline creatinine in the 1.6-2 range. Most likely from hypertensive nephrosclerosis and possible prerenal. Now has creatinine of 3.7 after aggressive diuresis. If patient agrees to undergo left heart cath, renal function likely will get further worse and may end up on dialysis. -Continue 1500 mL fluid restriction and 2 g sodium restriction, -Patient agrees to hemodialysis if necessary - Agree with holding diuretics for now . on IV albumin. -Rs/p temporary catheter and inititated HD , s/p HD Sunday , Next HD today af ter [facility] 2. Hyperkalemia: Mild, potassium 5.3, low K diet advised, will give a dose of Kayexalate. 3. Hyponatremia:improved 4. Acute on chronic respiratory failure: On 2 L oxygen currently, status post aggressive diuresis 5. New onset A-fib with RVR 6. CAD - plan for [facility] Patient evaluated using audiovisual cart. Time spent 40 minutes. Attestations Medical Necessity Statement*: per medicine Coding Level of Care Code Acute Code for Chg Fwd Diagnoses Acute kidney injury superimposed on CKD N17.9; N18.9
[2023-06-19] MEDS: aspirin 325 mg Tablet PO (07:53)
[2023-06-19] MEDS: diphenhydrAMINE 50 mg Capsule PO (07:53)
--- NOTE | 2023-06-19 08:30 | XACV_ITS ---
Exam Room: [facility] Ht: 150 cm Wt: 75 kg BSA: 1.80 m2 Gender: Female : 1945 Any Known Allergies: Other Exam Priority: Routine Indication(s): - Decreased LV systolic function - Abnormal adenosine stress study Procedure(s): Procedure Description: Diagnostic procedure Procedure Description: Left Heart Catheterization Procedure Description: Venous Graft Catheterization Procedure Description: PADILLA Graft Catheterization Procedure Description: Coronary Angiography Diagnostic Cath Status: Urgent Diagnostic Findings * INDICATION: Abnormal stress test/ LV dysfunction. * Left Main has no significant disease. * Circumflex has patent prior stent. no significant disease. * Mid Left Anterior Descending: chronic total occlusion, CECILIA: 0 flow. * Proximal Right Coronary Artery: chronic total occlusion, CECILIA: 0 flow. * BYPASS GRAFTS: SVG to RCA is patent. Has diffuse moderate distal graft disease. PADILLA to LAD is patent SVG to left circumflex artery is known to be occluded.. * Coronary angiography shows right dominance. Conclusions 1. Patent PADILLA to LAD and SVG to RCA. Patent [place] left circumflex artery .. 2. Patient has prior CABG. Recommendations * Aggressive medical therapy. * Outpatient cardiology follow up in 2-4 weeks. Interventional RX Recommendation: medical therapy and/or counseling Diagnostic RX Recommendation: medical therapy and/or counseling Pressures Phase:Rest AO : / ( 0 ) @ 9:52:00 AM -1 / -4 ( -3 ) @ 10:10:00 AM 205 / 73 ( 120 ) @ 10:22:00 AM 206 / 75 ( 120 ) @ 10:22:00 AM LV : 210 @ 10:21:00 AM @ 10:22:00 AM Valves Phase:DefaultPhase AV : 3.0 @ 9:49:06 AM AV Mean Gradient: 10.0 @ 9:49:06 AM 10.0 @ 9:49:06 AM Clinical Evaluation EBL: 5mL-10mL Procedural Details Procedure Consent Obtained. Admit Source: In Patient. Current Diagnosis : Chest Pain. Pre-Procedure Time Out. Identified patient by full name and date of as verbalized by the patient/guarantor. Does the consent match the physician's order: Yes. Accurate & Complete Informed Consent: Yes. Inpatient/Outpatient History & Physical on Chart: Yes. If H&P is completed, is and addenduem needed: No; If yes, is the addendum complete: N/A. Visualize and Verify Site with Patient/Guarantor: N/A. Relevant Radiology Images available: N/A. The risks, benefits, and alternatives of sedation and/or procedure were discussed by physician. The patient agrees to continue. Procedure started. [facility] Clinical Fraility Score: 4: Vulnerable. Icicle Machine Operator Indications: LV Dysfunction. Icicle Machine Operator Indications: Abnormal stress test. Chest Pain Symptom Assessment: Atypical Angina. Cardiovascular Instability: No. Correct patient, site and procedure confirmed by cath team. Current diagnosis: Chest Pain; Abnormal stress test; LV dysfunction. PERRLA. Strong, equal hand inspector shells bilaterally. Lungs clear x 5 lobes. IV Site on Arrival: 20 gauge in the left wrist. IV Fluids: 0.9% NaCl at KVO. 0 mL infused prior to brine room laborer. Pre Procedural Pulses: bilateral posterior tibial was Doppled. Pre Procedural Pulses: bilateral dorsalis pedis was Doppled. Pre Procedural Pulses: bilateral radial was 2+. Oxygen started at 3liters/min via nasal canula. bilateral groins was prepped with chloroprep then draped in the usual sterile fashion. Physician notified. Baseline sample Acquired. HR: 58 BPM. Physician arrived. Family updated by MD. Physician scrubbed in. Immediate Pre-Procedure Time Out. Correct Patient: Yes; Correct Procedure: Yes; Correct Site: Yes; Correct Patient Position: Yes; Correct Supplies: Yes; Dried Flammable Prep: Yes; Blood Products Available: N/A;. Vital chart was stopped. Lidocaine 1% infiltrated to the right groin. Arterial access obtained with micropuncture set. Wire and needle out. MD holding pressure at site. Arterial access obtained with micropuncture set. Lidocaine 1% infiltrated to the right groin. A 5 armenian JL4 catheter in over wire. Multiple views taken of left coronary artery. Catheter out. A 5 armenian JR4 catheter in over wire. [place] RCA occluded. Redirecting to grafts. SVG to diag is occluded. SVG's to RCA visualized and patent. Poor injction quality. will readress. JR 4 redirected to PADILLA over the wire. Catheter removed over the wire. A 5 armenian MPA1 catheter in over wire. SVG's to RCA visualized and patent. redirected to padilla over the exchange wire. mpa removed. Jr 4 inserted. PADILLA to LAD visualized. JR redirected over the wire into the LV. EDP Sample taken: LV 210/7,30; HR: 63 BPM; SpO2: 99%. Pullback taken: LV 207/8,32; AO 205/73(120); Mean: 10mmHg, Peak to Peak: 3mmHg, SEP: 17sec/min; HR: 63 BPM; SpO2: 99%. Catheter removed over the wire. Physician review of films. A Right femoral angiogram was performed to determine safe placement of closure device. No closure device at this time. Physician scrubbed out. A Manual Compression was successful obtaining hemostatsis at the Right Femoral artery insertion site. Sheath(s) removed and manual pressure held until hemostasis was achieved. Sterile 4x4 and Op-site applied to the puncture site. No oozing or hematoma noted. Post sheath removal instructions were given and the patient verbalized understanding. Post Procedure: Pulses reassessed and unchanged. PERRLA. Strong, equal hand inspector shells bilaterally. No VTE prophylaxis required. Medication waste: Lidocaine- 2 ml. Heparin- 1000 units. Versed- 1 mg. Fentanyl- 25 mcg. Total IV fluids: 50 mL. Fluoro: 10:00. Contrast type used: Omnipaque 300 mg/mL, 150 mL bottle. [id number]. Post-op diagnosis: Patent padilla to lad; patent svg to rca; patent [place] left circumflex artery. Complications: None. Estimated blood loss: 5mL-10mL. Responsiveness - Normal response to verbal stimuli; alert and oriented, PERRLA. Airway - Unaffected, no intervention required; spontaneous ventilation. Circulation: W/N/L, pulses unchanged. Nausea/Vomiting: No. Procedure completed. Patient transferred by bed to 1st floor. Vital chart was stopped. Access Site Site: Right Femoral artery Sheath Size: 6 Fr Hemostasis Method: Manual Compression Hemostasis Success: Successful Procedure Medications Start: 8:50 AM Stop: 8:50 AM Medication: Versed Amount: 1 mg Route: I.V. Start: 8:50 AM Stop: 8:50 AM Medication: Fentanyl Amount: 50 mcg Route: I.V. Start: 9:18 AM Stop: 9:18 AM Medication: Fentanyl Amount: 25 mcg Route: I.V. Start: 9:34 AM Stop: 9:34 AM Medication: Hydralazine Amount: 10 mg Route: I.V. Start: 9:43 AM Stop: 9:43 AM Medication: Hydralazine Amount: 10 mg Route: I.V. I, the attending physician, have reviewed and verified all procedure medications. Yes, all medications given per verbal order History/Risk Factors Hypertension: Yes Dyslipidemia: Yes Peripheral Arterial Disease (PAD): Yes Myocardial Infarction (AL): Yes Obesity: Yes Renal Disease: No Tobacco Use: Current/Recent(w/in 1 year) Dialysis: Current Prior Interventions PCI: No CABG: Yes Valve Surgery: No Report Signatures Finalized by Rainer Anne MD on 07/04/2023 12:22 PM
--- NOTE | 2023-06-19 08:42 | W.PM.OPSUD ---
Surgery/Procedure H&P Update DATE OF PROCEDURE: June 19, 2023 DATE H&P PERFORMED: 06/11/23 H&P UPDATE INFORMATION: I have reviewed H&P completed within last 30 days, I have examined patient prior to procedure and No changes to prior documentation PREOP DIAGNOSIS: LV dysfunction/ abnormal stress test PRIMARY INDICATION FOR PROCEDURE: LV dysfunction/ abnormal stress test PLANNED PROCEDURE: Operation Date: 06/19/23 12:30 Proposed Procedures Left heart cath with possible percutaneous coronary intervention-Rainer Anne MD PATIENT REASSESSED PRIOR TO SEDATION, WITH NO CHANGE NOTED: Yes PHYSICAL EXAM: alert, oriented x 3 and regular rate & rhythm OTHER PERTINENT EXAM FINDINGS: Dimished air entry with bilateral crackles. AIRWAY EVAL/ANESTHESIA PLAN: normal airway, ASA III, Local Anesthesia, Risks, benefits & alternatives of sedation and/or procedure discussed and Patient agrees to continue as planned ADDITIONAL INFORMATION: Moderate sedation
--- NOTE | 2023-06-19 10:04 | PC.NURSE ---
Pt just arrived from lab tester and is resting. Reported that the sheath was pulled at 09:30. Site to right groin is bruised with dressing C/D/I. Pt instructed that she will not be able to get up until 15:45 with understanding noted. Informed pt that I will give her morning meds to her when she is able to sit up a little in a couple of hours so she can safely swallow.
[2023-06-19] MEDS: heparin, porcine 1,000 unit/mL INJ 10 mL 1000 UNIT IV (10:30)
--- NOTE | 2023-06-19 10:30 | PC.NURSE ---
Pt left for dialysis and will give her morning medications upon her return
[2023-06-19] MEDS: acetaminophen 325 mg Tablet 650 MG PO (12:54)
[2023-06-19] MEDS: pantoprazole 40 mg SDV IVP (15:01)
[2023-06-19] MEDS: predniSONE 20 mg Tablet 40 MG PO (15:02)
[2023-06-19] MEDS: amiodarone 200 mg Tablet PO (15:02)
[2023-06-19] MEDS: atorvastatin 40 mg Tablet PO (15:02)
[2023-06-19] MEDS: aspirin 81 mg EC Tablet PO (15:03)
[2023-06-19] MEDS: hyDRALAzine 50 mg Tablet PO ×2 (15:03→21:48)
[2023-06-19] MEDS: ropinirole 0.25 mg Tablet 0.5 MG PO (15:03)
[2023-06-19] MEDS: clopidogrel 75 mg Tablet PO (15:04)
[2023-06-19] MEDS: levothyroxine 25 mcg Tablet PO (15:04)
--- NOTE | 2023-06-19 15:14 | PM.PN ---
Subjective Subjective: Patient was seen this morning, after her coronary angiography, no obstructive CAD, she does complain of some shortness of breath, no fevers, chills, feels a bit nauseous, Vitals/I&O/Wt Last Vital Signs Temp 98.1 F 06/19/23 14:19 Pulse 70 06/19/23 14:19 Resp 18 06/19/23 14:19 BP 155/61 06/19/23 14:19 Pulse Ox 98 06/19/23 08:00 O2 Del Method Room Air 06/19/23 08:00 O2 Flow Rate 2 06/19/23 07:18 FiO2 2 06/11/23 08:00 06/19/23 06/19/23 06/19/23 06:59 14:59 22:59 Intake Total 990 / 990 Output Total 250 / 3194 2559 / 2559 Balance -250 / -567 -1569 / -1569 Weight last 48 hrs Weight 74.6 kg Weight 75.931 kg Weight 75.2 kg Weight 76.702 kg Physical Exam Const: COMMON NORMALS: no acute distress and patient oriented x3 Resp: COMMON NORMALS: normal respiratory effort, No retractions, No use of accessory muscles and clear to auscultation bilaterally AUSCULTATION: clear to auscultation bilaterally Cardio: COMMON NORMALS: regular rate, regular rhythm, S1 normal heart sound present and S2 normal heart sound present RATE: regular rate RHYTHM: regular rhythm HEART SOUNDS: S1 normal heart sound present and S2 normal heart sound present GI: COMMON NORMALS: Normal to inspection, nondistended, normoactive bowel sounds present and non-tender Extremity: NARRATIVE EXTREMITY EXAM: 1+ pitting edema Neuro: COMMON NORMALS: patient oriented x3 Psych: COMMON NORMALS: mental status grossly normal Urinary Catheter Management: Gibbs: Cath Placed During This Visit: yes Reason for Continuing Indwelling Catheter: Accurate Measurement of Urinary Output in Critically Ill Patients Urinary Catheter Date of Insertion: 06/09/23 Urinary Catheter Time of Insertion: 21:15 Data 06/19/23 05:24 06/19/23 05:24 A&P Assessment and plan (1) Atrial fibrillation with rapid ventricular response: (2) Hypertension: Qualifiers: Hypertension type: primary hypertension Qualified Code(s): I10 - Essential (primary) hypertension (3) Hypoxia: (4) Pneumonitis: (5) Lupus anticoagulant disorder: (6) DJD (degenerative joint disease), lumbar: (7) Diabetic neuropathy: (8) CHF exacerbation: (9) Acute respiratory failure with hypoxia: (10) Pneumonia: (11) Systolic CHF: (12) Acute kidney injury superimposed on CKD: (13) Hypertensive urgency: (14) Uremia: (15) ARF (acute renal failure): Plan Uremia, acute renal failure -Consult nephrology -Control nausea, vomiting with Zofran and Reglan -Monitor mentation -Nephrology consulted, s/p dialysis cath placement, will dialyze today Acute on chronic respiratory failure Multifactorial A-fib with RVR, fluid overload Diastolic CHF exacerbation COPD exacerbation Pneumonia CT scan showing 1. ? There is bronchiectasis with patchy mucous plugging and atelectasis right lower lobe. 2. ? There is also mild ground-glass and tree-in-bud opacities in the lungs compatible with mild pneumonitis. Possible pulmonary embolism with elevated D-dimer, cannot perform CT angiogram given creatinine Patient is afebrile Mild leukocytosis Request urine cultures and antigen At baseline requires 5 to 6 L of oxygen Patient has not seen any electric relay tester however referral was given to the patient last year around this month she is an active smoker smokes 2 packs/day There was concern for thromboembolic phenomenon given elevated D-dimer, however venous ultrasound negative for DVT, felt to be unlikely Patient will stay on DuoNeb, steroids and Mucomyst in case of further Plan -Fluid overloaded, will do dialysis after angiogram -We will taper steroid therapy -Completed doxycycline therapy Pneumonia -With findings as above -Follow sputum culture, blood cultures -Completed antibiotic therapy Acute CHF exacerbation, BNP over 20,000 As below Non-STEMI: Patient stating that she is willing to go for angiogram if that is indicated at this point, Currently on ACS protocol with therapeutic Lovenox continue aspirin and Plavix No active chest pain Cardiac echo CONCLUSIONS ?The study is poor secondary to underlying COPD.? The patient has ?atrial fibrillation and an underlying left bundle branch block ?making sensitivity less.? The only view available for ?interpretation is the apical view.? In this view the apex is ?thinned and hypokinetic.? There is a large sigmoid septum.? The ?lateral wall appears to contract normally.? There is moderate ?reduction in left ventricular function.? A rough estimate of the ?ejection fraction is 35 to 40%.? Diastolic function cannot be ?determined due to the rhythm disturbance. ?Mildly increased left atrial size. ?Structurally normal mitral valve. Moderate mitral valve ?regurgitation. ?Aortic valve not well visualized. Mild aortic valve ?calcification. Mild aortic valve stenosis, mean gradient 7.3 ?mmHg, AYDIN 1.1 cm squared. ?From the previous echo done 04/07/2014, the decrease in left ?ventricular function is new.? The wall motion disturbances are ?new.? Mitral regurgitation appears worse.? Aortic stenosis is ?new however due to the poor quality of the exam I am not ?confident of the aortic valve calculations. -Cardiac stress test shows -?IMPRESSIONS ?1. Large sized reversible perfusion abnormality of moderate severity of mid to ?apical anterior, basal to mid anterolateral, basal to mid inferolateral, apical ?lateral, apical septal, apical inferior and apical hernandez. ?2. This is likely suggestive of ischemia in left anterior descending and ?circumflex artery territory. ?3. The left ventricular ejection fraction is mildly reduced with a value of ?42%. ?4. There is severe hypokinesis of mid to apical anterior and apical hernandez. ?There is mild hypokinesis of mid to apical inferior hernandez. ?5. EKG portion of the study will be reported separately. -Cath today, no obstructive CAD Previous CABG 2013 She had a left internal mammary artery to the LAD, single vein graft to the diagonal and single vein graft to the right coronary artery.? In May 2015 she underwent coronary angiography for similar problems and the diagonal graft was occluded.? The right coronary artery graft was patent as was the left internal mammary artery.? Her [place] circumflex was stented.? This was not bypassed at the time of surgery due to its intramyocardial location New onset A-fib [id number] 5 Will switch to Eliquis tomorrow morning Previous EKG showed left bundle branch block Received 250 mcg of digoxin On amiodarone Hypertensive urgency, resolved Acute on chronic kidney disease secondary to cardiorenal, baseline creatinine seems to be around 1.5 Anticipate improvement with diuresis Goals of care discussed with the patient: She is full code She is concerned about her who has Alzheimer's dementia, he is alone at home Patient stating that she would never go to a senior living because she wants to take care of her Full code Cardiac diet/consistent carb with insulin and sliding scale Plan for today will dialyze today, follow nephrology's recommendations Attestations Medical Necessity Statement*: Patient requires hospitalization for fluid overload requiring dialysis, with history of angiogram no obstructive CAD and High MDM includes number and complexity of problems actively addressed during encounter, amount and/or complexity of data reviewed/ordered and described risk of complication, morbidity or mortality of management as documented Diagnoses Atrial fibrillation with rapid ventricular response I48.91 Hypertension I10 Hypertension type: primary hypertension Hypoxia R09.02 Pneumonitis J18.9 Lupus anticoagulant disorder D68.62 DJD (degenerative joint disease), lumbar M47.816 Diabetic neuropathy E11.40 CHF exacerbation I50.9 Acute respiratory failure with hypoxia J96.01 Pneumonia J18.9 Systolic CHF I50.20 Acute kidney injury superimposed on CKD N17.9; N18.9 Hypertensive urgency I16.0 Uremia N19 ARF (acute renal failure) N17.9
[2023-06-19 16:47] LABS: Glucose Point of Care 264 mg/dL (70-110)
[2023-06-19] MEDS: insulin lispro 100 unit/1 mL SUBCUT ×2 (17:48→21:50)
[2023-06-19] MEDS: isosorbide mononitrate ER 60 mg Tablet 120 MG PO (17:48)
[2023-06-19] MEDS: sennosides-docusate Tablet 1 TAB PO (17:48)
[2023-06-19] MEDS: magnesium oxide 400 mg tablet PO (17:48)
[2023-06-19] MEDS: carvedilol 12.5 mg Tablet PO (17:48)
[2023-06-19 21:32] LABS: Glucose Point of Care 214 mg/dL (70-110)
[2023-06-19] MEDS: trazodone 100 mg Tablet PO (21:48)
[2023-06-19] MEDS: guaiFENesin 600 mg Tablet 1200 MG PO (21:48)
[2023-06-20] VITALS (12 sets, daily range): BP systolic 152–180; BP diastolic 60–81; PULSE 61–79; RESP 13–27; TEMP 36.4–37.6; O2SAT 88–98; BMI 33.5
[2023-06-20] MEDS: acetaminophen 325 mg Tablet 650 MG PO ×3 (01:12→21:59)
[2023-06-20] MEDS: lidocaine 5% Patch 1 PATCH TOPICAL ×2 (01:22→22:02)
[2023-06-20 06:01] LABS: Hematocrit 35.8 % (36-47); Lymphocytes # 1.5 10^3/uL (0.8-4.8); Lymphocytes % 16.1 %; Mean Corpuscular HGB Conc 32.4 g/dL (30-55); Mean Corpuscular Hemoglobin 30.2 pg (27-33); Mean Corpuscular Volume 93.2 fl (85-98); Mean Platelet Volume 11.9 fL (7.4-10.4); Monocytes # 0.4 10^3/uL (0.2-0.9); Monocytes % 4.6 %; Neutrophils # 7.12 10^3/uL (1.8-7.7); Neutrophils % 78.3 %; Nucleated Red Blood Cells % 0 %; Platelet Count 189 10^3/cmm (157-399); Red Blood Count 3.84 10^6/uL (3.85-5.65); Red Cell Distribution Width 13.6 % (12.1-15.1); White Blood Count 9.09 10^3/uL (3.29-11.43)
[2023-06-20 06:37] LABS: Anion Gap 16.3 (5-19); Blood Urea Nitrogen 44 mg/dL (8-23); Carbon Dioxide 25 mmol/L (22-29); Chloride 99 mmol/L (98-107); Glucose 187 mg/dL (65-115); NT Pro B Type Natriuretic Pept 3633 pg/mL (0-450); Osmolality Calculated 296 mOsm/kg (285-295); Potassium 5.3 mmol/L (3.5-5.1); Sodium 135 mmol/L (136-145)
[2023-06-20 06:38] LABS: Magnesium 2.2 mg/dL (1.7-2.3); Phosphorus 4.4 mg/dL (2.5-4.5)
[2023-06-20 06:49] LABS: Glucose Point of Care 183 mg/dL (70-110)
[2023-06-20] MEDS: insulin lispro 100 unit/1 mL SUBCUT ×4 (07:56→21:47)
[2023-06-20] MEDS: guaiFENesin 600 mg Tablet 1200 MG PO ×2 (07:57→18:04)
[2023-06-20] MEDS: predniSONE 20 mg Tablet PO (07:58)
[2023-06-20] MEDS: levothyroxine 25 mcg Tablet PO (07:58)
[2023-06-20] MEDS: aspirin 81 mg EC Tablet PO (07:58)
[2023-06-20] MEDS: amiodarone 200 mg Tablet PO (07:58)
[2023-06-20] MEDS: magnesium oxide 400 mg tablet PO ×2 (07:59→18:04)
[2023-06-20] MEDS: pantoprazole 40 mg SDV IVP (08:00)
[2023-06-20] MEDS: carvedilol 12.5 mg Tablet PO ×2 (08:00→18:04)
[2023-06-20] MEDS: atorvastatin 40 mg Tablet PO (08:00)
[2023-06-20] MEDS: hyDRALAzine 50 mg Tablet PO ×3 (08:00→21:44)
[2023-06-20] MEDS: clopidogrel 75 mg Tablet PO (08:00)
[2023-06-20] MEDS: ropinirole 0.25 mg Tablet 0.5 MG PO (08:00)
[2023-06-20] MEDS: isosorbide mononitrate ER 60 mg Tablet 120 MG PO ×2 (08:00→18:04)
[2023-06-20] MEDS: insulin glargine 100 units/1 mL 8 UNIT SUBCUT (08:48)
[2023-06-20] MEDS: sennosides-docusate Tablet 1 TAB PO ×2 (09:48→18:04)
[2023-06-20] MEDS: sodium polystyrene sulfonate 15 gm/60 mL Btl PO (10:08)
[2023-06-20] MEDS: FUROsemide 10 mg/mL SDV 4mL 40 MG IVP (10:08)
[2023-06-20] MEDS: HYDROcodone-acetaminophen 10-325 mg Tablet 1 TAB PO (10:19)
--- NOTE | 2023-06-20 11:27 | PM.PN ---
Subjective Subjective: no new complaints Medications: Reviewed: Yes Vitals/I&O/Wt Last Vital Signs Temp 98.4 F 06/20/23 03:58 Pulse 69 06/20/23 08:58 Resp 17 06/20/23 08:58 BP 152/60 06/20/23 08:45 Pulse Ox 97 06/20/23 08:58 O2 Del Method Nasal Cannula 06/20/23 08:58 O2 Flow Rate 2 06/20/23 08:58 FiO2 2 06/11/23 08:00 06/19/23 06/20/23 06/20/23 22:59 06:59 14:59 Intake Total 720 / 1710 140 / 1850 400 / 400 Balance 720 / -849 140 / -709 400 / 400 Weight last 48 hrs Weight 75.296 kg Weight 74.6 kg Weight 75.931 kg Weight 75.2 kg Physical Exam Narrative: awake , alert No distress S1 S2 RRR Lungs clear candy per report + edema Urinary Catheter Management: Gibbs: Cath Placed During This Visit: yes Reason for Continuing Indwelling Catheter: Accurate Measurement of Urinary Output in Critically Ill Patients Urinary Catheter Date of Insertion: 06/09/23 Urinary Catheter Time of Insertion: 21:15 Data 06/20/23 05:26 06/20/23 04:00 A&P Assessment and plan (1) Acute kidney injury superimposed on CKD: Plan 1. Acute on chronic kidney disease stage III: Baseline creatinine in the 1.6-2 range. Most likely from hypertensive nephrosclerosis and possible prerenal. Now has creatinine of 3.7 after aggressive diuresis. If patient agrees to undergo left heart cath, renal function likely will get further worse and may end up on dialysis. -Continue 1500 mL fluid restriction and 2 g sodium restriction, -Patient agrees to hemodialysis if necessary - Agree with holding diuretics for now . on IV albumin. -Rs/p temporary catheter and inititated HD , s/p HD x 2 sessions - hold off further HD and assess for recovery 2. Hyperkalemia: Mild, potassium 5.3, low K diet advised, will give a dose of Kayexalate. 3. Hyponatremia:improved 4. Acute on chronic respiratory failure: On 2 L oxygen currently, status post aggressive diuresis 5. New onset A-fib with RVR 6. CAD - plan for [facility] Patient evaluated using audiovisual cart. Time spent 20 minutes. Attestations Medical Necessity Statement*: per medicine Coding Level of Care Code Acute Code for Chg Fwd Diagnoses Acute kidney injury superimposed on CKD N17.9; N18.9
[2023-06-20 11:55] LABS: Glucose Point of Care 261 mg/dL (70-110)
--- NOTE | 2023-06-20 16:25 | PM.PN ---
Subjective Subjective: Patient was seen this morning, she is sitting up in a chair, she ambulated with physical therapy, she is able to ambulate the antony in [facility], she denies any chest pain, no shortness of breath Vitals/I&O/Wt Last Vital Signs Temp 98.2 F 06/20/23 13:26 Pulse 69 06/20/23 13:26 Resp 22 H 06/20/23 13:26 BP 162/71 06/20/23 13:26 Pulse Ox 94 06/20/23 13:26 O2 Del Method Room Air 06/20/23 13:26 O2 Flow Rate 2 06/20/23 08:58 FiO2 2 06/11/23 08:00 06/20/23 06/20/23 06/20/23 06:59 14:59 22:59 Intake Total 140 / 1850 636 / 636 Output Total 300 / 300 Balance 140 / -709 336 / 336 Weight last 48 hrs Weight 75.296 kg Weight 74.6 kg Weight 75.931 kg Weight 75.2 kg Physical Exam Const: COMMON NORMALS: no acute distress and patient oriented x3 Neck/C-Spine: OTHER: right temporary dialsysis cath Resp: COMMON NORMALS: normal respiratory effort, No retractions, No use of accessory muscles and clear to auscultation bilaterally AUSCULTATION: clear to auscultation bilaterally Cardio: COMMON NORMALS: regular rate, regular rhythm, S1 normal heart sound present and S2 normal heart sound present RATE: regular rate RHYTHM: regular rhythm HEART SOUNDS: S1 normal heart sound present and S2 normal heart sound present GI: COMMON NORMALS: Normal to inspection, nondistended, normoactive bowel sounds present and non-tender Extremity: COMMON NORMALS: no pedal edema Neuro: COMMON NORMALS: patient oriented x3 Psych: COMMON NORMALS: mental status grossly normal Urinary Catheter Management: Gibbs: Cath Placed During This Visit: yes Reason for Continuing Indwelling Catheter: Accurate Measurement of Urinary Output in Critically Ill Patients Urinary Catheter Date of Insertion: 06/09/23 Urinary Catheter Time of Insertion: 21:15 Data 06/20/23 05:26 06/20/23 04:00 A&P Assessment and plan (1) Atrial fibrillation with rapid ventricular response: (2) Hypertension: Qualifiers: Hypertension type: primary hypertension Qualified Code(s): I10 - Essential (primary) hypertension (3) Hypoxia: (4) Pneumonitis: (5) Lupus anticoagulant disorder: (6) DJD (degenerative joint disease), lumbar: (7) Diabetic neuropathy: (8) CHF exacerbation: (9) Acute respiratory failure with hypoxia: (10) Pneumonia: (11) Systolic CHF: (12) Acute kidney injury superimposed on CKD: (13) Hypertensive urgency: (14) Uremia: (15) ARF (acute renal failure): Plan Uremia, acute renal failure -Consult nephrology -Control nausea, vomiting with Zofran and Reglan -Monitor mentation -Nephrology consulted, s/p dialysis cath placement, status post 2 sessions of dialysis ? Has had 2 sessions of dialysis has a temporary dialysis catheter in place, will watch renal function, watch for renal recovery ? Decision of converting into permanent dialysis catheter and discharging home versus removing temporary dialysis catheter based on kidney function, based on clinical progress Acute on chronic respiratory failure Multifactorial A-fib with RVR, fluid overload Diastolic CHF exacerbation COPD exacerbation Pneumonia CT scan showing 1. ? There is bronchiectasis with patchy mucous plugging and atelectasis right lower lobe. 2. ? There is also mild ground-glass and tree-in-bud opacities in the lungs compatible with mild pneumonitis. Possible pulmonary embolism with elevated D-dimer, cannot perform CT angiogram given creatinine Patient is afebrile Mild leukocytosis Request urine cultures and antigen At baseline requires 5 to 6 L of oxygen Patient has not seen any train reservation clerk however referral was given to the patient last year around this month she is an active smoker smokes 2 packs/day There was concern for thromboembolic phenomenon given elevated D-dimer, however venous ultrasound negative for DVT, felt to be unlikely Patient will stay on DuoNeb, steroids and Mucomyst in case of further Plan -Currently euvolemic -We will taper steroid therapy -Completed doxycycline therapy Pneumonia -With findings as above -Follow sputum culture, blood cultures -Completed antibiotic therapy Acute CHF exacerbation, BNP over 20,000 As below Non-STEMI: Patient stating that she is willing to go for angiogram if that is indicated at this point, Currently on ACS protocol with therapeutic Lovenox continue aspirin and Plavix No active chest pain Cardiac echo CONCLUSIONS ?The study is poor secondary to underlying COPD.? The patient has ?atrial fibrillation and an underlying left bundle branch block ?making sensitivity less.? The only view available for ?interpretation is the apical view.? In this view the apex is ?thinned and hypokinetic.? There is a large sigmoid septum.? The ?lateral wall appears to contract normally.? There is moderate ?reduction in left ventricular function.? A rough estimate of the ?ejection fraction is 35 to 40%.? Diastolic function cannot be ?determined due to the rhythm disturbance. ?Mildly increased left atrial size. ?Structurally normal mitral valve. Moderate mitral valve ?regurgitation. ?Aortic valve not well visualized. Mild aortic valve ?calcification. Mild aortic valve stenosis, mean gradient 7.3 ?mmHg, AYDIN 1.1 cm squared. ?From the previous echo done 04/07/2014, the decrease in left ?ventricular function is new.? The wall motion disturbances are ?new.? Mitral regurgitation appears worse.? Aortic stenosis is ?new however due to the poor quality of the exam I am not ?confident of the aortic valve calculations. -Cardiac stress test shows -?IMPRESSIONS ?1. Large sized reversible perfusion abnormality of moderate severity of mid to ?apical anterior, basal to mid anterolateral, basal to mid inferolateral, apical ?lateral, apical septal, apical inferior and apical hernandez. ?2. This is likely suggestive of ischemia in left anterior descending and ?circumflex artery territory. ?3. The left ventricular ejection fraction is mildly reduced with a value of ?42%. ?4. There is severe hypokinesis of mid to apical anterior and apical hernandez. ?There is mild hypokinesis of mid to apical inferior hernandez. ?5. EKG portion of the study will be reported separately. -Status post coronary angiography, no obstructive CAD Previous CABG 2013 She had a left internal mammary artery to the LAD, single vein graft to the diagonal and single vein graft to the right coronary artery.? In May 2015 she underwent coronary angiography for similar problems and the diagonal graft was occluded.? The right coronary artery graft was patent as was the left internal mammary artery.? Her [place] circumflex was stented.? This was not bypassed at the time of surgery due to its intramyocardial location New onset A-fib [id number] 5 Start Eliquis Previous EKG showed left bundle branch block Received 250 mcg of digoxin On amiodarone Hypertensive urgency, resolved Goals of care discussed with the patient: She is full code She is concerned about her who has Alzheimer's dementia, he is alone at home Patient stating that she would never go to a halfway because she wants to take care of her Full code Cardiac diet/consistent carb with insulin and sliding scale Plan for today'start Eliquis 5 mg twice daily, watch kidney function, up out of bed, decision of converting into permanent dialysis versus removing temporary dialysis catheter based on kidney function and nephrology consultation Attestations Medical Necessity Statement*: Requires hospitalization for acute renal failure, status post temporary dialysis decision of permanent dialysis versus temporary dialysis Diagnoses Atrial fibrillation with rapid ventricular response I48.91 Hypertension I10 Hypertension type: primary hypertension Hypoxia R09.02 Pneumonitis J18.9 Lupus anticoagulant disorder D68.62 DJD (degenerative joint disease), lumbar M47.816 Diabetic neuropathy E11.40 CHF exacerbation I50.9 Acute respiratory failure with hypoxia J96.01 Pneumonia J18.9 Systolic CHF I50.20 Acute kidney injury superimposed on CKD N17.9; N18.9 Hypertensive urgency I16.0 Uremia N19 ARF (acute renal failure) N17.9
[2023-06-20] MEDS: apixaban 5 mg Tablet PO (18:04)
[2023-06-20 18:25] LABS: Glucose Point of Care 145 mg/dL (70-110)
--- NOTE | 2023-06-20 20:06 | PM.PN ---
Subjective Subjective: s/p C yesterday with no intervention. Patent PADILLA to LAD and SVG to PDA and patent stents in LCx Medications: Reviewed: Yes Vitals/I&O/Wt Last Vital Signs Temp 98.7 F 06/20/23 19:34 Pulse 69 06/20/23 19:34 Resp 13 06/20/23 19:34 BP 171/68 06/20/23 19:34 Pulse Ox 92 06/20/23 19:34 O2 Del Method Room Air 06/20/23 16:00 O2 Flow Rate 2 06/20/23 08:58 FiO2 2 06/11/23 08:00 06/20/23 06/20/23 06/20/23 06:59 14:59 22:59 Intake Total 140 / 1850 636 / 636 360 / 996 Output Total 300 / 300 350 / 650 Balance 140 / -709 336 / 336 10 / 346 Weight last 48 hrs Weight 166 lb Weight 164 lb 7.437 oz Weight 167 lb 6.4 oz Physical Exam Narrative: GENERAL: Averagely built and averagely nourished in no acute distress HEENT: Extraocular movement intact. No pallor or icterus. NECK: central trachea, No JVD, No carotid bruit. CARDIOVASCULAR SYSTEM: S1-S2 regular. No murmur rubs or gallops. RESPIRATORY SYSTEM: Chest clear to auscultation. No wheezes rhonchi or rubs heard. No use of accessory muscles. ABDOMEN: Soft, nontender and nondistended. Normal bowel sounds present. EXTREMITIES: No cyanosis or edema. No signs of chronic venous insufficiency. SUPERINTENDENT TERMINAL: Patient is alert oriented ?3. No focal neurological deficits. Urinary Catheter Management: Gibbs: Cath Placed During This Visit: yes Reason for Continuing Indwelling Catheter: Other Urinary Catheter Date of Insertion: 06/09/23 Urinary Catheter Time of Insertion: 21:15 Data 06/21/23 05:49 06/21/23 07:59 A&P Assessment and plan (1) CHF exacerbation: HFrEF (LVEF=35-40%); new when compared to 2014 However,TDS study. apex appears thinned out which is not a sign of acute drop in LV function. Repeat study with echo contrast showing LV funtion to be 45-50% with severe hypokinesis of apical wall -cont. medical management; -Large area of reversible ischemia in lateral and apical hernandez on stress study. -continue medical management (2) Acute kidney injury superimposed on CKD: on dialysis (3) Atrial fibrillation with rapid ventricular response: Paroxysmal atrial fibrillation Now in SR on PO amiodarone and coreg Plan LBBB HTN : Elevated troponin 2/2 a, fib with RVR and decompensated CHF CAD s/p CABG x3(PADILLA-LAD, SVG-RCA and occluded SVG to diagonal) Carotid artery disease Hypothyroidism Dyslipidemia COPD on home oxygen Attestations Medical Necessity Statement*: needs hospital stay for renal failure Coding Level of Care Code 91555 Diagnoses CHF exacerbation I50.9 Acute kidney injury superimposed on CKD N17.9; N18.9 Atrial fibrillation with rapid ventricular response I48.91
[2023-06-20 21:06] LABS: Glucose Point of Care 231 mg/dL (70-110)
[2023-06-20] MEDS: zolpidem 5 mg Tablet PO (21:59)
[2023-06-21] VITALS (16 sets, daily range): BP systolic 161–214; BP diastolic 70–80; PULSE 63–72; RESP 12–20; TEMP 36.3–37; O2SAT 90–98; BMI 34.1
[2023-06-21] MEDS: HYDROcodone-acetaminophen 10-325 mg Tablet 1 TAB PO ×2 (03:02→17:58)
[2023-06-21] MEDS: morphine 4 mg/mL SDV 1 mL 2 MG IVP ×4 (03:24→21:30)
[2023-06-21] MEDS: apixaban 5 mg Tablet PO ×2 (06:12→21:29)
[2023-06-21 06:20] LABS: Glucose Point of Care 109 mg/dL (70-110)
[2023-06-21 06:20] LABS: Basophils % 0.1 %; Eosinophils # 0.1 10^3/uL (0.0-0.8); Eosinophils % 0.7 %; Lymphocytes # 3.6 10^3/uL (0.8-4.8); Lymphocytes % 27.6 %; Mean Corpuscular HGB Conc 32.5 g/dL (30-55); Mean Corpuscular Hemoglobin 29.8 pg (27-33); Mean Corpuscular Volume 91.8 fl (85-98); Mean Platelet Volume 13.1 fL (7.4-10.4); Monocytes # 1.3 10^3/uL (0.2-0.9); Monocytes % 9.7 %; Neutrophils # 7.84 10^3/uL (1.8-7.7); Nucleated Red Blood Cells % 0 %; Platelet Count 237 10^3/cmm (157-399); Red Blood Count 3.92 10^6/uL (3.85-5.65); Red Cell Distribution Width 13.6 % (12.1-15.1); White Blood Count 12.85 10^3/uL (3.29-11.43)
[2023-06-21] MEDS: aspirin 81 mg EC Tablet PO (08:30)
[2023-06-21] MEDS: hyDRALAzine 50 mg Tablet PO ×3 (08:31→21:29)
[2023-06-21] MEDS: magnesium oxide 400 mg tablet PO ×2 (08:31→17:37)
[2023-06-21] MEDS: isosorbide mononitrate ER 60 mg Tablet 120 MG PO ×2 (08:31→17:37)
[2023-06-21] MEDS: carvedilol 12.5 mg Tablet PO ×2 (08:31→17:37)
[2023-06-21] MEDS: pantoprazole 40 mg SDV IVP (08:31)
[2023-06-21] MEDS: atorvastatin 40 mg Tablet PO (08:31)
[2023-06-21] MEDS: amiodarone 200 mg Tablet PO (08:31)
[2023-06-21 08:33] LABS: Anion Gap 15.3 (5-19); Blood Urea Nitrogen 59 mg/dL (8-23); Calcium 9.5 mg/dL (8.5-10.5); Carbon Dioxide 27 mmol/L (22-29); Chloride 96 mmol/L (98-107); Glucose 128 mg/dL (65-115); Magnesium 2.1 mg/dL (1.7-2.3); Osmolality Calculated 294 mOsm/kg (285-295); Phosphorus 4.1 mg/dL (2.5-4.5); Potassium 5.3 mmol/L (3.5-5.1); Sodium 133 mmol/L (136-145)
[2023-06-21] MEDS: acetaminophen 325 mg Tablet 650 MG PO ×3 (08:48→21:29)
[2023-06-21] MEDS: sennosides-docusate Tablet 1 TAB PO ×2 (09:00→17:45)
[2023-06-21] MEDS: ipratropium-albuterol 3 mL Neb INHALATION (09:38)
--- NOTE | 2023-06-21 10:05 | PM.PN ---
Subjective Subjective: c/o SOB Medications: Reviewed: Yes Vitals/I&O/Wt Last Vital Signs Temp 98.5 F 06/21/23 07:45 Pulse 70 06/21/23 08:00 Resp 15 06/21/23 08:29 BP 202/80 06/21/23 08:00 Pulse Ox 98 06/21/23 08:29 O2 Del Method Nasal Cannula 06/21/23 08:00 O2 Flow Rate 3 06/21/23 08:00 FiO2 2 06/11/23 08:00 06/20/23 06/21/23 06/21/23 22:59 06:59 14:59 Intake Total 478 / 1114 120 / 1234 118 / 118 Output Total 450 / 750 300 / 300 Balance 120 / 484 -182 / -182 Weight last 48 hrs Weight 76.685 kg Weight 75.296 kg Weight 74.6 kg Physical Exam Narrative: awake , alert No distress S1 S2 RRR Lungs clear candy per report + edema Urinary Catheter Management: Gibbs: Cath Placed During This Visit: yes Reason for Continuing Indwelling Catheter: Accurate Measurement of Urinary Output in Critically Ill Patients Urinary Catheter Date of Insertion: 06/09/23 Urinary Catheter Time of Insertion: 21:15 Data 06/21/23 05:49 06/21/23 07:59 A&P Assessment and plan (1) Acute kidney injury superimposed on CKD: Plan 1. Acute on chronic kidney disease stage III: Baseline creatinine in the 1.6-2 range. Most likely from hypertensive nephrosclerosis and possible prerenal. Now has creatinine of 3.7 after aggressive diuresis. If patient agrees to undergo left heart cath, renal function likely will get further worse and may end up on dialysis. -Continue 1500 mL fluid restriction and 2 g sodium restriction, -Patient agrees to hemodialysis if necessary - Agree with holding diuretics for now . on IV albumin. -s/p temporary catheter and inititated HD , s/p HD x 2 sessions , C/O sob --> HD today - hold off further HD and assess for recovery 2. Hyperkalemia: Mild, potassium 5.3, low K diet advised, will give a dose of Kayexalate. 3. Hyponatremia:improved 4. Acute on chronic respiratory failure: On 2 L oxygen currently, status post aggressive diuresis 5. New onset A-fib with RVR 6. CAD - s/p LHC Patient evaluated using audiovisual cart. Time spent 20 minutes. Attestations Medical Necessity Statement*: per medicine Coding Level of Care Code Acute Code for Chg Fwd Diagnoses Acute kidney injury superimposed on CKD N17.9; N18.9
[2023-06-21] MEDS: guaiFENesin 600 mg Tablet 1200 MG PO ×2 (10:07→17:37)
[2023-06-21] MEDS: levothyroxine 25 mcg Tablet PO (10:08)
[2023-06-21] MEDS: predniSONE 20 mg Tablet PO (10:08)
[2023-06-21] MEDS: clopidogrel 75 mg Tablet PO (10:08)
[2023-06-21] MEDS: ropinirole 0.25 mg Tablet 0.5 MG PO (10:10)
[2023-06-21] MEDS: insulin glargine 100 units/1 mL 8 UNIT SUBCUT (10:13)
[2023-06-21] MEDS: heparin, porcine 1,000 unit/mL INJ 10 mL 1000 UNIT IV (11:45)
--- NOTE | 2023-06-21 11:51 | PC.NURSE ---
to dialysis room ushered pt to dialysis room.
[2023-06-21 12:07] LABS: Glucose Point of Care 146 mg/dL (70-110)
[2023-06-21] MEDS: hyDRALAzine 20 mg/mL INJ 1 mL 10 MG IVP (13:51)
--- NOTE | 2023-06-21 15:08 | P.PN_ITS ---
Subjective Subjective: Undergoing HD at the time of examination. Blood pressure systolic 216. Just received hydralazine following which blood pressure is down to 160 systolic. Complains of headache, likely secondary to elevated blood pressure. She has just received Tylenol, states that headache is improving but still persist. Medications: Reviewed: Yes Vitals/I&O/Wt Last Vital Signs Temp 98.4 F 06/21/23 11:54 Pulse 68 06/21/23 12:10 Resp 12 06/21/23 13:51 BP 194/77 06/21/23 12:10 Pulse Ox 90 06/21/23 13:51 O2 Del Method Nasal Cannula 06/21/23 12:10 O2 Flow Rate 3 06/21/23 12:10 FiO2 2 06/11/23 08:00 06/21/23 06/21/23 06/21/23 06:59 14:59 22:59 Intake Total 120 / 1234 118 / 118 Output Total 300 / 300 Balance 120 / 484 -182 / -182 Weight last 48 hrs Weight 76.685 kg Weight 75.296 kg Physical Exam Narrative: General: No acute distress, AO x3 HEENT: PERRLA, pupils bilaterally equal and reactive, pallors not present Chest: Normal vesicular breath sounds, no added sounds, equal good air entry bilaterally CVS: S1-S2 regular, no murmurs, no tachycardia, no gallops, no rubs Abdomen: Soft, nontender, no organomegaly, bowel sounds present Neuro: No focal deficits, no facial deformity, AO x3, power 5/5 in all limbs Urinary Catheter Management: Gibbs: Cath Placed During This Visit: yes Reason for Continuing Indwelling Catheter: Accurate Measurement of Urinary Output in Critically Ill Patients Urinary Catheter Date of Insertion: 06/09/23 Urinary Catheter Time of Insertion: 21:15 Data 06/21/23 05:49 06/21/23 07:59 A&P Assessment and plan (1) Atrial fibrillation with rapid ventricular response: (2) Hypertension: Qualifiers: Hypertension type: primary hypertension Qualified Code(s): I10 - Essential (primary) hypertension (3) Hypoxia: (4) Pneumonitis: (5) Lupus anticoagulant disorder: (6) DJD (degenerative joint disease), lumbar: (7) Diabetic neuropathy: (8) CHF exacerbation: (9) Acute respiratory failure with hypoxia: (10) Pneumonia: (11) Systolic CHF: (12) Acute kidney injury superimposed on CKD: (13) Hypertensive urgency: (14) Uremia: (15) ARF (acute renal failure): Plan Uremia, acute renal failure - appreciate nephrology consult -Control nausea, vomiting with Zofran and Reglan -Monitor mentation -Nephrology consulted, s/p dialysis cath placement, status post 2 sessions of dialysis - undergoing HD today ? Has had 2 sessions of dialysis has a temporary dialysis catheter in place, will watch renal function, watch for renal recovery ? Decision of converting into permanent dialysis catheter and discharging home versus removing temporary dialysis catheter based on kidney function, based on clinical progress Acute on chronic respiratory failure Multifactorial A-fib with RVR, fluid overload Diastolic CHF exacerbation COPD exacerbation Pneumonia CT scan showing 1. ? There is bronchiectasis with patchy mucous plugging and atelectasis right lower lobe. 2. ? There is also mild ground-glass and tree-in-bud opacities in the lungs compatible with mild pneumonitis. Possible pulmonary embolism with elevated D-dimer, cannot perform CT angiogram given creatinine Patient is afebrile Mild leukocytosis Request urine cultures and antigen At baseline requires 5 to 6 L of oxygen Patient has not seen any plate put in worker however referral was given to the patient last year around this month she is an active smoker smokes 2 packs/day There was concern for thromboembolic phenomenon given elevated D-dimer, however venous ultrasound negative for DVT, felt to be unlikely Patient will stay on DuoNeb, steroids and Mucomyst in case of further Plan -Currently euvolemic -We will taper steroid therapy -Completed doxycycline therapy Pneumonia -With findings as above -Follow sputum culture, blood cultures -Completed antibiotic therapy Acute CHF exacerbation, BNP over 20,000 As below Non-STEMI: Patient stating that she is willing to go for angiogram if that is indicated at this point, Currently on ACS protocol with therapeutic Lovenox continue aspirin and Plavix No active chest pain Cardiac echo CONCLUSIONS ?The study is poor secondary to underlying COPD.? The patient has ?atrial fibrillation and an underlying left bundle branch block ?making sensitivity less.? The only view available for ?interpretation is the apical view.? In this view the apex is ?thinned and hypokinetic.? There is a large sigmoid septum.? The ?lateral wall appears to contract normally.? There is moderate ?reduction in left ventricular function.? A rough estimate of the ?ejection fraction is 35 to 40%.? Diastolic function cannot be ?determined due to the rhythm disturbance. ?Mildly increased left atrial size. ?Structurally normal mitral valve. Moderate mitral valve ?regurgitation. ?Aortic valve not well visualized. Mild aortic valve ?calcification. Mild aortic valve stenosis, mean gradient 7.3 ?mmHg, AYDIN 1.1 cm squared. ?From the previous echo done 04/07/2014, the decrease in left ?ventricular function is new.? The wall motion disturbances are ?new.? Mitral regurgitation appears worse.? Aortic stenosis is ?new however due to the poor quality of the exam I am not ?confident of the aortic valve calculations. -Cardiac stress test shows -?IMPRESSIONS ?1. Large sized reversible perfusion abnormality of moderate severity of mid to ?apical anterior, basal to mid anterolateral, basal to mid inferolateral, apical ?lateral, apical septal, apical inferior and apical hernandez. ?2. This is likely suggestive of ischemia in left anterior descending and ?circumflex artery territory. ?3. The left ventricular ejection fraction is mildly reduced with a value of ?42%. ?4. There is severe hypokinesis of mid to apical anterior and apical hernandez. ?There is mild hypokinesis of mid to apical inferior hernandez. ?5. EKG portion of the study will be reported separately. -Status post coronary angiography, no obstructive CAD Previous CABG 2013 She had a left internal mammary artery to the LAD, single vein graft to the diagonal and single vein graft to the right coronary artery.? In May 2015 she underwent coronary angiography for similar problems and the diagonal graft was occluded.? The right coronary artery graft was patent as was the left internal mammary artery.? Her [place] circumflex was stented.? This was not bypassed at the time of surgery due to its intramyocardial location New onset A-fib [id number] 5 Start Eliquis Previous EKG showed left bundle branch block Received 250 mcg of digoxin On amiodarone Hypertensive urgency, resolved Goals of care discussed with the patient: She is full code She is concerned about her who has Alzheimer's dementia, he is alone at home Patient stating that she would never go to a senior living because she wants to take care of her Full code Cardiac diet/consistent carb with insulin and sliding scale Plan for today: HD session today, depending on clincial course to be decided regarding half-way HD. Persistently elevated BP 168-190 range, iv hydralazine given, add amlodipine 10 mg po daily Attestations Medical Necessity Statement*: HD today , optimize BP regimen Coding Level of Care Code Acute Code for Chg Fwd Diagnoses Atrial fibrillation with rapid ventricular response I48.91 Hypertension I10 Hypertension type: primary hypertension Hypoxia R09.02 Pneumonitis J18.9 Lupus anticoagulant disorder D68.62 DJD (degenerative joint disease), lumbar M47.816 Diabetic neuropathy E11.40 CHF exacerbation I50.9 Acute respiratory failure with hypoxia J96.01 Pneumonia J18.9 Systolic CHF I50.20 Acute kidney injury superimposed on CKD N17.9; N18.9 Hypertensive urgency I16.0 Uremia N19 ARF (acute renal failure) N17.9
--- NOTE | 2023-06-21 16:31 | PC.HD ---
After two hours' treatment, patient complained of a severe headache, stated pain was 12/10. Primary RN administered pain medication to patient. Upon completion of termination and transfer back to room, patient states her headache has improved.
--- NOTE | 2023-06-21 17:07 | PM.PN ---
Subjective Subjective: s/p LHC with no intervention. Patent PADILLA to LAD and SVG to PDA and patent stents in LCx Medications: Reviewed: Yes Vitals/I&O/Wt Last Vital Signs Temp 97.3 F L 06/21/23 16:28 Pulse 65 06/21/23 16:28 Resp 16 06/21/23 16:28 BP 174/80 06/21/23 16:28 Pulse Ox 90 06/21/23 13:51 O2 Del Method Nasal Cannula 06/21/23 12:10 O2 Flow Rate 3 06/21/23 12:10 FiO2 2 06/11/23 08:00 06/21/23 06/21/23 06/21/23 06:59 14:59 22:59 Intake Total 120 / 1234 472 / 472 300 / 772 Output Total 300 / 300 2800 / 3100 Balance 120 / 484 172 / 172 -2500 / -2328 Weight last 48 hrs Weight 153 lb 7.068 oz Weight 169 lb 1 oz Weight 166 lb Physical Exam Narrative: GENERAL: Averagely built and averagely nourished in no acute distress HEENT: Extraocular movement intact. No pallor or icterus. NECK: central trachea, No JVD, No carotid bruit. CARDIOVASCULAR SYSTEM: S1-S2 regular. No murmur rubs or gallops. RESPIRATORY SYSTEM: Chest clear to auscultation. No wheezes rhonchi or rubs heard. No use of accessory muscles. ABDOMEN: Soft, nontender and nondistended. Normal bowel sounds present. EXTREMITIES: No cyanosis or edema. No signs of chronic venous insufficiency. DISPOSAL MAN: Patient is alert oriented ?3. No focal neurological deficits. Urinary Catheter Management: Gibbs: Cath Placed During This Visit: yes Reason for Continuing Indwelling Catheter: Accurate Measurement of Urinary Output in Critically Ill Patients Urinary Catheter Date of Insertion: 06/09/23 Urinary Catheter Time of Insertion: 21:15 Data 06/21/23 05:49 06/21/23 07:59 A&P Assessment and plan (1) CHF exacerbation: HFrEF (LVEF=35-40%); new when compared to 2014 However,TDS study. apex appears thinned out which is not a sign of acute drop in LV function. Repeat study with echo contrast showing LV funtion to be 45-50% with severe hypokinesis of apical wall -cont. medical management; -Large area of reversible ischemia in lateral and apical hernandez on stress study. -continue medical management (2) Acute kidney injury superimposed on CKD: on dialysis UO 700 ml yesterday (3) Atrial fibrillation with rapid ventricular response: Paroxysmal atrial fibrillation Now in SR on PO amiodarone and coreg Plan LBBB HTN: now on amlodipine Elevated troponin 2/2 a, fib with RVR and decompensated CHF CAD s/p CABG x3(PADILLA-LAD, SVG-RCA and occluded SVG to diagonal) Carotid artery disease Hypothyroidism Dyslipidemia COPD on home oxygen Attestations Medical Necessity Statement*: As per primary team Coding Level of Care Code 64903 Diagnoses CHF exacerbation I50.9 Acute kidney injury superimposed on CKD N17.9; N18.9 Atrial fibrillation with rapid ventricular response I48.91
[2023-06-21] MEDS: insulin lispro 100 unit/1 mL SUBCUT ×2 (17:57→21:48)
[2023-06-21 17:58] LABS: Glucose Point of Care 341 mg/dL (70-110)
[2023-06-21 21:29] LABS: Glucose Point of Care 214 mg/dL (70-110)
[2023-06-21] MEDS: zolpidem 5 mg Tablet PO (21:29)
[2023-06-21] MEDS: lidocaine 5% Patch 1 PATCH TOPICAL (21:49)
[2023-06-22] VITALS (11 sets, daily range): BP systolic 134–194; BP diastolic 47–91; PULSE 58–79; RESP 17–26; TEMP 36.6–37; O2SAT 93–98
[2023-06-22] MEDS: hyDRALAzine 20 mg/mL INJ 1 mL 10 MG IVP ×4 (00:08→11:37)
[2023-06-22] MEDS: morphine 4 mg/mL SDV 1 mL 2 MG IVP (03:10)
[2023-06-22] MEDS: acetaminophen 325 mg Tablet 650 MG PO ×2 (03:41→09:15)
[2023-06-22 04:13] LABS: Basophils % 0.2 %; Eosinophils # 0.2 10^3/uL (0.0-0.8); Eosinophils % 1.2 %; Hematocrit 35.3 % (36-47); Lymphocytes # 3.6 10^3/uL (0.8-4.8); Lymphocytes % 28.5 %; Mean Corpuscular HGB Conc 31.7 g/dL (30-55); Mean Corpuscular Hemoglobin 29.6 pg (27-33); Mean Corpuscular Volume 93.1 fl (85-98); Mean Platelet Volume 12.7 fL (7.4-10.4); Monocytes # 1.4 10^3/uL (0.2-0.9); Monocytes % 10.8 %; Neutrophils # 7.31 10^3/uL (1.8-7.7); Neutrophils % 58.7 %; Nucleated Red Blood Cells % 0 %; Platelet Count 185 10^3/cmm (157-399); Red Blood Count 3.79 10^6/uL (3.85-5.65); Red Cell Distribution Width 13.6 % (12.1-15.1); White Blood Count 12.46 10^3/uL (3.29-11.43)
--- NOTE | 2023-06-22 04:31 | PC.NURSE ---
Patient SBP was 189/71, Dr. smith was notified and gave orders to give PRN hydralazine 10mg now.
[2023-06-22 04:40] LABS: Blood Urea Nitrogen 42 mg/dL (8-23); Carbon Dioxide 25 mmol/L (22-29); Chloride 101 mmol/L (98-107); Glucose 80 mg/dL (65-115); Osmolality Calculated 291 mOsm/kg (285-295); Sodium 136 mmol/L (136-145)
[2023-06-22 04:41] LABS: Phosphorus 3.3 mg/dL (2.5-4.5)
[2023-06-22 04:48] LABS: Anion Gap 15.2 (5-19); Potassium 5.2 mmol/L (3.5-5.1)
[2023-06-22 06:20] LABS: Glucose Point of Care 105 mg/dL (70-110)
[2023-06-22] MEDS: apixaban 5 mg Tablet PO ×2 (06:26→17:05)
[2023-06-22] MEDS: insulin glargine 100 units/1 mL 8 UNIT SUBCUT (08:57)
[2023-06-22] MEDS: aspirin 81 mg EC Tablet PO (08:59)
[2023-06-22] MEDS: carvedilol 12.5 mg Tablet PO ×2 (08:59→17:05)
[2023-06-22] MEDS: predniSONE 20 mg Tablet PO (08:59)
[2023-06-22] MEDS: magnesium oxide 400 mg tablet PO ×2 (08:59→17:05)
[2023-06-22] MEDS: hyDRALAzine 50 mg Tablet PO (08:59)
[2023-06-22] MEDS: amlodipine 10 mg Tablet PO (08:59)
[2023-06-22] MEDS: atorvastatin 40 mg Tablet PO (09:00)
[2023-06-22] MEDS: isosorbide mononitrate ER 60 mg Tablet 120 MG PO ×2 (09:00→17:05)
[2023-06-22] MEDS: levothyroxine 25 mcg Tablet PO (09:01)
[2023-06-22] MEDS: ropinirole 0.25 mg Tablet 0.5 MG PO (09:01)
[2023-06-22] MEDS: amiodarone 200 mg Tablet PO (09:01)
[2023-06-22] MEDS: guaiFENesin 600 mg Tablet 1200 MG PO ×2 (09:02→17:05)
[2023-06-22] MEDS: pantoprazole 40 mg SDV IVP (09:02)
[2023-06-22] MEDS: HYDROcodone-acetaminophen 10-325 mg Tablet 1 TAB PO (10:23)
--- NOTE | 2023-06-22 10:37 | PC.SOCIAL ---
IMM Update: IMM page 2 updated. Patient provided a copy. Signed copy in pt chart. [id number]
[2023-06-22 11:15] LABS: Glucose Point of Care 182 mg/dL (70-110)
--- NOTE | 2023-06-22 11:21 | XRR_ITS ---
PROCEDURE INFORMATION: Exam: XR Chest Exam date and time: 06/22/2023 11:45 AM Age: 77 years old Clinical indication: Shortness of breath; Prior surgery; Surgery date: 6+ months; Surgery type: Open heart; Additional info: SOB TECHNIQUE: Imaging protocol: Radiologic exam of the chest. Views: 1 view. COMPARISON: CR XR chest 1V portable [id number] 06/18/2023 1:24 PM FINDINGS: Tubes, catheters and devices: There is a right-sided central line whose tip terminates at the cavoatrial junction unchanged. Lungs: There is bilateral lower lobe consolidation likely in part secondary to atelectasis progressed from earlier examination. Upper lung zones remain clear. Pleural spaces: Unremarkable. No pleural effusion. No pneumothorax. Heart/Mediastinum: Heart is mildly enlarged, unchanged. Evidence of prior CABG. Bones/joints: Prior median sternotomy. No acute bony abnormalities. XR/XR chest 1V portable [id number] IMPRESSION: Mild cardiomegaly with progressive bibasilar consolidation likely in part secondary to atelectasis.
--- NOTE | 2023-06-22 11:36 | PM.PN ---
Subjective Subjective: BP elevated c/p CXR Medications: Reviewed: Yes Vitals/I&O/Wt Last Vital Signs Temp 98.3 F 06/22/23 07:42 Pulse 71 06/22/23 08:00 Resp 18 06/22/23 08:00 BP 194/72 06/22/23 07:42 Pulse Ox 98 06/22/23 08:00 O2 Del Method Nasal Cannula 06/22/23 08:00 O2 Flow Rate 2 06/22/23 08:00 FiO2 2 06/11/23 08:00 06/21/23 06/22/23 06/22/23 22:59 06:59 14:59 Intake Total 900 / 1372 300 / 1672 360 / 360 Output Total 3050 / 3350 150 / 3500 Balance -2149 / -1977 150 / -1828 360 / 360 Weight last 48 hrs Weight 72.62 kg Weight 69.6 kg Weight 76.685 kg Physical Exam Narrative: awake , alert No distress S1 S2 RRR Crackles candy per report + edema Urinary Catheter Management: Gibbs: Cath Placed During This Visit: yes Reason for Continuing Indwelling Catheter: Accurate Measurement of Urinary Output in Critically Ill Patients Urinary Catheter Date of Insertion: 06/09/23 Urinary Catheter Time of Insertion: 21:15 Data 06/22/23 03:30 06/22/23 03:30 A&P Assessment and plan (1) Acute kidney injury superimposed on CKD: Plan 1. Acute on chronic kidney disease stage III: Baseline creatinine in the 1.6-2 range. Most likely from hypertensive nephrosclerosis and possible prerenal. Now has creatinine of 3.7 after aggressive diuresis. If patient agrees to undergo left heart cath, renal function likely will get further worse and may end up on dialysis. -Continue 1500 mL fluid restriction and 2 g sodium restriction, -Patient agrees to hemodialysis if necessary - Agree with holding diuretics for now . on IV albumin. -s/p temporary catheter and inititated HD , s/p HD yesterday , check CXR ,may consider repeat HD today - hold off further HD and assess for recovery 2. Hyperkalemia: Mild, potassium 5.2, low K diet advised, 3. Hyponatremia:improved 4. Acute on chronic respiratory failure: On 2 L oxygen currently, status post aggressive diuresis 5. New onset A-fib with RVR 6. CAD - s/p LHC 7. htn : BP elevated , titrating oral meds Patient evaluated using audiovisual cart. Time spent 20 minutes. Attestations Medical Necessity Statement*: per medicine Coding Level of Care Code Acute Code for Chg Fwd Diagnoses Acute kidney injury superimposed on CKD N17.9; N18.9
[2023-06-22] MEDS: FUROsemide 10 mg/mL SDV 10mL 60 MG IVP (11:37)
--- NOTE | 2023-06-22 13:24 | P.PN_ITS ---
Subjective Subjective: Nursing reports continued elevation of BP today. Received Dialysis yesterday. Denies pain at this time. Vitals/I&O/Wt Last Vital Signs Temp 98.3 F 06/22/23 11:47 Pulse 65 06/22/23 11:47 Resp 23 H 06/22/23 11:47 BP 161/66 06/22/23 11:47 Pulse Ox 93 06/22/23 11:47 O2 Del Method Nasal Cannula 06/22/23 11:47 O2 Flow Rate 2 06/22/23 08:00 FiO2 2 06/11/23 08:00 06/21/23 06/22/23 06/22/23 22:59 06:59 14:59 Intake Total 900 / 1372 300 / 1672 360 / 360 Output Total 3050 / 3350 150 / 3500 Balance -2149 / -1977 150 / -1828 360 / 360 Weight last 48 hrs Weight 160 lb 1.6 oz Weight 153 lb 7.068 oz Weight 169 lb 1 oz Physical Exam Narrative: General: Cooperative patient in no apparent distress. Well developed. HEENT: Normocephalic, Atraumatic. External ears normal. Nasal passages patent without drainage. MMM. Central catheter in place and secured. Heart: Irregular rhythm, HR is 60's. Resp: Bibasilar rales. No respiratory distress, no use of accessory muscles. NC in place. Abd: Soft, non-tender. Non-distended. Extremities: No edema. Skin: No rash or lesions on exposed areas. Neuro: No focal motor or sensory loss. Gait is normal. Urinary Catheter Management: Gibbs: Cath Placed During This Visit: yes Reason for Continuing Indwelling Catheter: Accurate Measurement of Urinary Output in Critically Ill Patients Urinary Catheter Date of Insertion: 06/09/23 Urinary Catheter Time of Insertion: 21:15 Data 06/22/23 03:30 06/22/23 03:30 A&P Assessment and plan (1) Atrial fibrillation with rapid ventricular response: (2) Hypertension: Qualifiers: Hypertension type: primary hypertension Qualified Code(s): I10 - Essential (primary) hypertension (3) Hypoxia: (4) Pneumonitis: (5) Lupus anticoagulant disorder: (6) DJD (degenerative joint disease), lumbar: (7) Diabetic neuropathy: (8) CHF exacerbation: (9) Acute respiratory failure with hypoxia: (10) Pneumonia: (11) Systolic CHF: (12) Acute kidney injury superimposed on CKD: (13) Hypertensive urgency: (14) Uremia: (15) ARF (acute renal failure): Plan 77 y/o F admitted for uremia, ARF, Afib w/ RVR, PNA, HFpEF, Continue close inpatient monitoring. Received Dialysis yesterday, total of 3 sessions so far. Nephrology and cards consulted. Appreciate their recommendations and assist with care of this patient. Recheck renal function in A.M. Consider permanent dialysis catheter if renal function does not improve. Continue anti-emetics. She is on oxygen at baseline for COPD. Generally 5-6L. Sats are currently holding. Current tobacco user. May need nicotine patch. Continue RAAT, DuoNeb, steroids and Mucomyst in case of further Cultures are pending and currently negative to date. BNP elevated to 3633, [place] [address]. Non-STEMI: Patient ok with angiogram if able. Continue ACS protocol with asa, Plavix. Currently on eliquis. EF: 35-40%. Cardiology consulted. Continue amiodorone for A-fib. Will switch to eliquis when able. BP remains elevated. titrating up on meds. IV hydralazine push. Can consider drip if continued elevations in pressure. Code Status: Full IVF: none DVT PPx: Eliquis GI PPx: Protonix. ABx: Completed course. Titrating off prednisone. Diet: Renal Discharge plan: TBD. 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 Will discuss with case management and discharge planning. Attestations Medical Necessity Statement*: Requires hospitalization for acute renal failure, status post temporary dialysis decision of permanent dialysis versus temporary dialysis Coding Level of Care Code Acute Code for Chg Fwd High MDM includes number and complexity of problems actively addressed during encounter, amount and/or complexity of data reviewed/ordered and described risk of complication, morbidity or mortality of management as documented Diagnoses Atrial fibrillation with rapid ventricular response I48.91 Hypertension I10 Hypertension type: primary hypertension Hypoxia R09.02 Pneumonitis J18.9 Lupus anticoagulant disorder D68.62 DJD (degenerative joint disease), lumbar M47.816 Diabetic neuropathy E11.40 CHF exacerbation I50.9 Acute respiratory failure with hypoxia J96.01 Pneumonia J18.9 Systolic CHF I50.20 Acute kidney injury superimposed on CKD N17.9; N18.9 Hypertensive urgency I16.0 Uremia N19 ARF (acute renal failure) N17.9
[2023-06-22] MEDS: hyDRALAzine 50 mg Tablet 100 MG PO ×2 (16:26→20:30)
[2023-06-22 16:41] LABS: Glucose Point of Care 306 mg/dL (70-110)
[2023-06-22] MEDS: insulin lispro 100 unit/1 mL SUBCUT ×2 (17:04→21:52)
[2023-06-22 21:09] LABS: Glucose Point of Care 165 mg/dL (70-110)
[2023-06-22] MEDS: zolpidem 5 mg Tablet PO (23:27)
[2023-06-23] VITALS (11 sets, daily range): BP systolic 150–196; BP diastolic 61–78; PULSE 60–69; RESP 16–25; TEMP 36.5–37; O2SAT 93–97
--- NOTE | 2023-06-23 00:37 | PM.PN ---
Subjective Subjective: c/o SOB, No CP No events on telemetry Medications: Reviewed: Yes Vitals/I&O/Wt Last Vital Signs Temp 97.7 F 06/23/23 00:00 Pulse 68 06/23/23 00:00 Resp 24 H 06/23/23 00:00 BP 169/64 06/23/23 00:00 Pulse Ox 96 06/23/23 00:00 O2 Del Method Nasal Cannula 06/23/23 00:00 O2 Flow Rate 2 06/22/23 20:00 FiO2 2 06/11/23 08:00 06/22/23 06/22/23 06/23/23 14:59 22:59 06:59 Intake Total 360 / 360 393 / 753 Output Total 1000 / 1000 Balance 360 / 360 -607 / -247 Weight last 48 hrs Weight 160 lb 1.6 oz Weight 153 lb 7.068 oz Weight 169 lb 1 oz Physical Exam Narrative: GENERAL: Averagely built and averagely nourished in no acute distress HEENT: Extraocular movement intact. No pallor or icterus. NECK: central trachea, No JVD, No carotid bruit. CARDIOVASCULAR SYSTEM: S1-S2 regular. No murmur rubs or gallops. RESPIRATORY SYSTEM: Chest clear to auscultation. No wheezes rhonchi or rubs heard. No use of accessory muscles. ABDOMEN: Soft, nontender and nondistended. Normal bowel sounds present. EXTREMITIES: No cyanosis or edema. No signs of chronic venous insufficiency. 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 No focal neurological deficits. Urinary Catheter Management: Gibbs: Cath Placed During This Visit: yes Reason for Continuing Indwelling Catheter: Accurate Measurement of Urinary Output in Critically Ill Patients Urinary Catheter Date of Insertion: 06/09/23 Urinary Catheter Time of Insertion: 21:15 Data 06/22/23 03:30 06/22/23 03:30 A&P Assessment and plan (1) CHF exacerbation: HFrEF (LVEF=35-40%); new when compared to 2013 However,TDS study. apex appears thinned out which is not a sign of acute drop in LV function. Repeat study with echo contrast showing LV funtion to be 45-50% with severe hypokinesis of apical wall -cont. medical management; -Large area of reversible ischemia in lateral and apical hernandez on stress study and patent stents and 2 bypass grafts. One graft chronically occluded on [facility]. -continue medical management (2) Acute kidney injury superimposed on CKD: on dialysis (3) Atrial fibrillation with rapid ventricular response: Paroxysmal atrial fibrillation Now in SR on PO amiodarone and coreg Plan LBBB HTN: now on amlodipine and hydralazine again Elevated troponin 2/2 a, fib with RVR and decompensated CHF CAD s/p CABG x3(PADILLA-LAD, SVG-RCA and occluded SVG to diagonal) Carotid artery disease Hypothyroidism Dyslipidemia COPD on home oxygen Attestations Medical Necessity Statement*: As per primary team Coding Level of Care Code 88467 Diagnoses CHF exacerbation I50.9 Acute kidney injury superimposed on CKD N17.9; N18.9 Atrial fibrillation with rapid ventricular response I48.91
[2023-06-23 04:04] LABS: Basophils % 0.2 %; Eosinophils # 0.1 10^3/uL (0.0-0.8); Eosinophils % 0.6 %; Hematocrit 36.4 % (36-47); Lymphocytes # 3.4 10^3/uL (0.8-4.8); Lymphocytes % 26.9 %; Mean Corpuscular HGB Conc 32.4 g/dL (30-55); Mean Corpuscular Hemoglobin 30.1 pg (27-33); Mean Corpuscular Volume 92.9 fl (85-98); Mean Platelet Volume 12.1 fL (7.4-10.4); Monocytes % 7.9 %; Neutrophils # 8.04 10^3/uL (1.8-7.7); Neutrophils % 63.8 %; Nucleated Red Blood Cells % 0 %; Platelet Count 190 10^3/cmm (157-399); Red Blood Count 3.92 10^6/uL (3.85-5.65); Red Cell Distribution Width 13.6 % (12.1-15.1); White Blood Count 12.59 10^3/uL (3.29-11.43)
[2023-06-23 04:31] LABS: Alanine Aminotransferase 12 U/L (0-33); Albumin Level 3.5 g/dL (3.5-5.2); Alkaline Phosphatase 54 U/L (35-105); Anion Gap 14.1 (5-19); Aspartate Amino Transferase 9 U/L (0-32); Blood Urea Nitrogen 53 mg/dL (8-23); Calcium 9.2 mg/dL (8.5-10.5); Carbon Dioxide 26 mmol/L (22-29); Chloride 97 mmol/L (98-107); Globulin 2.3 g/dL (1.3-4.6); Glucose 139 mg/dL (65-115); Magnesium 2.1 mg/dL (1.7-2.3); NT Pro B Type Natriuretic Pept 3917 pg/mL (0-450); Osmolality Calculated 293 mOsm/kg (285-295); Potassium 4.1 mmol/L (3.5-5.1); Sodium 133 mmol/L (136-145); Total Bilirubin 0.3 mg/dL (0.15-1.2); Total Protein 5.8 g/dL (6.6-8.7)
[2023-06-23] MEDS: apixaban 5 mg Tablet PO ×2 (05:47→17:14)
[2023-06-23] MEDS: trazodone 100 mg Tablet PO (05:59)
[2023-06-23 06:15] LABS: Glucose Point of Care 129 mg/dL (70-110)
[2023-06-23] MEDS: hyDRALAzine 50 mg Tablet 100 MG PO ×3 (08:56→20:27)
[2023-06-23] MEDS: ropinirole 0.25 mg Tablet 0.5 MG PO (08:56)
[2023-06-23] MEDS: levothyroxine 25 mcg Tablet PO (08:56)
[2023-06-23] MEDS: sennosides-docusate Tablet 1 TAB PO ×2 (08:56→17:13)
[2023-06-23] MEDS: atorvastatin 40 mg Tablet PO (08:57)
[2023-06-23] MEDS: isosorbide mononitrate ER 60 mg Tablet 120 MG PO ×2 (08:57→17:13)
[2023-06-23] MEDS: predniSONE 20 mg Tablet PO (08:57)
[2023-06-23] MEDS: aspirin 81 mg EC Tablet PO (08:57)
[2023-06-23] MEDS: magnesium oxide 400 mg tablet PO ×2 (08:57→17:13)
[2023-06-23] MEDS: guaiFENesin 600 mg Tablet 1200 MG PO ×2 (08:57→17:14)
[2023-06-23] MEDS: amlodipine 10 mg Tablet PO (08:58)
[2023-06-23] MEDS: amiodarone 200 mg Tablet PO (08:58)
[2023-06-23] MEDS: pantoprazole 40 mg SDV IVP (08:58)
[2023-06-23] MEDS: carvedilol 12.5 mg Tablet PO ×2 (09:35→17:14)
[2023-06-23] MEDS: insulin glargine 100 units/1 mL 8 UNIT SUBCUT (09:36)
--- NOTE | 2023-06-23 10:39 | PM.PN ---
Subjective Subjective: UOP improved Medications: Reviewed: Yes Vitals/I&O/Wt Last Vital Signs Temp 98.6 F 06/23/23 08:00 Pulse 69 06/23/23 08:00 Resp 17 06/23/23 08:00 BP 196/75 06/23/23 08:00 Pulse Ox 97 06/23/23 07:52 O2 Del Method Nasal Cannula 06/23/23 07:52 O2 Flow Rate 2 06/23/23 07:52 FiO2 2 06/11/23 08:00 06/22/23 06/23/23 06/23/23 22:59 06:59 14:59 Intake Total 393 / 753 300 / 1053 220 / 220 Output Total 1000 / 1000 200 / 1200 100 / 100 Balance -607 / -247 100 / -147 120 / 120 Weight last 48 hrs Weight 70.851 kg Weight 72.62 kg Weight 69.6 kg Physical Exam Narrative: awake , alert No distress S1 S2 RRR Crackles candy per report + edema Urinary Catheter Management: Gibbs: Cath Placed During This Visit: yes Reason for Continuing Indwelling Catheter: Accurate Measurement of Urinary Output in Critically Ill Patients Urinary Catheter Date of Insertion: 06/09/23 Urinary Catheter Time of Insertion: 21:15 Data 06/23/23 03:42 06/23/23 03:42 A&P Assessment and plan (1) Acute kidney injury superimposed on CKD: Plan 1. Acute on chronic kidney disease stage III: Baseline creatinine in the 1.6-2 range. Most likely from hypertensive nephrosclerosis and possible prerenal. Now has creatinine of 3.7 after aggressive diuresis. If patient agrees to undergo left heart cath, renal function likely will get further worse and may end up on dialysis. -Continue 1500 mL fluid restriction and 2 g sodium restriction, -Patient agrees to hemodialysis if necessary -s/p temporary catheter and inititated HD , s/p HD , UOP picked up , monitor - hold off further HD and assess for recovery - resume diuretics 2. Hyperkalemia: Mild, potassium 5.2, low K diet advised, 3. Hyponatremia:improved 4. Acute on chronic respiratory failure: On 2 L oxygen currently, status post aggressive diuresis 5. New onset A-fib with RVR 6. CAD - s/p LHC 7. htn : BP elevated , titrating oral meds Patient evaluated using audiovisual cart. Time spent 20 minutes. Attestations Medical Necessity Statement*: per medicine Coding Level of Care Code Acute Code for Chg Fwd Diagnoses Acute kidney injury superimposed on CKD N17.9; N18.9
[2023-06-23] MEDS: lidocaine 5% Patch 1 PATCH TOPICAL (10:45)
[2023-06-23] MEDS: FUROsemide 10 mg/mL SDV 4mL 40 MG IVP ×2 (11:19→22:03)
[2023-06-23 11:37] LABS: Glucose Point of Care 222 mg/dL (70-110)
[2023-06-23] MEDS: insulin lispro 100 unit/1 mL SUBCUT ×3 (11:56→20:59)
--- NOTE | 2023-06-23 13:20 | PM.PN ---
Subjective Subjective: Notified that patient's and dog were found in the home today. Patient states she is doing ok with this news, but says she has a lot to think about and take care of. She denies cp or dyspnea at this time. Reports that she is wanting to get setup with dialysis prior to discharge. Vitals/I&O/Wt Last Vital Signs Temp 98.6 F 06/23/23 08:00 Pulse 61 06/23/23 12:00 Resp 22 H 06/23/23 12:00 BP 152/66 06/23/23 12:00 Pulse Ox 93 06/23/23 12:00 O2 Del Method Nasal Cannula 06/23/23 12:00 O2 Flow Rate 2 06/23/23 12:00 FiO2 2 06/11/23 08:00 06/22/23 06/23/23 06/23/23 22:59 06:59 14:59 Intake Total 393 / 753 300 / 1053 340 / 340 Output Total 1000 / 1000 200 / 1200 100 / 100 Balance -607 / -247 100 / -147 240 / 240 Weight last 48 hrs Weight 156 lb 3.2 oz Weight 160 lb 1.6 oz Weight 153 lb 7.068 oz Physical Exam Narrative: General: Cooperative patient in no apparent distress. Well developed. HEENT: Normocephalic, Atraumatic. External ears normal. Nasal passages patent without drainage. MMM. Central catheter in place and secured. Heart: Irregular rhythm, HR is 60's. Resp: Bibasilar rales. No respiratory distress, no use of accessory muscles. NC in place. Abd: Soft, non-tender. Non-distended. Extremities: No edema. Skin: No rash or lesions on exposed areas. Neuro: No focal motor or sensory loss. Gait is normal. Urinary Catheter Management: Gibbs: Cath Placed During This Visit: yes Reason for Continuing Indwelling Catheter: Accurate Measurement of Urinary Output in Critically Ill Patients Urinary Catheter Date of Insertion: 06/09/23 Urinary Catheter Time of Insertion: 21:15 Data 06/23/23 03:42 06/23/23 03:42 A&P Assessment and plan (1) Atrial fibrillation with rapid ventricular response: (2) Hypertension: Qualifiers: Hypertension type: primary hypertension Qualified Code(s): I10 - Essential (primary) hypertension (3) Hypoxia: (4) Pneumonitis: (5) Lupus anticoagulant disorder: (6) DJD (degenerative joint disease), lumbar: (7) Diabetic neuropathy: (8) CHF exacerbation: (9) Acute respiratory failure with hypoxia: (10) Pneumonia: (11) Systolic CHF: (12) Acute kidney injury superimposed on CKD: (13) Hypertensive urgency: (14) Uremia: (15) ARF (acute renal failure): Plan 77 y/o F admitted for uremia, ARF, Afib w/ RVR, PNA, HFpEF, Continue close inpatient monitoring. Received Dialysis yesterday, total of 3 sessions so far. Nephrology and cards consulted. Appreciate their recommendations and assist with care of this patient. Recheck renal function in A.M. BP still elevated. on Amlodipine and Hydralazine. Continue to monitor and may need to adjust meds to manage. Consider permanent dialysis catheter if renal function does not improve. Continue anti-emetics. Titrate off prednisone. Will stop after tomorrows dose if exam is clear vs. titrate down to 10mg. She is on oxygen at baseline for COPD. Generally 5-6L. Sats are currently holding. Current tobacco user. May need nicotine patch. Continue RAAT, DuoNeb, steroids and Mucomyst in case of further Cultures are pending and currently negative to date. Non-STEMI: Patient ok with angiogram if able and when stable. Continue ACS protocol with asa, Plavix. Currently on eliquis. EF: 35-40%. Cardiology consulted. Continue amiodorone for A-fib. Will switch to eliquis when able. BP remains elevated. titrating up on meds. IV hydralazine push. Can consider drip if continued elevations in pressure. Code Status: Full IVF: none DVT PPx: Eliquis GI PPx: Protonix. ABx: Completed course. Diet: Renal Discharge plan: TBD. Nephrology to arrange for LT dialysis if appropriate. Attestations Medical Necessity Statement*: Requires hospitalization for acute renal failure, status post temporary dialysis decision of permanent dialysis versus temporary dialysis Coding Level of Care Code Acute Code for Chg Fwd High MDM includes number and complexity of problems actively addressed during encounter, amount and/or complexity of data reviewed/ordered and described risk of complication, morbidity or mortality of management as documented Diagnoses Atrial fibrillation with rapid ventricular response I48.91 Hypertension I10 Hypertension type: primary hypertension Hypoxia R09.02 Pneumonitis J18.9 Lupus anticoagulant disorder D68.62 DJD (degenerative joint disease), lumbar M47.816 Diabetic neuropathy E11.40 CHF exacerbation I50.9 Acute respiratory failure with hypoxia J96.01 Pneumonia J18.9 Systolic CHF I50.20 Acute kidney injury superimposed on CKD N17.9; N18.9 Hypertensive urgency I16.0 Uremia N19 ARF (acute renal failure) N17.9
[2023-06-23 17:10] LABS: Glucose Point of Care 185 mg/dL (70-110)
[2023-06-23 20:51] LABS: Glucose Point of Care 310 mg/dL (70-110)
[2023-06-24] VITALS (13 sets, daily range): BP systolic 151–182; BP diastolic 59–74; PULSE 65–89; RESP 16–27; TEMP 36.5–37.1; O2SAT 92–97
[2023-06-24] MEDS: zolpidem 5 mg Tablet PO (01:13)
[2023-06-24] MEDS: acetaminophen 325 mg Tablet 650 MG PO ×2 (04:21→23:40)
[2023-06-24] MEDS: apixaban 5 mg Tablet PO ×2 (05:57→18:14)
[2023-06-24 06:27] LABS: Glucose Point of Care 115 mg/dL (70-110)
[2023-06-24] MEDS: amiodarone 200 mg Tablet PO (09:28)
[2023-06-24] MEDS: carvedilol 12.5 mg Tablet PO ×2 (09:29→18:14)
[2023-06-24] MEDS: ropinirole 0.25 mg Tablet 0.5 MG PO (09:29)
[2023-06-24] MEDS: aspirin 81 mg EC Tablet PO (09:29)
[2023-06-24] MEDS: levothyroxine 25 mcg Tablet PO (09:29)
[2023-06-24] MEDS: amlodipine 10 mg Tablet PO (09:29)
[2023-06-24] MEDS: magnesium oxide 400 mg tablet PO ×2 (09:29→18:14)
[2023-06-24] MEDS: predniSONE 20 mg Tablet PO (09:29)
[2023-06-24] MEDS: atorvastatin 40 mg Tablet PO (09:29)
[2023-06-24] MEDS: pantoprazole 40 mg SDV IVP (09:30)
[2023-06-24] MEDS: hyDRALAzine 50 mg Tablet 100 MG PO ×3 (09:30→20:44)
[2023-06-24] MEDS: guaiFENesin 600 mg Tablet 1200 MG PO ×2 (09:30→18:14)
[2023-06-24] MEDS: isosorbide mononitrate ER 60 mg Tablet 120 MG PO ×2 (09:30→18:15)
[2023-06-24] MEDS: insulin glargine 100 units/1 mL 8 UNIT SUBCUT (09:30)
[2023-06-24] MEDS: sennosides-docusate Tablet 1 TAB PO ×2 (09:30→18:14)
[2023-06-24 10:13] LABS: Basophils % 0.2 %; Eosinophils # 0.2 10^3/uL (0.0-0.8); Eosinophils % 1.6 %; Hematocrit 36.5 % (36-47); Lymphocytes # 2.2 10^3/uL (0.8-4.8); Lymphocytes % 19.9 %; Mean Corpuscular HGB Conc 31.8 g/dL (30-55); Mean Corpuscular Hemoglobin 29.9 pg (27-33); Mean Corpuscular Volume 94.1 fl (85-98); Mean Platelet Volume 12.1 fL (7.4-10.4); Monocytes # 0.9 10^3/uL (0.2-0.9); Monocytes % 7.9 %; Neutrophils # 7.82 10^3/uL (1.8-7.7); Neutrophils % 69.7 %; Nucleated Red Blood Cells % 0 %; Platelet Count 180 10^3/cmm (157-399); Red Blood Count 3.88 10^6/uL (3.85-5.65); Red Cell Distribution Width 13.7 % (12.1-15.1); White Blood Count 11.23 10^3/uL (3.29-11.43)
[2023-06-24 10:38] LABS: Alanine Aminotransferase 13 U/L (0-33); Albumin Level 3.3 g/dL (3.5-5.2); Alkaline Phosphatase 55 U/L (35-105); Anion Gap 12.6 (5-19); Aspartate Amino Transferase 11 U/L (0-32); Blood Urea Nitrogen 51 mg/dL (8-23); Calcium 8.8 mg/dL (8.5-10.5); Carbon Dioxide 28 mmol/L (22-29); Chloride 98 mmol/L (98-107); Globulin 2.4 g/dL (1.3-4.6); Glucose 270 mg/dL (65-115); Osmolality Calculated 303 mOsm/kg (285-295); Potassium 3.6 mmol/L (3.5-5.1); Sodium 135 mmol/L (136-145); Total Bilirubin 0.2 mg/dL (0.15-1.2); Total Protein 5.7 g/dL (6.6-8.7)
[2023-06-24 10:40] LABS: Glucose Point of Care 268 mg/dL (70-110)
--- NOTE | 2023-06-24 10:40 | PC.SOCIAL ---
IMM Update pg 2 of IMM updated w/ patient. Copy provided and Copy in chart dated, and initialed.
--- NOTE | 2023-06-24 10:50 | PM.PN ---
Subjective Subjective: Patient is doing well. Denies chest pain. Breathing improved. Vitals/I&O/Wt Last Vital Signs Temp 97.7 F 06/24/23 07:24 Pulse 75 06/24/23 08:00 Resp 16 06/24/23 08:00 BP 179/59 06/24/23 07:25 Pulse Ox 92 06/24/23 08:00 O2 Del Method Room Air 06/24/23 08:00 O2 Flow Rate 2 06/23/23 16:00 FiO2 2 06/11/23 08:00 06/23/23 06/24/23 06/24/23 22:59 06:59 14:59 Intake Total 120 / 460 1080 / 1540 240 / 240 Output Total 800 / 900 400 / 1300 200 / 200 Balance -680 / -440 680 / 240 40 / 40 Weight last 48 hrs Weight 162 lb 1.6 oz Weight 156 lb 3.2 oz Physical Exam Narrative: GENERAL: Patient is alert, awake and oriented x3. [] NECK: No jugular vein distension. [] HEENT: No cyanosis. No icterus. No pallor. [] HEART: Regular S1 and S2. No murmur, rub or gallop. [] LUNGS: Clear to auscultate bilaterally. [] CENTRAL NERVOUS SYSTEM: Grossly nonfocal. [] EXTREMITIES: Lower extremities with 1+ edema bilaterally. Urinary Catheter Management: Gibbs: Cath Placed During This Visit: yes Reason for Continuing Indwelling Catheter: Accurate Measurement of Urinary Output in Critically Ill Patients Urinary Catheter Date of Insertion: 06/09/23 Urinary Catheter Time of Insertion: 21:15 Data 06/24/23 09:58 06/24/23 09:58 A&P Assessment and plan (1) CHF exacerbation: HFrEF (LVEF=35-40%); new when compared to 2014 However,TDS study. apex appears thinned out which is not a sign of acute drop in LV function. Repeat study with echo contrast showing LV funtion to be 45-50% with severe hypokinesis of apical wall -cont. medical management; Coronary angiogram demonstrates unchanged coronary anatomy with patent PADILLA to LAD and SVG to RCA. [place] left circumflex artery is also patent. -continue medical management (2) Acute kidney injury superimposed on CKD: Nephrology is following. Currently on dialysis. (3) Atrial fibrillation with rapid ventricular response: Continue amiodarone and Coreg. In sinus rhythm. Plan Patient is stable from cardiac standpoint. Can uptitrate antihypertensive regimen if blood pressure is elevated. Attestations Medical Necessity Statement*: Care expected to cross 2 midnights. Coding Level of Care Code Acute Code for Chg Fwd Diagnoses CHF exacerbation I50.9 Acute kidney injury superimposed on CKD N17.9; N18.9 Atrial fibrillation with rapid ventricular response I48.91
[2023-06-24] MEDS: insulin lispro 100 unit/1 mL SUBCUT ×3 (12:16→20:44)
[2023-06-24] MEDS: FUROsemide 10 mg/mL SDV 4mL 40 MG IVP ×2 (12:16→22:25)
--- NOTE | 2023-06-24 15:46 | PM.PN ---
Subjective Subjective: no new complaints Medications: Reviewed: Yes Vitals/I&O/Wt Last Vital Signs Temp 98.4 F 06/24/23 15:26 Pulse 65 06/24/23 15:26 Resp 18 06/24/23 15:26 BP 152/60 06/24/23 15:26 Pulse Ox 95 06/24/23 15:26 O2 Del Method Nasal Cannula 06/24/23 15:26 O2 Flow Rate 2 06/24/23 15:26 FiO2 2 06/11/23 08:00 06/24/23 06/24/23 06/24/23 06:59 14:59 22:59 Intake Total 1080 / 1540 360 / 360 Output Total 400 / 1300 200 / 200 450 / 650 Balance 680 / 240 160 / 160 -450 / -290 Weight last 48 hrs Weight 73.527 kg Weight 70.851 kg Physical Exam Narrative: awake , alert No distress S1 S2 RRR Crackles candy per report + edema Urinary Catheter Management: Gibbs: Cath Placed During This Visit: yes Reason for Continuing Indwelling Catheter: Accurate Measurement of Urinary Output in Critically Ill Patients Urinary Catheter Date of Insertion: 06/09/23 Urinary Catheter Time of Insertion: 21:15 Data 06/24/23 09:58 06/24/23 09:58 A&P Assessment and plan (1) Acute kidney injury superimposed on CKD: Plan 1. Acute on chronic kidney disease stage III: Baseline creatinine in the 1.6-2 range. Most likely from hypertensive nephrosclerosis and possible prerenal. Has temporary hD catheter and HD done , last on -Continue 1500 mL fluid restriction and 2 g sodium restriction, - hold off further HD and assess for recovery - resumed diuretics - cr stable 2. Hyperkalemia: Mild, potassium 5.2, low K diet advised, 3. Hyponatremia:improved 4. Acute on chronic respiratory failure: On 2 L oxygen currently, status post aggressive diuresis 5. New onset A-fib with RVR 6. CAD - s/p LHC 7. htn : BP elevated , titrating oral meds Patient evaluated using audiovisual cart. Time spent 20 minutes. Attestations Medical Necessity Statement*: per medicine Coding Level of Care Code Acute Code for Chg Fwd Diagnoses Acute kidney injury superimposed on CKD N17.9; N18.9
[2023-06-24 16:42] LABS: Glucose Point of Care 221 mg/dL (70-110)
--- NOTE | 2023-06-24 16:58 | PM.PN ---
Subjective Subjective: More alert today. Denies pain. Nursing reports that urine output has picked up some. Vitals/I&O/Wt Last Vital Signs Temp 98.4 F 06/24/23 15:26 Pulse 65 06/24/23 15:26 Resp 18 06/24/23 15:26 BP 152/60 06/24/23 15:26 Pulse Ox 95 06/24/23 15:26 O2 Del Method Nasal Cannula 06/24/23 15:26 O2 Flow Rate 2 06/24/23 15:26 FiO2 2 06/11/23 08:00 06/24/23 06/24/23 06/24/23 06:59 14:59 22:59 Intake Total 1080 / 1540 360 / 360 Output Total 400 / 1300 200 / 200 450 / 650 Balance 680 / 240 160 / 160 -450 / -290 Weight last 48 hrs Weight 162 lb 1.6 oz Weight 156 lb 3.2 oz Physical Exam Narrative: General: Cooperative patient in no apparent distress. Well developed. HEENT: Normocephalic, Atraumatic. External ears normal. Nasal passages patent without drainage. MMM. Central catheter in place and secured. Heart: Irregular rhythm, HR is 60's. Resp: Mild bibasilar rales. No respiratory distress, no use of accessory muscles. NC in place. Abd: Soft, non-tender. Non-distended. Extremities: No edema. Skin: No rash or lesions on exposed areas. Neuro: No focal motor or sensory loss. Urinary Catheter Management: Gibbs: Cath Placed During This Visit: yes Reason for Continuing Indwelling Catheter: Accurate Measurement of Urinary Output in Critically Ill Patients Urinary Catheter Date of Insertion: 06/09/23 Urinary Catheter Time of Insertion: 21:15 Data 06/24/23 09:58 06/24/23 09:58 A&P Assessment and plan (1) Atrial fibrillation with rapid ventricular response: (2) Hypertension: Qualifiers: Hypertension type: primary hypertension Qualified Code(s): I10 - Essential (primary) hypertension (3) Hypoxia: (4) Pneumonitis: (5) Lupus anticoagulant disorder: (6) DJD (degenerative joint disease), lumbar: (7) Diabetic neuropathy: (8) CHF exacerbation: (9) Acute respiratory failure with hypoxia: (10) Pneumonia: (11) Systolic CHF: (12) Acute kidney injury superimposed on CKD: (13) Hypertensive urgency: (14) Uremia: (15) ARF (acute renal failure): Plan 77 y/o F admitted for uremia, ARF, Afib w/ RVR, PNA, HFpEF, Continue close inpatient monitoring. Received Dialysis yesterday, total of 3 sessions so far. Nephrology and cards consulted. Appreciate their recommendations and assist with care of this patient. Recheck renal function in A.M. BP improved, currently on Amlodipine and Hydralazine. Consider permanent dialysis catheter if renal function does not improve. Continue anti-emetics. Titrate off prednisone. Will stop after tomorrows dose if exam is clear vs. titrate down to 10mg. She is on oxygen at baseline for COPD. Generally 5-6L. Sats are currently holding. Current tobacco user. May need nicotine patch. Continue RAAT, DuoNeb, steroids and Mucomyst in case of further Cultures are pending and currently negative to date. Non-STEMI: Patient ok with angiogram if able and when stable. Continue ACS protocol with asa, Plavix. Currently on eliquis. EF: 35-40%. Cardiology consulted. Continue amiodorone for A-fib. Will switch to eliquis when able. BP remains elevated. titrating up on meds. IV hydralazine push. Can consider drip if continued elevations in pressure. Code Status: Full IVF: none DVT PPx: Eliquis GI PPx: Protonix. ABx: Completed course. Diet: Renal Discharge plan: TBD. Nephrology to arrange for LT dialysis if appropriate. Attestations Medical Necessity Statement*: Requires hospitalization for acute renal failure, status post temporary dialysis decision of permanent dialysis versus temporary dialysis Coding Level of Care Code Acute Code for Chg Fwd Moderate MDM includes number and complexity of problems actively addressed during encounter, amount and/or complexity of data reviewed/ordered and described risk of complication, morbidity or mortality of management as documented Diagnoses Atrial fibrillation with rapid ventricular response I48.91 Hypertension I10 Hypertension type: primary hypertension Hypoxia R09.02 Pneumonitis J18.9 Lupus anticoagulant disorder D68.62 DJD (degenerative joint disease), lumbar M47.816 Diabetic neuropathy E11.40 CHF exacerbation I50.9 Acute respiratory failure with hypoxia J96.01 Pneumonia J18.9 Systolic CHF I50.20 Acute kidney injury superimposed on CKD N17.9; N18.9 Hypertensive urgency I16.0 Uremia N19 ARF (acute renal failure) N17.9
[2023-06-24 20:16] LABS: Glucose Point of Care 277 mg/dL (70-110)
[2023-06-24] MEDS: lidocaine 5% Patch 1 PATCH TOPICAL (22:35)
[2023-06-24] MEDS: trazodone 100 mg Tablet PO (23:41)
[2023-06-25] VITALS (11 sets, daily range): BP systolic 132–162; BP diastolic 54–83; PULSE 59–91; RESP 13–23; TEMP 36.3–36.8; O2SAT 89–98
[2023-06-25 04:00] LABS: Magnesium 1.9 mg/dL (1.7-2.3); NT Pro B Type Natriuretic Pept 4390 pg/mL (0-450); Phosphorus 3.3 mg/dL (2.5-4.5)
[2023-06-25] MEDS: morphine 4 mg/mL SDV 1 mL 2 MG IVP (04:27)
[2023-06-25] MEDS: apixaban 5 mg Tablet PO ×2 (06:09→17:21)
[2023-06-25] MEDS: HYDROcodone-acetaminophen 10-325 mg Tablet 1 TAB PO (06:09)
[2023-06-25 06:13] LABS: Glucose Point of Care 109 mg/dL (70-110)
--- NOTE | 2023-06-25 08:55 | PM.PN ---
Subjective Subjective: feels better BMP pending Medications: Reviewed: Yes Vitals/I&O/Wt Last Vital Signs Temp 98.1 F 06/25/23 07:44 Pulse 66 06/25/23 07:58 Resp 16 06/25/23 07:58 BP 138/54 06/25/23 07:44 Pulse Ox 95 06/25/23 07:58 O2 Del Method Nasal Cannula 06/25/23 07:58 O2 Flow Rate 2 06/25/23 07:58 FiO2 2 06/11/23 08:00 06/24/23 06/25/23 06/25/23 22:59 06:59 14:59 Intake Total 360 / 720 120 / 120 Output Total 850 / 1050 500 / 1550 Balance -490 / -330 -500 / -830 120 / 120 Weight last 48 hrs Weight 72.892 kg Weight 73.527 kg Physical Exam Narrative: awake , alert No distress S1 S2 RRR Crackles candy per report + edema Urinary Catheter Management: Gibbs: Cath Placed During This Visit: yes Reason for Continuing Indwelling Catheter: Accurate Measurement of Urinary Output in Critically Ill Patients Urinary Catheter Date of Insertion: 06/09/23 Urinary Catheter Time of Insertion: 21:15 Data 06/24/23 09:58 06/24/23 09:58 A&P Assessment and plan (1) Acute kidney injury superimposed on CKD: Plan 1. Acute on chronic kidney disease stage III: Baseline creatinine in the 1.6-2 range. Most likely from hypertensive nephrosclerosis and possible prerenal. Has temporary hD catheter and HD done , last on -Continue 1500 mL fluid restriction and 2 g sodium restriction, - hold off further HD and assess for recovery - resumed diuretics - cr stable - await bMP , if Cr stable today , May DC HD catheter 2. Hyperkalemia: Mild, potassium 5.2, low K diet advised, 3. Hyponatremia:improved 4. Acute on chronic respiratory failure: On 2 L oxygen currently, status post aggressive diuresis 5. New onset A-fib with RVR 6. CAD - s/p LHC 7. htn : BP elevated , titrating oral meds Patient evaluated using audiovisual cart. Time spent 20 minutes. Attestations Medical Necessity Statement*: per saundract Coding Level of Care Code Acute Code for Chg Fwd Diagnoses Acute kidney injury superimposed on CKD N17.9; N18.9
[2023-06-25] MEDS: insulin glargine 100 units/1 mL 8 UNIT SUBCUT (09:15)
[2023-06-25] MEDS: magnesium oxide 400 mg tablet PO ×2 (09:15→17:21)
[2023-06-25] MEDS: ropinirole 0.25 mg Tablet 0.5 MG PO (09:15)
[2023-06-25] MEDS: levothyroxine 25 mcg Tablet PO (09:16)
[2023-06-25] MEDS: carvedilol 12.5 mg Tablet PO ×2 (09:16→17:21)
[2023-06-25] MEDS: pantoprazole 40 mg SDV IVP (09:16)
[2023-06-25] MEDS: hyDRALAzine 50 mg Tablet 100 MG PO ×3 (09:16→20:33)
[2023-06-25] MEDS: guaiFENesin 600 mg Tablet 1200 MG PO ×2 (09:16→17:21)
[2023-06-25] MEDS: sennosides-docusate Tablet 1 TAB PO ×2 (09:16→17:22)
[2023-06-25] MEDS: atorvastatin 40 mg Tablet PO (09:16)
[2023-06-25] MEDS: predniSONE 20 mg Tablet PO (09:16)
[2023-06-25] MEDS: isosorbide mononitrate ER 60 mg Tablet 120 MG PO ×2 (09:16→17:21)
[2023-06-25] MEDS: amlodipine 10 mg Tablet PO (09:17)
[2023-06-25] MEDS: aspirin 81 mg EC Tablet PO (09:17)
[2023-06-25] MEDS: amiodarone 200 mg Tablet PO (09:17)
[2023-06-25 10:02] LABS: Anion Gap 13.2 (5-19); Blood Urea Nitrogen 66 mg/dL (8-23); Calcium 8.7 mg/dL (8.5-10.5); Carbon Dioxide 27 mmol/L (22-29); Chloride 100 mmol/L (98-107); Creatinine Clr Calc Pharmacy 23.9452; Glucose 69 mg/dL (65-115); Osmolality Calculated 301 mOsm/kg (285-295); Potassium 3.2 mmol/L (3.5-5.1); Sodium 137 mmol/L (136-145)
--- NOTE | 2023-06-25 10:32 | PC.CHAP ---
Pastoral Care Encounter/Spiritual Assessment Type of Contact [] Declined news copy editor visit [] Patient/Family/Request visit [] Outpatient visit [] Follow-up visit [] Physician referral [] Code/Alert [x] Routine visit [] Staff referral [] Actively dying [] Patient sleeping [x] Family support [] [] Out of room [] Palliative care [] [] Receiving care in room [] Pre-surgical visit [] Trauma [] Long length of stay [] ICU visit [] Other: Relational/Emotional Strength [x] Patient feels connected with others/family/visitors/staff [] Distress [] Loneliness/isolation [] Abandonment Spirituality of Patient xx] Person of Promise [] Attends Mosque of their Faithx [] Believes in Prayer [] Reads Bible or Rastafarian materials [] There are Spiritual issues to be addressed Manufacturing Design Engineer Interventions xx] Prayer [x] Active listening []x Non-anxious presence [] Spiritual/emotional support [] Crisis/trauma care [] Spiritual counseling [] Bereavement support [] Provided bereavement packet [] Provided Bible/devotional materials [] Provided toy/stuffed animal, coloring book to patient or family member [] Provided Communion [] Anointing/[place] [] Salvation [x] Completed spiritual assessment [] Other: Impact on Illness or Injury [] Angry [] Fearful [] Anxious [] Often cries [] Exhaustion [] Unable to work [] Unable to attend episcopal [] Unable to walk/stand [] Unable to read [] Unable to drive [] Unable to eat/drink [] Unable to sleep [] Unable to be with family [] Patient intubated [] Other: Summary Time spent with patient 20 min
[2023-06-25] MEDS: FUROsemide 10 mg/mL SDV 4mL 40 MG IVP ×2 (11:09→22:23)
[2023-06-25 11:53] LABS: Glucose Point of Care 211 mg/dL (70-110)
[2023-06-25] MEDS: insulin lispro 100 unit/1 mL SUBCUT ×3 (12:03→22:23)
--- NOTE | 2023-06-25 15:56 | P.PN_ITS ---
Subjective Subjective: Patient was seen this morning, she denies any fevers, no chills, she plans on going home, her over the weekend, and she needs to eventually arrange arrangements, she understands she has a temporary dialysis catheter, and we will have to watch her kidney function as inpatient we will diurese her, and see if she needs to be converted into permanent dialysis or if her kidney function rebounds then she might have the dialysis catheter removed, or doing a trial of Lasix, she is agreeable to inpatient monitoring, granted it is a really difficult situation and time for her Vitals/I&O/Wt Last Vital Signs Temp 98.1 F 06/25/23 12:00 Pulse 59 L 06/25/23 12:00 Resp 23 H 06/25/23 12:00 BP 132/83 06/25/23 12:00 Pulse Ox 89 L 06/25/23 12:00 O2 Del Method Nasal Cannula 06/25/23 12:00 O2 Flow Rate 2 06/25/23 07:58 FiO2 2 06/11/23 08:00 06/25/23 06/25/23 06/25/23 06:59 14:59 22:59 Intake Total 360 / 360 Output Total 500 / 1550 Balance -500 / -830 360 / 360 Weight last 48 hrs Weight 72.892 kg Weight 73.527 kg Physical Exam Const: COMMON NORMALS: no acute distress OTHER: Right IJ central line in place Resp: COMMON NORMALS: normal respiratory effort, No retractions, No use of accessory muscles and clear to auscultation bilaterally AUSCULTATION: clear to auscultation bilaterally Cardio: COMMON NORMALS: regular rate, regular rhythm, S1 normal heart sound present and S2 normal heart sound present RATE: regular rate RHYTHM: regular rhythm HEART SOUNDS: S1 normal heart sound present and S2 normal heart sound present GI: COMMON NORMALS: Normal to inspection, nondistended, normoactive bowel sounds present and non-tender Extremity: COMMON NORMALS: no pedal edema Urinary Catheter Management: Gibbs: Cath Placed During This Visit: yes Reason for Continuing Indwelling Catheter: Accurate Measurement of Urinary Output in Critically Ill Patients Urinary Catheter Date of Insertion: 06/09/23 Urinary Catheter Time of Insertion: 21:15 Data 06/24/23 09:58 06/25/23 02:59 A&P Assessment and plan (1) Atrial fibrillation with rapid ventricular response: (2) Hypertension: Qualifiers: Hypertension type: primary hypertension Qualified Code(s): I10 - Essential (primary) hypertension (3) Hypoxia: (4) Pneumonitis: (5) Lupus anticoagulant disorder: (6) DJD (degenerative joint disease), lumbar: (7) Diabetic neuropathy: (8) CHF exacerbation: (9) Acute respiratory failure with hypoxia: (10) Pneumonia: (11) Systolic CHF: (12) Acute kidney injury superimposed on CKD: (13) Hypertensive urgency: (14) Uremia: (15) ARF (acute renal failure): Plan 77 y/o F admitted for uremia, ARF, Afib w/ RVR, PNA, HFpEF, Uremia, acute renal failure -Consult nephrology -Control nausea, vomiting with Zofran and Reglan -Monitor mentation -Nephrology consulted, s/p dialysis cath placement, status post 3 sessions of dialysis ? Has had 2 sessions of dialysis has a temporary dialysis catheter in place, barbara l watch renal function, watch for renal recovery -Trial Lasix 40 IV twice daily monitoring urine output, monitoring creatinine, ? Decision of converting into permanent dialysis catheter and discharging home versus removing temporary dialysis catheter based on kidney function, based on clinical progress Acute on chronic respiratory failure Multifactorial A-fib with RVR, resolved Diastolic CHF exacerbation currently on Lasix COPD exacerbation, resolved, on tapering steroid dose Pneumonia, resolved CT scan showing 1. ? There is bronchiectasis with patchy mucous plugging and atelectasis right lower lobe. 2. ? There is also mild ground-glass and tree-in-bud opacities in the lungs compatible with mild pneumonitis. Plan -Currently on Lasix -We will taper steroid therapy -Completed doxycycline therapy Pneumonia, resolved -With findings as above -Follow sputum culture, blood cultures -Completed antibiotic therapy Acute CHF exacerbation, BNP over 20,000 As above Non-STEMI: Patient stating that she is willing to go for angiogram if that is indicated at this point, Currently on ACS protocol with therapeutic Lovenox continue aspirin and Plavix No active chest pain Cardiac echo CONCLUSIONS ?The study is poor secondary to underlying COPD.? The patient has ?atrial fibrillation and an underlying left bundle branch block ?making sensitivity less.? The only view available for ?interpretation is the apical view.? In this view the apex is ?thinned and hypokinetic.? There is a large sigmoid septum.? The ?lateral wall appears to contract normally.? There is moderate ?reduction in left ventricular function.? A rough estimate of the ?ejection fraction is 35 to 40%.? Diastolic function cannot be ?determined due to the rhythm disturbance. ?Mildly increased left atrial size. ?Structurally normal mitral valve. Moderate mitral valve ?regurgitation. ?Aortic valve not well visualized. Mild aortic valve ?calcification. Mild aortic valve stenosis, mean gradient 7.3 ?mmHg, AYDIN 1.1 cm squared. ?From the previous echo done 04/07/2014, the decrease in left ?ventricular function is new.? The wall motion disturbances are ?new.? Mitral regurgitation appears worse.? Aortic stenosis is ?new however due to the poor quality of the exam I am not ?confident of the aortic valve calculations. -Cardiac stress test shows -?IMPRESSIONS ?1. Large sized reversible perfusion abnormality of moderate severity of mid to ?apical anterior, basal to mid anterolateral, basal to mid inferolateral, apical ?lateral, apical septal, apical inferior and apical hernandez. ?2. This is likely suggestive of ischemia in left anterior descending and ?circumflex artery territory. ?3. The left ventricular ejection fraction is mildly reduced with a value of ?42%. ?4. There is severe hypokinesis of mid to apical anterior and apical hernandez. ?There is mild hypokinesis of mid to apical inferior hernandez. ?5. EKG portion of the study will be reported separately. -Status post coronary angiography, no obstructive CAD Previous CABG 2013 She had a left internal mammary artery to the LAD, single vein graft to the diagonal and single vein graft to the right coronary artery.? In May 2015 she underwent coronary angiography for similar problems and the diagonal graft was occluded.? The right coronary artery graft was patent as was the left internal mammary artery.? Her [place] circumflex was stented.? This was not bypassed at the time of surgery due to its intramyocardial location New onset A-fib [id number] 5 Continue Eliquis Previous EKG showed left bundle branch block Received 250 mcg of digoxin On amiodarone Hypertensive urgency, resolved Code Status: Full IVF: none DVT PPx: Eliquis GI PPx: Protonix. ABx: Completed course. Diet: Renal Discharge plan: TBD. Nephrology to arrange for LT dialysis if appropriate. Attestations Medical Necessity Statement*: Patient requires hospitalization for acute renal failure, decision to proceed with temporary versus permanent dialysis, on diuretic therapy, up out of bed, Coding Level of Care Code 60955 Moderate MDM includes number and complexity of problems actively addressed during encounter, amount and/or complexity of data reviewed/ordered and described risk of complication, morbidity or mortality of management as doc umented Diagnoses Atrial fibrillation with rapid ventricular response I48.91 Hypertension I10 Hypertension type: primary hypertension Hypoxia R09.02 Pneumonitis J18.9 Lupus anticoagulant disorder D68.62 DJD (degenerative joint disease), lumbar M47.816 Diabetic neuropathy E11.40 CHF exacerbation I50.9 Acute respiratory failure with hypoxia J96.01 Pneumonia J18.9 Systolic CHF I50.20 Acute kidney injury superimposed on CKD N17.9; N18.9 Hypertensive urgency I16.0 Uremia N19 ARF (acute renal failure) N17.9
[2023-06-25 16:27] LABS: Glucose Point of Care 247 mg/dL (70-110)
[2023-06-25 22:15] LABS: Glucose Point of Care 289 mg/dL (70-110)
[2023-06-25] MEDS: trazodone 100 mg Tablet PO (23:39)
[2023-06-26] VITALS (11 sets, daily range): BP systolic 136–176; BP diastolic 54–73; PULSE 59–78; RESP 14–28; TEMP 36.4–37.3; O2SAT 92–97
[2023-06-26 05:11] LABS: Basophils % 0.2 %; Eosinophils # 0.1 10^3/uL (0.0-0.8); Eosinophils % 1.1 %; Hematocrit 34.6 % (36-47); Lymphocytes # 2.2 10^3/uL (0.8-4.8); Lymphocytes % 19.8 %; Mean Corpuscular HGB Conc 31.8 g/dL (30-55); Mean Corpuscular Hemoglobin 30.2 pg (27-33); Mean Corpuscular Volume 95.1 fl (85-98); Mean Platelet Volume 12.5 fL (7.4-10.4); Monocytes # 0.9 10^3/uL (0.2-0.9); Monocytes % 8.5 %; Neutrophils # 7.79 10^3/uL (1.8-7.7); Nucleated Red Blood Cells % 0 %; Platelet Count 168 10^3/cmm (157-399); Red Blood Count 3.64 10^6/uL (3.85-5.65); Red Cell Distribution Width 13.7 % (12.1-15.1); White Blood Count 11.11 10^3/uL (3.29-11.43)
[2023-06-26] MEDS: apixaban 5 mg Tablet PO (05:20)
[2023-06-26 05:23] LABS: Alanine Aminotransferase 12 U/L (0-33); Albumin Level 3.4 g/dL (3.5-5.2); Alkaline Phosphatase 57 U/L (35-105); Anion Gap 13.1 (5-19); Aspartate Amino Transferase 11 U/L (0-32); Blood Urea Nitrogen 72 mg/dL (8-23); Calcium 8.9 mg/dL (8.5-10.5); Carbon Dioxide 29 mmol/L (22-29); Chloride 97 mmol/L (98-107); Globulin 2.2 g/dL (1.3-4.6); Glucose 159 mg/dL (65-115); Osmolality Calculated 307 mOsm/kg (285-295); Phosphorus 3.9 mg/dL (2.5-4.5); Potassium 3.1 mmol/L (3.5-5.1); Sodium 136 mmol/L (136-145); Total Bilirubin 0.3 mg/dL (0.15-1.2); Total Protein 5.6 g/dL (6.6-8.7)
[2023-06-26 05:34] LABS: NT Pro B Type Natriuretic Pept 3570 pg/mL (0-450)
[2023-06-26 06:23] LABS: Glucose Point of Care 199 mg/dL (70-110)
[2023-06-26] MEDS: insulin glargine 100 units/1 mL 8 UNIT SUBCUT (08:20)
[2023-06-26] MEDS: potassium chloride ER 20 mEq Tablet 40 MEQ PO (08:21)
[2023-06-26] MEDS: insulin lispro 100 unit/1 mL SUBCUT ×4 (08:21→22:01)
[2023-06-26] MEDS: magnesium oxide 400 mg tablet PO ×2 (08:21→17:54)
[2023-06-26] MEDS: sennosides-docusate Tablet 1 TAB PO ×2 (08:21→17:54)
[2023-06-26] MEDS: hyDRALAzine 50 mg Tablet 100 MG PO ×3 (08:22→21:07)
[2023-06-26] MEDS: atorvastatin 40 mg Tablet PO (08:22)
[2023-06-26] MEDS: amlodipine 10 mg Tablet PO (08:22)
[2023-06-26] MEDS: levothyroxine 25 mcg Tablet PO (08:22)
[2023-06-26] MEDS: predniSONE 10 mg Tablet PO (08:22)
[2023-06-26] MEDS: amiodarone 200 mg Tablet PO (08:22)
[2023-06-26] MEDS: aspirin 81 mg EC Tablet PO (08:22)
[2023-06-26] MEDS: ropinirole 0.25 mg Tablet 0.5 MG PO (08:22)
[2023-06-26] MEDS: carvedilol 12.5 mg Tablet PO ×2 (08:23→17:55)
[2023-06-26] MEDS: isosorbide mononitrate ER 60 mg Tablet 120 MG PO ×2 (08:23→17:54)
[2023-06-26] MEDS: pantoprazole 40 mg SDV IVP (08:23)
[2023-06-26] MEDS: guaiFENesin 600 mg Tablet 1200 MG PO ×2 (08:23→17:54)
--- NOTE | 2023-06-26 10:35 | PC.SOCIAL ---
Imm update Imm updated with patient at bedside. Copy of page 2 provided. Patient verbalized understanding. copy in chart initialed, dated and timed.
[2023-06-26 11:24] LABS: Glucose Point of Care 189 mg/dL (70-110)
[2023-06-26] MEDS: lidocaine 5% Patch 1 PATCH TOPICAL (11:54)
--- NOTE | 2023-06-26 12:18 | PM.PN ---
Subjective Subjective: Patient was seen this morning she is sitting up in a chair, no fevers, no chills, no cough, no abdominal pain, no shortness of breath Vitals/I&O/Wt Last Vital Signs Temp 98.8 F 06/26/23 07:54 Pulse 66 06/26/23 07:54 Resp 20 H 06/26/23 07:54 BP 136/70 06/26/23 07:54 Pulse Ox 93 06/26/23 07:54 O2 Del Method Nasal Cannula 06/26/23 07:54 O2 Flow Rate 2 06/26/23 07:35 FiO2 2 06/11/23 08:00 06/25/23 06/26/23 06/26/23 22:59 06:59 14:59 Intake Total 320 / 680 222 / 902 480 / 480 Output Total 825 / 825 275 / 1100 Balance -505 / -145 -53 / -198 480 / 480 Weight last 48 hrs Weight 72.665 kg Weight 72.892 kg Physical Exam Const: COMMON NORMALS: no acute distress and patient oriented x3 Resp: COMMON NORMALS: normal respiratory effort, No retractions, No use of accessory muscles and clear to auscultation bilaterally AUSCULTATION: clear to auscultation bilaterally Cardio: COMMON NORMALS: regular rate, regular rhythm, S1 normal heart sound present and S2 normal heart sound present RATE: regular rate RHYTHM: regular rhythm HEART SOUNDS: S1 normal heart sound present and S2 normal heart sound present GI: COMMON NORMALS: Normal to inspection, nondistended, normoactive bowel sounds present and non-tender Extremity: COMMON NORMALS: no pedal edema Neuro: COMMON NORMALS: patient oriented x3 Psych: COMMON NORMALS: mental status grossly normal Urinary Catheter Management: Gibbs: Cath Placed During This Visit: yes Reason for Continuing Indwelling Catheter: Accurate Measurement of Urinary Output in Critically Ill Patients Urinary Catheter Date of Insertion: 06/09/23 Urinary Catheter Time of Insertion: 21:15 Data 06/26/23 04:30 06/26/23 04:30 A&P Assessment and plan (1) Atrial fibrillation with rapid ventricular response: (2) Hypertension: Qualifiers: Hypertension type: primary hypertension Qualified Code(s): I10 - Essential (primary) hypertension (3) Hypoxia: (4) Pneumonitis: (5) Lupus anticoagulant disorder: (6) DJD (degenerative joint disease), lumbar: (7) Diabetic neuropathy: (8) CHF exacerbation: (9) Acute respiratory failure with hypoxia: (10) Pneumonia: (11) Systolic CHF: (12) Acute kidney injury superimposed on CKD: (13) Hypertensive urgency: (14) Uremia: (15) ARF (acute renal failure): Plan 77 y/o F admitted for uremia, ARF, Afib w/ RVR, PNA, HFpEF, Uremia, acute renal failure -Consult nephrology -Control nausea, vomiting with Zofran and Reglan -Monitor mentation -Nephrology consulted, s/p dialysis cath placement, status post 3 sessions of dialysis ? Has had 2 sessions of dialysis has a temporary dialysis catheter in place, will watch renal function, watch for renal recovery -Continue Lasix 40 IV twice daily monitoring urine output, monitoring creatinine, ? Spoke to nephrology, we will see what her kidney function is by tomorrow, if her kidney function continues to elevate, urine output remains poor, then will convert to permanent dialysis catheter, I am going to hold her Eliquis for now, keep n.p.o. over midnight Acute on chronic respiratory failure Multifactorial A-fib with RVR, resolved Diastolic CHF exacerbation currently on Lasix COPD exacerbation, resolved, on tapering steroid dose Pneumonia, resolved CT scan showing 1. ? There is bronchiectasis with patchy mucous plugging and atelectasis right lower lobe. 2. ? There is also mild ground-glass and tree-in-bud opacities in the lungs compatible with mild pneumonitis. Plan -Currently on Lasix -We will taper steroid therapy -Completed doxycycline therapy Pneumonia, resolved -With findings as above -Follow sputum culture, blood cultures -Completed antibiotic therapy Acute CHF exacerbation, BNP over 20,000 As above Non-STEMI: Patient stating that she is willing to go for angiogram if that is indicated at this point, Currently on ACS protocol with therapeutic Lovenox continue aspirin and Plavix No active chest pain Cardiac echo CONCLUSIONS ?The study is poor secondary to underlying COPD.? The patient has ?atrial fibrillation and an underlying left bundle branch block ?making sensitivity less.? The only view available for ?interpretation is the apical view.? In this view the apex is ?thinned and hypokinetic.? There is a large sigmoid septum.? The ?lateral wall appears to contract normally.? There is moderate ?reduction in left ventricular function.? A rough estimate of the ?ejection fraction is 35 to 40%.? Diastolic function cannot be ?determined due to the rhythm disturbance. ?Mildly increased left atrial size. ?Structurally normal mitral valve. Moderate mitral valve ?regurgitation. ?Aortic valve not well visualized. Mild aortic valve ?calcification. Mild aortic valve stenosis, mean gradient 7.3 ?mmHg, AYDIN 1.1 cm squared. ?From the previous echo done 04/07/2014, the decrease in left ?ventricular function is new.? The wall motion disturbances are ?new.? Mitral regurgitation appears worse.? Aortic stenosis is ?new however due to the poor quality of the exam I am not ?confident of the aortic valve calculations. -Cardiac stress test shows -?IMPRESSIONS ?1. Large sized reversible perfusion abnormality of moderate severity of mid to ?apical anterior, basal to mid anterolateral, basal to mid inferolateral, apical ?lateral, apical septal, apical inferior and apical hernandez. ?2. This is likely suggestive of ischemia in left anterior descending and ?circumflex artery territory. ?3. The left ventricular ejection fraction is mildly reduced with a value of ?42%. ?4. There is severe hypokinesis of mid to apical anterior and apical hernandez. ?There is mild hypokinesis of mid to apical inferior hernandez. ?5. EKG portion of the study will be reported separately. -Status post coronary angiography, no obstructive CAD Previous CABG 2013 She had a left internal mammary artery to the LAD, single vein graft to the diagonal and single vein graft to the right coronary artery.? In May 2015 she underwent coronary angiography for similar problems and the diagonal graft was occluded.? The right coronary artery graft was patent as was the left internal mammary artery.? Her [place] circumflex was stented.? This was not bypassed at the time of surgery due to its intramyocardial location New onset A-fib [id number] 5 Continue Eliquis Previous EKG showed left bundle branch block Received 250 mcg of digoxin On amiodarone Hypertensive urgency, resolved Code Status: Full IVF: none DVT PPx: Eliquis GI PPx: Protonix. ABx: Completed course. Diet: Renal Discharge plan: TBD. Nephrology to arrange for LT dialysis if appropriate. Attestations Medical Necessity Statement*: Patient requires hospitalization for acute renal failure, possible conversion to tunneled dialysis catheter Diagnoses Atrial fibrillation with rapid ventricular response I48.91 Hypertension I10 Hypertension type: primary hypertension Hypoxia R09.02 Pneumonitis J18.9 Lupus anticoagulant disorder D68.62 DJD (degenerative joint disease), lumbar M47.816 Diabetic neuropathy E11.40 CHF exacerbation I50.9 Acute respiratory failure with hypoxia J96.01 Pneumonia J18.9 Systolic CHF I50.20 Acute kidney injury superimposed on CKD N17.9; N18.9 Hypertensive urgency I16.0 Uremia N19 ARF (acute renal failure) N17.9
--- NOTE | 2023-06-26 13:55 | P.PN_ITS ---
Subjective Subjective: feels OK uop 1300 CC/ 254 hours Medications: Reviewed: Yes Vitals/I&O/Wt Last Vital Signs Temp 98.8 F 06/26/23 07:54 Pulse 59 L 06/26/23 12:00 Resp 18 06/26/23 12:00 BP 166/73 06/26/23 12:00 Pulse Ox 97 06/26/23 12:00 O2 Del Method Nasal Cannula 06/26/23 12:00 O2 Flow Rate 2 06/26/23 07:35 FiO2 2 06/11/23 08:00 06/25/23 06/26/23 06/26/23 22:59 06:59 14:59 Intake Total 320 / 680 222 / 902 600 / 600 Output Total 825 / 825 275 / 1100 Balance -505 / -145 -53 / -198 600 / 600 Weight last 48 hrs Weight 72.665 kg Weight 72.892 kg Physical Exam Narrative: awake , alert No distress S1 S2 RRR Crackles candy per report + edema Urinary Catheter Management: Gibbs: Cath Placed During This Visit: yes Reason for Continuing Indwelling Catheter: Accurate Measurement of Urinary Output in Critically Ill Patients Urinary Catheter Date of Insertion: 06/09/23 Urinary Catheter Time of Insertion: 21:15 Data 06/26/23 04:30 06/26/23 04:30 A&P Assessment and plan (1) Acute kidney injury superimposed on CKD: Plan 1. Acute on chronic kidney disease stage III: Baseline creatinine in the 1.6-2 range. Most likely from hypertensive nephrosclerosis and possible prerenal. Has temporary hD catheter and HD done , last on -Continue 1500 mL fluid restriction and 2 g sodium restriction, - hold off further HD and assess for recovery - on diuretics but hold temporarily - cr rising , if continues to rise by tomorrow Am labs , will need tunnelled cat heter placement . 2. Hyperkalemia: resolved , K low now 3. Hyponatremia:improved 4. Acute on chronic respiratory failure: On 2 L oxygen currently, status post aggressive diuresis 5. New onset A-fib with RVR 6. CAD - s/p LHC 7. htn : BP elevated , titrating oral meds Patient evaluated using audiovisual cart. Time spent 20 minutes. Attestations Medical Necessity Statement*: per medicine Coding Level of Care Code Acute Code for Chg Fwd Diagnoses Acute kidney injury superimposed on CKD N17.9; N18.9
[2023-06-26 17:39] LABS: Glucose Point of Care 261 mg/dL (70-110)
[2023-06-26 21:49] LABS: Glucose Point of Care 174 mg/dL (70-110)
[2023-06-27] VITALS (9 sets, daily range): BP systolic 152–187; BP diastolic 56–96; PULSE 52–70; RESP 14–22; TEMP 36.4–36.9; O2SAT 95–97
[2023-06-27] MEDS: acetaminophen 325 mg Tablet 650 MG PO (00:37)
[2023-06-27] MEDS: trazodone 100 mg Tablet PO (00:37)
[2023-06-27 04:49] LABS: Basophils % 0.2 %; Eosinophils # 0.3 10^3/uL (0.0-0.8); Eosinophils % 2.3 %; Hematocrit 31.4 % (36-47); Lymphocytes # 2.2 10^3/uL (0.8-4.8); Lymphocytes % 19.9 %; Mean Corpuscular HGB Conc 31.8 g/dL (30-55); Mean Corpuscular Hemoglobin 30.2 pg (27-33); Mean Corpuscular Volume 94.9 fl (85-98); Mean Platelet Volume 12.6 fL (7.4-10.4); Monocytes # 0.9 10^3/uL (0.2-0.9); Monocytes % 7.8 %; Neutrophils # 7.66 10^3/uL (1.8-7.7); Neutrophils % 69.3 %; Nucleated Red Blood Cells % 0 %; Platelet Count 153 10^3/cmm (157-399); Red Blood Count 3.31 10^6/uL (3.85-5.65); Red Cell Distribution Width 13.9 % (12.1-15.1); White Blood Count 11.04 10^3/uL (3.29-11.43)
[2023-06-27 05:17] LABS: Alanine Aminotransferase 13 U/L (0-33); Albumin Level 3.4 g/dL (3.5-5.2); Alkaline Phosphatase 47 U/L (35-105); Anion Gap 12.4 (5-19); Aspartate Amino Transferase 12 U/L (0-32); Blood Urea Nitrogen 70 mg/dL (8-23); Calcium 8.5 mg/dL (8.5-10.5); Carbon Dioxide 27 mmol/L (22-29); Chloride 105 mmol/L (98-107); Globulin 1.7 g/dL (1.3-4.6); Glucose 102 mg/dL (65-115); Magnesium 2.1 mg/dL (1.7-2.3); Osmolality Calculated 313 mOsm/kg (285-295); Phosphorus 3.7 mg/dL (2.5-4.5); Potassium 3.4 mmol/L (3.5-5.1); Sodium 141 mmol/L (136-145); Total Bilirubin 0.3 mg/dL (0.15-1.2); Total Protein 5.1 g/dL (6.6-8.7)
[2023-06-27 05:21] LABS: NT Pro B Type Natriuretic Pept 3855 pg/mL (0-450)
[2023-06-27 06:44] LABS: Glucose Point of Care 121 mg/dL (70-110)
--- NOTE | 2023-06-27 08:10 | PM.PN ---
Subjective Subjective: feels better Medications: Reviewed: Yes Vitals/I&O/Wt Last Vital Signs Temp 98.5 F 06/27/23 04:00 Pulse 68 06/27/23 06:00 Resp 14 06/27/23 04:00 BP 165/66 06/27/23 04:00 Pulse Ox 96 06/27/23 04:00 O2 Del Method Nasal Cannula 06/27/23 04:00 O2 Flow Rate 2 06/26/23 16:00 FiO2 2 06/11/23 08:00 06/26/23 06/27/23 06/27/23 22:59 06:59 14:59 Intake Total 720 / 1680 0 / 1680 Output Total 200 / 200 150 / 350 Balance 520 / 1480 -150 / 1330 Weight last 48 hrs Weight 81.556 kg Weight 72.665 kg Physical Exam Narrative: awake , alert No distress S1 S2 RRR Crackles candy per report + edema Urinary Catheter Management: Gibbs: Cath Placed During This Visit: yes Reason for Continuing Indwelling Catheter: Accurate Measurement of Urinary Output in Critically Ill Patients Urinary Catheter Date of Insertion: 06/09/23 Urinary Catheter Time of Insertion: 21:15 Data 06/27/23 04:17 06/27/23 04:17 A&P Assessment and plan (1) Acute kidney injury superimposed on CKD: Plan 1. Acute on chronic kidney disease stage III: Baseline creatinine in the 1.6-2 range. Most likely from hypertensive nephrosclerosis and possible prerenal. Has temporary hD catheter and HD done , last on -Continue 1500 mL fluid restriction and 2 g sodium restriction, - hold off further HD and assess for recovery - resume lasix 40 mg bid - Cr better , SOB improved -can DC with close PCP and nephrology follow up . Needs HH for WEIGHT , FLUID MANAGEMENT - high risk for recurrent admission for volume due to diastolic CHF and CKD 2. Hyperkalemia: resolved , K low now 3. Hyponatremia:improved 4. Acute on chronic respiratory failure: On 2 L oxygen currently, status post aggressive diuresis 5. New onset A-fib with RVR 6. CAD - s/p LHC 7. htn : BP elevated , titrating oral meds Patient evaluated using audiovisual cart. Time spent 20 minutes. Attestations Medical Necessity Statement*: per medicine Coding Level of Care Code Acute Code for Chg Fwd Diagnoses Acute kidney injury superimposed on CKD N17.9; N18.9
[2023-06-27] MEDS: aspirin 81 mg EC Tablet PO (08:46)
[2023-06-27] MEDS: amiodarone 200 mg Tablet PO (08:46)
[2023-06-27] MEDS: ropinirole 0.25 mg Tablet 0.5 MG PO (08:46)
[2023-06-27] MEDS: atorvastatin 40 mg Tablet PO (08:46)
[2023-06-27] MEDS: pantoprazole 40 mg SDV IVP (08:46)
[2023-06-27] MEDS: guaiFENesin 600 mg Tablet 1200 MG PO ×2 (08:46→17:02)
[2023-06-27] MEDS: carvedilol 12.5 mg Tablet PO ×2 (08:46→17:02)
[2023-06-27] MEDS: isosorbide mononitrate ER 60 mg Tablet 120 MG PO ×2 (08:47→17:02)
[2023-06-27] MEDS: amlodipine 10 mg Tablet PO (08:47)
[2023-06-27] MEDS: predniSONE 10 mg Tablet PO (08:47)
[2023-06-27] MEDS: levothyroxine 25 mcg Tablet PO (08:47)
[2023-06-27] MEDS: hyDRALAzine 50 mg Tablet 100 MG PO ×3 (08:47→21:57)
[2023-06-27] MEDS: insulin glargine 100 units/1 mL 8 UNIT SUBCUT (08:47)
[2023-06-27] MEDS: magnesium oxide 400 mg tablet PO ×2 (08:47→17:02)
[2023-06-27] MEDS: sennosides-docusate Tablet 1 TAB PO (08:47)
[2023-06-27] MEDS: apixaban 5 mg Tablet PO ×2 (10:06→21:58)
[2023-06-27] MEDS: insulin lispro 100 unit/1 mL SUBCUT ×3 (11:56→21:58)
[2023-06-27] MEDS: lidocaine 5% Patch 1 PATCH TOPICAL (11:57)
[2023-06-27 12:02] LABS: Glucose Point of Care 252 mg/dL (70-110)
--- NOTE | 2023-06-27 14:05 | PM.PN ---
Subjective Subjective: Patient was seen this morning, she denies any fevers, no chills, no nausea, no vomiting, spoke to nephrology, no plans on dialysis today, I spoke to patient about spending another night in the hospital watching her kidney function, her fluid status, electrolytes, she is also significantly deconditioned and worried about her going home without help, she reports she cannot afford home health care nor does she want to go to a jail as she is planning on moving to [place] with her daughter, after the of her , she tells me that she has a lot to do, I am worried as with physical therapy she is barely able to ambulate to the door and back, she needs a wheeled walker I can imagine how she is going to function at home, nonetheless try to sell off all her furniture in her house in her life to get to [place], she tells me her daughters, come and help her, but that will be in 2 weeks Vitals/I&O/Wt Last Vital Signs Temp 97.6 F 06/27/23 11:17 Pulse 59 L 06/27/23 11:17 Resp 19 H 06/27/23 11:17 BP 154/64 06/27/23 11:17 Pulse Ox 96 06/27/23 11:17 O2 Del Method Nasal Cannula 06/27/23 11:17 O2 Flow Rate 2 06/27/23 09:30 FiO2 2 06/11/23 08:00 06/26/23 06/27/23 06/27/23 22:59 06:59 14:59 Intake Total 720 / 1680 0 / 1680 960 / 960 Output Total 200 / 200 150 / 350 300 / 300 Balance 520 / 1480 -150 / 1330 660 / 660 Weight last 48 hrs Weight 81.556 kg Weight 72.665 kg Physical Exam Const: COMMON NORMALS: no acute distress and patient oriented x3 Resp: COMMON NORMALS: normal respiratory effort, No retractions, No use of accessory muscles and clear to auscultation bilaterally AUSCULTATION: clear to auscultation bilaterally Cardio: COMMON NORMALS: regular rate, regular rhythm, S1 normal heart sound present and S2 normal heart sound present RATE: regular rate RHYTHM: regular rhythm HEART SOUNDS: S1 normal heart sound present and S2 normal heart sound present GI: COMMON NORMALS: Normal to inspection, nondistended, normoactive bowel sounds present and non-tender Extremity: COMMON NORMALS: no pedal edema Neuro: COMMON NORMALS: patient oriented x3 Psych: COMMON NORMALS: mental status grossly normal Urinary Catheter Management: Gibbs: Cath Placed During This Visit: yes Reason for Continuing Indwelling Catheter: Accurate Measurement of Urinary Output in Critically Ill Patients Urinary Catheter Date of Insertion: 06/09/23 Urinary Catheter Time of Insertion: 21:15 Data 06/27/23 04:17 06/27/23 04:17 A&P Assessment and plan (1) Atrial fibrillation with rapid ventricular response: (2) Hypertension: Qualifiers: Hypertension type: primary hypertension Qualified Code(s): I10 - Essential (primary) hypertension (3) Hypoxia: (4) Pneumonitis: (5) Lupus anticoagulant disorder: (6) DJD (degenerative joint disease), lumbar: (7) Diabetic neuropathy: (8) CHF exacerbation: (9) Acute respiratory failure with hypoxia: (10) Pneumonia: (11) Systolic CHF: (12) Acute kidney injury superimposed on CKD: (13) Hypertensive urgency: (14) Uremia: (15) ARF (acute renal failure): Plan 77 y/o F admitted for uremia, ARF, Afib w/ RVR, PNA, HFpEF, Uremia, acute renal failure -Consult nephrology -Control nausea, vomiting with Zofran and Reglan -Monitor mentation -Nephrology consulted, s/p dialysis cath placement, status post 3 sessions of dialysis ? Has had 2 sessions of dialysis has a temporary dialysis catheter in place, will watch renal function, watch for renal recovery -robinson patel tommorow, if renal functrion is stable, will likely discharge tomorrow - urine output, monitoring creatinine, -lasix 40mg po once today ? Spoke to nephrology, Acute on chronic respiratory failure Multifactorial A-fib with RVR, resolved Diastolic CHF exacerbation currently on Lasix COPD exacerbation, resolved, on tapering steroid dose Pneumonia, resolved CT scan showing 1. ? There is bronchiectasis with patchy mucous plugging and atelectasis right lower lobe. 2. ? There is also mild ground-glass and tree-in-bud opacities in the lungs compatible with mild pneumonitis. Plan -lasix 40mg po once -We will taper steroid therapy -Completed doxycycline therapy Pneumonia, resolved -With findings as above -Follow sputum culture, blood cultures -Completed antibiotic therapy Acute CHF exacerbation, BNP over 20,000 As above Non-STEMI: Patient stating that she is willing to go for angiogram if that is indicated at this point, Currently on ACS protocol with therapeutic Lovenox continue aspirin and Plavix No active chest pain Cardiac echo CONCLUSIONS ?The study is poor secondary to underlying COPD.? The patient has ?atrial fibrillation and an underlying left bundle branch block ?making sensitivity less.? The only view available for ?interpretation is the apical view.? In this view the apex is ?thinned and hypokinetic.? There is a large sigmoid septum.? The ?lateral wall appears to contract normally.? There is moderate ?reduction in left ventricular function.? A rough estimate of the ?ejection fraction is 35 to 40%.? Diastolic function cannot be ?determined due to the rhythm disturbance. ?Mildly increased left atrial size. ?Structurally normal mitral valve. Moderate mitral valve ?regurgitation. ?Aortic valve not well visualized. Mild aortic valve ?calcification. Mild aortic valve stenosis, mean gradient 7.3 ?mmHg, AYDIN 1.1 cm squared. ?From the previous echo done 04/07/2014, the decrease in left ?ventricular function is new.? The wall motion disturbances are ?new.? Mitral regurgitation appears worse.? Aortic stenosis is ?new however due to the poor quality of the exam I am not ?confident of the aortic valve calculations. -Cardiac stress test shows -?IMPRESSIONS ?1. Large sized reversible perfusion abnormality of moderate severity of mid to ?apical anterior, basal to mid anterolateral, basal to mid inferolateral, apical ?lateral, apical septal, apical inferior and apical hernandez. ?2. This is likely suggestive of ischemia in left anterior descending and ?circumflex artery territory. ?3. The left ventricular ejection fraction is mildly reduced with a value of ?42%. ?4. There is severe hypokinesis of mid to apical anterior and apical hernandez. ?There is mild hypokinesis of mid to apical inferior hernandez. ?5. EKG portion of the study will be reported separately. -Status post coronary angiography, no obstructive CAD Previous CABG 2013 She had a left internal mammary artery to the LAD, single vein graft to the diagonal and single vein graft to the right coronary artery.? In May 2015 she underwent coronary angiography for similar problems and the diagonal graft was occluded.? The right coronary artery graft was patent as was the left internal mammary artery.? Her tejon circumflex was stented.? This was not bypassed at the time of surgery due to its intramyocardial location New onset A-fib [id number] 5 Continue Eliquis Previous EKG showed left bundle branch block Received 250 mcg of digoxin On amiodarone Hypertensive urgency, resolved Code Status: Full IVF: none DVT PPx: Eliquis GI PPx: Protonix. ABx: Completed course. Diet: Renal Discharge plan: TBD. Attestations Medical Necessity Statement*: patient requires hospitalization for renal failure Diagnoses Atrial fibrillation with rapid ventricular response I48.91 Hypertension I10 Hypertension type: primary hypertension Hypoxia R09.02 Pneumonitis J18.9 Lupus anticoagulant disorder D68.62 DJD (degenerative joint disease), lumbar M47.816 Diabetic neuropathy E11.40 CHF exacerbation I50.9 Acute respiratory failure with hypoxia J96.01 Pneumonia J18.9 Systolic CHF I50.20 Acute kidney injury superimposed on CKD N17.9; N18.9 Hypertensive urgency I16.0 Uremia N19 ARF (acute renal failure) N17.9
[2023-06-27] MEDS: FUROsemide 40 mg Tablet PO (14:39)
[2023-06-27] MEDS: potassium chloride ER 20 mEq Tablet 40 MEQ PO (14:39)
[2023-06-27 16:26] LABS: Glucose Point of Care 248 mg/dL (70-110)
[2023-06-27 21:15] LABS: Glucose Point of Care 205 mg/dL (70-110)
[2023-06-28] MEDS: acetaminophen 325 mg Tablet 650 MG PO (00:32)
[2023-06-28] MEDS: trazodone 100 mg Tablet PO (02:42)
[2023-06-28 02:50] VITALS: BP 182/71; PULSE 72; RESP 18; TEMP 37; O2SAT 98
[2023-06-28 04:53] LABS: Basophils % 0.4 %; Eosinophils # 0.3 10^3/uL (0.0-0.8); Eosinophils % 2.7 %; Hematocrit 33.6 % (36-47); Lymphocytes # 2.2 10^3/uL (0.8-4.8); Lymphocytes % 19.7 %; Mean Corpuscular HGB Conc 31.8 g/dL (30-55); Mean Corpuscular Hemoglobin 30.5 pg (27-33); Mean Corpuscular Volume 95.7 fl (85-98); Mean Platelet Volume 12.3 fL (7.4-10.4); Monocytes # 0.8 10^3/uL (0.2-0.9); Monocytes % 7.1 %; Neutrophils # 7.88 10^3/uL (1.8-7.7); Neutrophils % 69.6 %; Nucleated Red Blood Cells % 0 %; Platelet Count 168 10^3/cmm (157-399); Red Blood Count 3.51 10^6/uL (3.85-5.65); White Blood Count 11.32 10^3/uL (3.29-11.43)
[2023-06-28 05:27] LABS: Alanine Aminotransferase 12 U/L (0-33); Albumin Level 3.3 g/dL (3.5-5.2); Alkaline Phosphatase 53 U/L (35-105); Anion Gap 14.5 (5-19); Aspartate Amino Transferase 12 U/L (0-32); Blood Urea Nitrogen 59 mg/dL (8-23); Calcium 8.7 mg/dL (8.5-10.5); Carbon Dioxide 25 mmol/L (22-29); Chloride 102 mmol/L (98-107); Globulin 2.3 g/dL (1.3-4.6); Glucose 125 mg/dL (65-115); Osmolality Calculated 304 mOsm/kg (285-295); Phosphorus 2.9 mg/dL (2.5-4.5); Potassium 3.5 mmol/L (3.5-5.1); Sodium 138 mmol/L (136-145); Total Bilirubin 0.3 mg/dL (0.15-1.2); Total Protein 5.6 g/dL (6.6-8.7)
[2023-06-28 05:36] LABS: Glucose Point of Care 121 mg/dL (70-110)
[2023-06-28 05:38] LABS: NT Pro B Type Natriuretic Pept 5053 pg/mL (0-450)
[2023-06-28 05:48] VITALS: BP 188/71; PULSE 62; RESP 18; TEMP 36.6; O2SAT 99
[2023-06-28 08:00] VITALS: PULSE 76; RESP 18; O2SAT 99
[2023-06-28 08:18] VITALS: PULSE 76; RESP 18; O2SAT 97
[2023-06-28] MEDS: ropinirole 0.25 mg Tablet 0.5 MG PO (08:49)
--- NOTE | 2023-06-28 08:49 | PC.SOCIAL ---
IMM Update pg 2 of IMM updated and reviewed w/ patient. Copy provided and Copy in chart dated and initialed.
[2023-06-28] MEDS: insulin glargine 100 units/1 mL 8 UNIT SUBCUT (08:50)
[2023-06-28] MEDS: atorvastatin 40 mg Tablet PO (08:50)
[2023-06-28] MEDS: predniSONE 10 mg Tablet PO (08:50)
[2023-06-28] MEDS: apixaban 5 mg Tablet PO (08:50)
[2023-06-28] MEDS: isosorbide mononitrate ER 60 mg Tablet 120 MG PO (08:50)
[2023-06-28] MEDS: levothyroxine 25 mcg Tablet PO (08:50)
[2023-06-28] MEDS: guaiFENesin 600 mg Tablet 1200 MG PO (08:50)
[2023-06-28] MEDS: magnesium oxide 400 mg tablet PO (08:50)
[2023-06-28] MEDS: sennosides-docusate Tablet 1 TAB PO (08:50)
[2023-06-28] MEDS: amiodarone 200 mg Tablet PO (08:50)
[2023-06-28] MEDS: amlodipine 10 mg Tablet PO (08:50)
[2023-06-28] MEDS: carvedilol 12.5 mg Tablet PO (08:50)
[2023-06-28] MEDS: aspirin 81 mg EC Tablet PO (08:50)
[2023-06-28] MEDS: hyDRALAzine 50 mg Tablet 100 MG PO (08:50)
[2023-06-28] MEDS: pantoprazole 40 mg SDV IVP (08:50)
--- NOTE | 2023-06-28 09:23 | PM.PN ---
Subjective Subjective: khadijah carranza Medications: Reviewed: Yes Vitals/I&O/Wt Last Vital Signs Temp 97.8 F 06/28/23 05:48 Pulse 76 06/28/23 08:18 Resp 18 06/28/23 08:18 BP 188/71 06/28/23 05:48 Pulse Ox 97 06/28/23 08:18 O2 Del Method Nasal Cannula 06/28/23 08:18 O2 Flow Rate 3 06/28/23 08:18 FiO2 2 06/11/23 08:00 06/27/23 06/28/23 06/28/23 22:59 06:59 14:59 Intake Total 240 / 1200 120 / 1320 Output Total 300 / 600 325 / 925 Balance -60 / 600 -205 / 395 Weight last 48 hrs Weight 81.556 kg Physical Exam Narrative: awake , alert No distress S1 S2 RRR - per report Crackles candy per report + edema Urinary Catheter Management: Gibbs: Cath Placed During This Visit: yes, but has since been removed by the nurse Reason for Continuing Indwelling Catheter: Accurate Measurement of Urinary Output in Critically Ill Patients Urinary Catheter Date of Insertion: 06/09/23 Urinary Catheter Time of Insertion: 21:15 Date Urinary Catheter Removed: 06/27/23 Time Urinary Catheter Discontinued: 18:04 Data 06/28/23 04:29 06/28/23 04:29 Micro: Microbiology 06/27/23 12:50 C.difficile Toxin B Gene (PCR) - Final Stool Routine Collection A&P Assessment and plan (1) Acute kidney injury superimposed on CKD: Plan 1. Acute on chronic kidney disease stage III: Baseline creatinine in the 1.6-2 range. Most likely from hypertensive nephrosclerosis and possible prerenal. Has temporary hD catheter and HD done , last on -Continue 1500 mL fluid restriction and 2 g sodium restriction, - hold off further HD and assess for recovery - resume lasix 40 mg bid - Cr better , SOB improved -can DC with close PCP and nephrology follow up . Needs for WEIGHT monitoring , FLUID MANAGEMENT - high risk for recurrent admission for volume overload due to diastolic CHF and CKD 2. Hyperkalemia: resolved , K low now 3. Hyponatremia:improved 4. Acute on chronic respiratory failure: On 2 L oxygen currently, status post aggressive diuresis 5. New onset A-fib with RVR 6. CAD - s/p LHC 7. htn : BP elevated , titrating oral meds Patient evaluated using audiovisual cart. Time spent 20 minutes. Attestations Medical Necessity Statement*: per medicne Coding Level of Care Code Acute Code for Chg Fwd Diagnoses Acute kidney injury superimposed on CKD N17.9; N18.9
--- NOTE | 2023-06-28 11:00 | P.DS_ITS ---
Discharge Providers Date of Admission: 06/09/23 20:16 Date of Discharge: June 28, 2023 Attending Provider at Admission: Gerald Niño MD Attending Provider at Discharge: Ludwin Tellez MD Primary Care Provider: Leena Calderon Diagnoses at Discharge Discharge Diagnosis (1) Acute kidney injury superimposed on CKD: Status: Acute Reason for Visit Reason for Visit: swollen legs/ ankles Hospital Course Hospital Course Ivette Ruiz is a 77 year old female who carries history of hypoxic respiratory failure required 5 to 6 L of oxygen at baseline, non-STEMI last year she did not go for angiogram considering chronic kidney disease creatinine ba seline 1.5-1.6, lives with her at home, has dementia, presented today with chief complaint of lower extremity weakness, pains all over her body. In the ER she was diagnosed with hypoxic respite failure requiring 5 L of oxygen, new onset A-fib RVR, non-STEMI, chronic kidney disease, she did not respond very well to Cardizem drip hence was switched to amiodarone, for non- STEMI she was put on heparin, she also has mucous plug with pneumonitis Patient is denying chest pain however endorsing orthopnea PND weight gain lower extremity severe edema She is still smoking 2 packs/day She is concerned about her who has severe dementia At the time of evaluation heart rate was 130s on amiodarone, she was given low- dose digoxin 250 mcg Patient is on vancomycin and Zosyn Mucomyst DuoNeb and steroids added Patient had a prolonged hospitalization, please look at my last progress note for further detail Patient, required hospitalization for A-fib with RVR, new onset, diminished ejection fraction, systolic and diastolic CHF, uremia, acute renal failure, pneumonia, NSTEMI For patient's A-fib with RVR, overall transitioned to p.o. amiodarone 200 mg once daily, with Eliquis 5 mg twice daily, follow with cardiology as outpatient For systolic and diastolic CHF exacerbation, EF was 35 to 45%, diuresed as inpatient, patient received inpatient dialysis in addition, overall clinically improved, discharged on Lasix 40 mg twice daily For patient's uremia, acute renal failure, required temporary dialysis, required 3 sessions, overall her symptomatology of uremia improved, fluid overload improved, her creatinine improved to 2.3, urine output improved, temporary dialysis catheter removed. Patient is to follow-up with primary care provider and nephrology for recheck kidney function in 1 week, avoid nephrotoxic agents, if she were to have any nausea, vomiting, headache, worsening kidney function she should go back to the emergency room For NSTEMI, cardiac echo showed EF of 35 to 45%, had a positive stress test, underwent coronary angiography no obstructive CAD, discharged on Plavix, Eliquis Hypertensive urgency, required multiple addition of blood pressure medications In terms of patient's significant deconditioning, protein calorie malnutrition, lack of social support, complicated medical history as above, complicated hospital course I have strongly recommended for patient to go to [facility]. Unfortunately during her hospitalization patient's at home, she tells me she has to get home to make arrangements for him. She also wants to sell old her furniture sell her home so she can move to [place] to be with her daughter. Unfortunately for the next 2 or weeks or so they will be no family members immediately to help her but she has 2 neighbors that she is close with that will help her. Nonetheless she display significant weakness, deconditioning in the hospital, I am very worried about her going home she is a high risk of falls, high risk of fluid overload, high risk of rehospitalization, high risk of worsening renal function high risk of morbidity and mortality associated. She also has to go to multiple doctors visits someone has to keep a close eye on her kidney function, and her fluid status, on her A- fib, given her deconditioning. However patient declined [facility] home, she has a high copay so she cannot afford home health care. Nonetheless, I advised patient that if she has any shortness of breath, weakness, fatigue, to immediately come back to the hospital. Physical Exam Const: COMMON NORMALS: no acute distress ORIENTATION/CONSCIOUSNESS: Yes awake, Yes oriented to person, Yes oriented to place and Yes oriented to time Resp: COMMON NORMALS: normal respiratory effort, No retractions, No use of accessory muscles and clear to auscultation bilaterally AUSCULTATION: clear to auscultation bilaterally Cardio: COMMON NORMALS: regular rate, regular rhythm, S1 normal heart sound present and S2 normal heart sound present RATE: regular rate RHYTHM: regular rhythm HEART SOUNDS: S1 normal heart sound present and S2 normal heart sound present GI: COMMON NORMALS: Normal to inspection, nondistended, normoactive bowel sounds present and non-tender Extremity: COMMON NORMALS: no pedal edema Neuro: SENSORIUM/ORIENTATION: Yes oriented to person, Yes oriented to place and Yes oriented to time Urinary Catheter Management: Gibbs: Cath Placed During This Visit: yes, but has since been removed by the nurse Reason for Continuing Indwelling Catheter: Accurate Measurement of Urinary Output in Critically Ill Patients Urinary Catheter Date of Insertion: 06/09/23 Urinary Catheter Time of Insertion: 21:15 Date Urinary Catheter Removed: 06/27/23 Time Urinary Catheter Discontinued: 18:04 Discharge Data Studies Completed and Pending Completed Studies During Hospitalization Category Date Time Status CT chest wo con [id number] Stat Cat Scan 06/09/23 17:48 Completed CXRP [XR chest 1V portable [id number]] Routine Exams 06/22/23 11:21 Completed Sestamibi Stress Test Request Routine Exams 06/14/23 06:48 Completed XR chest 1V portable [id number] Routine Exams 06/15/23 17:46 Completed XR chest 1V portable [id number] Routine Exams 06/18/23 13:19 Completed XR chest 1V portable [id number] Stat Exams 06/09/23 16:15 Completed NM sangita perf SPECT r/s* [id number] Routine Nuc Med 06/14/23 08:00 [place] [id number] Routine Ultrasound 06/10/23 00:00 Completed CV. echo complete* [id number] Routine Ultrasound 06/10/23 21:05 Completed CV. echo lmt w/w contras [id number] Routine Ultrasound 06/12/23 03:34 Completed Pending at discharge Category Date Time Status EDUCATIONAL MANAGER request for service Routine Exams 06/19/23 08:30 Taken Sestamibi Stress Test Request Routine Exams 06/13/23 09:09 Stop Req Radiology Impressions Chest CT 06/09/23 17:48 IMPRESSION: 1. There is bronchiectasis with patchy mucous plugging and atelectasis right lower lobe. 2. There is also mild ground-glass and tree-in-bud opacities in the lungs compatible with mild pneumonitis. COMMENTS: Consistent with the [place]'s Incidental Findings Committee white paper (J Am Gardenia Radiol 2015): In patients aged 35 years and older with an incidental thyroid nodule equal to or greater than 1.[address], MRI or extrathyroidal US, further evaluation with dedicated thyroid US is recommended for patients with normal life expectancy and without comorbidities. For smaller nodules without suspicious features, no further evaluation or follow up is recommended. Venous Duplex 06/10/23 00:00 IMPRESSION: 1. No evidence for deep vein thrombosis in the right or left lower extremity. 2. Partial superficial thrombosis within a superficial venous branch, anterior to the left greater saphenous vein (visible only on cine 45). Chest X-Ray 06/22/23 11:21 IMPRESSION: Mild cardiomegaly with progressive bibasilar consolidation likely in part secondary to atelectasis. Laboratory Results WBC 11.32 10^3/uL (3.29-11.43) 06/28/23 04:29 RBC 3.51 10^6/uL (3.85-5.65) L 06/28/23 04:29 Hgb 10.70 g/dL (11.27-16.99) L 06/28/23 04:29 Hct 33.6 % (36-47) L 06/28/23 04:29 MCV 95.7 fl (85-98) 06/28/23 04:29 MCH 30.5 pg (27-33) 06/28/23 04:29 MCHC 31.8 g/dL (30-55) 06/28/23 04:29 RDW 14.0 % (12.1-15.1) 06/28/23 04:29 Plt Count 168 10^3/cmm (157-399) 06/28/23 04:29 MPV 12.3 fL (7.4-10.4) H 06/28/23 04:29 Neut % (Auto) 69.6 % 06/28/23 04:29 Lymph % (Auto) 19.7 % 06/28/23 04:29 Wise % (Auto) 7.1 % 06/28/23 04:29 Eos % (Auto) 2.7 % 06/28/23 04:29 Baso % (Auto) 0.4 % 06/28/23 04:29 Neut # (Auto) 7.88 10^3/uL (1.8-7.7) H 06/28/23 04:29 Lymph # (Auto) 2.2 10^3/uL (0.8-4.8) 06/28/23 04:29 Wise # (Auto) 0.8 10^3/uL (0.2-0.9) 06/28/23 04:29 Eos # (Auto) 0.3 10^3/uL (0.0-0.8) 06/28/23 04:29 Baso # (Auto) 0.0 10^3/uL (0.0-0.1) 06/28/23 04:29 Nucleated RBC % (auto) 0 % 06/28/23 04:29 Nucleated RBCs # 0.0 /100WBC 06/28/23 04:29 PT 11.80 SECONDS (12.1-14.9) L 06/09/23 16:57 INR 0.85 (0.8-1.2) 06/09/23 16:57 APTT 115.4 SECONDS (23.9-36.7) H D 06/12/23 12:12 D-Dimer 16.18 ug/mIFEU (0-0.59) H 06/09/23 16:57 Sodium 138 mmol/L (136-145) 06/28/23 04:29 Potassium 3.5 mmol/L (3.5-5.1) 06/28/23 04:29 Chloride 102 mmol/L (98-107) 06/28/23 04:29 Carbon Dioxide 25 mmol/L (22-29) 06/28/23 04:29 Anion Gap 14.5 (5-19) 06/28/23 04:29 BUN 59 mg/dL (8-23) H 06/28/23 04:29 Creatinine 2.3 mg/dL (0.5-0.9) H 06/28/23 04:29 GFR Calculation Not Reportable 06/28/23 04:29 Glucose 125 mg/dL (65-115) H 06/28/23 04:29 POC Glucose 121 mg/dL (70-110) H 06/28/23 05:25 Estimat Average Glucose 151 06/09/23 16:57 Hemoglobin A1c 6.9 % (4.0-6.0) H 06/09/23 16:57 Calculated Osmolality 304 mOsm/kg (285-295) H 06/28/23 04:29 Lactic Acid 2.3 mmol/L (0.5-2.2) H 06/09/23 21:48 Lactic Acid (Sepsis) 1.3 mmol/L (0.5-2.2) 06/10/23 00:52 Calcium 8.7 mg/dL (8.5-10.5) 06/28/23 04:29 Phosphorus 2.9 mg/dL (2.5-4.5) 06/28/23 04:29 Magnesium 2.0 mg/dL (1.7-2.3) 06/28/23 04:29 Total Bilirubin 0.3 mg/dL (0.15-1.2) 06/28/23 04:29 AST 12 U/L (0-32) 06/28/23 04:29 ALT 12 U/L (0-33) 06/28/23 04:29 Alkaline Phosphatase 53 U/L (35-105) 06/28/23 04:29 Creatine Kinase 17 U/L (26-192) L 06/17/23 03:13 Troponin T Gen 5 ng/L Cancelled 06/09/23 16:57 Troponin T Baseline 79 ng/L (0-10) H 06/09/23 16:57 Troponin T 120 Minute 82.56 ng/L (0-10) H 06/09/23 19:15 Delta Troponin T 3.56 ABS# (0-10) 06/09/23 19:15 Troponin T Hi Sens 6Hr 78.72 ng/L (0-10) H 06/09/23 23:40 Troponin T Hi Sens 6Hr Delta -0.28 ng/L (0-12) L 06/09/23 23:40 C-Reactive Protein 3.0 mg/L (0.0-4.9) 06/23/23 03:42 NT-Pro-B Natriuret Pep 5053 pg/mL (0-450) H 06/28/23 04:29 Total Protein 5.6 g/dL (6.6-8.7) L 06/28/23 04:29 Albumin 3.3 g/dL (3.5-5.2) L 06/28/23 04:29 Globulin 2.3 g/dL (1.3-4.6) 06/28/23 04:29 Procalcitonin 0.10 ng/mL (0-0.5) 06/13/23 04:23 TSH 0.85 uIU/mL (0.27-4.20) 06/09/23 19:15 Nasal Influ A H1 2009 PCR Not detected (NOT DETECT) 06/11/23 14:40 Adenovirus (PCR) Not detected (NOT DETECT) 06/11/23 14:40 C. pneumoniae DNA (PCR) Not detected (NOT DETECT) 06/11/23 14:40 Coronavirus 229E (PCR) Not detected (NOT DETECT) 06/11/23 14:40 Hep Bs Antigen Cancelled 06/18/23 21:30 Hep Bs Antigen Non-reactive (Nonreactive) 06/18/23 21:30 Hep Bs Antibody 3.5 (11.5-1000) L 06/18/23 21:30 Hep B Core Total Ab Non-reactive (Nonreactive) 06/18/23 21:30 Human Metapneumovir PCR Not detected (NOT DETECT) 06/11/23 14:40 Influenza A (H1) PCR Not detected (NOT DETECT) 06/11/23 14:40 Influenza A (H3) PCR Not detected (NOT DETECT) 06/11/23 14:40 Influenza Type A (PCR) Not detected (NOT DETECT) 06/11/23 14:40 Influenza Type B (PCR) Not detected (NOT DETECT) 06/11/23 14:40 M. pneumoniae (PCR) Not detected (NOT DETECT) 06/11/23 14:40 Parainfluenza 1 (PCR) Not detected (NOT DETECT) 06/11/23 14:40 Parainfluenza 2 (PCR) Not detected (NOT DETECT) 06/11/23 14:40 Parainfluenza 3 (PCR) Not detected (NOT DETECT) 06/11/23 14:40 Parainfluenza 4 (PCR) Not detected (NOT DETECT) 06/11/23 14:40 RSV Type A (PCR) Not detected (NOT DETECT) 06/11/23 14:40 RSV Type B (PCR) Not detected (NOT DETECT) 06/11/23 14:40 Entero/Rhino (PCR) Not detected (NOT DETECT) 06/11/23 14:40 SARS-CoV-2 (PCR) Not detected (NOT DETECT) 06/11/23 14:40 SARS-CoV-2 Ag (Rapid) negative (Negative) 06/09/23 20:45 Vitals Last Vital Signs Temp 97.8 F 06/28/23 05:48 Pulse 76 06/28/23 08:18 Resp 18 06/28/23 08:18 BP 188/71 06/28/23 05:48 Pulse Ox 97 06/28/23 08:18 O2 Del Method Nasal Cannula 06/28/23 08:18 O2 Flow Rate 3 06/28/23 08:18 FiO2 2 06/11/23 08:00 Discharge Plan Discharge Patient Disposition: Home Condition: Stable Prescriptions: New insulin glargine 100 unit/mL Solution 8 unit SUBCUT DAILY 30 Days Qty: 10 0RF furosemide 40 mg Tablet 40 mg PO BID@08,16 30 Days Qty: 60 0RF prednisone 10 mg Tablet 10 mg PO DAILY 5 Days Qty: 5 0RF carvedilol 12.5 mg Tablet 12.5 mg PO BID 30 Days Qty: 60 0RF Pacerone 200 mg Tablet 200 mg PO DAILY 30 Days Qty: 30 0RF amlodipine 10 mg Tablet 10 mg PO DAILY 30 Days Qty: 30 0RF hydralazine 50 mg Tablet 100 mg PO TID 30 Days Qty: 180 0RF Eliquis 5 mg Tablet 5 mg PO BID@0900,2100 30 Days Qty: 60 0RF Novolog FlexPen U-100 Insulin 100 unit/mL (3 mL) insulin pen See Rx Instructions .ROUTE .COMPLEX Qty: 15 0RF Rx Instructions: inject subcut, three times daily after meals, based on sliding scale provided Klor-Con M20 20 mEq tablet,ER particles/crystals 20 meq PO BID 30 Days Qty: 60 0RF Continued nitroglycerin [Nitrostat] 0.4 mg tablet, sublingual 0.4 mg SUBLINGUAL Q5M PRN (Reason: Chest Pain) One-A-Day Vitacraves [place]-3 200-16 mcg-mg tablet,chewable 1 tab PO DAILY magnesium oxide 400 mg magnesium capsule 400 mg PO BID fluticasone propion-salmeterol [Advair Diskus] 250-50 mcg/dose blister with device 1 inh INHALATION BID calcium carbonate 600 mg calcium (1,500 mg) tablet 600 mg PO QDAY cranberry extract 200 mg capsule 200 mg PO QDAY cholecalciferol (vitamin D3) 1,000 unit capsule 1,000 unit PO QDAY melatonin 5 mg tablet 5 mg PO QDAY metoclopramide HCl 10 mg tablet 10 mg PO Q6H PRN (Reason: Acid Reflux) pantoprazole [Protonix] 40 mg tablet,delayed release (DR/EC) 40 mg PO QDAY albuterol sulfate [Proventil HFA] 90 mcg/actuation HFA aerosol inhaler 2 puff INHALATION Q6H PRN (Reason: Shortness Of Breath) ropinirole 0.5 mg tablet 0.5 mg PO QDAY Spiriva with HandiHaler 18 mcg capsule, w/inhalation device 1 cap INHALATION QDAY trazodone 100 mg tablet 100 mg PO QDAY venlafaxine 37.5 mg tablet 37.5 mg PO QDAY vitamin B complex [B Complex-Vitamin B12] Tablet 1 tab PO QDAY ascorbic acid (vitamin C) 500 mg tablet 250 mg PO QDAY gabapentin 800 mg tablet 800 mg PO TID 90 Days Qty: 270 0RF lidocaine 5 % adhesive patch,medicated 3 patch topical DAILY 90 Days Qty: 90 0RF Rx Instructions: APPLY 3 PATCHES TO AFFECTED AREA 12 HOURS ON / 12 HOURS OFF. cyclobenzaprine 10 mg tablet 5 mg PO TID PRN (Reason: muscle spasm) 90 Days Qty: 135 0RF (DME) Diabetic Shoes with Inserts See Rx Instructions .Route .MEDSUPPLY Qty: 1 3RF Rx Instructions: As directed hydrocodone-acetaminophen 10-325 mg tablet 1 tab PO QID PRN (Reason: pain) 30 Days Qty: 120 0RF Rx Instructions: fill on or after 08/26/21 roflumilast [Daliresp] 500 mcg tablet 500 mcg PO DAILY Lipitor 40 mg tablet 40 mg PO QDAY 30 Days Qty: 30 0RF clopidogrel 75 mg tablet 75 mg PO QDAY 30 Days Qty: 30 0RF levothyroxine 25 mcg tablet 25 mcg PO DAILY 30 Days Qty: 30 0RF isosorbide mononitrate 120 mg tablet extended release 24 hr 120 mg PO BID 30 Days Qty: 30 0RF Discontinued aspirin [Adult Low Dose Aspirin] 81 mg tablet,delayed release (DR/EC) 81 mg PO QDAY desloratadine 5 mg tablet 5 mg PO QDAY furosemide 40 mg tablet 40 mg PO QAM metoprolol succinate 50 mg tablet extended release 24 hr 50 mg PO QDAY lisinopril 10 mg tablet 20 mg PO QDAY meloxicam 15 mg tablet See Rx Instructions .ROUTE .COMPLEX Qty: 30 0RF Dose Instruction: TAKE 1 TABLET BY MOUTH DAILY Rx Instructions: TAKE 1 TABLET BY MOUTH DAILY ranolazine 500 mg tablet extended release 12 hr 500 mg PO BID Qty: 60 3RF metoprolol succinate [Toprol XL] 25 mg tablet extended release 24 hr 12.5 mg PO DAILY Qty: 30 0RF Discharge Orders: Discharge Order (Routine); Ordered 06/28/23 Ordered By: Ludwin Tellez Other Ambulatory Orders: DME: Oxygen (Order) Location: None Selected Ordered By: Ludwin Tellez Referrals: Savage Yi MD [Referring] - 2 weeks Rainer Anne M.D [Physician] - (Your Dr. Anne follow up appointment will be scheduled during your Lorie Yepez appointment. Thank you.) Lorie Yepez FNP [Nurse Practitioner] - 07/19/23 2:15 pm Leena Calderon PA [Primary Care Provider] - 07/05/23 1:40 pm Discharge Diet: Cardiac Discharge Activity: Resume usual activity Patient Instructions: Furosemide (By mouth) (Lasix), Prednisone (By mouth) (predniSONE Intensol, Prednicot, Deltasone, Katelyn), Potassium Chloride (By mouth), Amiodarone (By mouth) (Cordarone, Pacerone), Hydralazine (By mouth) (A presoline), Amlodipine (By mouth) (Hypertenipine-2.5, Norvasc, Norliqva), Carvedilol (By mouth) (Coreg, Coreg CR, Hypertenevide-12.5), Insulin Aspart, Recombinant (By injection) (Novolog, Novolog..., Insulin Glargine (By injection) (Lantus, Lantus SoloStar, Toujeo, Semglee), Apixaban (By mouth) (Eliquis), Heart Failure (DC), A-fib (Atrial Fibrillation) (DC), Chronic Kidney Disease (DC), COPD (Chronic Obstructive Pulmonary Disease) (DC), CHF Stoplight, COPD Stoplight, Opioid Safety Activity Restrictions/Additional Instructions: -please ambulate with care -you have risk of fall, transfer with care -Eliquis is a very powerful blood thinner, if you develop bloody or black stools go to emergency room -inject lantus 8 units subcut daily -Please monitor your blood sugars closely -Monitor your blood sugars 3 times daily as after meals -Please record your blood sugars, and a blood sugar log -For your NovoLog -Please inject blood sugar after meals based on sliding scale provided -Do not inject insulin if you do not eat as hypoglycemia kills -This is a NovoLog sliding scale -Insulin sliding ?fingerstick? Insulin ?141-180?0 units/sq 181-220?2 units/sq ?221-260?4 units/sq ?261-300 6 units/sq ?301-350?8 units/sq ?351-400 10 units/sq ?401-450?12 units/sq >450? 14units/sq -If your blood sugar is greater than 500 go to the emergency room -If your blood sugar is less than 60 or at anytime you feel lightheaded or dizzy or diaphoretic or have chest palpitations check your blood sugar, and eat a hard candy or drink orange juice and go immediately to the emergency room -Remember hypoglycemia kills, so if his blood sugar is less than 60 we have to increase it by taking in a sugary meal such as a hard candy or orange juice and go to the emergency room -If you have any questions please call us where here to help -Please have your primary care provider recheck your kidney function in 1 week -Please see cardiology in 1 week -If you have any chest pain, shortness of breath go to emergency room -See nephrology in 2 weeks Discharge Attestations Time Spent in Discharge Care*: greater than 30 min Quality Metrics Clinical Quality Measures [ No reported AMI, CVA or VTE this stay] Coding Level of Care Code 92504 Total time (in minutes) for Discharge: 45 Diagnoses Acute kidney injury superimposed on CKD N17.9; N18.9
[2023-06-28 11:18] LABS: Glucose Point of Care 243 mg/dL (70-110)
[2023-06-28 11:55] VITALS: O2SAT 98
[2023-06-28 12:00] VITALS: PULSE 76; RESP 18; O2SAT 97
[2023-06-28] MEDS: insulin lispro 100 unit/1 mL SUBCUT (12:44)
--- NOTE | 2023-06-28 14:00 | PC.NURSE ---
Temporary dialysis port discontinued with no events. Clean technique was used, pressure applied [id number], and dressing applied.
--- NOTE | 2023-06-28 15:04 | PC.NURSE ---
Discharge Note Patient discharged to home via POV accompanied by family. Discharge instructions reviewed with patient and/or patient portal representative. Mobile pharmacy medications and/or prescriptions provided. Belongings/home medications returned.
== END 2023-06-28 15:06 | disposition home or self-care (01) | DRG 280 ==
LOC: ER 20:31 → ICU 20:55 → CSU 06-13 18:33
PROVIDERS: Emergency Medicine; Family Medicine; Hospitalist; Internal Medicine; Student in an Organized Health Care Education/Training Program; Surgery; Admitting Provider Internal Medicine; Emergency Provider Emergency Medicine; PCP Physician Assistant; Visit Provider Family Medicine
PROC: 02HV33Z Insertion of Infusion Device into Superior Vena Cava, Percutaneous Approach (ICD-10-PCS; principal; 2023-06-18 12:30)
PROC: 4A023N7 Measurement of Cardiac Sampling and Pressure, Left Heart, Percutaneous Approach (ICD-10-PCS; principal; 2023-06-19 08:30)
DX: I13.0 Hypertensive heart and chronic kidney disease with heart failure and stage 1 through stage 4 chronic kidney disease, or unspecified chronic kidney disease (principal); I50.43 Acute on chronic combined systolic (congestive) and diastolic (congestive) heart failure; I21.4 Non-ST elevation (NSTEMI) myocardial infarction; J96.21 Acute and chronic respiratory failure with hypoxia; J18.9 Pneumonia, unspecified organism; N17.9 Acute kidney failure, unspecified; E87.1 Hypo-osmolality and hyponatremia; I47.20 Ventricular tachycardia, unspecified; D68.62 Lupus anticoagulant syndrome; N18.30 Chronic kidney disease, stage 3 unspecified; E11.22 Type 2 diabetes mellitus with diabetic chronic kidney disease; I48.91 Unspecified atrial fibrillation; Z99.81 Dependence on supplemental oxygen; I25.2 Old myocardial infarction; F17.210 Nicotine dependence, cigarettes, uncomplicated; M17.0 Bilateral primary osteoarthritis of knee; M48.062 Spinal stenosis, lumbar region with neurogenic claudication; E87.5 Hyperkalemia; E03.9 Hypothyroidism, unspecified; Z86.73 Personal history of transient ischemic attack (TIA), and cerebral infarction without residual deficits; E78.5 Hyperlipidemia, unspecified; E11.42 Type 2 diabetes mellitus with diabetic polyneuropathy; J44.9 Chronic obstructive pulmonary disease, unspecified; Z79.02 Long term (current) use of antithrombotics/antiplatelets; Z79.891 Long term (current) use of opiate analgesic; Z79.51 Long term (current) use of inhaled steroids; I25.10 Atherosclerotic heart disease of native coronary artery without angina pectoris; Z95.1 Presence of aortocoronary bypass graft; Z95.5 Presence of coronary angioplasty implant and graft; I16.0 Hypertensive urgency
CPT/HCPCS: 36415; 36416; 51702; 71045; 71250; 78452; 80048; 80053; 82550; 82962; 83036; 83605; 83735; 83880; 84100; 84145; 84443; 84484; 85025; 85378; 85610; 85730; 86140; 86403; 86705; 86706; 87040; 87070; 87205; 87340; 87426; 87486; 87493; 87581; 87633; 87641; 90935; 92523; 92526; 92610; 93005; 93017; 93306; 93459; 93970; 94640; 94669; 96365; 96367; 96372; 96375; 96376; 97110; 97116; 97162; 97530; 99152; 99153; 99291; A4222; A9500; C1752; C1769; C1887; C1894; C8924; C9113; J0282; J0360; J0696; J1160; J1644; J1650; J1815; J1940; J2250; J2270; J2405; J2543; J2704; J2765; J2785; J2920; J3010; J3370; J3490; J7030; J7050; J7060; J7512; P9046; P9047; Q0163; Q3014; Q9956; Q9967

== ENCOUNTER 2023-07-03 02:22 | Inpatient (IN) | payer MEDICARE, OTHER, SELFPAY ==
[2023-07-03] VITALS (17 sets, daily range): BP systolic 128–190; BP diastolic 55–134; PULSE 53–85; RESP 16–30; TEMP 36.4–37; O2SAT 94–100; BMI 32.3
--- NOTE | 2023-07-03 02:24 | ECG_ITS ---
[facility] Test Date: 2023-07-03 Pat Name: Ivette Ruiz Department: Room: 256 Gender: Female Power[employer] Tender: : 1945 Requested By: John Mckeon Order Number: [id number] Ahsan MD: Rainer Anne M.D. Measurements Intervals [place] Rate: 80 P: 61 NV: 145 QRS: -26 QRSD: 151 T: 138 QT: 421 QTc: 487 Interpretive Statements SINUS RHYTHM WITH OCCASIONAL VENTRICULAR PREMATURE COMPLEXES WITH FREQUENT SUPRAVENTRICULAR PREMATURE COMPLEXES LEFT BUNDLE BRANCH BLOCK [120+ ms QRS DURATION, 80+ ms Q/S IN V1/V2, 85+ ms R IN I/aVL/V5/V6] Compared to ECG 06/09/2023 23:37:54 Ventricular premature complex(es) now present Atrial fibrillation no longer present Electronically Signed On 07-03-2023 12:05:26 CDT by Rainer Anne M.D. [id number] f
--- NOTE | 2023-07-03 02:34 | XRR_ITS ---
PROCEDURE INFORMATION: Exam: XR Chest Exam date and time: 07/03/2023 2:38 AM Age: 77 years old Clinical indication: Dyspnea and shortness of breath; Prior surgery; Surgery date: 6+ months; Surgery type: Cabg; Patient HX: C/O SOB and dyspnea. History of chf. TECHNIQUE: Imaging protocol: Radiologic exam of the chest. Views: 1 view. COMPARISON: CR XR chest 1V portable [id number] 06/22/2023 11:45 AM FINDINGS: Lungs: Hazy lower lung pulmonary opacities. Mildly prominent pulmonary vasculature in the lungs. Pleural spaces: Small pleural effusions. Negative for pneumothorax. Heart/Mediastinum: CABG. Mild cardiac enlargement. Bones/joints: Unremarkable. XR/XR chest 1V portable [id number] IMPRESSION: Mild intrathoracic fluid overload similar to comparison imaging compatible with CHF.
--- NOTE | 2023-07-03 02:44 | ED_ITS ---
HPI - SOB/Dyspnea General: Chief Complaint: Shortness of Breath/Dyspnea Stated Complaint: SOB Time Seen by Provider: 07/03/23 02:28 History of Present Illness: HPI Narrative: Patient presents to the ER with complaints of worsening shortness of breath. Patient just discharged from the hospital approximately 3 days ago. Patient has not had dialysis since she was discharged from the hospital. EMS reported her to be short of breath so they gave her 0.25 mg terbutaline subcu Decadron 6 mg IM and 1 albuterol nebulizer treatment. Patient says she was short of breath before she was discharged from the hospital and only got worse when she got home. Patient is normally on 2 L of oxygen per nasal cannula but she had to bump it up to 4 L of oxygen per nasal cannula to keep her sats up. Patient does have a history of CHF and she is on Lasix 40 mg twice daily. Patient does complain of bilateral lower extremity pitting edema. Review of Systems General: Reports: 10 or more systems reviewed and unremarkable except in HPI and below PFSH ED PFSH: Medical History ASHD (arteriosclerotic heart disease) Bilateral bunions Bilateral knee pain Callus of foot Carotid stenosis, bilateral Chest pain CHF (congestive heart failure) Chronic fatigue Chronic hip pain CKD (chronic kidney disease) COPD (chronic obstructive pulmonary disease) Diabetes Diabetic neuropathy Diabetic peripheral neuropathy associated with type 2 diabetes mellitus DJD (degenerative joint disease), lumbar Dyslipidemia Essential hypertension GERD (gastroesophageal reflux disease) Long-term current use of opiate analgesic Lumbar stenosis with neurogenic claudication Lupus anticoagulant disorder Myocardial infarction Non-STEMI (non-ST elevated myocardial infarction) Obesity Onychodystrophy PAD (peripheral artery disease) Pain management contract signed Pes planus of both feet Primary osteoarthritis of knees, bilateral TIA (transient ischemic attack) Tobacco use disorder V-tach Surgical History S/P CABG (coronary artery bypass graft) (~10/01/14) S/P carotid endarterectomy S/P carpal tunnel release (Unknown) LEFT S/P cataract extraction (Unknown) RIGHT DR BATISTA S/P cataract extraction S/P hysterectomy Family History Unknown Adopted Social History Smoking and tobacco status: current every day smoker cigarettes Packs smoked per day: 2 Quit status (tobacco): has tried quititng Alcohol intake: never Substance/Drug Use: never Adopted: Yes Lives independently: Yes Household members: spouse Marital status: Physical Exam Const: COMMON NORMALS: no acute distress, average body habitus, patient oriented x3, no limitations, healthy appearing, alert and well nourished HENMT: COMMON NORMALS: normocephalic, atraumatic, hearing grossly normal bilaterally, external ears normal, Normal external nose present and moist oral mucous membranes HEAD & SCALP: normocephalic and atraumatic NOSE: Normal external nose present EXTERNAL EAR: Yes external ears normal Neck/C-Spine: COMMON NORMALS: full ROM, no lymphadenopathy, supple, no meningeal signs, no JVD and Thyroid normal THYROID: Thyroid normal Chest: COMMONS NORMALS: normal inspection of the chest and normal palpation of entire chest wall Resp: OTHER: Wheezings bilaterally right significantly worse than the left. Cardio: COMMON NORMALS: no JVD, regular rate, regular rhythm, S1 normal heart sound present, S2 normal heart sound present, No gallops present (Cardio), No clicks present (Cardio), No murmurs present (Cardio) and No rub (Cardio) RATE: regular rate RHYTHM: regular rhythm HEART SOUNDS: S1 normal heart sound present and S2 normal heart sound present GI: COMMON NORMALS: Normal to inspection, nondistended, normoactive bowel sounds present, Soft to palpation, non-tender, No hepatosplenomegaly present and no masses PALPATION: Yes Soft to palpation and Yes No hepatosplenomegaly present : COMMON NORMALS: Yes no CVA tenderness BLADDER/KIDNEY EXAM: Yes no CVA tenderness Back/Pelvis: COMMON NORMALS: no CVA tenderness Extremity: NARRATIVE EXTREMITY EXAM: 2-3+ pitting edema bilateral lower extremities up to the knees. Neuro: COMMON NORMALS: patient oriented x3 SENSORIUM/ORIENTATION: Yes alert MENINGEAL SIGNS: Yes no meningeal signs Course Vital Signs: Vital signs: Vital Signs Temperature 97.8 F 07/03/23 02:23 Pulse Rate 79 07/03/23 03:50 Respiratory Rate 24 H 07/03/23 03:50 Blood Pressure 182/67 07/03/23 03:00 Pulse Oximetry 97 07/03/23 03:50 Oxygen Delivery Me thod Nasal Cannula 07/03/23 03:50 Oxygen Flow Rate 2 07/03/23 03:00 MDM - SOB/Dyspnea Medical Decision Making Patient presents back to the ER with worsening shortness of breath since he was discharged. Patient was just discharged approximately 4 days ago when her she had to go home and make arrangements. Otherwise she would not be discharged then. Patient says she has worsening shortness of breath since then her BNP is went up from 5000-15,000 and chest x-ray has not improved. He still shows CHF changes. Patient requiring 2 L of oxygen per nasal cannula keep her sats up in the mid 90s. Patient was given 1 additional dose of 40 mg of Lasix and 2 breathing treatments and did not improve in her b reathing. Dr. Rosado was consulted who agreed to inpatient mission for further evaluation and treatment. Differential Diagnosis Unlikely acute exacerbation of chronic obstructive airways disease, congestive heart failure, community acquired pneumonia, asthma with exacerbation or pulmonary embolism Medical Records I reviewed the patient's medical records. Lab Data I reviewed the patient's lab results. 07/03/23 02:39 07/03/23 02:39 Labs/Radiology: Radiology Impressions Chest X-Ray 07/03/23 02:34 IMPRESSION: Mild intrathoracic fluid overload similar to comparison imaging compatible with CHF. Laboratory Results WBC 13.38 10^3/uL (3.29-11.43) H 07/03/23 02:39 RBC 3.96 10^6/uL (3.85-5.65) 07/03/23 02:39 Hgb 12.00 g/dL (11.27-16.99) 07/03/23 02:39 Hct 37.5 % (36-47) 07/03/23 02:39 MCV 94.7 fl (85-98) 07/03/23 02:39 MCH 30.3 pg (27-33) 07/03/23 02:39 MCHC 32.0 g/dL (30-55) 07/03/23 02:39 RDW 13.8 % (12.1-15.1) 07/03/23 02:39 Plt Count 193 10^3/cmm (157-399) 07/03/23 02:39 MPV 12.6 fL (7.4-10.4) H 07/03/23 02:39 Neut % (Auto) 70.3 % 07/03/23 02:39 Lymph % (Auto) 18.6 % 07/03/23 02:39 [place] % (Auto) 6.8 % 07/03/23 02:39 Eos % (Auto) 3.6 % 07/03/23 02:39 Baso % (Auto) 0.4 % 07/03/23 02:39 Neut # (Auto) 9.40 10^3/uL (1.8-7.7) H 07/03/23 02:39 Lymph # (Auto) 2.5 10^3/uL (0.8-4.8) 07/03/23 02:39 [place] # (Auto) 0.9 10^3/uL (0.2-0.9) 07/03/23 02:39 Eos # (Auto) 0.5 10^3/uL (0.0-0.8) 07/03/23 02:39 Baso # (Auto) 0.1 10^3/uL (0.0-0.1) 07/03/23 02:39 Nucleated RBC % (auto) 0 % 07/03/23 02:39 Nucleated RBCs # 0.0 /100WBC 07/03/23 02:39 PT 14.10 SECONDS (12.1-14.9) 07/03/23 02:39 INR 1.05 (0.8-1.2) 07/03/23 02:39 Sodium 138 mmol/L (136-145) 07/03/23 02:39 Potassium 3.4 mmol/L (3.5-5.1) L 07/03/23 02:39 Chloride 100 mmol/L (98-107) 07/03/23 02:39 Carbon Dioxide 27 mmol/L (22-29) 07/03/23 02:39 Anion Gap 14.4 (5-19) 07/03/23 02:39 BUN 60 mg/dL (8-23) H 07/03/23 02:39 Creatinine 2.2 mg/dL (0.5-0.9) H 07/03/23 02:39 GFR Calculation Not Reportable 07/03/23 02:39 Glucose 255 mg/dL (65-115) H 07/03/23 02:39 Calculated Osmolality 312 mOsm/kg (285-295) H 07/03/23 02:39 Calcium 8.8 mg/dL (8.5-10.5) 07/03/23 02:39 Phosphorus 3.5 mg/dL (2.5-4.5) 07/03/23 02:39 Magnesium 1.8 mg/dL (1.7-2.3) 07/03/23 02:39 Total Bilirubin 0.2 mg/dL (0.15-1.2) 07/03/23 02:39 AST 14 U/L (0-32) 07/03/23 02:39 ALT 18 U/L (0-33) 07/03/23 02:39 Alkaline Phosphatase 69 U/L (35-105) 07/03/23 02:39 NT-Pro-B Natriuret Pep 30071 pg/mL (0-450) H 07/03/23 02:39 Total Protein 6.2 g/dL (6.6-8.7) L 07/03/23 02:39 Albumin 3.4 g/dL (3.5-5.2) L 07/03/23 02:39 Globulin 2.8 g/dL (1.3-4.6) 07/03/23 02:39 EKG Data EKG 1: I personally reviewed and interpreted this EKG as follows: EKG Interpretation Date: 07/03/23 EKG interpretation time: 02:24 Prior EKG tracings: not available for review Interpretation: EKG showed ventricular rate 80 bpm, MT interval 145, QRS duration 151, QTc 457, sinus rhythm with occasional PVC, left bundle branch block, Discharge Plan Discharge Patient Disposition: Admitted As Inpatient Clinical Impression: Congestive heart failure, Shortness of breath Condition: Stable Prescriptions: No Action nitroglycerin [Nitrostat] 0.4 mg tablet, sublingual 0.4 mg SUBLINGUAL Q5M PRN (Reason: Chest Pain) One-A-Day Vitacraves [place]-3 200-16 mcg-mg tablet,chewable 1 tab PO DAILY magnesium oxide 400 mg magnesium capsule 400 mg PO BID fluticasone propion-salmeterol [Advair Diskus] 250-50 mcg/dose blister with device 1 inh INHALATION BID calcium carbonate 600 mg calcium (1,500 mg) tablet 600 mg PO QDAY cranberry extract 200 mg capsule 200 mg PO QDAY cholecalciferol (vitamin D3) 1,000 unit capsule 1,000 unit PO QDAY melatonin 5 mg tablet 5 mg PO QDAY metoclopramide HCl 10 mg tablet 10 mg PO Q6H PRN (Reason: Acid Reflux) pantoprazole [Protonix] 40 mg tablet,delayed release (DR/EC) 40 mg PO QDAY albuterol sulfate [Proventil HFA] 90 mcg/actuation HFA aerosol inhaler 2 puff INHALATION Q6H PRN (Reason: Shortness Of Breath) ropinirole 0.5 mg tablet 0.5 mg PO QDAY Spiriva with HandiHaler 18 mcg capsule, w/inhalation device 1 cap INHALATION QDAY trazodone 100 mg tablet 100 mg PO QDAY venlafaxine 37.5 mg tablet 37.5 mg PO QDAY vitamin B complex [B Complex-Vitamin B12] Tablet 1 tab PO QDAY ascorbic acid (vitamin C) 500 mg tablet 250 mg PO QDAY gabapentin 800 mg tablet 800 mg PO TID 90 Days Qty: 270 0RF lidocaine 5 % adhesive patch,medicated 3 patch topical DAILY 90 Days Qty: 90 0RF Rx Instructions: APPLY 3 PATCHES TO AFFECTED AREA 12 HOURS ON / 12 HOURS OFF. cyclobenzaprine 10 mg tablet 5 mg PO TID PRN (Reason: muscle spasm) 90 Days Qty: 135 0RF (DME) Diabetic Shoes with Inserts See Rx Instructions .Route .MEDSUPPLY Qty: 1 3RF Rx Instructions: As directed hydrocodone-acetaminophen 10-325 mg tablet 1 tab PO QID PRN (Reason: pain) 30 Days Qty: 120 0RF Rx Instructions: fill on or after 08/26/21 roflumilast [Daliresp] 500 mcg tablet 500 mcg PO DAILY insulin glargine 100 unit/mL Solution 8 unit SUBCUT DAILY 30 Days Qty: 10 0RF furosemide 40 mg Tablet 40 mg PO BID@08,16 30 Days Qty: 60 0RF carvedilol 12.5 mg Tablet 12.5 mg PO BID 30 Days Qty: 60 0RF Pacerone 200 mg Tablet 200 mg PO DAILY 30 Days Qty: 30 0RF amlodipine 10 mg Tablet 10 mg PO DAILY 30 Days Qty: 30 0RF hydralazine 50 mg Tablet 100 mg PO TID 30 Days Qty: 180 0RF Eliquis 5 mg Tablet 5 mg PO BID@0900,2100 30 Days Qty: 60 0RF Lipitor 40 mg tablet 40 mg PO QDAY 30 Days Qty: 30 0RF clopidogrel 75 mg tablet 75 mg PO QDAY 30 Days Qty: 30 0RF levothyroxine 25 mcg tablet 25 mcg PO DAILY 30 Days Qty: 30 0RF isosorbide mononitrate 120 mg tablet extended release 24 hr 120 mg PO BID 30 Days Qty: 30 0RF Novolog FlexPen U-100 Insulin 100 unit/mL (3 mL) insulin pen See Rx Instructions .ROUTE .COMPLEX Qty: 15 0RF Rx Instructions: inject subcut, three times daily after meals, based on sliding scale provided Klor-Con M20 20 mEq tablet,ER particles/crystals 20 meq PO BID 30 Days Qty: 60 0RF Referrals: Leena Calderon PA [Primary Care Provider] - Coding Level of Care Code ED Industry Operations Investigator for Sera Harris
[2023-07-03 02:51] LABS: Basophils # 0.1 10^3/uL (0.0-0.1); Basophils % 0.4 %; Eosinophils # 0.5 10^3/uL (0.0-0.8); Eosinophils % 3.6 %; Hematocrit 37.5 % (36-47); Lymphocytes # 2.5 10^3/uL (0.8-4.8); Lymphocytes % 18.6 %; Mean Corpuscular Hemoglobin 30.3 pg (27-33); Mean Corpuscular Volume 94.7 fl (85-98); Mean Platelet Volume 12.6 fL (7.4-10.4); Monocytes # 0.9 10^3/uL (0.2-0.9); Monocytes % 6.8 %; Neutrophils % 70.3 %; Nucleated Red Blood Cells % 0 %; Platelet Count 193 10^3/cmm (157-399); Red Blood Count 3.96 10^6/uL (3.85-5.65); Red Cell Distribution Width 13.8 % (12.1-15.1); White Blood Count 13.38 10^3/uL (3.29-11.43)
[2023-07-03 03:04] LABS: INR 1.05 (0.8-1.2)
[2023-07-03] MEDS: FUROsemide 10 mg/mL SDV 4mL 40 MG IVP (03:21)
[2023-07-03 03:27] LABS: Alanine Aminotransferase 18 U/L (0-33); Albumin Level 3.4 g/dL (3.5-5.2); Alkaline Phosphatase 69 U/L (35-105); Anion Gap 14.4 (5-19); Aspartate Amino Transferase 14 U/L (0-32); Blood Urea Nitrogen 60 mg/dL (8-23); Calcium 8.8 mg/dL (8.5-10.5); Carbon Dioxide 27 mmol/L (22-29); Chloride 100 mmol/L (98-107); Globulin 2.8 g/dL (1.3-4.6); Glucose 255 mg/dL (65-115); Magnesium 1.8 mg/dL (1.7-2.3); NT Pro B Type Natriuretic Pept 14456 pg/mL (0-450); Osmolality Calculated 312 mOsm/kg (285-295); Phosphorus 3.5 mg/dL (2.5-4.5); Potassium 3.4 mmol/L (3.5-5.1); Sodium 138 mmol/L (136-145); Total Bilirubin 0.2 mg/dL (0.15-1.2); Total Protein 6.2 g/dL (6.6-8.7)
[2023-07-03] MEDS: acetaminophen 500 mg Tablet 1000 MG PO (03:36)
[2023-07-03] MEDS: ipratropium-albuterol 3 mL Neb INHALATION (03:48)
[2023-07-03] MEDS: LORazepam 2 mg/mL INJ 1 mL 1 MG IVP (05:20)
--- NOTE | 2023-07-03 05:58 | P.HP_ITS ---
Providers/Chief Complaint Admitting Physician: Alexandria Rosado MD Primary Care Provider: Leena Calderon Chief Complaint: SOB History of Present Illness Ivette Ruiz is a 77 year old female with history of NSTEMI CKD with baseline creatinine of 1.5-1.6 congestive heart failure, degenerative disc disease , diabetes mellitus , lumbar stenosis with neurologic claudication , hypertension presented to the ER with complaint of worsening shortness of breath. She was recently admitted to the hospital for hypoxic respiratory failure, acute on chronic kidney disease for which she received 3 sessions of dialysis with improvement of creatinine to 2.3, new onset atrial fibrillation started on p.o. amiodarone and Eliquis, systolic and diastolic congestive heart failure. Her BNP at that time was 5000 .Unfortunately during this hospitalization her who had severe dementia passed at home and she requested for discharge on 06/28 to make arrangements at home. In spite of significant deconditioning, protein calorie malnutrition, lack of social support, complicated medical history as above, complicated hospital course she had denied placement in a detention facility on the last admission. In the ER she was found to have BNP of 15,000, WBC of 13,000 and creatinine 2.4. Review of Systems General: Reports: 10 or more systems reviewed and unremarkable except in HPI and below Medications/Allergies Home Medications Medication Instructions Recorded Confirmed Last Taken Type albuterol sulfate 90 mcg/actuation 2 puff inhalation Q6H PRN 11/18/19 06/09/23 06/09/23 History aerosol inhaler (Proventil HFA) Shortness Of Breath ascorbic acid (vitamin C) 500 mg 250 mg PO QDAY 11/18/19 06/09/23 06/07/23 Histo ry tablet calcium carbonate 600 mg calcium 600 mg PO QDAY 11/18/19 06/09/23 Unknown History (1,500 mg) tablet cholecalciferol (vitamin D3) 25 1,000 unit PO QDAY 11/18/19 06/09/23 Unknown History mcg (1,000 unit) capsule cranberry extract 200 mg capsule 200 mg PO QDAY 11/18/19 06/09/23 Unknown History fluticasone 250 mcg-salmeterol 50 1 inh inhalation BID 11/18/19 06/09/23 Unknown History mcg/dose blistr powdr for inhalation (Advair Diskus) melatonin 5 mg tablet 5 mg PO QDAY 11/18/19 06/09/23 Unknown History metoclopramide HCl 10 mg tablet 10 mg PO Q6H PRN Acid Reflux 11/18/19 06/10/23 Unknown History pantoprazole 40 mg tablet,delayed 40 mg PO QDAY 11/18/19 06/09/23 Unknown History release (Protonix) ropinirole 0.5 mg tablet 0.5 mg PO QDAY 11/18/19 06/09/23 Unknown History tiotropium bromide 18 mcg capsule 1 cap inhalation QDAY 11/18/19 06/09/23 Unknown History with inhalation device (Spiriva with HandiHaler) trazodone 100 mg tablet 100 mg PO QDAY 11/18/19 06/09/23 Unknown History venlafaxine 37.5 mg tablet 37.5 mg PO QDAY 11/18/19 06/09/23 Unknown History vitamin B complex (B 1 tab PO QDAY 11/18/19 06/09/23 Unknown History Complex-Vitamin B12 tablet) magnesium oxide 400 mg PO BID 12/02/19 06/09/23 Unknown History [id number] 200 mcg-16 mg 1 tab PO DAILY 12/02/19 06/09/23 Unknown History chewable tablet (One-A-Day Vitacraves [place]-3) nitroglycerin 0.4 mg sublingual 0.4 mg sublingual Q5M PRN Chest 12/02/19 06/09/23 Unknown History tablet (Nitrostat) Pain gabapentin 800 mg tablet 800 mg PO TID PAIN 90 days #270 03/17/20 06/09/23 Unknown Rx tabs lidocaine 5 % topical patch 3 patch topical DAILY PAIN 90 days 03/17/20 06/09/23 Unknown Rx #90 ea cyclobenzaprine 10 mg tablet 5 mg PO TID PRN muscle spasm 90 03/15/21 06/09/23 Unknown Rx days #135 tabs hydrocodone 10 mg-acetaminophen 1 tab PO QID PRN pain 30 days #120 07/27/21 06/09/23 06/09/23 Rx 325 mg tablet tabs Diabetic Shoes with Inserts #1 ea 04/18/22 06/10/23 Unknown Rx roflumilast 500 mcg tablet 500 mcg PO DAILY 04/29/22 06/09/23 Unknown History (Daliresp) amiodarone 200 mg tablet (Pacerone) 200 mg PO DAILY 30 days #30 tabs 06/28/23 Unknown Rx amlodipine 10 mg tablet 10 mg PO DAILY 30 days #30 tabs 06/28/23 Unknown Rx apixaban 5 mg tablet (Eliquis) 5 mg PO BID@0900,2100 30 days #60 06/28/23 Unknown Rx tabs atorvastatin 40 mg tablet (Lipitor) 40 mg PO QDAY 30 days #30 tabs 06/28/23 06/09/23 Unknown Rx carvedilol 12.5 mg tablet 12.5 mg PO BID 30 days #60 tabs 06/28/23 Unknown Rx clopidogrel 75 mg tablet 75 mg PO QDAY 30 days #30 tabs 06/28/23 06/09/23 Unknown Rx furosemide 40 mg tablet 40 mg PO BID@08,16 30 days #60 tabs 06/28/23 Unknown Rx hydralazine 50 mg tablet 100 mg PO TID 30 days #180 tabs 06/28/23 Unknown Rx insulin aspart U-100 100 unit/mL See Rx Instructions .Route 06/28/23 Unknown Rx (3 mL) subcutaneous pen (Novolog .COMPLEX #15 mL FlexPen U-100 Insulin aspart) insulin glargine 100 unit/mL 8 unit (0.08 mL) SUBCUT DAILY 30 06/28/23 Unknown Rx subcutaneous solution days #10 mL isosorbide mononitrate 120 mg 120 mg PO BID 30 days #30 tabs 06/28/23 06/09/23 Unknown Rx tablet,extended release 24 hr levothyroxine 25 mcg tablet 25 mcg PO DAILY 30 days #30 tabs 06/28/23 06/09/23 Unknown Rx potassium chloride 20 mEq 20 meq PO BID 30 days #60 tabs 06/28/23 Unknown Rx tablet,extended release(part/cryst) (Klor-Con M) Allergies Allergy/AdvReac Type Severity Reaction Status Date / Time No Known Allergies Allergy Verified 07/03/23 02:31 PFSH Acute PFSH: Medical History ASHD (arteriosclerotic heart disease) Bilateral bunions Bilateral knee pain Callus of foot Carotid stenosis, bilateral Chest pain CHF (congestive heart failure) Chronic fatigue Chronic hip pain CKD (chronic kidney disease) COPD (chronic obstructive pulmonary disease) Diabetes Diabetic neuropathy Diabetic peripheral neuropathy associated with type 2 diabetes mellitus DJD (degenerative joint disease), lumbar Dyslipidemia Essential hypertension GERD (gastroesophageal reflux disease) Long-term current use of opiate analgesic Lumbar stenosis with neurogenic claudication Lupus anticoagulant disorder Myocardial infarction Non-STEMI (non-ST elevated myocardial infarction) Obesity Onychodystrophy PAD (peripheral artery disease) Pain management contract signed Pes planus of both feet Primary osteoarthritis of knees, bilateral TIA (transient ischemic attack) Tobacco use disorder V-tach Surgical History S/P CABG (coronary artery bypass graft) (~10/01/14) S/P carotid endarterectomy S/P carpal tunnel release (Unknown) LEFT S/P cataract extraction (Unknown) RIGHT DR BATISTA S/P cataract extraction S/P hysterectomy Family History Unknown Adopted Social History Smoking and tobacco status: current every day smoker cigarettes Packs smoked per day: 2 Quit status (tobacco): has tried quititng Alcohol intake: never Substance/Drug Use: never Adopted: Yes Lives independently: Yes Household members: spouse Marital status: Vitals/I&O/Wt Last Vital Signs Temp 97.8 F 07/03/23 02:23 Pulse 85 07/03/23 04:30 Resp 22 H 07/03/23 04:30 BP 165/134 07/03/23 04:30 Pulse Ox 97 07/03/23 04:30 O2 Del Method Nasal Cannula 07/03/23 04:30 O2 Flow Rate 2 07/03/23 04:30 Weight last 48 hrs Weight 72.575 kg Physical Exam Narrative: She is alert awake oriented x3 anxious , in mild respiratory distress Chest-bilateral wheezing and coarse rhonchi heard Cardiovascular normal heart sounds Abdomen soft distended nontender normal bowel sounds Extremities 4+ edema present bilaterally Data 07/03/23 02:39 07/03/23 02:39 CXR: Radiologist's impression: IMPRESSION: Mild intrathoracic fluid overload similar to comparison imaging compatible with CHF. EKG 1: My Interpretation: SINUS RHYTHM WITH OCCASIONAL VENTRICULAR PREMATURE COMPLEXES WITH FREQUENT SUPRAVENTRICULAR PREMATURE COMPLEXES LBBB A&P Assessment and plan (1) Congestive heart failure: Shortness of breath due to acute on chronic congestive heart failure Admit to's cardiac stepdown will give IV Lasix 40 mg every 12 Monitor I's and O's Daily weight and labs Gibbs catheter once Continue home medications Cardiac diet She is full code Social work for home health aide or placement at detention facility Qualifiers: Heart failure chronicity: acute on chronic Heart failure type: unspe cified Qualified Code(s): I50.9 - Heart failure, unspecified Attestations Medical Necessity Statement*: Needs continued hospitalization for more than 2 days for acute on chronic congestive heart failure and diuresis. Time Spent in Patient Care: 35 minutes Coding Level of Care Code Critical Care >/= 30 minutes Diagnoses Congestive heart failure I50.9 Heart failure chronicity: acute on chronic Heart failure type: unspecified Time Spent (min) 35
[2023-07-03] MEDS: HYDROcodone-acetaminophen 10-325 mg Tablet 1 TAB PO ×2 (06:09→21:06)
[2023-07-03 06:37] LABS: Glucose Point of Care 227 mg/dL (70-110)
[2023-07-03] MEDS: LORazepam 1 mg Tablet PO (06:39)
[2023-07-03] MEDS: ipratropium 0.5 mg/2.5 mL Neb INHALATION ×4 (07:30→20:20)
[2023-07-03] MEDS: amiodarone 200 mg Tablet PO (08:12)
[2023-07-03] MEDS: clopidogrel 75 mg Tablet PO (08:12)
[2023-07-03] MEDS: hyDRALAzine 50 mg Tablet 100 MG PO ×3 (08:13→21:06)
[2023-07-03] MEDS: carvedilol 12.5 mg Tablet PO (08:13)
[2023-07-03] MEDS: potassium chloride ER 20 mEq Tablet PO ×2 (08:14→17:46)
[2023-07-03] MEDS: isosorbide mononitrate ER 60 mg Tablet 120 MG PO ×2 (08:14→17:46)
[2023-07-03] MEDS: amlodipine 10 mg Tablet PO (08:14)
[2023-07-03] MEDS: apixaban 5 mg Tablet PO (08:14)
[2023-07-03] MEDS: pantoprazole DR 40 mg Tablet PO (08:14)
[2023-07-03] MEDS: levothyroxine 25 mcg Tablet PO (08:14)
[2023-07-03] MEDS: FUROsemide 40 mg Tablet PO (08:16)
[2023-07-03] MEDS: insulin lispro 100 unit/1 mL SUBCUT ×4 (08:17→21:07)
--- NOTE | 2023-07-03 09:44 | PC.PHAR ---
pt states she takes care of her own medications-pt verified a few of her meds before drifting to sleep kept waking her up but she wouldnt stay awake to verify all meds-medications entered are from what the pt states she takes and what [facility] for the pt -last fill dates and what pharmacy meds were filled at are in the pharmacy comments-pt states she has one tab of prednisone left rx filled 06/28/23 5d/s 10mg daily-pt states she uses 4 units of her lantus solostar rx filled 06/28/23 8 units daily-pt states she hasnt taken her otc meds for at least 5 days-notes are made in the pharmacy comments
[2023-07-03] MEDS: bumetanide 0.25 mg/mL SDV 10 mL 2 MG IVP ×2 (10:16→21:07)
[2023-07-03] MEDS: metOLazone 5 MG Tablet PO (10:16)
[2023-07-03] MEDS: insulin glargine 100 units/1 mL 8 UNIT SUBCUT (10:16)
--- NOTE | 2023-07-03 11:38 | PM.CONSULT ---
Providers/Reason For Consult Consulting Physician/Specialty*: kommana/nephrology Reason for Consult*: esrd Attending Physician: Zach Kwong MD Primary Care Provider: Leena Calderon History of Present Illness History of Present Illness Ivette Ruiz is a 77 year old female Patient is a 77-year-old female with past medical history of NSTEMI, hypertension, CHF with ejection fraction of 35 to 40%, diabetes, was recently admitted to the hospital due to hypoxia, CHF and had acute on chronic kidney disease. Patient had temporary dialysis during that time and creatinine has improved to 2.3 and patient was discharged home. She presents back to the emergency department due to worsening shortness of breath and worsening lower extremity edema. Chest x-ray showed pulmonary edema. Review of Systems Narrative: negative Medications/Allergies Home Medications Medication Instructions Recorded Confirmed Last Taken Type albuterol sulfate 90 mcg/actuation 2 puff inhalation Q6H PRN 11/18/19 07/03/23 06/09/23 History aerosol inhaler (Ventolin HFA) Shortness Of Breath ascorbic acid (vitamin C) 500 mg 500 mg PO DAILY 11/18/19 07/03/23 06/07/23 History tablet calcium carbonate 600 mg calcium 600 mg PO DAILY 11/18/19 07/03/23 Unknown History (1,500 mg) tablet cholecalciferol (vitamin D3) 25 1,000 unit PO DAILY 11/18/19 07/03/23 Unknown History mcg (1,000 unit) capsule cranberry extract 200 mg capsule 200 mg PO DAILY 11/18/19 07/03/23 Unknown History fluticasone 250 mcg-salmeterol 50 1 inh inhalation BID 11/18/19 07/03/23 Unknown History mcg/dose blistr powdr for inhalation (Advair Diskus) melatonin 5 mg tablet 5 mg PO BEDTIME 11/18/19 07/03/23 Unknown History pantoprazole 40 mg tablet,delayed 40 mg PO DAILY 11/18/19 07/03/23 Unknown History release (Protonix) ropinirole 0.5 mg tablet 0.5 mg PO TID 11/18/19 07/03/23 Unknown History vitamin B complex (B-Complex 1 tab PO DAILY 11/18/19 07/03/23 Unknown History tablet) magnesium oxide 400 mg PO BID 12/02/19 07/03/23 Unknown History fgcuctvxkvfr-XV-lhc 200 mcg-16 mg 1 tab PO DAILY 12/02/19 07/03/23 Unknown History chewable tablet (One-A-Day Vitacraves [place]-3) Diabetic Shoes with Inserts #1 ea 04/18/22 07/03/23 Unknown Rx roflumilast 500 mcg tablet 500 mcg PO DAILY 04/29/22 07/03/23 Unknown History (Daliresp) amiodarone 200 mg tablet (Pacerone) 200 mg PO DAILY 30 days #30 tabs 06/28/23 07/03/23 Unknown Rx amlodipine 10 mg tablet 10 mg PO DAILY 30 days #30 tabs 06/28/23 07/03/23 Unknown Rx apixaban 5 mg tablet (Eliquis) 5 mg PO BID@0900,2100 30 days #60 06/28/23 07/03/23 Unknown Rx tabs carvedilol 12.5 mg tablet 12.5 mg PO BID 30 days #60 tabs 06/28/23 07/03/23 Unknown Rx clopidogrel 75 mg tablet 75 mg PO QDAY 30 days #30 tabs 06/28/23 07/03/23 Unknown Rx furosemide 40 mg tablet 40 mg PO BID@08,16 30 days #60 tabs 06/28/23 07/03/23 Unknown Rx hydralazine 50 mg tablet 100 mg PO TID 30 days #180 tabs 06/28/23 07/03/23 Unknown Rx insulin aspart U-100 100 unit/mL See Rx Instructions .Route 06/28/23 07/03/23 Unknown Rx (3 mL) subcutaneous pen (Novolog .COMPLEX #15 mL FlexPen U-100 Insulin aspart) isosorbide mononitrate 120 mg 120 mg PO BID 30 days #30 tabs 06/28/23 07/03/23 Unknown Rx tablet,extended release 24 hr levothyroxine 25 mcg tablet 25 mcg PO DAILY 30 days #30 tabs 06/28/23 07/03/23 Unknown Rx potassium chloride 20 mEq 20 meq PO BID 30 days #60 tabs 06/28/23 07/03/23 Unknown Rx tablet,extended release(part/cryst) (Klor-Con M) atorvastatin 40 mg tablet 40 mg PO DAILY 07/03/23 07/03/23 Unknown History cyclobenzaprine 10 mg tablet 10 mg PO TID PRN Muscle Spasm 07/03/23 07/03/23 Unknown History gabapentin 600 mg tablet 600 mg PO TID 07/03/23 07/03/23 Unknown History hydrocodone bitartrate 30 mg 30 mg PO DAILY 07/03/23 07/03/23 Unknown History tablet,crush resist,extended rel. 24hr (Hysingla ER) hydroxyzine HCl 25 mg tablet 25 mg PO BID PRN Anxiety 07/03/23 07/03/23 Unknown History insulin glargine 100 unit/mL (3 4 unit SUBCUT BEDTIME 07/03/23 07/03/23 Unknown History mL) subcutaneous pen (Lantus Solostar U-100 Insulin) lidocaine 5 % topical patch See Rx Instructions .Route .COMPLEX 07/03/23 07/03/23 Unknown History lisinopril 10 mg tablet 10 mg PO DAILY 07/03/23 07/03/23 Unknown History nitroglycerin 0.4 mg sublingual 0.4 mg sublingual Q5M PRN Chest 07/03/23 07/03/23 Unknown History tablet (Nitrostat) Pain ondansetron 4 mg disintegrating 4 mg PO BID PRN Nausea And Vomiting 07/03/23 07/03/23 Unknown History tablet prednisone 10 mg tablet 10 mg PO DAILY 07/03/23 07/03/23 Unknown History trazodone 150 mg tablet 150 mg PO BEDTIME 07/03/23 07/03/23 Unknown History venlafaxine 75 mg capsule,extended 75 mg PO DAILY 07/03/23 07/03/23 Unknown History release 24 hr Allergies Allergy/AdvReac Type Severity Reaction Status Date / Time No Known Allergies Allergy Verified 07/03/23 08:39 Current Medications Generic Name Dose Route Start Last Admin Trade Name Freq PRN Reason Stop Dose Admin Hydrocodone Bitart/Acetaminophen 1 tab 07/03/23 05:45 07/03/23 06:09 Hydrocodone-Acetaminophen 10-325 Mg Tablet PO 1 tab QID PRN Administration pain Amiodarone HCl 200 mg 07/03/23 09:00 07/03/23 08:12 Amiodarone 200 Mg Tablet PO 200 mg DAILY RIDGE Administration Amlodipine Besylate 10 mg 07/03/23 09:00 07/03/23 08:14 Amlodipine 10 Mg Tablet PO 10 mg DAILY RIDGE Administration Apixaban 5 mg 07/03/23 09:00 07/03/23 08:14 Apixaban 5 Mg Tablet PO 5 mg BID@0900,2100 RIDGE Administration Ascorbic Acid 250 mg 07/03/23 09:00 07/03/23 10:02 Ascorbic Acid 500 Mg Tablet PO Not Given DAILY RIDGE Bumetanide 2 mg 07/03/23 08:45 07/03/23 10:16 Bumetanide 0.25 Mg/Ml Sdv 10 Ml IVP 2 mg Q12H RIDGE Administration Calcium Carbonate 500 mg 07/03/23 09:00 07/03/23 10:03 Calcium Carbonate 500 Mg Chew Tablet PO Not Given DAILY RIDGE Carvedilol 12.5 mg 07/03/23 09:00 07/03/23 08:13 Carvedilol 12.5 Mg Tablet PO 12.5 mg BID RIDGE Administration Clopidogrel Bisulfate 75 mg 07/03/23 09:00 07/03/23 08:12 Clopidogrel 75 Mg Tablet PO 75 mg DAILY RIDGE Administration Cyanocobalamin 1,000 mcg 07/03/23 09:00 07/03/23 10:03 Cyanocobalamin 1,000 Mcg Tablet PO Not Given DAILY [facility] Gabapentin 800 mg 07/03/23 09:00 07/03/23 08:26 Gabapentin 400 Mg Capsule PO Not Given TID [facility] Hydralazine HCl 100 mg 07/03/23 09:00 07/03/23 08:13 Hydralazine 50 Mg Tablet PO 100 mg TID RIDGE Administration Insulin Glargine 8 unit 07/03/23 09:00 07/03/23 10:16 Insulin Glargine 100 Units/1 Ml SUBCUT 8 unit DAILY RIDGE Administration Ipratropium [place] 0.5 mg 07/03/23 08:00 07/03/23 11:25 Ipratropium 0.5 Mg/2.5 Ml Neb INHALATION 0.5 mg QID.RESPIRATORY RIDGE Administration Isosorbide Mononitrate 120 mg 07/03/23 09:00 07/03/23 08:14 Isosorbide Mononitrate Er 60 Mg Tablet PO 120 mg BID RIDGE Administration Levothyroxine Sodium 25 mcg 07/03/23 09:00 07/03/23 08:14 Levothyroxine 25 Mcg Tablet PO 25 mcg DAILY RIDGE Administration Magnesium Oxide 400 mg 07/03/23 09:00 07/03/23 10:02 Magnesium Oxide 400 Mg Tablet PO Not Given BID RIDGE Metolazone 5 mg 07/03/23 09:00 07/03/23 10:16 Metolazone 5 Mg Tablet PO 5 mg DAILY RIDGE Administration Non-Formulary Medication 200 mg 07/03/23 09:00 07/03/23 08:06 Cranberry Extract PO Not Given DAILY RIDGE Non-Formulary Medication 5 mg 07/03/23 09:00 07/03/23 08:26 Melatonin PO Not Given DAILY RIDGE Pantoprazole Sodium 40 mg 07/03/23 09:00 07/03/23 08:[address] 40 Mg Tablet PO 40 mg DAILY RIDGE Administration Potassium Chloride 20 meq 07/03/23 09:00 07/03/23 08:14 Potassium Chloride Er 20 Meq Tablet PO 20 meq BID RIDGE Administration Roflumilast 500 mcg 07/03/23 09:00 07/03/23 10:02 Roflumilast 500 Mcg Tablet PO Not Given DAILY RIDGE Venlafaxine HCl 37.5 mg 07/03/23 09:00 07/03/23 10:02 Venlafaxine 75 Mg Tablet PO Not Given DAILY RIDGE Vitamin D 1,000 unit 07/03/23 09:00 07/03/23 10:03 Cholecalciferol (Vitamin D3) 1,000 Unit Tablet PO Not Given DAILY RIDGE PFSH Acute PFSH: Medical History ASHD (arteriosclerotic heart disease) Bilateral bunions Bilateral knee pain Callus of foot Carotid stenosis, bilateral Chest pain CHF (congestive heart failure) Chronic fatigue Chronic hip pain CKD (chronic kidney disease) COPD (chronic obstructive pulmonary disease) Diabetes Diabetic neuropathy Diabetic peripheral neuropathy associated with type 2 diabetes mellitus DJD (degenerative joint disease), lumbar Dyslipidemia Essential hypertension GERD (gastroesophageal reflux disease) Long-term current use of opiate analgesic Lumbar stenosis with neurogenic claudication Lupus anticoagulant disorder Myocardial infarction Non-STEMI (non-ST elevated myocardial infarction) Obesity Onychodystrophy PAD (peripheral artery disease) Pain management contract signed Pes planus of both feet Primary osteoarthritis of knees, bilateral TIA (transient ischemic attack) Tobacco use disorder V-tach Surgical History S/P CABG (coronary artery bypass graft) (~10/01/14) S/P carotid endarterectomy S/P carpal tunnel release (Unknown) LEFT S/P cataract extraction (Unknown) RIGHT DR BATISTA S/P cataract extraction S/P hysterectomy Family History Unknown Adopted Social History Smoking and tobacco status: current every day smoker cigarettes Packs smoked per day: 2 Quit status (tobacco): has tried quititng Alcohol intake: never Substance/Drug Use: never Adopted: Yes Lives independently: Yes Household members: spouse Marital status: Vitals/I&O/Wt Last Vital Signs Temp 97.6 F 07/03/23 08:00 Pulse 53 L 07/03/23 11:27 Resp 16 07/03/23 11:27 BP 173/73 07/03/23 08:00 Pulse Ox 99 07/03/23 11:27 O2 Del Method Nasal Cannula 07/03/23 11:27 O2 Flow Rate 2 07/03/23 11:27 07/02/23 07/03/23 07/03/23 22:59 06:59 14:59 Intake Total 480 / 480 Balance 480 / 480 Weight last 48 hrs Weight 79.016 kg Weight 72.575 kg Physical Exam Narrative: awake ,alert no distres + LE edema Data 07/03/23 02:39 07/03/23 02:39 A&P Assessment and plan (1) [id number] renal failure: Plan 1. Acute on chronic kidney disease: Baseline creatinines in the 1.6-2 range, patient's creatinine is 2.2 currently but has volume overload with pulmonary edema, hypoxemia and worsening lower extremity edema. -Discussed with patient regarding she agreed to proceed with PC placement -Once tunneled catheter placed, will start dialysis. -2 g sodium restriction and 1500 mill fluid restriction. 2. CHF with reduced ejection fraction, currently on diuretics, should improve volume status once dialysis started. 3. Atrial fibrillation: On amiodarone 4. HTN : Bp elevated, should improve with hD Patient evaluated using audiovisual cart. Time spent 40 minutes Consult Attestations Medical Necessity Statement: per mediicne team Coding Level of Care Code Acute Code for Chg Fwd Diagnoses [id number] renal failure N17.9; N18.9
[2023-07-03 12:16] LABS: Glucose Point of Care 178 mg/dL (70-110)
[2023-07-03 13:16] LABS: Adenovirus Not Detected (NOT DETECT); Chlamydia Pneumoniae Not Detected (NOT DETECT); Coronavirus 229E,HKU1,NL63,OC4 Not Detected (NOT DETECT); Human Metapneumovirus Not Detected (NOT DETECT); Human Rhinovirus/Enterovirus Not Detected (NOT DETECT); Influenza A Not Detected (NOT DETECT); Influenza A H1 Not Detected (NOT DETECT); Influenza A H1-2009 Not Detected (NOT DETECT); Influenza A H3 Not Detected (NOT DETECT); Influenza B Not Detected (NOT DETECT); Mycoplasma Pneumoniae Not Detected (NOT DETECT); Parainfluenza Virus Type 1 Not Detected (NOT DETECT); Parainfluenza Virus Type 2 Not Detected (NOT DETECT); Parainfluenza Virus Type 3 Not Detected (NOT DETECT); Parainfluenza Virus Type 4 Not Detected (NOT DETECT); Respiratory Syncytial Virus A Not Detected (NOT DETECT); Respiratory Syncytial Virus B Not Detected (NOT DETECT); SARS-COV-2 Not Detected (NOT DETECT)
--- NOTE | 2023-07-03 13:36 | P.CONIM_ITS ---
Providers/Reason For Consult Consulting Physician/Specialty*: Dr. Markie Reynolds, DO/General surgery Reason for Consult*: Permacath placement Attending Physician: Zach Kwong MD Primary Care Provider: Leena Calderon History of Present Illness History of Present Illness Ivette Ruiz is a 77 year old female, with past medical history of CHF, NSTEMI and chronic renal disease that previously had temporary hemodialysis, that presented to the hospital again with worsening difficulty breathing. She denies any other symptoms. Nephrology was consulted and requested permacath placement. Review of Systems General: Reports: 10 or more systems reviewed and unremarkable except in HPI and below Medications/Allergies Home Medications Medication Instructions Recorded Confirmed Last Taken Type albuterol sulfate 90 mcg/actuation 2 puff inhalation Q6H PRN 11/18/19 07/03/23 06/09/23 History aerosol inhaler (Ventolin HFA) Shortness Of Breath ascorbic acid (vitamin C) 500 mg 500 mg PO DAILY 11/18/19 07/03/23 06/07/23 History tablet calcium carbonate 600 mg calcium 600 mg PO DAILY 11/18/19 07/03/23 Unknown History (1,500 mg) tablet cholecalciferol (vitamin D3) 25 1,000 unit PO DAILY 11/18/19 07/03/23 Unknown History mcg (1,000 unit) capsule cranberry extract 200 mg capsule 200 mg PO DAILY 11/18/19 07/03/23 Unknown History fluticasone 250 mcg-salmeterol 50 1 inh inhalation BID 11/18/19 07/03/23 Unknown History mcg/dose blistr powdr for inhalation (Advair Diskus) melatonin 5 mg tablet 5 mg PO BEDTIME 11/18/19 07/03/23 Unknown History pantoprazole 40 mg tablet,delayed 40 mg PO DAILY 11/18/19 07/03/23 Unknown History release (Protonix) ropinirole 0.5 mg tablet 0.5 mg PO TID 11/18/19 07/03/23 Unknown History vitamin B complex (B-Complex 1 tab PO DAILY 11/18/19 07/03/23 Unknown History tablet) magnesium oxide 400 mg PO BID 12/02/19 07/03/23 Unknown History ofbemivfnwcl-VK-yay 200 mcg-16 mg 1 tab PO DAILY 12/02/19 07/03/23 Unknown Histo ry chewable tablet (One-A-Day Vitacraves [place]-3) Diabetic Shoes with Inserts #1 ea 04/18/22 07/03/23 Unknown Rx roflumilast 500 mcg tablet 500 mcg PO DAILY 04/29/22 07/03/23 Unknown History (Daliresp) amiodarone 200 mg tablet (Pacerone) 200 mg PO DAILY 30 days #30 tabs 06/28/23 07/03/23 Unknown Rx amlodipine 10 mg tablet 10 mg PO DAILY 30 days #30 tabs 06/28/23 07/03/23 Unknown Rx apixaban 5 mg tablet (Eliquis) 5 mg PO BID@0900,2100 30 days #60 06/28/23 07/03/23 Unknown Rx tabs carvedilol 12.5 mg tablet 12.5 mg PO BID 30 days #60 tabs 06/28/23 07/03/23 Unkn own Rx clopidogrel 75 mg tablet 75 mg PO QDAY 30 days #30 tabs 06/28/23 07/03/23 Unknown Rx furosemide 40 mg tablet 40 mg PO BID@08,16 30 days #60 tabs 06/28/23 07/03/23 Unknown Rx hydralazine 50 mg tablet 100 mg PO TID 30 days #180 tabs 06/28/23 07/03/23 Unknown Rx insulin aspart U-100 100 unit/mL See Rx Instructions .Route 06/28/23 07/03/23 Unknown Rx (3 mL) subcutaneous pen (Novolog .COMPLEX #15 mL FlexPen U-100 Insulin aspart) isosorbide mononitrate 120 mg 120 mg PO BID 30 days #30 tabs 06/28/23 07/03/23 Unknown Rx tablet,extended release 24 hr levothyroxine 25 mcg tablet 25 mcg PO DAILY 30 days #30 tabs 06/28/23 07/03/23 Unknown Rx potassium chloride 20 mEq 20 meq PO BID 30 days #60 tabs 06/28/23 07/03/23 Unknown Rx tablet,extended release(part/cryst) (Klor-Con M) atorvastatin 40 mg tablet 40 mg PO DAILY 07/03/23 07/03/23 Unknown History cyclobenzaprine 10 mg tablet 10 mg PO TID PRN Muscle Spasm 07/03/23 07/03/23 Unknown History gabapentin 600 mg tablet 600 mg PO TID 07/03/23 07/03/23 Unknown History hydrocodone bitartrate 30 mg 30 mg PO DAILY 07/03/23 07/03/23 Unknown History tablet,crush resist,extended rel. 24hr (Hysingla ER) hydroxyzine HCl 25 mg tablet 25 mg PO BID PRN Anxiety 07/03/23 07/03/23 Unknown History insulin glargine 100 unit/mL (3 4 unit SUBCUT BEDTIME 07/03/23 07/03/23 Unknown History mL) subcutaneous pen (Lantus Solostar U-100 Insulin) lidocaine 5 % topical patch See Rx Instructions .Route .COMPLEX 07/03/23 07/03/23 Unknown History lisinopril 10 mg tablet 10 mg PO DAILY 07/03/23 07/03/23 Unknown History nitroglycerin 0.4 mg sublingual 0.4 mg sublingual Q5M PRN Chest 07/03/23 07/03/23 Unknown History tablet (Nitrostat) Pain ondansetron 4 mg disintegrating 4 mg PO BID PRN Nausea And Vomiting 07/03/23 07/03/23 Unknown History tablet prednisone 10 mg tablet 10 mg PO DAILY 07/03/23 07/03/23 Unknown History trazodone 150 mg tablet 150 mg PO BEDTIME 07/03/23 07/03/23 Unknown History venlafaxine 75 mg capsule,extended 75 mg PO DAILY 07/03/23 07/03/23 Unknown History release 24 hr Allergies Allergy/AdvReac Type Severity Reaction Status Date / Time No Known Allergies Allergy Verified 07/03/23 08:39 Current Medications Generic Name Dose Route Start Last Admin Trade Name Imelda PRN Reason Stop Dose Admin Acetaminophen 650 mg 07/03/23 17:41 07/03/23 17:55 Acetaminophen 325 Mg Tablet PO 650 mg Q6H PRN Administration MILD PAIN Hydrocodone Bitart/Acetaminophen 1 tab 07/03/23 05:45 07/03/23 21:06 Hydrocodone-Acetaminophen 10-325 Mg Tablet PO 1 tab QID PRN Administration pain Amiodarone HCl 100 mg 07/04/23 09:00 07/04/23 08:57 Amiodarone 200 Mg Tablet PO 100 mg DAILY RIDGE Administration Amlodipine Besylate 10 mg 07/03/23 09:00 07/04/23 08:56 Amlodipine 10 Mg Tablet PO 10 mg DAILY RIDGE Administration Apixaban 5 mg 07/03/23 09:00 07/03/23 08:14 Apixaban 5 Mg Tablet PO 5 mg BID@0900,2100 RIDGE Administration Ascorbic Acid 250 mg 07/03/23 09:00 07/03/23 10:02 Ascorbic Acid 500 Mg Tablet PO Not Given DAILY RIDGE Atorvastatin Calcium 40 mg 07/03/23 21:00 07/03/23 21:06 Atorvastatin 40 Mg Tablet PO 40 mg BEDTIME RIDGE Administration Bumetanide 2 mg 07/03/23 08:45 07/04/23 09:01 Bumetanide 0.25 Mg/Ml Sdv 10 Ml IVP 2 mg Q12H RIDGE Administration Calcium Carbonate 500 mg 07/03/23 09:00 07/04/23 09:25 Calcium Carbonate 500 Mg Chew Tablet PO Not Given DAILY RIDGE Carvedilol 6.25 mg 07/04/23 09:00 07/04/23 09:30 Carvedilol 6.25 Mg Tablet PO 6.25 mg BID RIDGE Administration Clopidogrel Bisulfate 75 mg 07/03/23 09:00 07/04/23 09:22 Clopidogrel 75 Mg Tablet PO Not Given DAILY RIDGE Cyanocobalamin 1,000 mcg 07/03/23 09:00 07/03/23 10:03 Cyanocobalamin 1,000 Mcg Tablet PO Not Given DAILY RIDGE Gabapentin 400 mg 07/03/23 15:00 07/04/23 09:30 Gabapentin 400 Mg Capsule PO 400 mg TID RIDGE Administration Hydralazine HCl 100 mg 07/03/23 09:00 07/04/23 08:56 Hydralazine 50 Mg Tablet PO 100 mg TID RDIGE Administration Insulin Glargine 8 unit 07/03/23 09:00 07/04/23 09:31 Insulin Glargine 100 Units/1 Ml SUBCUT 8 unit DAILY RIDGE Administration Insulin Human Lispro 0 unit 07/03/23 12:00 07/04/23 12:30 Insulin Lispro 100 Unit/1 Ml SUBCUT Not Given WM&BEDTIME [facility] Protocol Ipratropium [place] 0.5 mg 07/03/23 08:00 07/04/23 12:11 Ipratropium 0.5 Mg/2.5 Ml Neb INHALATION 0.5 mg QID.RESPIRATORY RIDGE Administration Isosorbide Mononitrate 120 mg 07/03/23 09:00 07/04/23 08:56 Isosorbide Mononitrate Er 60 Mg Tablet PO 120 mg BID RIDGE Administration Levothyroxine Sodium 25 mcg 07/03/23 09:00 07/04/23 09:30 Levothyroxine 25 Mcg Tablet PO 25 mcg DAILY RIDGE Administration Magnesium Oxide 400 mg 07/03/23 09:00 07/04/23 09:31 Magnesium Oxide 400 Mg Tablet PO 400 mg BID RIDGE Administration Metolazone 5 mg 07/03/23 09:00 07/04/23 08:56 Metolazone 5 Mg Tablet PO 5 mg DAILY RIDGE Administration Non-Formulary Medication 200 mg 07/03/23 09:00 07/04/23 09:23 Cranberry Extract PO Not Given DAILY RIDGE Non-Formulary Medication 5 mg 07/03/23 09:00 07/03/23 08:26 Melatonin PO Not Given DAILY RIDGE Pantoprazole Sodium 40 mg 07/03/23 09:00 07/04/23 09:[address] 40 Mg Tablet PO 40 mg DAILY RIDGE Administration Potassium Chloride 20 meq 07/03/23 09:00 07/04/23 09:31 Potassium Chloride Er 20 Meq Tablet PO 20 meq BID RIDGE Administration Roflumilast 500 mcg 07/03/23 09:00 07/03/23 10:02 Roflumilast 500 Mcg Tablet PO Not Given DAILY RIDGE Ropinirole HCl 0.5 mg 07/03/23 09:00 07/03/23 21:06 Ropinirole 0.25 Mg Tablet PO 0.5 mg DAILY RIDGE Administration Trazodone HCl 100 mg 07/03/23 09:00 07/03/23 21:06 Trazodone 100 Mg Tablet PO 100 mg DAILY RIDGE Administration Venlafaxine HCl 37.5 mg 07/03/23 09:00 07/03/23 10:02 Venlafaxine 75 Mg Tablet PO Not Given DAILY RIDGE Vitamin D 1,000 unit 07/03/23 09:00 07/03/23 10:03 Cholecalciferol (Vitamin D3) 1,000 Unit Tablet PO Not Given DAILY RIDGE PFSH Acute PFSH: Medical History ASHD (arteriosclerotic heart disease) Bilateral bunions Bilateral knee pain Callus of foot Carotid stenosis, bilateral Chest pain CHF (congestive heart failure) Chronic fatigue Chronic hip pain CKD (chronic kidney disease) COPD (chronic obstructive pulmonary disease) Diabetes Diabetic neuropathy Diabetic peripheral neuropathy associated with type 2 diabetes mellitus DJD (degenerative joint disease), lumbar Dyslipidemia Essential hypertension GERD (gastroesophageal reflux disease) Long-term current use of opiate analgesic Lumbar stenosis with neurogenic claudication Lupus anticoagulant disorder Myocardial infarction Non-STEMI (non-ST elevated myocardial infarction) Obesity Onychodystrophy PAD (peripheral artery disease) Pain management contract signed Pes planus of both feet Primary osteoarthritis of knees, bilateral TIA (transient ischemic attack) Tobacco use disorder V-tach Surgical History S/P CABG (coronary artery bypass graft) (~10/01/14) S/P carotid endarterectomy S/P carpal tunnel release (Unknown) LEFT S/P cataract extraction (Unknown) RIGHT DR BATISTA S/P cataract extraction S/P hysterectomy Family History Unknown Adopted Social History Smoking and tobacco status: current every day smoker cigarettes Packs smoked per day: 2 Quit status (tobacco): has tried quititng Alcohol intake: never Substance/Drug Use: never Adopted: Yes Lives independently: Yes Household members: spouse Marital status: Vitals/I&O/Wt Last Vital Signs Temp 99.1 F 07/04/23 11:56 Pulse 62 07/04/23 12:12 Resp 18 07/04/23 12:12 BP 125/60 07/04/23 11:56 Pulse Ox 96 07/04/23 12:12 O2 Del Method Nasal Cannula 07/04/23 12:12 O2 Flow Rate 2 07/04/23 12:12 07/03/23 07/04/23 07/04/23 22:59 06:59 14:59 Intake Total 50 / 890 0 / 890 Output Total 725 / 725 150 / 875 Balance -675 / 165 -150 / 15 Weight last 48 hrs Weight 180 lb 6.4 oz Weight 174 lb 3.2 oz Weight 160 lb Physical Exam Narrative: General : Patient is well developed , no acute distress, oriented x3 Head : Normal cephalic, a-traumatic. Ears : Pinnae and external canal are normal. Hearing is normal. Eyes : PERRLA, Sclera and injection are normal. No conjunctival discharge. Nose : Mucous membranes are without erythema. Throat : buccal mucosa is normal, gums are without significant recession or hypertrophy. Lungs : Equal chest rise bilaterally, no use of accessory muscles, trachea is midline. Cor : Rate and rhythm are normal. Abdomen : Soft, ND, NT, no g/r/m Extremities : No edema, no cyanosis or clubbing, dorsalis pedis pulses are present bilaterally, non-tender to palpation of calves. Upper extremities are normal bilaterally. Back : non-tender to palpation, no CVA tenderness. Neuro : CN II - XII intact, Upper and lower extremities have equal and full strength Urinary Catheter Management: Gibbs Latex Free: Cath Placed During This Visit: yes Reason for Continuing Indwelling Catheter: Accurate Measurement of Urinary Output in Critically Ill Patients Urinary Catheter Date of Insertion: 07/03/23 Urinary Catheter Time of Insertion: 10:10 Data 07/04/23 03:47 07/04/23 03:47 A&P Assessment and plan (1) [id number] renal failure: Plan Permacath placement The risks and benefits of the procedure, including but not limited to, bleeding, infection, infection requiring Mediport removal antibiotic therapy and repeat surgery, damage to surrounding structures, scar, numbness, pain, pneumothorax requiring thoracostomy tube, were explained to the patient. He/She is understanding of the risks and wishes to proceed. Coding Level of Care Code 10344 Diagnoses [id number] renal failure N17.9; N18.9
--- NOTE | 2023-07-03 13:42 | W.PM.EVENTAC ---
Event Note Event Note: Admitted earlier today morning. H&P and labs appreciated. In review, chronically sick appearing patient who was recently discharged from the hospital after a prolonged complicated hospitalization where she was managed for congestive heart failure, MARIO with CKD, uremia with short-term dialysis and was discharged as a high risk. Patient came in last night with increased shortness of breath over last 3 days. Labs appreciated for mild leukocytosis to 13.38, stable hemoglobin, CMP showing mild hypokalemia down to 3.4, creatinine of 2.2 with worsening of uremia up to 60, BNP up to 14,000. On examination patient is awake but dozing off while having her food on 2 L of oxygen supplementation saturating more than 95%, slightly bradycardic with heart rate down to mid 50s and blood pressure elevated up to 170 systolics. Plan: Goals of care discussed in detail with the patient at bedside. Discussed the option right now is for possibly her to be on a long-term dialysis for better renal function management, congestive heart failure along with possibility of a cardiac angiogram and PCI if she is going on dialysis along with possible discharge to SNF for closer monitoring versus possibility of hospice going forward given sudden steep decline in health. Patient verbalized understanding and wants everything to be done for her care to prolong her life. She is agreeable for dialysis. Patient wants to be discharged to SNF for further rehabitation and eventually moved to [place] to be closer to her children. Discussed in detail with nephrology. They are agreeable for long-term dialysis as well. Surgery consulted for tunneled catheter placement. Hold Eliquis for now. Last dose today morning. Switch diuretic to Bumex 2 mg IV every 12 hourly, add metolazone 5 mg oral daily. Gibbs catheterization. No more Ativan or benzos. Decrease dose of gabapentin to 400 mg 3 times daily. Medical reconciliation done for nephrotoxic drugs. Monitor BMP daily. Case management consulted. PT evaluation. High MDM includes number and complexity of problems actively addressed during encounter, amount and/or complexity of data reviewed/ordered [ previous or external records, resulted lab(s)/test(s), ordered lab(s)/test(s), independent historian, independent test interpretation and other healthcare professional discussion] and described risk of complication, morbidity or mortality of management as documented Other Coding Information Prolonged care (total time indicated above or notated here) (Goals of care discussion, care discussion with multiple physicians, monitoring renal functions, medical reconciliation)
[2023-07-03] MEDS: gabapentin 400 mg Capsule PO ×2 (15:51→21:06)
[2023-07-03 17:09] LABS: Glucose Point of Care 350 mg/dL (70-110)
[2023-07-03] MEDS: magnesium oxide 400 mg tablet PO (17:46)
[2023-07-03] MEDS: acetaminophen 325 mg Tablet 650 MG PO (17:55)
[2023-07-03 20:42] LABS: Glucose Point of Care 241 mg/dL (70-110)
[2023-07-03] MEDS: atorvastatin 40 mg Tablet PO (21:06)
[2023-07-03] MEDS: ropinirole 0.25 mg Tablet 0.5 MG PO (21:06)
[2023-07-03] MEDS: trazodone 100 mg Tablet PO (21:06)
[2023-07-04] VITALS (19 sets, daily range): BP systolic 108–150; BP diastolic 51–69; PULSE 51–66; RESP 10–21; TEMP 36.1–37.3; O2SAT 94–100
[2023-07-04 04:16] LABS: Basophils % 0.3 %; Eosinophils # 0.2 10^3/uL (0.0-0.8); Eosinophils % 2.2 %; Hematocrit 31.6 % (36-47); Lymphocytes # 1.8 10^3/uL (0.8-4.8); Mean Corpuscular HGB Conc 31.6 g/dL (30-55); Mean Corpuscular Hemoglobin 30.3 pg (27-33); Mean Corpuscular Volume 95.8 fl (85-98); Mean Platelet Volume 12.7 fL (7.4-10.4); Monocytes # 0.8 10^3/uL (0.2-0.9); Monocytes % 7.6 %; Neutrophils # 7.67 10^3/uL (1.8-7.7); Neutrophils % 72.5 %; Nucleated Red Blood Cells % 0 %; Platelet Count 157 10^3/cmm (157-399); Red Cell Distribution Width 13.9 % (12.1-15.1); White Blood Count 10.57 10^3/uL (3.29-11.43)
[2023-07-04 04:36] LABS: Alanine Aminotransferase 13 U/L (0-33); Albumin Level 2.8 g/dL (3.5-5.2); Alkaline Phosphatase 56 U/L (35-105); Aspartate Amino Transferase 11 U/L (0-32); Blood Urea Nitrogen 64 mg/dL (8-23); Calcium 8.3 mg/dL (8.5-10.5); Carbon Dioxide 26 mmol/L (22-29); Chloride 104 mmol/L (98-107); Globulin 2.4 g/dL (1.3-4.6); Glucose 157 mg/dL (65-115); Magnesium 1.8 mg/dL (1.7-2.3); Osmolality Calculated 314 mOsm/kg (285-295); Sodium 141 mmol/L (136-145); Total Bilirubin 0.3 mg/dL (0.15-1.2); Total Protein 5.2 g/dL (6.6-8.7)
[2023-07-04 04:40] LABS: Anion Gap 14.4 (5-19); Potassium 3.4 mmol/L (3.5-5.1)
[2023-07-04 07:35] LABS: Glucose Point of Care 221 mg/dL (70-110)
[2023-07-04] MEDS: ipratropium 0.5 mg/2.5 mL Neb INHALATION ×2 (08:04→12:11)
[2023-07-04] MEDS: hyDRALAzine 50 mg Tablet 100 MG PO ×2 (08:56→20:39)
[2023-07-04] MEDS: isosorbide mononitrate ER 60 mg Tablet 120 MG PO ×2 (08:56→20:37)
[2023-07-04] MEDS: amlodipine 10 mg Tablet PO (08:56)
[2023-07-04] MEDS: metOLazone 5 MG Tablet PO (08:56)
[2023-07-04] MEDS: amiodarone 200 mg Tablet 100 MG PO (08:57)
[2023-07-04] MEDS: bumetanide 0.25 mg/mL SDV 10 mL 2 MG IVP ×2 (09:01→20:42)
[2023-07-04] MEDS: pantoprazole DR 40 mg Tablet PO (09:30)
[2023-07-04] MEDS: gabapentin 400 mg Capsule PO ×2 (09:30→20:43)
[2023-07-04] MEDS: carvedilol 6.25 mg Tablet PO (09:30)
[2023-07-04] MEDS: levothyroxine 25 mcg Tablet PO (09:30)
[2023-07-04] MEDS: potassium chloride ER 20 mEq Tablet PO ×2 (09:31→20:38)
[2023-07-04] MEDS: magnesium oxide 400 mg tablet PO ×2 (09:31→20:38)
[2023-07-04] MEDS: insulin glargine 100 units/1 mL 8 UNIT SUBCUT (09:31)
--- NOTE | 2023-07-04 09:42 | PM.PN ---
Subjective Subjective: ON 2l Fio2 Medications: Reviewed: Yes Vitals/I&O/Wt Last Vital Signs Temp 98.2 F 07/04/23 04:00 Pulse 62 07/04/23 08:08 Resp 19 H 07/04/23 08:00 BP 145/59 07/04/23 08:00 Pulse Ox 96 07/04/23 08:00 O2 Del Method Nasal Cannula 07/04/23 08:00 O2 Flow Rate 2 07/04/23 08:00 07/03/23 07/04/23 07/04/23 22:59 06:59 14:59 Intake Total 50 / 890 0 / 890 Output Total 725 / 725 150 / 875 Balance -675 / 165 -150 / 15 Weight last 48 hrs Weight 81.828 kg Weight 79.016 kg Weight 72.575 kg Physical Exam Narrative: awake ,alert no distres + LE edema Urinary Catheter Management: Gibbs Latex Free: Cath Placed During This Visit: yes Reason for Continuing Indwelling Catheter: Accurate Measurement of Urinary Output in Critically Ill Patients Urinary Catheter Date of Insertion: 07/03/23 Urinary Catheter Time of Insertion: 10:10 Data 07/04/23 03:47 07/04/23 03:47 A&P Assessment and plan (1) Soims-wu-vknrwdb renal failure: Plan 1. Acute on chronic kidney disease: Baseline creatinines in the 1.6-2 range, patient's creatinine is 2.2 currently but has volume overload with pulmonary edema, hypoxemia and worsening lower extremity edema. -Discussed with patient regarding she agreed to proceed with PC placement, plan for PC palcement today -Once tunneled catheter placed, will start dialysis. -2 g sodium restriction and 1500 mill fluid restriction. 2. CHF with reduced ejection fraction, currently on diuretics, should improve volume status once dialysis started. 3. Atrial fibrillation: On amiodarone 4. HTN : Bp elevated, should improve with hD Patient evaluated using audiovisual cart. Time spent 40 minutes Attestations Medical Necessity Statement*: per medicine today Coding Level of Care Code Acute Code for Chg Fwd Diagnoses Duizs-zu-mccitub renal failure N17.9; N18.9
[2023-07-04 11:37] LABS: Hepatitis B Surface AB 5.5 (11.5-1000); Hepatitis B Surface Antigen Non-Reactive (Nonreactive)
[2023-07-04 12:04] LABS: Glucose Point of Care 140 mg/dL (70-110)
--- NOTE | 2023-07-04 13:38 | PM.PN ---
Vitals/I&O/Wt Last Vital Signs Temp 99.1 F 07/04/23 11:56 Pulse 62 07/04/23 12:12 Resp 18 07/04/23 12:12 BP 125/60 07/04/23 11:56 Pulse Ox 96 07/04/23 12:12 O2 Del Method Nasal Cannula 07/04/23 12:12 O2 Flow Rate 2 07/04/23 12:12 07/03/23 07/04/23 07/04/23 22:59 06:59 14:59 Intake Total 50 / 890 0 / 890 Output Total 725 / 725 150 / 875 Balance -675 / 165 -150 / 15 Weight last 48 hrs Weight 180 lb 6.4 oz Weight 174 lb 3.2 oz Weight 160 lb Physical Exam Urinary Catheter Management: Gibbs Latex Free: Cath Placed During This Visit: yes Reason for Continuing Indwelling Catheter: Accurate Measurement of Urinary Output in Critically Ill Patients Urinary Catheter Date of Insertion: 07/03/23 Urinary Catheter Time of Insertion: 10:10 Data 07/04/23 03:47 07/04/23 03:47 A&P Assessment and plan (1) Arpxb-mg-lhkcive renal failure: Plan Permacath placement The risks and benefits of the procedure, including but not limited to, bleeding, infection, infection requiring Mediport removal antibiotic therapy and repeat surgery, damage to surrounding structures, scar, numbness, pain, pneumothorax requiring thoracostomy tube, were explained to the patient. He/She is understanding of the risks and wishes to proceed. Attestations Medical Necessity Statement*: Per primary Coding Level of Care Code Acute Code for Chg Fwd Diagnoses Rnkko-sx-fmiwpcu renal failure N17.9; N18.9
--- NOTE | 2023-07-04 13:53 | ANES.PREANE2 ---
Pre-Anesthetic Assessment Height/Weight: Height 1.5 m Weight 81.828 kg Temp Pulse Resp BP Pulse Ox O2 Del Method O2 Flow Rate 99.1 F 62 18 125/60 96 Nasal Cannula 2 07/04/23 11:56 07/04/23 12:12 07/04/23 12:12 07/04/23 11:56 07/04/23 12:12 07/04/23 12:12 07/04/23 12:12 Operation Date: 07/04/23 14:10 Proposed Procedures p Dialysis Catheter Insertion(Not Applicable) - Markie Reynolds DO Familial anesthetic complications: None Was Beta Leena taken within 24 hours: Yes Was Clonidine taken within 24 hours: N/A Last intake: Intake Last Liquid Date 07/04/23 Last Liquid Time 08:30 Last Solid Date 07/03/23 Last Solid Time 19:00 Social No alcohol and No tobacco quit smoking upon admission to hospital 3 week ago Exam alert, oriented x 3, clear to auscultation bilaterally and regular rate & rhythm Airway Mallampati: Class III Dentition: other (no teeth) Pulmonary Shortness of Breath 2 L LNC at home CV/HEM Atrial Fibrillation, Coronary Artery Disease (CABG), Congestive Heart Failure (Ef 42%) and Hypertension Chronic Renal Failure GI Gastroesophageal Reflux Disease Metabolic Diabetes Mellitus, Hyperlipidemia, Morbid Obesity and Thyroid Disease Anesthetic Plan ASA status: 4 Anesthesia: MAC Risk of > 500 ml blood loss (7ml/kg in children): No Medications/Allergies Home Medications Medication Instructions Recorded Confirmed Last Taken Type albuterol sulfate 90 mcg/actuation 2 puff inhalation Q6H PRN 11/18/19 07/03/23 06/09/23 History aerosol inhaler (Ventolin HFA) Shortness Of Breath ascorbic acid (vitamin C) 500 mg 500 mg PO DAILY 11/18/19 07/03/23 06/07/23 History tablet calcium carbonate 600 mg calcium 600 mg PO DAILY 11/18/19 07/03/23 Unknown History (1,500 mg) tablet cholecalciferol (vitamin D3) 25 1,000 unit PO DAILY 11/18/19 07/03/23 Unknown History mcg (1,000 unit) capsule cranberry extract 200 mg capsule 200 mg PO DAILY 11/18/19 07/03/23 Unknown History fluticasone 250 mcg-salmeterol 50 1 inh inhalation BID 11/18/19 07/03/23 Unknown History mcg/dose blistr powdr for inhalation (Advair Diskus) melatonin 5 mg tablet 5 mg PO BEDTIME 11/18/19 07/03/23 Unknown History pantoprazole 40 mg tablet,delayed 40 mg PO DAILY 11/18/19 07/03/23 Unknown History release (Protonix) ropinirole 0.5 mg tablet 0.5 mg PO TID 11/18/19 07/03/23 Unknown History vitamin B complex (B-Complex 1 tab PO DAILY 11/18/19 07/03/23 Unknown History tablet) magnesium oxide 400 mg PO BID 12/02/19 07/03/23 Unknown History [id number]-GT-[id number] 200 mcg-16 mg 1 tab PO DAILY 12/02/19 07/03/23 Unknown History chewable tablet (One-A-Day Vitacraves [place]-3) Diabetic Shoes with Inserts #1 ea 04/18/22 07/03/23 Unknown Rx roflumilast 500 mcg tablet 500 mcg PO DAILY 04/29/22 07/03/23 Unknown History (Daliresp) amiodarone 200 mg tablet (Pacerone) 200 mg PO DAILY 30 days #30 tabs 06/28/23 07/03/23 Unknown Rx amlodipine 10 mg tablet 10 mg PO DAILY 30 days #30 tabs 06/28/23 07/03/23 Unknown Rx apixaban 5 mg tablet (Eliquis) 5 mg PO BID@0900,2100 30 days #60 06/28/23 07/03/23 Unknown Rx tabs carvedilol 12.5 mg tablet 12.5 mg PO BID 30 days #60 tabs 06/28/23 07/03/23 Unknown Rx clopidogrel 75 mg tablet 75 mg PO QDAY 30 days #30 tabs 06/28/23 07/03/23 Unknown Rx furosemide 40 mg tablet 40 mg PO BID@08,16 30 days #60 tabs 06/28/23 07/03/23 Unknown Rx hydralazine 50 mg tablet 100 mg PO TID 30 days #180 tabs 06/28/23 07/03/23 Unknown Rx insulin aspart U-100 100 unit/mL See Rx Instructions .Route 06/28/23 07/03/23 Unknown Rx (3 mL) subcutaneous pen (Novolog .COMPLEX #15 mL FlexPen U-100 Insulin aspart) isosorbide mononitrate 120 mg 120 mg PO BID 30 days #30 tabs 06/28/23 07/03/23 Unknown Rx tablet,extended release 24 hr levothyroxine 25 mcg tablet 25 mcg PO DAILY 30 days #30 tabs 06/28/23 07/03/23 Unknown Rx potassium chloride 20 mEq 20 meq PO BID 30 days #60 tabs 06/28/23 07/03/23 Unknown Rx tablet,extended release(part/cryst) (Klor-Con M) atorvastatin 40 mg tablet 40 mg PO DAILY 07/03/23 07/03/23 Unknown History cyclobenzaprine 10 mg tablet 10 mg PO TID PRN Muscle Spasm 07/03/23 07/03/23 Unknown History gabapentin 600 mg tablet 600 mg PO TID 07/03/23 07/03/23 Unknown History hydrocodone bitartrate 30 mg 30 mg PO DAILY 07/03/23 07/03/23 Unknown History tablet,crush resist,extended rel. 24hr (Hysingla ER) hydroxyzine HCl 25 mg tablet 25 mg PO BID PRN Anxiety 07/03/23 07/03/23 Unknown History insulin glargine 100 unit/mL (3 4 unit SUBCUT BEDTIME 07/03/23 07/03/23 Unknown History mL) subcutaneous pen (Lantus Solostar U-100 Insulin) lidocaine 5 % topical patch See Rx Instructions .Route .COMPLEX 07/03/23 07/03/23 Unknown History lisinopril 10 mg tablet 10 mg PO DAILY 07/03/23 07/03/23 Unknown History nitroglycerin 0.4 mg sublingual 0.4 mg sublingual Q5M PRN Chest 07/03/23 07/03/23 Unknown History tablet (Nitrostat) Pain ondansetron 4 mg disintegrating 4 mg PO BID PRN Nausea And Vomiting 07/03/23 07/03/23 Unknown History tablet prednisone 10 mg tablet 10 mg PO DAILY 07/03/23 07/03/23 Unknown History trazodone 150 mg tablet 150 mg PO BEDTIME 07/03/23 07/03/23 Unknown History venlafaxine 75 mg capsule,extended 75 mg PO DAILY 07/03/23 07/03/23 Unknown History release 24 hr Allergies Allergy/AdvReac Type Severity Reaction Status Date / Time No Known Allergies Allergy Verified 09/05/23 08:39 Current Medications Generic Name Dose Route Start Last Admin Trade Name Imelda PRN Reason Stop Dose Admin Acetaminophen 650 mg 07/03/23 17:41 07/03/23 17:55 Acetaminophen 325 Mg Tablet PO 650 mg Q6H PRN Administration MILD PAIN Hydrocodone Bitart/Acetaminophen 1 tab 07/03/23 05:45 07/03/23 21:06 Hydrocodone-Acetaminophen 10-325 Mg Tablet PO 1 tab QID PRN Administration pain Amiodarone HCl 100 mg 07/04/23 09:00 07/04/23 08:57 Amiodarone 200 Mg Tablet PO 100 mg DAILY RIDGE Administration Amlodipine Besylate 10 mg 07/03/23 09:00 07/04/23 08:56 Amlodipine 10 Mg Tablet PO 10 mg DAILY RIDGE Administration Apixaban 5 mg 07/03/23 09:00 07/03/23 08:14 Apixaban 5 Mg Tablet PO 5 mg BID@0900,2100 IRDGE Administration Ascorbic Acid 250 mg 07/03/23 09:00 07/03/23 10:02 Ascorbic Acid 500 Mg Tablet PO Not Given DAILY RIDGE Atorvastatin Calcium 40 mg 07/03/23 21:00 07/03/23 21:06 Atorvastatin 40 Mg Tablet PO 40 mg BEDTIME RIDGE Administration Bumetanide 2 mg 07/03/23 08:45 07/04/23 09:01 Bumetanide 0.25 Mg/Ml Sdv 10 Ml IVP 2 mg Q12H RIDGE Administration Calcium Carbonate 500 mg 07/03/23 09:00 07/04/23 09:25 Calcium Carbonate 500 Mg Chew Tablet PO Not Given DAILY RIDGE Carvedilol 6.25 mg 07/04/23 09:00 07/04/23 09:30 Carvedilol 6.25 Mg Tablet PO 6.25 mg BID RIDGE Administration Clopidogrel Bisulfate 75 mg 07/03/23 09:00 07/04/23 09:22 Clopidogrel 75 Mg Tablet PO Not Given DAILY RIDGE Cyanocobalamin 1,000 mcg 07/03/23 09:00 07/03/23 10:03 Cyanocobalamin 1,000 Mcg Tablet PO Not Given DAILY RIDGE Gabapentin 400 mg 07/03/23 15:00 07/04/23 09:30 Gabapentin 400 Mg Capsule PO 400 mg TID RIDGE Administration Hydralazine HCl 100 mg 07/03/23 09:00 07/04/23 08:56 Hydralazine 50 Mg Tablet PO 100 mg TID RIDGE Administration Insulin Glargine 8 unit 07/03/23 09:00 07/04/23 09:31 Insulin Glargine 100 Units/1 Ml SUBCUT 8 unit DAILY RIDGE Administration Insulin Human Lispro 0 unit 07/03/23 12:00 07/04/23 12:30 Insulin Lispro 100 Unit/1 Ml SUBCUT Not Given WM&BEDTIME RIDGE Protocol Ipratropium [place] 0.5 mg 07/03/23 08:00 07/04/23 12:11 Ipratropium 0.5 Mg/2.5 Ml Neb INHALATION 0.5 mg QID.RESPIRATORY RIDGE Administration Isosorbide Mononitrate 120 mg 07/03/23 09:00 07/04/23 08:56 Isosorbide Mononitrate Er 60 Mg Tablet PO 120 mg BID RIDGE Administration Levothyroxine Sodium 25 mcg 07/03/23 09:00 07/04/23 09:30 Levothyroxine 25 Mcg Tablet PO 25 mcg DAILY RIDGE Administration Magnesium Oxide 400 mg 07/03/23 09:00 07/04/23 09:31 Magnesium Oxide 400 Mg Tablet PO 400 mg BID RIDGE Administration Metolazone 5 mg 07/03/23 09:00 07/04/23 08:56 Metolazone 5 Mg Tablet PO 5 mg DAILY RIDGE Administration Non-Formulary Medication 200 mg 07/03/23 09:00 07/04/23 09:23 Cranberry Extract PO Not Given DAILY RIDGE Non-Formulary Medication 5 mg 07/03/23 09:00 07/03/23 08:26 Melatonin PO Not Given DAILY RIDGE Pantoprazole Sodium 40 mg 07/03/23 09:00 07/04/23 09:[address] 40 Mg Tablet PO 40 mg DAILY RIDGE Administration Potassium Chloride 20 meq 07/03/23 09:00 07/04/23 09:31 Potassium Chloride Er 20 Meq Tablet PO 20 meq BID RIDGE Administration Roflumilast 500 mcg 07/03/23 09:00 07/03/23 10:02 Roflumilast 500 Mcg Tablet PO Not Given DAILY RIDGE Ropinirole HCl 0.5 mg 07/03/23 09:00 07/03/23 21:06 Ropinirole 0.25 Mg Tablet PO 0.5 mg DAILY RIDGE Administration Trazodone HCl 100 mg 07/03/23 09:00 07/03/23 21:06 Trazodone 100 Mg Tablet PO 100 mg DAILY RIDGE Administration Venlafaxine HCl 37.5 mg 07/03/23 09:00 07/03/23 10:02 Venlafaxine 75 Mg Tablet PO Not Given DAILY RIDGE Vitamin D 1,000 unit 07/03/23 09:00 07/03/23 10:03 Cholecalciferol (Vitamin D3) 1,000 Unit Tablet PO Not Given DAILY RID[facility] Anesthesia Medical History ASHD (arteriosclerotic heart disease) Bilateral bunions Bilateral knee pain Callus of foot Carotid stenosis, bilateral Chest pain CHF (congestive heart failure) Chronic fatigue Chronic hip pain CKD (chronic kidney disease) COPD (chronic obstructive pulmonary disease) Diabetes Diabetic neuropathy Diabetic peripheral neuropathy associated with type 2 diabetes mellitus DJD (degenerative joint disease), lumbar Dyslipidemia Essential hypertension GERD (gastroesophageal reflux disease) Long-term current use of opiate analgesic Lumbar stenosis with neurogenic claudication Lupus anticoagulant disorder Myocardial infarction Non-STEMI (non-ST elevated myocardial infarction) Obesity Onychodystrophy PAD (peripheral artery disease) Pain management contract signed Pes planus of both feet Primary osteoarthritis of knees, bilateral TIA (transient ischemic attack) Tobacco use disorder V-tach Surgical History S/P CABG (coronary artery bypass graft) (~10/01/14) S/P carotid endarterectomy S/P carpal tunnel release (Unknown) LEFT S/P cataract extraction (Unknown) RIGHT DR BATISTA S/P cataract extraction S/P hysterectomy Family History Unknown Adopted Social History Smoking and tobacco status: current every day smoker cigarettes Packs smoked per day: 2 Quit status (tobacco): has tried quititng Alcohol intake: never Substance/Drug Use: never Adopted: Yes Lives independently: Yes Household members: spouse Marital status: Data Anesthesia 07/04/23 03:47 07/04/23 03:47 Short CBC 07/03/23 07/04/23 Range/Units 02:39 03:47 WBC 13.38 H 10.57 (3.29-11.43) 10^3/uL Hgb 12.00 10.00 L (11.27-16.99) g/dL Hct 37.5 31.6 L (36-47) % MCV 94.7 95.8 (85-98) fl Plt Count 193 157 (157-399) 10^3/cmm Neut % (Auto) 70.3 72.5 % Neut # (Auto) 9.40 H 7.67 (1.8-7.7) 10^3/uL BMP 07/03/23 07/04/23 02:39 03:47 Sodium 138 141 Potassium 3.4 L 3.4 L Chloride 100 104 Carbon Dioxide 27 26 BUN 60 H 64 H Creatinine 2.2 H 2.4 H Glucose 255 H 157 H Calcium 8.8 8.3 L Cardiac Enzymes 07/03/23 Range/Units 02:39 NT-Pro-B Natriuret Pep 12540 H (0-450) pg/mL Liver Function 07/03/23 07/04/23 Range/Units 02:39 03:47 Total Bilirubin 0.2 0.3 (0.15-1.2) mg/dL AST 14 11 (0-32) U/L ALT 18 13 (0-33) U/L Alkaline Phosphatase 69 56 (35-105) U/L Albumin 3.4 L 2.8 L (3.5-5.2) g/dL COVID Results 07/03/23 11:22 Coronavirus 229E (PCR) Not detected SARS-CoV-2 (PCR) Not detected Coags 07/03/23 02:39 PT 14.10 INR 1.05 Cardiac Studies: Echocardiogram 06/12/23 Sestamibi Stress Test (Cardiology) 06/14/23
[2023-07-04] MEDS: sodium chloride 0.9% 1,000 ML 30 ML IV (14:31)
--- NOTE | 2023-07-04 14:33 | SC_ITS ---
WS: [id number] C-arm fluoroscopy for dialysis catheter placement, 07/04/2023 Clinical Data: intra-op Comparison: Portable chest, 07/03/2023 Findings: Dr. Reynolds inserted a right dialysis catheter. The catheter ends in the superior vena cava. Impression: Insertion right dialysis catheter.
[2023-07-04] MEDS: ceFAZolin 2,000 MG in sodium chloride 0.9% (plus) 50 ML 100 MG IV (14:45)
[2023-07-04] MEDS: lidocaine-epi 2% 20 mL INJ INJECTION (15:04)
[2023-07-04] MEDS: sodium chloride 0.9% 100 mL Bag XX (15:05)
[2023-07-04] MEDS: heparin, porcine 1,000 unit/mL INJ 10 mL 10000 UNIT HE ×2 (15:06→17:23)
--- NOTE | 2023-07-04 15:14 | XR_ITS ---
WS: [id number] Portable AP supine chest, 07/04/2023 Clinical Data: Postop permacath placement Comparison: Portable chest, 07/03/2023 Findings: The right dialysis catheter enters the internal jugular vein and ends in the superior vena cava. No pneumothorax is seen. Impression: Satisfactory placement of right dialysis catheter.
--- NOTE | 2023-07-04 15:15 | PM.PN ---
Subjective Subjective: No acute events overnight. Denies any nausea, vomiting, headache. Today morning patient is more awake and alert, sitting up in chair. Up to 1300 cc of urine output in last 24 hours documented. Hemodynamically stable. Patient found to have episodes of bradycardia with heart rate going down into low 50s when she was awake. Blood work today shows a white count 10.5, hemoglobin of 10, CMP showing a potassium of 3.4, creatinine persistently elevated at 2.4, BUN of 64 slightly elevated than yesterday Medications: Reviewed: Yes Vitals/I&O/Wt Last Vital Signs Temp 98 F 07/04/23 14:11 Pulse 66 07/04/23 14:11 Resp 12 07/04/23 14:11 BP 145/67 07/04/23 14:11 Pulse Ox 94 07/04/23 14:11 O2 Del Method Nasal Cannula 07/04/23 14:11 O2 Flow Rate 2.0 07/04/23 14:11 07/04/23 07/04/23 07/04/23 06:59 14:59 22:59 Intake Total 0 / 890 Output Total 150 / 875 450 / 450 Balance -150 / 15 -450 / -450 Weight last 48 hrs Weight 81.828 kg Weight 79.016 kg Weight 72.575 kg Physical Exam Narrative: She is alert awake oriented x3, more awake than yesterday Chest-Novosel breath sounds all over lung chang with bilateral wheezing and coarse rhonchi heard Cardiovascular S1-S2 regular, bradycardia, soft pansystolic murmur at apex Abdomen soft distended nontender normal bowel sounds Extremities 3+ edema present bilaterally Urinary Catheter Management: Gibbs Latex Free: Cath Placed During This Visit: yes Reason for Continuing Indwelling Catheter: Accurate Measurement of Urinary Output in Critically Ill Patients Urinary Catheter Date of Insertion: 07/03/23 Urinary Catheter Time of Insertion: 10:10 Data 07/04/23 03:47 07/04/23 03:47 A&P Assessment and plan (1) [id number] renal failure: Baseline creatinine seems to be around 1.6-1.9. Currently elevated up to 2.4 with uremia. Recently had short course of hemodialysis on recent admission with the last 1 month. Signs of uremia. Monitor urine output. Gibbs catheterization. Medical reconciliation done for nephrotoxic drugs. Hold off on lisinopril for now. Diuretics with Bumex 2 mg IV every 12 hourly with metolazone 5 mg daily. Fluid restriction up to 1500 cc. Check BMP daily. Mild hypokalemia. Replete with 40 mg of oral potassium. Discussed in detail with nephrology. Nephrology consulted. Given recent need for dialysis, persistent uremia, recurrent admissions for congestive heart failure patient would most likely benefit from long-term dialysis which she is agreeable to. Nephrology agreeable to plan. Plan for tunneled catheter placement. Surgery consulted. Eliquis on hold since 07/03. Plavix held. N.p.o. currently for tunneled cath placement today. (2) Hypoxia: Insetting of systolic congestive heart failure. Patient does have history of COPD. No signs of pneumonia. Respiratory viral panel negative. Oxygen supplementation keeping saturation over 90%. (3) Systolic CHF: Last echocardiogram from May 2023 shows an EF of 45 to 50%, mildly decreased LV systolic function, severe hypokinesis of the apical septal, apical inferior and apical hernandez with grade 2 diastolic dysfunction, abnormal septal motion, PASP of 38 mmHg. Acute on chronic systolic congestive heart failure. Dialysis and diuretics as above. Fluid restriction as above. Plan for dialysis now. We will consult cardiology for possible cardiac angiogram as patient is going for dialysis now. Patient agreeable. Lexiscan stress test done in June 14 shows a large size reversible perfusion abnormality of moderate severity of mid to apical anterior, basal to mid anterolateral, basal to mid inferior lateral, apical lateral apical septal apical inferior and apical hernandez. Continue baby aspirin 81 mg daily, statin. (4) Hypertension: Goal blood pressure less than 140/90 mmHg. Patient on multiple antihypertensives including amlodipine 10 mg daily, carvedilol 12.5 mg twice daily, Imdur 120 mg twice daily, lisinopril. For now hold off on lisinopril given acute kidney injury, dose of carvedilol decreased to 6.25 given bradycardia. Qualifiers: Hypertension type: primary hypertension Qualified Code(s): I10 - Essential (primary) hypertension (5) Bradycardia: Amiodarone decreased to 100 mg daily. Coreg dose decreased to 6.25 mg twice daily. Monitor on telemetry. (6) Type 2 diabetes mellitus: Appreciate recent A1c. Continue with Lantus 8 units nightly, insulin sliding scale before meals and at bedtime. Renal dialysis carb consistent diet. (7) Positive cardiac stress test: (8) CAD (coronary artery disease): (9) Goals of care, counseling/discussion: Plan Goals of care discussed in detail with the patient at bedside.? Discussed the option right now is for possibly her to be on a long-term dialysis for better renal function management, congestive heart failure along with possibility of a cardiac angiogram and PCI if she is going on dialysis along with possible discharge to SNF for closer monitoring versus possibility of hospice going forward given sudden steep decline in health.? Patient verbalized understanding and wants everything to be done for her care to prolong her life.? She is agreeable for dialysis.? Patient wants to be discharged to SNF for further rehabitation and eventually moved to [place] to be closer to her children. Full code Renal dialysis diabetic diet Protonix for PUD prophylaxis Switch to full dose Lovenox given possibility of an angiogram during this admission. Switch to oral Eliquis on discharge. Discharge plan: Given recent social discord with passing away of her patient lives by herself, is chronically sick is at high risk of adverse event, fall or failure to thrive or even . Patient is agreeable to placement of SNF. Plan eventually to move to [place] to live closer to family. Case management alerted. Attestations Medical Necessity Statement*: Requires further hospitalization for management of congestive heart failure in setting of end-stage renal disease requiring hemodialysis, positive stress test possibly requiring cardiac angiogram by safe discharge planning is sought Diagnoses [id number] renal failure N17.9; N18.9 Hypoxia R09.02 Systolic CHF I50.20 Hypertension I10 Hypertension type: primary hypertension Bradycardia R00.1 Type 2 diabetes mellitus E11.9 Positive cardiac stress test R94.39 CAD (coronary artery disease) I25.10 Goals of care, counseling/discussion Z71.89
--- NOTE | 2023-07-04 15:20 | P.OP_ITS ---
Operative Report Date of procedure: July 04, 2023 Pre-op diagnosis: Acute on chronic kidney disease Post-op diagnosis: same Procedure done: Permacath placement Implants: Permacath Specimens removed/disposition: None Surgeon: Markie Reynolds DO Anesthesia: MAC Estimated blood loss (mL): 5 Complications: None apparent Brief History: Is a very pleasant 77-year-old female that has acute on chronic kidney disease. Nephrology requested permacath placement for hemodialysis. The risk and benefits were explained and documented. Procedure: Patient was taken to the operating room and placed supine on the operating room table. All bony prominences were padded. He was given IV sedation and monitored throughout the case by the anesthesia personnel. SCDs were placed and turned on. The arms were tucked to the side. Patient received Vancomycin preoperatively IV. The bilateral chest wall was prepped and draped in usual sterile fashion using chlorhexidine base prep. Sterile drapes were applied. We did procedure pause prior to beginning. An 18 gauge needle was placed in the right internal jugular vein under ultrasound guidance. Dark, nonpulsatile blood was aspirated. A guidewire was placed through the needle centrally toward the atrial/vena caval junction. Fl uoroscopy visualized good placement. The needle was removed and the guidewire was clipped to the drape with a hemostat. Further local anesthetic was infiltrated in the soft tissues of the right chest wall and a #15 blade was used to make a vertical skin incision. A #15 blade was used to make a small skin obey around the guidewire insertion area. The permacath tubing was tunneled through the subcutaneous tissues up to the needle insertion location. Serial dilators were used to serially dilate over the guidewire . A dilator with a peel-away sheath was placed over the guidewire and placed centrally. The guidewire was removed as well as the dilator and the permacath was fed into the split sheath. The split sheath was removed. Both ports were aspirated to reveal dark blood and were flushed with saline only as the patient has a heparin allergy. final fluoroscopy visualization showed no kink in the catheter and the tip of the permacath tubing near the atrial/vena caval junction. Both skin incisions were thoroughly irrigated and suctioned dry. Meticulous hemostasis noted. The internal jugular access site was closed with 4-0 Vicryl in a subcuticular fashion. The skin overlying the permacath was closed in a similar manner. The permacath was then sutured into place using 2-0 nylon in a simple interrupted fashion. skin glue was applied as a topical dressing. This was allowed to dry. Patient was awakened from anesthesia and transferred via her cart to the recovery room in stable condition. All needle, sponge, and instrument counts were correct per the operating personnel x2 counts.
--- NOTE | 2023-07-04 15:40 | ANE.PACU2 ---
Inpatient post-anesthesia follow up: Airway intact: Yes Vital signs: Temperature 99.0 F Pulse Rate 64 Respiratory Rate 18 Blood Pressure 147/56 Pulse Oximetry 97 Oxygen Delivery Me thod Nasal Cannula Oxygen Flow Rate 4 Fraction of Inspir ed Oxygen Hydration adequate: Yes Nausea and vomiting: No Pain level: 1 Mental status: Baseline
--- NOTE | 2023-07-04 16:29 | PC.NURSE ---
off unit at surgery for perma cath placement.
--- NOTE | 2023-07-04 16:42 | P.CONIM_ITS ---
Providers/Reason For Consult Consulting Physician/Specialty*: MJ Gonzales MD/cardiology Reason for Consult*: Patient with history of coronary disease, congestive heart failure, history of coronary artery bypass surgery, recent drop in the LV ejection fraction and an abnormal Myocardial perfusion imaging Requesting Physician: Dr. hCance Attending Physician: Zach wKong MD Primary Care Provider: Leena Calderon History of Present Illness History of Present Illness Ivette Ruiz is a 77 year old female is admitted to hospital with recurrent decompensated heart failure. She has chronic kidney disease with recurrent decompensated heart failure requiring hemodialysis. She had a dialysis catheter placement today. She has a history of atherosclerotic heart diseas and coronary artery bypass surgery. She had a Myocardial perfusion imaging recently which was found to be abnormal. Because of the chronic kidney disease and the possibility of a contrast-induced nephropathy, it was decided to treat her me dically. Since she is going to have chronic hemodialysis, she would like to go ahead with the angiogram and further treatment. This patient had a three-vessel coronary bypass surgery in 2013. She had a PADILLA to the LAD, venous graft to the distal RCA and another venous graft to the diagonal. She had a high-grade lesion of the circumflex artery which was not bypassed. In 2014, she had a repeat cardiac catheterization which revealed occlusion of the venous graft to the diagonal artery. The PADILLA to the LAD and the venous graft to the RCA were patent. She underwent PCI of the circumflex artery lesion at that time. She had a multiple hospital admissions for hypoxic respiratory failure and d ecompensated heart failure. She was admitted to the hospital last year with features of heart failure and non-ST elevation myocardial infarction. She declined angiogram at that time because of the difficulty lying flat and also due to the abnormal kidney function. She was readmitted hospital last month with hypoxic respiratory failure. She also had a features of acute renal failure requiring 3 sessions of hemodialysis. She had a Myocardial perfusion imaging on the of last month which revealed moderate area of ischemia in the distribution of the left and descending artery/circumflex artery. Details as mentioned below. This patient also is known to have high blood pressure, type 2 diabetes, dyslipidemia, diabetic neuropathy, lumbar stenosis, neurogenic claudication, lupus antibody, carotid artery disease, status post carotid endarterectomy, greater than 100 pack year history of smoking abuse. She presented with progressive shortness of breath and leg swelling. Her shortness of breath and leg swelling are improving at this point. Review of Systems Narrative: CONSTITUTIONAL: No fever or chills. Progressive weakness EYES: No blurring of vision or other visual disturbances lately. ENT: No hoarseness of voice, auditory disturbances or sore throat. CARDIOVASCULAR: As mentioned above. RESPIRATORY: Severe COPD and worsening shortness of breath GASTROINTESTINAL: No hematemesis or melena. GENITOURINARY: Chronic kidney disease now requiring hemodialysis INTEGUMENTARY: No skin rashes or history of skin cancer. NEURO: History of neurogenic claudication PSYCHIATRIC: No history of psychosis or major depression. HEMATOLOGIC: No bleeding disorders or significant anemia. ENDOCRINE: Type 2 diabetes MUSCULOSKELETAL: Lumbar stenosis ALLERGY/IMMUNOLOGY: As mentioned above. Medications/Allergies Home Medications Medication Instructions Recorded Confirmed Last Taken Type albuterol sulfate 90 mcg/actuation 2 puff inhalation Q6H PRN 11/18/19 07/03/23 06/09/23 History aerosol inhaler (Ventolin HFA) Shortness Of Breath ascorbic acid (vitamin C) 500 mg 500 mg PO DAILY 11/18/19 07/03/23 06/07/23 History tablet calcium carbonate 600 mg calcium 600 mg PO DAILY 11/18/19 07/03/23 Unknown History (1,500 mg) tablet cholecalciferol (vitamin D3) 25 1,000 unit PO DAILY 11/18/19 07/03/23 Unknown History mcg (1,000 unit) capsule cranberry extract 200 mg capsule 200 mg PO DAILY 11/18/19 07/03/23 Unknown History fluticasone 250 mcg-salmeterol 50 1 inh inhalation BID 11/18/19 07/03/23 Unknown History mcg/dose blistr powdr for inhalation (Advair Diskus) melatonin 5 mg tablet 5 mg PO BEDTIME 11/18/19 07/03/23 Unknown History pantoprazole 40 mg tablet,delayed 40 mg PO DAILY 11/18/19 07/03/23 Unknown History release (Protonix) ropinirole 0.5 mg tablet 0.5 mg PO TID 11/18/19 07/03/23 Unknown History vitamin B complex (B-Complex 1 tab PO DAILY 11/18/19 07/03/23 Unknown History tablet) magnesium oxide 400 mg PO BID 12/02/19 07/03/23 Unknown History rimbkluswfrl-MV-jim 200 mcg-16 mg 1 tab PO DAILY 12/02/19 07/03/23 Unknown History chewable tablet (One-A-Day Vitacraves [place]-3) Diabetic Shoes with Inserts #1 ea 04/18/22 07/03/23 Unknown Rx roflumilast 500 mcg tablet 500 mcg PO DAILY 04/29/22 07/03/23 Unknown History (Daliresp) amiodarone 200 mg tablet (Pacerone) 200 mg PO DAILY 30 days #30 tabs 06/28/23 07/03/23 Unknown Rx amlodipine 10 mg tablet 10 mg PO DAILY 30 days #30 tabs 06/28/23 07/03/23 Unknown Rx apixaban 5 mg tablet (Eliquis) 5 mg PO BID@0900,2100 30 days #60 06/28/23 07/03/23 Unknown Rx tabs carvedilol 12.5 mg tablet 12.5 mg PO BID 30 days #60 tabs 06/28/23 07/03/23 Unknown Rx clopidogrel 75 mg tablet 75 mg PO QDAY 30 days #30 tabs 06/28/23 07/03/23 Unknown Rx furosemide 40 mg tablet 40 mg PO BID@08,16 30 days #60 tabs 06/28/23 07/03/23 Unknown Rx hydralazine 50 mg tablet 100 mg PO TID 30 days #180 tabs 06/28/23 07/03/23 Unknown Rx insulin aspart U-100 100 unit/mL See Rx Instructions .Route 06/28/23 07/03/23 Unknown Rx (3 mL) subcutaneous pen (Novolog .COMPLEX #15 mL FlexPen U-100 Insulin aspart) isosorbide mononitrate 120 mg 120 mg PO BID 30 days #30 tabs 06/28/23 07/03/23 Unknown Rx tablet,extended release 24 hr levothyroxine 25 mcg tablet 25 mcg PO DAILY 30 days #30 tabs 06/28/23 07/03/23 Unknown Rx potassium chloride 20 mEq 20 meq PO BID 30 days #60 tabs 06/28/23 07/03/23 Unknown Rx tablet,extended release(part/cryst) (Klor-Con M) atorvastatin 40 mg tablet 40 mg PO DAILY 07/03/23 07/03/23 Unknown History cyclobenzaprine 10 mg tablet 10 mg PO TID PRN Muscle Spasm 07/03/23 07/03/23 Unknown History gabapentin 600 mg tablet 600 mg PO TID 07/03/23 07/03/23 Unknown History hydrocodone bitartrate 30 mg 30 mg PO DAILY 07/03/23 07/03/23 Unknown History tablet,crush resist,extended rel. 24hr (Hysingla ER) hydroxyzine HCl 25 mg tablet 25 mg PO BID PRN Anxiety 07/03/23 07/03/23 Unknown History insulin glargine 100 unit/mL (3 4 unit SUBCUT BEDTIME 07/03/23 07/03/23 Unknown History mL) subcutaneous pen (Lantus Solostar U-100 Insulin) lidocaine 5 % topical patch See Rx Instructions .Route .COMPLEX 07/03/23 07/03/23 Unknown History lisinopril 10 mg tablet 10 mg PO DAILY 07/03/23 07/03/23 Unknown History nitroglycerin 0.4 mg sublingual 0.4 mg sublingual Q5M PRN Chest 07/03/2303/20 Unknown History tablet (Nitrostat) Pain ondansetron 4 mg disintegrating 4 mg PO BID PRN Nausea And Vomiting 07/03/23 07/03/23 Unknown History tablet prednisone 10 mg tablet 10 mg PO DAILY 07/03/23 07/03/23 Unknown History trazodone 150 mg tablet 150 mg PO BEDTIME 07/03/23 07/03/23 Unknown History venlafaxine 75 mg capsule,extended 75 mg PO DAILY 07/03/23 07/03/23 Unknown Hi story release 24 hr Allergies Allergy/AdvReac Type Severity Reaction Status Date / Time No Known Allergies Allergy Verified 07/03/23 08:39 Current Medications Generic Name Dose Route Start Last Admin Trade Name Freq PRN Reason Stop Dose Admin Acetaminophen 650 mg 07/03/23 17:41 07/03/23 17:55 Acetaminophen 325 Mg Tablet PO 650 mg Q6H PRN Administration MILD PAIN Hydrocodone Bitart/Acetaminophen 1 tab 07/03/23 05:45 07/03/23 21:06 Hydrocodone-Acetaminophen 10-325 Mg Tablet PO 1 tab QID PRN Administration pain Amiodarone HCl 100 mg 07/04/23 09:00 07/04/23 08:57 Amiodarone 200 Mg Tablet PO 100 mg DAILY RIDGE Administration Amlodipine Besylate 10 mg 07/03/23 09:00 07/04/23 08:56 Amlodipine 10 Mg Tablet PO 10 mg DAILY RIDGE Administration Apixaban 5 mg 07/03/23 09:00 07/03/23 08:14 Apixaban 5 Mg Tablet PO 5 mg BID@0900,2100 RIDGE Administration Ascorbic Acid 250 mg 07/03/23 09:00 07/03/23 10:02 Ascorbic Acid 500 Mg Tablet PO Not Given DAILY RIDGE Atorvastatin Calcium 40 mg 07/03/23 21:00 07/03/23 21:06 Atorvastatin 40 Mg Tablet PO 40 mg BEDTIME RIDGE Administration Bumetanide 2 mg 07/03/23 08:45 07/04/23 09:01 Bumetanide 0.25 Mg/Ml Sdv 10 Ml IVP 2 mg Q12H RIDGE Administration Calcium Carbonate 500 mg 07/03/23 09:00 07/04/23 09:25 Calcium Carbonate 500 Mg Chew Tablet PO Not Given DAILY RIDGE Carvedilol 6.25 mg 07/04/23 09:00 07/04/23 09:30 Carvedilol 6.25 Mg Tablet PO 6.25 mg BID RIDGE Administration Clopidogrel Bisulfate 75 mg 07/03/23 09:00 07/04/23 09:22 Clopidogrel 75 Mg Tablet PO Not Given DAILY RIDGE Cyanocobalamin 1,000 mcg 07/03/23 09:00 07/03/23 10:03 Cyanocobalamin 1,000 Mcg Tablet PO Not Given DAILY RIDGE Gabapentin 400 mg 07/03/23 15:00 07/04/23 09:30 Gabapentin 400 Mg Capsule PO 400 mg TID RIDGE Administration Hydralazine HCl 100 mg 07/03/23 09:00 07/04/23 08:56 Hydralazine 50 Mg Tablet PO 100 mg TID RIDGE Administration Insulin Glargine 8 unit 07/03/23 09:00 07/04/23 09:31 Insulin Glargine 100 Units/1 Ml SUBCUT 8 unit DAILY RIDGE Administration Insulin Human Lispro 0 unit 07/03/23 12:00 07/04/23 12:30 Insulin Lispro 100 Unit/1 Ml SUBCUT Not Given WM&BEDTIME [facility] Protocol Ipratropium [place] 0.5 mg 07/03/23 08:00 07/04/23 12:11 Ipratropium 0.5 Mg/2.5 Ml Neb INHALATION 0.5 mg QID.RESPIRATORY RIDGE Administration Isosorbide Mononitrate 120 mg 07/03/23 09:00 07/04/23 08:56 Isosorbide Mononitrate Er 60 Mg Tablet PO 120 mg BID RIDGE Administration Levothyroxine Sodium 25 mcg 07/03/23 09:00 07/04/23 09:30 Levothyroxine 25 Mcg Tablet PO 25 mcg DAILY RIDGE Administration Magnesium Oxide 400 mg 07/03/23 09:00 07/04/23 09:31 Magnesium Oxide 400 Mg Tablet PO 400 mg BID RIDGE Administration Metolazone 5 mg 07/03/23 09:00 07/04/23 08:56 Metolazone 5 Mg Tablet PO 5 mg DAILY RIDGE Administration Non-Formulary Medication 200 mg 07/03/23 09:00 07/04/23 09:23 Cranberry Extract PO Not Given DAILY RIDGE Non-Formulary Medication 5 mg 07/03/23 09:00 07/03/23 08:26 Melatonin PO Not Given DAILY RIDGE Pantoprazole Sodium 40 mg 07/03/23 09:00 07/04/23 09:[address] 40 Mg Tablet PO 40 mg DAILY RIDGE Administration Potassium Chloride 20 meq 07/03/23 09:00 07/04/23 09:31 Potassium Chloride Er 20 Meq Tablet PO 20 meq BID RIDGE Administration Roflumilast 500 mcg 07/03/23 09:00 07/03/23 10:02 Roflumilast 500 Mcg Tablet PO Not Given DAILY RIDGE Ropinirole HCl 0.5 mg 07/03/23 09:00 07/03/23 21:06 Ropinirole 0.25 Mg Tablet PO 0.5 mg DAILY RIDGE Administration Trazodone HCl 100 mg 07/03/23 09:00 07/03/23 21:06 Trazodone 100 Mg Tablet PO 100 mg DAILY RIDGE Administration Venlafaxine HCl 37.5 mg 07/03/23 09:00 07/03/23 10:02 Venlafaxine 75 Mg Tablet PO Not Given DAILY RIDGE Vitamin D 1,000 unit 07/03/23 09:00 07/03/23 10:03 Cholecalciferol (Vitamin D3) 1,000 Unit Tablet PO Not Given DAILY RIDGE PFSH Acute PFSH: Medical History (Updated 07/04/23 @ 20:33 by Luma Gonzales MD) ASHD (arteriosclerotic heart disease) Bilateral bunions Bilateral knee pain CAD (coronary artery disease) Callus of foot Carotid stenosis, bilateral Chest pain CHF (congestive heart failure) Chronic fatigue Chronic hip pain CKD (chronic kidney disease) COPD (chronic obstructive pulmonary disease) Diabetes Diabetic neuropathy Diabetic peripheral neuropathy associated with type 2 diabetes mellitus DJD (degenerative joint disease), lumbar Dyslipidemia Essential hypertension GERD (gastroesophageal reflux disease) Long-term current use of opiate analgesic Lumbar stenosis with neurogenic claudication Lupus anticoagulant disorder Myocardial infarction Non-STEMI (non-ST elevated myocardial infarction) Obesity Onychodystrophy PAD (peripheral artery disease) Pain management contract signed Pes planus of both feet Primary osteoarthritis of knees, bilateral TIA (transient ischemic attack) Tobacco use disorder V-tach Surgical History S/P CABG (coronary artery bypass graft) (~10/01/14) S/P carotid endarterectomy S/P carpal tunnel release (Unknown) LEFT S/P cataract extraction (Unknown) RIGHT DR BATISTA S/P cataract extraction S/P hysterectomy Family History Unknown Adopted Social History Smoking and tobacco status: current every day smoker cigarettes Packs smoked per day: 2 Quit status (tobacco): has tried quititng Alcohol intake: never Substance/Drug Use: never Adopted: Yes Lives independently: Yes Household members: spouse Marital status: Vitals/I&O/Wt Last Vital Signs Temp 98.5 F 07/04/23 16:16 Pulse 63 07/04/23 16:16 Resp 15 07/04/23 16:16 BP 144/62 07/04/23 16:16 Pulse Ox 96 07/04/23 16:16 O2 Del Method Nasal Cannula 07/04/23 16:16 O2 Flow Rate 4 07/04/23 15:43 07/04/23 07/04/23 07/04/23 06:59 14:59 22:59 Intake Total 0 / 890 300 / 300 Output Total 150 / 875 450 / 450 0 / 450 Balance -150 / 15 -450 / -450 300 / -150 Weight last 48 hrs Weight 180 lb 6.4 oz Weight 174 lb 3.2 oz Weight 160 lb Physical Exam Narrative: GENERAL: The patient is alert and oriented times three. Not in any acute distress. Moderately obese HEENT: Minimal pallor. No icterus or lymphadenopathy.Oral cavity: There are no mucous membrane lesions. NECK: Trachea appears to be central. No masses noted. No JVD or thyromegaly appreciated. RESPIRATORY: Chest is symmetrical. No intercostals muscle retraction or any accessory muscle activation. There is no chest wall tenderness. Breath sounds are heard bilaterally. Occasional coarse crackles. Diminished intensity of breath sounds in the bases. BREASTS: Deferred. HEART: The heart sounds are normal. No S3 or S4. Short systolic murmur in the left sternal border.. No pericardial rub ABDOMEN: No vessel pulsations or distention. No tenderness. No organomegaly appreciated. Bowel sounds are normally heard. : Deferred. RECTAL: Deferred. LYMPHATIC: No lymphadenopathy noted in the neck. EXTREMITIES: 1-2+ edema both lower extremities. Peripheral pulses are palpable but weak bilateral MUSCULOSKELETAL: No acute joint deformities or swelling SKIN: There are no significant rashes or ecchymosis NEUROPSYCHIATRIC: The patient is alert and oriented x3. Somewhat lethargic. No focal motor deficits. Urinary Catheter Management: Gibbs Latex Free: Cath Placed During This Visit: yes Reason for Continuing Indwelling Catheter: Accurate Measurement of Urinary Output in Critically Ill Patients Urinary Catheter Date of Insertion: 07/03/23 Urinary Catheter Time of Insertion: 10:10 Data 07/04/23 03:47 07/04/23 03:47 Other Labs: Laboratory Last Values WBC 10.57 10^3/uL (3.29-11.43) 07/04/23 03:47 RBC 3.30 10^6/uL (3.85-5.65) L 07/04/23 03:47 Hgb 10.00 g/dL (11.27-16.99) L 07/04/23 03:47 Hct 31.6 % (36-47) L 07/04/23 03:47 MCV 95.8 fl (85-98) 07/04/23 03:47 MCH 30.3 pg (27-33) 07/04/23 03:47 MCHC 31.6 g/dL (30-55) 07/04/23 03:47 RDW 13.9 % (12.1-15.1) 07/04/23 03:47 Plt Count 157 10^3/cmm (157-399) 07/04/23 03:47 MPV 12.7 fL (7.4-10.4) H 07/04/23 03:47 Neut % (Auto) 72.5 % 07/04/23 03:47 Lymph % (Auto) 17.0 % 07/04/23 03:47 [place] % (Auto) 7.6 % 07/04/23 03:47 Eos % (Auto) 2.2 % 07/04/23 03:47 Baso % (Auto) 0.3 % 07/04/23 03:47 Neut # (Auto) 7.67 10^3/uL (1.8-7.7) 07/04/23 03:47 Lymph # (Auto) 1.8 10^3/uL (0.8-4.8) 07/04/23 03:47 [place] # (Auto) 0.8 10^3/uL (0.2-0.9) 07/04/23 03:47 Eos # (Auto) 0.2 10^3/uL (0.0-0.8) 07/04/23 03:47 Baso # (Auto) 0.0 10^3/uL (0.0-0.1) 07/04/23 03:47 Nucleated RBC % (auto) 0 % 07/04/23 03:47 Nucleated RBCs # 0.0 /100WBC 07/04/23 03:47 PT 14.10 SECONDS (12.1-14.9) 07/03/23 02:39 INR 1.05 (0.8-1.2) 07/03/23 02:39 Sodium 141 mmol/L (136-145) 07/04/23 03:47 Potassium 3.4 mmol/L (3.5-5.1) L 07/04/23 03:47 Chloride 104 mmol/L (98-107) 07/04/23 03:47 Carbon Dioxide 26 mmol/L (22-29) 07/04/23 03:47 Anion Gap 14.4 (5-19) 07/04/23 03:47 BUN 64 mg/dL (8-23) H 07/04/23 03:47 Creatinine 2.4 mg/dL (0.5-0.9) H 07/04/23 03:47 GFR Calculation Not Reportable 07/04/23 03:47 Glucose 157 mg/dL (65-115) H 07/04/23 03:47 POC Glucose 109 mg/dL (70-110) 07/04/23 16:19 Calculated Osmolality 314 mOsm/kg (285-295) H 07/04/23 03:47 Calcium 8.3 mg/dL (8.5-10.5) L 07/04/23 03:47 Phosphorus 3.5 mg/dL (2.5-4.5) 07/03/23 02:39 Magnesium 1.8 mg/dL (1.7-2.3) 07/04/23 03:47 Total Bilirubin 0.3 mg/dL (0.15-1.2) 07/04/23 03:47 AST 11 U/L (0-32) 07/04/23 03:47 ALT 13 U/L (0-33) 07/04/23 03:47 Alkaline Phosphatase 56 U/L (35-105) 07/04/23 03:47 NT-Pro-B Natriuret Pep 59380 pg/mL (0-450) H 07/03/23 02:39 Total Protein 5.2 g/dL (6.6-8.7) L 07/04/23 03:47 Albumin 2.8 g/dL (3.5-5.2) L 07/04/23 03:47 Globulin 2.4 g/dL (1.3-4.6) 07/04/23 03:47 Nasal Influ A H1 2008 PCR Not detected (NOT DETECT) 07/03/23 11:22 Adenovirus (PCR) Not detected (NOT DETECT) 07/03/23 11:22 C. pneumoniae DNA (PCR) Not detected (NOT DETECT) 07/03/23 11:22 Coronavirus 229E (PCR) Not detected (NOT DETECT) 07/03/23 11:22 Hep Bs Antigen Non-reactive (Nonreactive) 07/04/23 03:47 Hep Bs Antibody 5.5 (11.5-1000) L 07/04/23 03:47 Human Metapneumovir PCR Not detected (NOT DETECT) 07/03/23 11:22 Influenza A (H1) PCR Not detected (NOT DETECT) 07/03/23 11:22 Influenza A (H3) PCR Not detected (NOT DETECT) 07/03/23 11:22 Influenza Type A (PCR) Not detected (NOT DETECT) 07/03/23 11:22 Influenza Type B (PCR) Not detected (NOT DETECT) 07/03/23 11:22 M. pneumoniae (PCR) Not detected (NOT DETECT) 07/03/23 11:22 Parainfluenza 1 (PCR) Not detected (NOT DETECT) 07/03/23 11:22 Parainfluenza 2 (PCR) Not detected (NOT DETECT) 07/03/23 11:22 Parainfluenza 3 (PCR) Not detected (NOT DETECT) 07/03/23 11:22 Parainfluenza 4 (PCR) Not detected (NOT DETECT) 07/03/23 11:22 RSV Type A (PCR) Not detected (NOT DETECT) 07/03/23 11:22 RSV Type B (PCR) Not detected (NOT DETECT) 07/03/23 11:22 Entero/Rhino (PCR) Not detected (NOT DETECT) 07/03/23 11:22 SARS-CoV-2 (PCR) Not detected (NOT DETECT) 07/03/23 11:22 Myocardial perfusion imaging: My impression: On 06/14/2023 1. Large sized reversible perfusion abnormality of moderate severity of mid to ?apical anterior, basal to mid anterolateral, basal to mid inferolateral, apical ?lateral, apical septal, apical inferior and apical hernandez. ?2. This is likely suggestive of ischemia in left anterior descending and ?circumflex artery territory. ?3. The left ventricular ejection fraction is mildly reduced with a value of ?42%. ?4. There is severe hypokinesis of mid to apical anterior and apical hernandez. ?There is mild hypokinesis of mid to apical inferior hernandez. ?5. EKG portion of the study will be reported separately. EKG 1: My Interpretation: Normal sinus rhythm with frequent supraventricular ectopics and occasional ventricular ectopics. Left bundle branch block. Nonspecific ST-T changes. Other data: Cardiac catheterization on 06/20/2023 Diagnostic Findings ? * INDICATION: Abnormal stress test/ LV dysfunction. ? * Left Main has no significant disease. ? * Circumflex has patent prior stent. no significant disease. ? * Mid Left Anterior Descending: chronic total occlusion, CECILIA: 0 flow. ? * Proximal Right Coronary Artery: chronic total occlusion, CECILIA: 0 flow. ? * BYPASS GRAFTS: SVG to RCA is patent.? Has diffuse moderate distal graft disease. PADILLA to LAD is patent SVG to left circumflex artery is known to be occluded.. ? * Coronary angiography shows right dominance. A&P Assessment and plan (1) ASHD (arteriosclerotic heart disease): This patient had a three-vessel coronary bypass surgery in 2013. She apparently had a cardiac catheterization on the of last month. She was found to have patent PADILLA to the LAD and venous graft to the RCA. The stent in the circumflex artery was found to be patent as well. Based on the angiographic findings, it was opted to treat her medically. At this point, patient may not require any further investigations. (2) Congestive heart failure: Patient seems to have recurrent decompensated heart failure. The chronic kidney disease, atrial fibrillation, COPD, etc. are contributing factors. She is being treated with hemodialysis and IV diuretics. This may be continued. Qualifiers: Heart failure chronicity: acute on chronic Heart failure type: unspecified Qualified Code(s): I50.9 - Heart failure, unspecified (3) Intermittent atrial fibrillation: Patient is currently remaining in sinus rhythm. She is on amiodarone which may be continued. Also may continue on the oral anticoagulation. (4) Tjuvl-da-dclmgcz renal failure: Patient is going to be on long-term hemodialysis. Nephrology input is appreciated. (5) Type 2 diabetes mellitus: Current aggressive management may be continued. (6) COPD exacerbation: Bronchodilator treatment as per the primary. (7) Essential hypertension: The blood pressure is fairly under control. May continue on the current management Plan At this point, patient may not require any further cardiac work-up. May be continued on the current management. Thank you for the opportunity eval this patient and make these recommendations. Consult Attestations Medical Necessity Statement: Patient requires continued hospital stay for close monitoring and further management Coding Level of Care Code 19352 Diagnoses ASHD (arteriosclerotic heart disease) I25.10 Congestive heart failure I50.9 Heart failure chronicity: acute on chronic Heart failure type: unspecified Intermittent atrial fibrillation I48.0 [id number] renal failure N17.9; N18.9 Type 2 diabetes mellitus E11.9 COPD exacerbation J44.1 Essential hypertension I10
[2023-07-04] MEDS: HYDROcodone-acetaminophen 10-325 mg Tablet 1 TAB PO ×2 (17:03→20:41)
[2023-07-04 17:32] LABS: Glucose Point of Care 109 mg/dL (70-110)
[2023-07-04] MEDS: acetaminophen 325 mg Tablet 650 MG PO (18:35)
[2023-07-04 20:32] LABS: Glucose Point of Care 207 mg/dL (70-110)
--- NOTE | 2023-07-04 20:35 | PC.NURSE ---
Coreg 6.25 not administered due to heart rate decreasing. Currently at 56 with decreases to mid 40s.
[2023-07-04] MEDS: atorvastatin 40 mg Tablet PO (20:38)
[2023-07-04] MEDS: venlafaxine 75 mg Tablet 37.5 MG PO (20:39)
[2023-07-04] MEDS: ropinirole 0.25 mg Tablet 0.5 MG PO (20:39)
[2023-07-04] MEDS: insulin lispro 100 unit/1 mL SUBCUT (20:43)
--- NOTE | 2023-07-04 21:11 | PC.NURSE ---
Patient received from dialysis at ~1999. Patient resting in bed. Patient is s/p tunneled dialysis cath placement to right upper chest. Dressing in place remains c,d,i. No s/s of bleeding or hematoma formation observed. Slight bruising observed to neck along the cath site. Patient denies pain to site. Gibbs catheter remains in place. Medications given as ordered and documented. Patient requested to wait a while for her trazodone due to wanting to eat a snack and watch some TV before sleeping. As noted previously, Coreg not given due to decreased heart rate.
[2023-07-05] VITALS (14 sets, daily range): BP systolic 115–150; BP diastolic 54–61; PULSE 55–69; RESP 16–19; TEMP 36.6–37.3; O2SAT 94–97
--- NOTE | 2023-07-05 00:22 | PC.NURSE ---
Addendum entered by Savannah Broussard RN 07/05/23 00:27: Patient continues to refuse evening trazodone dose stating, I might want it a little later. Education provided. Patient verbalized understanding. Original Note: Patient's son visiting from [place]. They are discussing plan to take patient home with him to [place]. Patient was surprised by early visit stating, I was not expecting him until Sunday.
--- NOTE | 2023-07-05 01:01 | PC.NURSE ---
This RN agrees with all documentation by SN Jen to this point. Will continue to monitor
--- NOTE | 2023-07-05 02:18 | PC.NURSE ---
Patient refused her trazodone this shift so she would stay awake and visit her son Favian. Patient and son stated, we have not seen each in 5 years .
[2023-07-05 05:29] LABS: Alanine Aminotransferase 10 U/L (0-33); Albumin Level 3.1 g/dL (3.5-5.2); Alkaline Phosphatase 58 U/L (35-105); Anion Gap 12.6 (5-19); Aspartate Amino Transferase 8 U/L (0-32); Blood Urea Nitrogen 42 mg/dL (8-23); Calcium 8.3 mg/dL (8.5-10.5); Carbon Dioxide 29 mmol/L (22-29); Chloride 102 mmol/L (98-107); Globulin 2.3 g/dL (1.3-4.6); Glucose 113 mg/dL (65-115); Osmolality Calculated 301 mOsm/kg (285-295); Potassium 3.6 mmol/L (3.5-5.1); Sodium 140 mmol/L (136-145); Total Bilirubin 0.2 mg/dL (0.15-1.2); Total Protein 5.4 g/dL (6.6-8.7)
[2023-07-05 06:33] LABS: Glucose Point of Care 116 mg/dL (70-110)
[2023-07-05] MEDS: ipratropium 0.5 mg/2.5 mL Neb INHALATION ×3 (07:33→19:31)
[2023-07-05] MEDS: amlodipine 10 mg Tablet PO (08:56)
[2023-07-05] MEDS: isosorbide mononitrate ER 60 mg Tablet 120 MG PO ×2 (08:56→16:59)
[2023-07-05] MEDS: cholecalciferol (vitamin D3) 1,000 unit Tablet 1000 UNIT PO (08:56)
[2023-07-05] MEDS: gabapentin 400 mg Capsule PO ×3 (08:56→20:39)
[2023-07-05] MEDS: metOLazone 5 MG Tablet PO (08:56)
[2023-07-05] MEDS: carvedilol 6.25 mg Tablet PO (08:56)
[2023-07-05] MEDS: potassium chloride ER 20 mEq Tablet PO ×2 (08:56→16:59)
[2023-07-05] MEDS: cyanocobalamin 1,000 mcg Tablet 1000 MCG PO (08:56)
[2023-07-05] MEDS: hyDRALAzine 50 mg Tablet 100 MG PO ×3 (08:56→20:38)
[2023-07-05] MEDS: roflumilast 500 mcg Tablet PO (08:56)
[2023-07-05] MEDS: pantoprazole DR 40 mg Tablet PO (08:56)
[2023-07-05] MEDS: magnesium oxide 400 mg tablet PO ×2 (08:56→16:59)
[2023-07-05] MEDS: amiodarone 200 mg Tablet 100 MG PO (08:57)
[2023-07-05] MEDS: ascorbic acid 500 mg Tablet 250 MG PO (08:57)
[2023-07-05] MEDS: levothyroxine 25 mcg Tablet PO (08:57)
[2023-07-05] MEDS: venlafaxine 75 mg Tablet 37.5 MG PO (08:57)
[2023-07-05] MEDS: insulin glargine 100 units/1 mL 8 UNIT SUBCUT (09:12)
[2023-07-05] MEDS: bumetanide 0.25 mg/mL SDV 10 mL 2 MG IVP ×2 (09:12→20:37)
--- NOTE | 2023-07-05 10:00 | PM.PN ---
Subjective Subjective: denies any complaints s/p HD yesterday Medications: Reviewed: Yes Vitals/I&O/Wt Last Vital Signs Temp 98.9 F 07/05/23 08:00 Pulse 69 07/05/23 08:00 Resp 17 07/05/23 08:00 BP 150/57 07/05/23 08:00 Pulse Ox 96 07/05/23 08:00 O2 Del Method Nasal Cannula 07/05/23 08:00 O2 Flow Rate 2 07/05/23 07:36 07/04/23 07/05/23 07/05/23 22:59 06:59 14:59 Intake Total 850 / 850 1120 / 1970 240 / 240 Output Total 2000 / 2450 450 / 2900 Balance -1150 / -1600 670 / -930 240 / 240 Weight last 48 hrs Weight 81.647 kg Weight 82.4 kg Weight 81.828 kg Physical Exam Narrative: awake ,alert no distres + LE edema Urinary Catheter Management: Gibbs Latex Free: Cath Placed During This Visit: yes Reason for Continuing Indwelling Catheter: Accurate Measurement of Urinary Output in Critically Ill Patients Urinary Catheter Date of Insertion: 07/03/23 Urinary Catheter Time of Insertion: 10:10 Data 07/04/23 03:47 07/05/23 04:42 A&P Assessment and plan (1) Tooys-tj-[id number] renal failure: Plan 1. Acute on chronic kidney disease: Baseline creatinines in the 1.6-2 range, patient's creatinine is 2.2 currently but has volume overload with pulmonary edema, hypoxemia and worsening lower extremity edema. -Discussed with patient regarding HD she agreed to proceed with PC placement, S/P PC palcement on 06/03 , hd #2 today -2 g sodium restriction and 1500 mill fluid restriction. 2. CHF with reduced ejection fraction, currently on diuretics, 3. CAD /CABG 3. Atrial fibrillation: On amiodarone 4. HTN : Bp elevated, should improve with hD Patient evaluated using audiovisual cart. Time spent 20 minutes Attestations Medical Necessity Statement*: per medicine team Coding Level of Care Code Acute Code for Chg Fwd Diagnoses Deuys-cr-lyzilxs renal failure N17.9; N18.9
--- NOTE | 2023-07-05 12:59 | PM.PN ---
Subjective Subjective: Performed without issue yesterday. Patient has no complaints. Vitals/I&O/Wt Last Vital Signs Temp 98.2 F 07/05/23 11:38 Pulse 58 L 07/05/23 11:38 Resp 16 07/05/23 11:38 BP 139/59 07/05/23 11:38 Pulse Ox 96 07/05/23 08:00 O2 Del Method Nasal Cannula 07/05/23 08:00 O2 Flow Rate 2 07/05/23 07:36 07/04/23 07/05/23 07/05/23 22:59 06:59 14:59 Intake Total 850 / 850 1120 / 1970 240 / 240 Output Total 2000 / 2450 450 / 2900 Balance -1150 / -1600 670 / -930 240 / 240 Weight last 48 hrs Weight 180 lb Weight 181 lb 10.574 oz Weight 180 lb 6.4 oz Physical Exam Narrative: General: No acute distress, awake alert noted x3 Skin: Catheter in place without erythema or exudate Urinary Catheter Management: Gibbs Latex Free: Cath Placed During This Visit: yes Reason for Continuing Indwelling Catheter: Accurate Measurement of Urinary Output in Critically Ill Patients Urinary Catheter Date of Insertion: 07/03/23 Urinary Catheter Time of Insertion: 10:10 Data 07/04/23 03:47 07/05/23 04:42 A&P Assessment and plan (1) Giovu-mg-dyjvbmd renal failure: Plan Status post permacath placement Medical management per hospitalist Attestations Medical Necessity Statement*: Per primary Coding Level of Care Code 30230 Diagnoses Sjcbg-qc-oncrwne renal failure N17.9; N18.9
--- NOTE | 2023-07-05 14:36 | P.PN_ITS ---
Subjective Subjective: No acute events overnight. Patient underwent tunneled dialysis catheter placement yesterday which she tolerated well. Also underwent 2 hours of dialysis session without any difficulties. Today morning on examination laying comfortably in bed a lot more awake and alert. States feeling better. Down to her baseline oxygen supplementation. Denies any chest pain. Blood work shows improvement in uremia down to 42 and creatinine improved to 2.2, electrolytes stable. Medications: Reviewed: Yes Vitals/I&O/Wt Last Vital Signs Temp 98.6 F 07/05/23 14:10 Pulse 60 07/05/23 14:19 Resp 19 H 07/05/23 14:19 BP 138/59 07/05/23 14:19 Pulse Ox 96 07/05/23 14:19 O2 Del Method Nasal Cannula 07/05/23 14:19 O2 Flow Rate 2 07/05/23 07:36 07/04/23 07/05/23 07/05/23 22:59 06:59 14:59 Intake Total 850 / 850 1120 / 1970 540 / 540 Output Total 2000 / 2450 450 / 2900 2300 / 2300 Balance -1150 / -1600 670 / -930 -1760 / -1760 Weight last 48 hrs Weight 80.5 kg Weight 81.647 kg Weight 82.4 kg Weight 81.828 kg Physical Exam Narrative: She is alert awake oriented x3, more awake than yesterday Chest-Novosel breath sounds all over lung chang with bilateral wheezing and coarse rhonchi heard Cardiovascular S1-S2 regular, bradycardia, soft pansystolic murmur at apex Abdomen soft distended nontender normal bowel sounds Extremities 3+ edema present bilaterally Urinary Catheter Management: Gibbs Latex Free: Cath Placed During This Visit: yes Reason for Continuing Indwelling Catheter: Accurate Measurement of Urinary Output in Critically Ill Patients Urinary Catheter Date of Insertion: 07/03/23 Urinary Catheter Time of Insertion: 10:10 Data 07/04/23 03:47 07/05/23 04:42 A&P Assessment and plan (1) Tbwto-zy-bgfgfsh renal failure: Tunneled catheter placement on 07/04. Started on hemodialysis. Monitor urine output with Gibbs catheterization. Medical reconciliation done for nephrotoxic drugs. For now continue with Bumex 1 mg twice daily along with metolazone 5 mg daily. Can plan for Bumex 1 mg daily with metolazone 5 mg every other day on discharge. Fluid restriction up to 1500 cc. Appreciate nephrology and surgical recommendations and help. Restart Eliquis. (2) Hypoxia: Resolved. Insetting of systolic congestive heart failure. Patient does have history of COPD. No signs of pneumonia. Respiratory viral panel negative. Oxygen supplementation keeping saturation over 90%. (3) Systolic CHF: Last echocardiogram from May 2023 shows an EF of 45 to 50%, mildly decreased LV systolic function, severe hypokinesis of the apical septal, apical inferior and apical hernandez with grade 2 diastolic dysfunction, abnormal septal motion, PASP of 38 mmHg. Acute on chronic systolic congestive heart failure. Dialysis and diuretics as above. Fluid restriction as above. Appreciate recent cardiac angiogram. Plan for medical management. Patient is chest pain free. Continue with Plavix, statin. (4) Hypertension: Goal blood pressure less than 140/90 mmHg. Patient on multiple antihypertensives including hydralazine 100 mg 3 times daily, amlodipine 10 mg daily, carvedilol 12.5 mg twice daily, Imdur 120 mg twice daily, lisinopril 10 mg daily. Restart lisinopril as patient is on dialysis now. Stop carvedilol as patient having episodes of bradycardia. Qualifiers: Hypertension type: primary hypertension Qualified Code(s): I10 - Essential (primary) hypertension (5) Bradycardia: Currently normal sinus rhythm. Continue with amiodarone 100 mg. Holding off on Coreg secondary to bradycardia. (6) Type 2 diabetes mellitus: Appreciate recent A1c. Continue with Lantus 8 units nightly, insulin sliding scale before meals and at bedtime. Renal dialysis carb consistent diet. (7) Positive cardiac stress test: (8) CAD (coronary artery disease): (9) Goals of care, counseling/discussion: Plan Goals of care discussed in detail with the patient at bedside.? Discussed the option right now is for possibly her to be on a long-term dialysis for better renal function management, congestive heart failure along with possibility of a cardiac angiogram and PCI if she is going on dialysis along with possible discharge to SNF for closer monitoring versus possibility of hospice going forward given sudden steep decline in health.? Patient verbalized understanding and wants everything to be done for her care to prolong her life.? She is agreeable for dialysis.? Patient wants to be discharged to SNF for further rehabitation and eventually moved to [place] to be closer to her children. Full code Renal dialysis diabetic diet Protonix for PUD prophylaxis Eliquis will suffice for DVT prophylaxis. Discharge plan: Given recent social discord with passing away of her patient lives by herself, is chronically sick is at high risk of adverse event, fall or failure to thrive or even . Patient is agreeable to placement of SNF. Plan eventually to move to [place] to live closer to family. Case management alerted. Attestations Medical Necessity Statement*: Requires further hospitalization for management of congestive heart failure in setting of end-stage renal disease requiring new hemodialysis, bradycardia in setting of CAD while safe discharge planning and outpatient chair time is sought. Diagnoses Tsjlv-hc-hdydssd renal failure N17.9; N18.9 Hypoxia R09.02 Systolic CHF I50.20 Hypertension I10 Hypertension type: primary hypertension Bradycardia R00.1 Type 2 diabetes mellitus E11.9 Positive cardiac stress test R94.39 CAD (coronary artery disease) I25.10 Goals of care, counseling/discussion Z71.89
[2023-07-05] MEDS: HYDROcodone-acetaminophen 10-325 mg Tablet 1 TAB PO ×2 (15:22→20:39)
[2023-07-05 16:33] LABS: Glucose Point of Care 105 mg/dL (70-110)
[2023-07-05 16:33] LABS: Glucose Point of Care 256 mg/dL (70-110)
[2023-07-05] MEDS: atorvastatin 40 mg Tablet PO (20:38)
[2023-07-05] MEDS: apixaban 5 mg Tablet PO (20:38)
[2023-07-05] MEDS: ropinirole 0.25 mg Tablet 0.5 MG PO (20:38)
[2023-07-05] MEDS: trazodone 100 mg Tablet PO (20:39)
[2023-07-05 21:25] LABS: Glucose Point of Care 312 mg/dL (70-110)
[2023-07-05] MEDS: insulin lispro 100 unit/1 mL SUBCUT (21:37)
[2023-07-06] VITALS (66 sets, daily range): BP systolic 103–165; BP diastolic 41–65; PULSE 46–64; RESP 10–24; TEMP 36.2–37.1; O2SAT 90–98
[2023-07-06 04:48] LABS: Alanine Aminotransferase 6 U/L (0-33); Albumin Level 3.1 g/dL (3.5-5.2); Alkaline Phosphatase 65 U/L (35-105); Anion Gap 10.3 (5-19); Aspartate Amino Transferase 8 U/L (0-32); Blood Urea Nitrogen 25 mg/dL (8-23); Calcium 8.7 mg/dL (8.5-10.5); Carbon Dioxide 32 mmol/L (22-29); Chloride 101 mmol/L (98-107); Globulin 2.4 g/dL (1.3-4.6); Glucose 81 mg/dL (65-115); Osmolality Calculated 291 mOsm/kg (285-295); Potassium 4.3 mmol/L (3.5-5.1); Sodium 139 mmol/L (136-145); Total Bilirubin 0.3 mg/dL (0.15-1.2); Total Protein 5.5 g/dL (6.6-8.7)
[2023-07-06 06:25] LABS: Glucose Point of Care 110 mg/dL (70-110)
[2023-07-06] MEDS: ipratropium 0.5 mg/2.5 mL Neb INHALATION ×4 (07:42→20:16)
--- NOTE | 2023-07-06 08:47 | PC.SOCIAL ---
IMM Update pg 2 of IMM updated and reviewed w/ patient. Copy provided and Copy dated, initialed and placed in chart.
[2023-07-06] MEDS: cyanocobalamin 1,000 mcg Tablet 1000 MCG PO (10:08)
[2023-07-06] MEDS: gabapentin 400 mg Capsule PO ×3 (10:08→20:29)
[2023-07-06] MEDS: venlafaxine 75 mg Tablet 37.5 MG PO (10:08)
[2023-07-06] MEDS: cholecalciferol (vitamin D3) 1,000 unit Tablet 1000 UNIT PO (10:08)
[2023-07-06] MEDS: ropinirole 0.25 mg Tablet 0.5 MG PO (10:09)
[2023-07-06] MEDS: hyDRALAzine 50 mg Tablet 100 MG PO (10:09)
[2023-07-06] MEDS: clopidogrel 75 mg Tablet PO (10:09)
[2023-07-06] MEDS: potassium chloride ER 20 mEq Tablet PO ×2 (10:10→17:47)
[2023-07-06] MEDS: pantoprazole DR 40 mg Tablet PO (10:10)
[2023-07-06] MEDS: levothyroxine 25 mcg Tablet PO (10:10)
[2023-07-06] MEDS: trazodone 100 mg Tablet PO (10:10)
[2023-07-06] MEDS: metOLazone 5 MG Tablet PO (10:11)
[2023-07-06] MEDS: magnesium oxide 400 mg tablet PO ×2 (10:11→17:47)
[2023-07-06] MEDS: calcium carbonate 500 mg Chew Tablet PO (10:11)
[2023-07-06] MEDS: roflumilast 500 mcg Tablet PO (10:11)
[2023-07-06] MEDS: lisinopril 10 mg Tablet PO (10:11)
[2023-07-06] MEDS: amlodipine 10 mg Tablet PO (10:12)
[2023-07-06] MEDS: apixaban 5 mg Tablet PO ×2 (10:12→20:29)
[2023-07-06] MEDS: amiodarone 200 mg Tablet 100 MG PO (10:12)
[2023-07-06] MEDS: ascorbic acid 500 mg Tablet 250 MG PO (10:12)
[2023-07-06] MEDS: bumetanide 0.25 mg/mL SDV 10 mL 2 MG IVP ×2 (10:13→20:29)
[2023-07-06] MEDS: insulin glargine 100 units/1 mL 8 UNIT SUBCUT (10:14)
[2023-07-06] MEDS: isosorbide mononitrate ER 60 mg Tablet 120 MG PO (10:14)
[2023-07-06 11:04] LABS: Glucose Point of Care 216 mg/dL (70-110)
--- NOTE | 2023-07-06 12:14 | PM.PN ---
Subjective Subjective: feels better Medications: Reviewed: Yes Vitals/I&O/Wt Last Vital Signs Temp 97.9 F 07/06/23 11:44 Pulse 57 L 07/06/23 11:44 Resp 16 07/06/23 11:44 BP 143/49 07/06/23 11:44 Pulse Ox 94 07/06/23 11:44 O2 Del Method Nasal Cannula 07/06/23 11:44 O2 Flow Rate 2 07/06/23 11:35 07/05/23 07/06/23 07/06/23 22:59 06:59 14:59 Intake Total 200 / 740 120 / 120 Output Total 500 / 2800 300 / 3100 Balance -500 / -2260 -100 / -2360 120 / 120 Weight last 48 hrs Weight 80.83 kg Weight 80.5 kg Weight 81.647 kg Weight 82.4 kg Physical Exam Narrative: awake ,alert no distres + LE edema Urinary Catheter Management: Gibbs Latex Free: Cath Placed During This Visit: yes Reason for Continuing Indwelling Catheter: Accurate Measurement of Urinary Output in Critically Ill Patients Urinary Catheter Date of Insertion: 07/03/23 Urinary Catheter Time of Insertion: 10:10 Data 07/04/23 03:47 07/06/23 04:19 A&P Assessment and plan (1) Vodzw-ce-qsymbix renal failure: Plan 1. Acute on chronic kidney disease: Baseline creatinine in the 1.6-2 range, patient's creatinine is 2.2 currently but has volume overload with pulmonary edema, hypoxemia and worsening lower extremity edema.Recurrent admissions for volume overload -Discussed with patient regarding HD she agreed to proceed with PC placement, S/P PC palcement on 06/03 ,s/p 2 sessions -2 g sodium restriction and 1500 mill fluid restriction. 2. CHF with reduced ejection fraction, currently on diuretics, 3. CAD /CABG 3. Atrial fibrillation: On amiodarone 4. HTN : Bp elevated, should improve with hD Patient evaluated using audiovisual cart. Time spent 20 minutes Attestations Medical Necessity Statement*: per medicine team Coding Level of Care Code Acute Code for Chg Fwd Diagnoses Dqhct-di-pycwkkx renal failure N17.9; N18.9
--- NOTE | 2023-07-06 12:44 | PM.PN ---
Subjective Subjective: No acute vents overnight. Patient states she is feeling better. Underwent dialysis yesterday. Denies any nausea, vomiting, headache. States her breathing and her energy levels are improving. Still having bradycardia down to mid 50s while sleeping. Appetite improving. Medications: Reviewed: Yes Vitals/I&O/Wt Last Vital Signs Temp 97.9 F 07/06/23 11:44 Pulse 57 L 07/06/23 11:44 Resp 16 07/06/23 11:44 BP 143/49 07/06/23 11:44 Pulse Ox 94 07/06/23 11:44 O2 Del Method Nasal Cannula 07/06/23 11:44 O2 Flow Rate 2 07/06/23 11:35 07/05/23 07/06/23 07/06/23 22:59 06:59 14:59 Intake Total 200 / 740 120 / 120 Output Total 500 / 2800 300 / 3100 Balance -500 / -2260 -100 / -2360 120 / 120 Weight last 48 hrs Weight 80.83 kg Weight 80.5 kg Weight 81.647 kg Weight 82.4 kg Physical Exam Narrative: She is alert awake oriented x3, more awake than yesterday Chest-Novosel breath sounds all over lung chang with bilateral wheezing and coarse rhonchi heard Cardiovascular S1-S2 regular, bradycardia, soft pansystolic murmur at apex Abdomen soft distended nontender normal bowel sounds Extremities 3+ edema present bilaterally Urinary Catheter Management: Gibbs Latex Free: Cath Placed During This Visit: yes Reason for Continuing Indwelling Catheter: Accurate Measurement of Urinary Output in Critically Ill Patients Urinary Catheter Date of Insertion: 07/03/23 Urinary Catheter Time of Insertion: 10:10 Data 07/04/23 03:47 07/06/23 04:19 A&P Assessment and plan (1) Iawkm-vn-olhjefy renal failure: Tunneled catheter placement on 07/04. Started on hemodialysis. Monitor urine output with Gibbs catheterization. Medical reconciliation done for nephrotoxic drugs. For now continue with Bumex 1 mg twice daily along with metolazone 5 mg daily. Can plan for Bumex 2 mg daily with metolazone 5 mg every other day on discharge. Fluid restriction up to 1500 cc. Appreciate nephrology and surgical recommendations and help. Restart Eliquis. (2) Hypoxia: Resolved. Insetting of systolic congestive heart failure. Patient does have history of COPD. No signs of pneumonia. Respiratory viral panel negative. Oxygen supplementation keeping saturation over 90%. (3) Systolic CHF: Last echocardiogram from May 2023 shows an EF of 45 to 50%, mildly decreased LV systolic function, severe hypokinesis of the apical septal, apical inferior and apical hernandez with grade 2 diastolic dysfunction, abnormal septal motion, PASP of 38 mmHg. Acute on chronic systolic congestive heart failure. Dialysis and diuretics as above. Fluid restriction as above. Appreciate recent cardiac angiogram. Plan for medical management. Patient is chest pain free. Continue with Plavix, statin. (4) Hypertension: Goal blood pressure less than 140/90 mmHg. Patient on multiple antihypertensives including hydralazine 100 mg 3 times daily, amlodipine 10 mg daily, carvedilol 12.5 mg twice daily, Imdur 120 mg twice daily, lisinopril 10 mg daily. Restart lisinopril as patient is on dialysis now. Stop carvedilol as patient having episodes of bradycardia. Qualifiers: Hypertension type: primary hypertension Qualified Code(s): I10 - Essential (primary) hypertension (5) Bradycardia: Currently normal sinus rhythm. Continue with amiodarone 100 mg. Holding off on Coreg secondary to bradycardia. (6) Type 2 diabetes mellitus: Appreciate recent A1c. Continue with Lantus 8 units nightly, insulin sliding scale before meals and at bedtime. Renal dialysis carb consistent diet. (7) Positive cardiac stress test: (8) CAD (coronary artery disease): (9) Goals of care, counseling/discussion: Plan Goals of care discussed in detail with the patient at bedside.? Discussed the option right now is for possibly her to be on a long-term dialysis for better renal function management, congestive heart failure along with possibility of a cardiac angiogram and PCI if she is going on dialysis along with possible discharge to SNF for closer monitoring versus possibility of hospice going forward given sudden steep decline in health.? Patient verbalized understanding and wants everything to be done for her care to prolong her life.? She is agreeable for dialysis.? Patient wants to be discharged to SNF for further rehabitation and eventually moved to [place] to be closer to her children. Full code Renal dialysis diabetic diet Protonix for PUD prophylaxis Eliquis will suffice for DVT prophylaxis. Discharge plan: Given recent social discord with passing away of her patient lives by herself, is chronically sick is at high risk of adverse event, fall or failure to thrive or even . Patient is agreeable to placement of SNF. Plan eventually to move to [place] to live closer to family. Case management alerted. Plan for the day: Continue current medications. Plan for dialysis in AM. Monitor blood pressures with goal less than 140/90 mmHg. Coreg has been stopped given bradycardia. Continue Bumex twice daily. On discharge 2 mg daily along with metolazone 5 mg every other day. Appreciate nephrology and cardiology recommendations. Chair time set on Sunday, and Sunday. Patient has been accepted to SNF. Plan to discharge in a.m. after dialysis with follow-up dialysis on Tuesday 07/10. Attestations Medical Necessity Statement*: Requires further hospitalization for management of congestive heart failure in setting of end-stage renal disease while new dialysis is started, outpatient dialysis and is safe discharge planning is set up Diagnoses Ivuin-jn-lwsooma renal failure N17.9; N18.9 Hypoxia R09.02 Systolic CHF I50.20 Hypertension I10 Hypertension type: primary hypertension Bradycardia R00.1 Type 2 diabetes mellitus E11.9 Positive cardiac stress test R94.39 CAD (coronary artery disease) I25.10 Goals of care, counseling/discussion Z71.89
[2023-07-06] MEDS: insulin lispro 100 unit/1 mL SUBCUT ×2 (12:59→20:41)
[2023-07-06 15:03] LABS: SARS Covid-2 Antigen negative (Negative)
[2023-07-06 17:29] LABS: Glucose Point of Care 89 mg/dL (70-110)
--- NOTE | 2023-07-06 18:01 | PC.NURSE ---
Hydralizine and isosorbide PM doses held due to a blood pressure of 103/46 and a map of 65. Dr. Elenita avelar. Asked nurse to hold all antihypertensives until morning.
[2023-07-06] MEDS: atorvastatin 40 mg Tablet PO (20:29)
[2023-07-06 20:31] LABS: Glucose Point of Care 215 mg/dL (70-110)
[2023-07-07] VITALS (101 sets, daily range): BP systolic 112–168; BP diastolic 39–65; PULSE 43–72; RESP 8–26; TEMP 36.5–37.2; O2SAT 87–97
[2023-07-07] MEDS: trazodone 100 mg Tablet PO (00:20)
[2023-07-07] MEDS: HYDROcodone-acetaminophen 10-325 mg Tablet 1 TAB PO (00:20)
[2023-07-07 04:34] LABS: Alanine Aminotransferase < 5 U/L (0-33); Albumin Level 2.1 g/dL (3.5-5.2); Alkaline Phosphatase 53 U/L (35-105); Anion Gap 12.3 (5-19); Aspartate Amino Transferase 9 U/L (0-32); Blood Urea Nitrogen 32 mg/dL (8-23); Calcium 7.9 mg/dL (8.5-10.5); Carbon Dioxide 28 mmol/L (22-29); Chloride 100 mmol/L (98-107); Globulin 2.6 g/dL (1.3-4.6); Glucose 114 mg/dL (65-115); Osmolality Calculated 290 mOsm/kg (285-295); Potassium 4.3 mmol/L (3.5-5.1); Sodium 136 mmol/L (136-145); Total Bilirubin 0.2 mg/dL (0.15-1.2); Total Protein 4.7 g/dL (6.6-8.7)
[2023-07-07 07:08] LABS: Glucose Point of Care 111 mg/dL (70-110)
[2023-07-07 11:03] LABS: Glucose Point of Care 127 mg/dL (70-110)
[2023-07-07] MEDS: ipratropium 0.5 mg/2.5 mL Neb INHALATION (11:29)
[2023-07-07] MEDS: roflumilast 500 mcg Tablet PO (12:01)
[2023-07-07] MEDS: isosorbide mononitrate ER 60 mg Tablet 120 MG PO (12:01)
[2023-07-07] MEDS: cholecalciferol (vitamin D3) 1,000 unit Tablet 1000 UNIT PO (12:01)
[2023-07-07] MEDS: gabapentin 400 mg Capsule PO ×2 (12:02→15:08)
[2023-07-07] MEDS: bumetanide 0.25 mg/mL SDV 10 mL 2 MG IVP (12:02)
[2023-07-07] MEDS: venlafaxine 75 mg Tablet 37.5 MG PO (12:02)
[2023-07-07] MEDS: calcium carbonate 500 mg Chew Tablet PO (12:03)
[2023-07-07] MEDS: insulin glargine 100 units/1 mL 8 UNIT SUBCUT (12:03)
[2023-07-07] MEDS: ropinirole 0.25 mg Tablet 0.5 MG PO (12:03)
[2023-07-07] MEDS: levothyroxine 25 mcg Tablet PO (12:04)
[2023-07-07] MEDS: lisinopril 10 mg Tablet PO (12:04)
[2023-07-07] MEDS: clopidogrel 75 mg Tablet PO (12:04)
[2023-07-07] MEDS: ascorbic acid 500 mg Tablet 250 MG PO (12:04)
[2023-07-07] MEDS: amiodarone 200 mg Tablet 100 MG PO (12:05)
[2023-07-07] MEDS: metOLazone 5 MG Tablet PO (12:05)
[2023-07-07] MEDS: potassium chloride ER 20 mEq Tablet PO (12:05)
[2023-07-07] MEDS: cyanocobalamin 1,000 mcg Tablet 1000 MCG PO (12:05)
[2023-07-07] MEDS: magnesium oxide 400 mg tablet PO (12:05)
[2023-07-07] MEDS: amlodipine 10 mg Tablet PO (12:06)
[2023-07-07] MEDS: pantoprazole DR 40 mg Tablet PO (12:06)
[2023-07-07] MEDS: apixaban 5 mg Tablet PO (12:11)
--- NOTE | 2023-07-07 12:42 | PM.DCS ---
Discharge Providers Date of Admission: 07/03/23 05:48 Date of Discharge: July 07, 2023 Attending Provider at Admission: Alexandria Rosado MD Attending Provider at Discharge: Zach Kwong MD Primary Care Provider: Leena Calderon Diagnoses at Discharge Discharge Diagnosis (1) Inpbp-ib-bchects renal failure: Status: Acute (2) Hypoxia: Status: Acute (3) Systolic CHF: Status: Acute (4) Hypertension: Status: Acute Qualifiers: Hypertension type: primary hypertension Qualified Code(s): I10 - Essential (primary) hypertension (5) Bradycardia: Status: Acute (6) Type 2 diabetes mellitus: Status: Acute (7) Positive cardiac stress test: Status: Acute (8) CAD (coronary artery disease): Status: Acute (9) Goals of care, counseling/discussion: Status: Acute Reason for Visit Reason for Visit: SOB Brief History: History as per HPI: Ivette Ruiz is a 77 year old female with history of NSTEMI CKD with baseline creatinine of 1.5-1.6 congestive heart failure, degenerative disc disease , diabetes mellitus , lumbar stenosis with neurologic claudication , hypertension presented to the ER with complaint of worsening shortness of breath.? She was recently admitted to the hospital for hypoxic respiratory failure, acute on chronic kidney disease for which she received 3 sessions of dialysis with improvement of creatinine to 2.3, new onset atrial fibrillation started on p.o. amiodarone and Eliquis, systolic and diastolic congestive heart failure.? Her BNP at that time was 5000 .Unfortunately during this hospitalization her who had severe dementia passed at home and she requested for discharge on 06/28 to make arrangements at home.? In spite of significant deconditioning, protein calorie malnutrition, lack of social support, complicated medical history as above, complicated hospital course she had denied placement in a assisted facility on the last admission. In the ER she was found to have BNP of 15,000, WBC of 13,000 and creatinine 2.4. Hospital Course Hospital Course Patient was admitted to the hospital for further evaluation and management of congestive heart failure in setting of MARIO on CKD with recent temporary dialysis. Course plan of treatment was discussed in detail with the patient with the recommendations of being on maintenance hemodialysis going forward to prevent from going into multiple episodes of congestive heart failure and uremia. Patient verbalized understanding and is agreeable. Nephrology was consulted. Surgery was consulted and she underwent tunnel catheter placement on 07/04. She has been tolerating dialysis well. Outpatient dialysis has been set up for Sunday, and Sunday. Last dialysis on Saturday 07/07. After dialysis her blood pressures improved and multiple antihypertensives were discontinued. During hospitalization she was also found to have asymptomatic bradycardia for which her Coreg was discontinued and dose of amiodarone was decreased. She has been discharged to SNF for rehabitation and safe discharge planning given social discord as discussed above. Going forward she is to take Imdur 30 mg oral daily, hydralazine 50 mg 3 times daily as needed, lisinopril 10 mg daily. She is to take Bumex 2 mg once daily and metolazone 5 mg every other day on nondialysis days. She is to follow-up with a primary care provider within next 1 week. Her Coreg has been discontinued and dose of amiodarone has been decreased to 100 mg daily. Physical Exam Narrative: She is alert awake oriented x3, no acute distress, back to baseline sitting up in chair Chest-nonvesicular breath sounds all over lung chang with bilateral wheezing and coarse rhonchi heard Cardiovascular S1-S2 regular, bradycardia, soft pansystolic murmur at apex Abdomen soft distended nontender normal bowel sounds Extremities 3+ edema present bilaterally Urinary Catheter Management: Gibbs Latex Free: Cath Placed During This Visit: yes Reason for Continuing Indwelling Catheter: Accurate Measurement of Urinary Output in Critically Ill Patients Urinary Catheter Date of Insertion: 07/03/23 Urinary Catheter Time of Insertion: 10:10 Discharge Data Studies Completed and Pending Completed Studies During Hospitalization Category Date Time Status CXRP [XR chest 1V portable [id number]] Routine Exams 07/04/23 15:14 Completed XR chest 1V portable [id number] Stat Exams 07/03/23 02:34 Completed Laboratory Results WBC 10.57 10^3/uL (3.29-11.43) 07/04/23 03:47 RBC 3.30 10^6/uL (3.85-5.65) L 07/04/23 03:47 Hgb 10.00 g/dL (11.27-16.99) L 07/04/23 03:47 Hct 31.6 % (36-47) L 07/04/23 03:47 MCV 95.8 fl (85-98) 07/04/23 03:47 MCH 30.3 pg (27-33) 07/04/23 03:47 MCHC 31.6 g/dL (30-55) 07/04/23 03:47 RDW 13.9 % (12.1-15.1) 07/04/23 03:47 Plt Count 157 10^3/cmm (157-399) 07/04/23 03:47 MPV 12.7 fL (7.4-10.4) H 07/04/23 03:47 Neut % (Auto) 72.5 % 07/04/23 03:47 Lymph % (Auto) 17.0 % 07/04/23 03:47 [place] % (Auto) 7.6 % 07/04/23 03:47 Eos % (Auto) 2.2 % 07/04/23 03:47 Baso % (Auto) 0.3 % 07/04/23 03:47 Neut # (Auto) 7.67 10^3/uL (1.8-7.7) 07/04/23 03:47 Lymph # (Auto) 1.8 10^3/uL (0.8-4.8) 07/04/23 03:47 [place] # (Auto) 0.8 10^3/uL (0.2-0.9) 07/04/23 03:47 Eos # (Auto) 0.2 10^3/uL (0.0-0.8) 07/04/23 03:47 Baso # (Auto) 0.0 10^3/uL (0.0-0.1) 07/04/23 03:47 Nucleated RBC % (auto) 0 % 07/04/23 03:47 Nucleated RBCs # 0.0 /100WBC 07/04/23 03:47 PT 14.10 SECONDS (12.1-14.9) 07/03/23 02:39 INR 1.05 (0.8-1.2) 07/03/23 02:39 Sodium 136 mmol/L (136-145) 07/07/23 03:11 Potassium 4.3 mmol/L (3.5-5.1) 07/07/23 03:11 Chloride 100 mmol/L (98-107) 07/07/23 03:11 Carbon Dioxide 28 mmol/L (22-29) 07/07/23 03:11 Anion Gap 12.3 (5-19) 07/07/23 03:11 BUN 32 mg/dL (8-23) H 07/07/23 03:11 Creatinine 2.5 mg/dL (0.5-0.9) H 07/07/23 03:11 GFR Calculation Not Reportable 07/07/23 03:11 Glucose 114 mg/dL (65-115) 07/07/23 03:11 POC Glucose 127 mg/dL (70-110) H 07/07/23 11:01 Calculated Osmolality 290 mOsm/kg (285-295) 07/07/23 03:11 Calcium 7.9 mg/dL (8.5-10.5) L 07/07/23 03:11 Phosphorus 3.5 mg/dL (2.5-4.5) 07/03/23 02:39 Magnesium 1.8 mg/dL (1.7-2.3) 07/04/23 03:47 Total Bilirubin 0.2 mg/dL (0.15-1.2) 07/07/23 03:11 AST 9 U/L (0-32) 07/07/23 03:11 ALT < 5 U/L (0-33) 07/07/23 03:11 Alkaline Phosphatase 53 U/L (35-105) 07/07/23 03:11 NT-Pro-B Natriuret Pep 66600 pg/mL (0-450) H 07/03/23 02:39 Total Protein 4.7 g/dL (6.6-8.7) L 07/07/23 03:11 Albumin 2.1 g/dL (3.5-5.2) L 07/07/23 03:11 Globulin 2.6 g/dL (1.3-4.6) 07/07/23 03:11 Nasal Influ A H1 2008 PCR Not detected (NOT DETECT) 07/03/23 11:22 Adenovirus (PCR) Not detected (NOT DETECT) 07/03/23 11:22 C. pneumoniae DNA (PCR) Not detected (NOT DETECT) 07/03/23 11:22 Coronavirus 229E (PCR) Not detected (NOT DETECT) 07/03/23 11:22 Hep Bs Antigen Non-reactive (Nonreactive) 07/04/23 03:47 Hep Bs Antibody 5.5 (11.5-1000) L 07/04/23 03:47 Human Metapneumovir PCR Not detected (NOT DETECT) 07/03/23 11:22 Influenza A (H1) PCR Not detected (NOT DETECT) 07/03/23 11:22 Influenza A (H3) PCR Not detected (NOT DETECT) 07/03/23 11:22 Influenza Type A (PCR) Not detected (NOT DETECT) 07/03/23 11:22 Influenza Type B (PCR) Not detected (NOT DETECT) 07/03/23 11:22 M. pneumoniae (PCR) Not detected (NOT DETECT) 07/03/23 11:22 Parainfluenza 1 (PCR) Not detected (NOT DETECT) 07/03/23 11:22 Parainfluenza 2 (PCR) Not detected (NOT DETECT) 07/03/23 11:22 Parainfluenza 3 (PCR) Not detected (NOT DETECT) 07/03/23 11:22 Parainfluenza 4 (PCR) Not detected (NOT DETECT) 07/03/23 11:22 RSV Type A (PCR) Not detected (NOT DETECT) 07/03/23 11:22 RSV Type B (PCR) Not detected (NOT DETECT) 07/03/23 11:22 Entero/Rhino (PCR) Not detected (NOT DETECT) 07/03/23 11:22 SARS-CoV-2 (PCR) Not detected (NOT DETECT) 07/03/23 11:22 SARS-CoV-2 Ag (Rapid) negative (Negative) 07/06/23 14:20 Vitals Last Vital Signs Temp 97.7 F 07/07/23 10:36 Pulse 49 L 07/07/23 11:29 Resp 18 07/07/23 11:29 BP 168/65 07/07/23 10:36 Pulse Ox 94 07/07/23 11:29 O2 Del Method Nasal Cannula 07/07/23 11:29 O2 Flow Rate 2 07/07/23 11:29 Discharge Plan Discharge Patient Disposition: Xfer SNF Condition: Stable Prescriptions: New gabapentin 400 mg Capsule 400 mg PO TID Qty: 90 0RF metolazone 5 mg Tablet 5 mg PO EVERY OTHER DAY 30 Days Qty: 15 0RF Rx Instructions: On nondialysis days bumetanide 2 mg tablet 2 mg PO DAILY Qty: 30 0RF isosorbide mononitrate 30 mg tablet extended release 24 hr 30 mg PO QAM Qty: 60 0RF Continued One-A-Day Vitacraves [place]-3 200-16 mcg-mg tablet,chewable 1 tab PO DAILY magnesium oxide 400 mg magnesium capsule 400 mg PO BID fluticasone propion-salmeterol [Advair Diskus] 250-50 mcg/dose blister with device 1 inh INHALATION BID calcium carbonate 600 mg calcium (1,500 mg) tablet 600 mg PO DAILY cranberry extract 200 mg capsule 200 mg PO DAILY cholecalciferol (vitamin D3) 1,000 unit capsule 1,000 unit PO DAILY melatonin 5 mg tablet 5 mg PO BEDTIME pantoprazole [Protonix] 40 mg tablet,delayed release (DR/EC) 40 mg PO DAILY albuterol sulfate [Ventolin HFA] 90 mcg/actuation HFA aerosol inhaler 2 puff INHALATION Q6H PRN (Reason: Shortness Of Breath) ropinirole 0.5 mg tablet 0.5 mg PO TID vitamin B complex [B-Complex] Tablet 1 tab PO DAILY (DME) Diabetic Shoes with Inserts See Rx Instructions .Route .MEDSUPPLY Qty: 1 3RF Rx Instructions: As directed roflumilast [Daliresp] 500 mcg tablet 500 mcg PO DAILY Eliquis 5 mg Tablet 5 mg PO BID@0900,2100 30 Days Qty: 60 0RF clopidogrel 75 mg tablet 75 mg PO QDAY 30 Days Qty: 30 0RF levothyroxine 25 mcg tablet 25 mcg PO DAILY 30 Days Qty: 30 0RF insulin aspart U-100 [Novolog FlexPen U-100 Insulin] 100 unit/mL (3 mL) insulin pen See Rx Instructions .ROUTE .COMPLEX Qty: 15 0RF Rx Instructions: inject subcut, three times daily after meals, based on sliding scale provided potassium chloride [Klor-Con M20] 20 mEq tablet,ER particles/crystals 20 meq PO BID 30 Days Qty: 60 0RF cyclobenzaprine 10 mg tablet 10 mg PO TID PRN (Reason: Muscle Spasm) atorvastatin 40 mg tablet 40 mg PO DAILY venlafaxine 75 mg capsule,extended release 24hr 75 mg PO DAILY gabapentin 600 mg tablet 600 mg PO TID trazodone 150 mg tablet 150 mg PO BEDTIME lisinopril 10 mg tablet 10 mg PO DAILY lidocaine 5 % adhesive patch,medicated See Rx Instructions .ROUTE .COMPLEX Rx Instructions: APPLY 3 PATCHES TO AFFECTED AREA 12 HOURS ON / 12 HOURS OFF. Nitrostat 0.4 mg Tablet, Sublingual 0.4 mg SUBLINGUAL Q5M PRN (Reason: Chest Pain) Rx Instructions: do not exceed 3 doses per episode hydroxyzine HCl 25 mg tablet 25 mg PO BID PRN (Reason: Anxiety) ondansetron 4 mg tablet,disintegrating 4 mg PO BID PRN (Reason: Nausea And Vomiting) Lantus Solostar U-100 Insulin 100 unit/mL (3 mL) insulin pen 4 unit SUBCUT BEDTIME Hysingla ER 30 mg tablet,oral only,ext.rel.24 hr 30 mg PO DAILY Changed Pacerone 200 mg Tablet 100 mg PO DAILY 30 Days Qty: 30 0RF hydralazine 50 mg Tablet 50 mg PO TID PRN (Reason: SBP more than 160 mmhg) 30 Days Qty: 180 0RF Discontinued ascorbic acid (vitamin C) 500 mg tablet 500 mg PO DAILY furosemide 40 mg Tablet 40 mg PO BID@08,16 30 Days Qty: 60 0RF carvedilol 12.5 mg Tablet 12.5 mg PO BID 30 Days Qty: 60 0RF amlodipine 10 mg Tablet 10 mg PO DAILY 30 Days Qty: 30 0RF isosorbide mononitrate 120 mg tablet extended release 24 hr 120 mg PO BID 30 Days Qty: 30 0RF prednisone 10 mg tablet 10 mg PO DAILY Rx Instructions: for 5 days (rx filled 06/28/23) Discharge Orders: Discharge Order (Routine); Ordered 07/07/23 Ordered By: Zach Kwong Referrals: [facility] [Outside] Leena Calderon PA [Primary Care Provider] - Patient Instructions: Dialysis Diet (DC), Hemodialysis (DC), Opioid Safety Activity Restrictions/Additional Instructions: Multiple medication changes have been done. Do not take amlodipine, Coreg, Lasix anymore. Imdur has been changed to 30 mg daily. Take lisinopril 10 mg daily. Check blood pressure daily at home and maintain a blood pressure diary. For diuretics do not take Lasix anymore. Instead take Bumex 2 mg daily and metolazone 5 mg on nondialysis days. He is supposed to have dialysis on Sunday, and Sunday Discharge Attestations Time Spent in Discharge Care*: greater than 30 min Specific Discharge Activities: educating patient, discussing with pcp/other providers, discussing with pillowcase cleaner/social workers/dc planners, documenting/other paperwork and evaluating patient/reviewing data Quality Metrics Clinical Quality Measures [ No reported AMI, CVA or VTE this stay] Coding Level of Care Code 96470 Total time (in minutes) for Discharge: 60 Diagnoses [id number] renal failure N17.9; N18.9 Hypoxia R09.02 Systolic CHF I50.20 Hypertension I10 Hypertension type: primary hypertension Bradycardia R00.1 Type 2 diabetes mellitus E11.9 Positive cardiac stress test R94.39 CAD (coronary artery disease) I25.10 Goals of care, counseling/discussion Z71.89
--- NOTE | 2023-07-07 14:11 | PC.NURSE ---
Report called to [facility] and given to Veronica Rasmussen LPN.
--- NOTE | 2023-07-07 14:31 | PC.NURSE ---
Called Latrice (Dtr) to get permission to call Thuy Hemphill who is to provide a ride for the pt to [facility]. Latrice gave permission and Thuy Hemphill was called and notified that the pt was ready to be discharged to [facility].
[2023-07-07] MEDS: acetaminophen 325 mg Tablet 650 MG PO (15:09)
--- NOTE | 2023-07-07 17:11 | PC.NURSE ---
Discharge Note Patient discharged to [SNF for rehab] via [w/c to POV] accompanied by [friend]. Discharge instructions reviewed with patient and/or entry level sales representative. Mobile pharmacy medications and/or prescriptions provided. Belongings/home medications returned.
--- NOTE | 2023-07-07 22:42 | PM.PN ---
Subjective Subjective: no new complaints Medications: Reviewed: Yes Vitals/I&O/Wt Last Vital Signs Temp 97.7 F 07/07/23 10:36 Pulse 61 07/07/23 17:09 Resp 26 H 07/07/23 12:40 BP 140/54 07/07/23 12:40 Pulse Ox 96 07/07/23 12:40 O2 Del Method Nasal Cannula 07/07/23 11:29 O2 Flow Rate 2 07/07/23 11:29 07/07/23 07/07/23 07/07/23 06:59 14:59 22:59 Intake Total 690 / 690 Output Total 75 / 1355 3175 / 3175 Balance -75 / -225 -2485 / -2485 Weight last 48 hrs Weight 79.7 kg Weight 84.64 kg Weight 80.83 kg Physical Exam Narrative: awake ,alert no distres + LE edema Urinary Catheter Management: Gibbs Latex Free: Cath Placed During This Visit: yes Reason for Continuing Indwelling Catheter: Accurate Measurement of Urinary Output in Critically Ill Patients Urinary Catheter Date of Insertion: 07/03/23 Urinary Catheter Time of Insertion: 10:10 Data 07/04/23 03:47 07/07/23 03:11 A&P Assessment and plan (1) [id number] renal failure: Plan 1. Acute on chronic kidney disease: Baseline creatinine in the 1.6-2 range, patient's creatinine is 2.2 currently but has volume overload with pulmonary edema, hypoxemia and worsening lower extremity edema.Recurrent admissions for volume overload -Discussed with patient regarding HD she agreed to proceed with PC placement, S/P PC palcement on 06/03 ,s/p 2 sessions -2 g sodium restriction and 1500 mill fluid restriction. 2. CHF with reduced ejection fraction, currently on diuretics, 3. CAD /CABG 3. Atrial fibrillation: On amiodarone 4. HTN : Bp elevated, should improve with hD Patient evaluated using audiovisual cart. Time spent 20 minutes Attestations Medical Necessity Statement*: per medicine tream Coding Level of Care Code Acute Code for Chg Fwd Diagnoses [id number]-[id number] renal failure N17.9; N18.9
== END 2023-07-07 16:00 | disposition skilled nursing facility (03) | DRG 291 ==
LOC: ER 04:39 → MEDSURG 05:48 → CSU 07:13
PROVIDERS: Hospitalist; Surgery; Admitting Provider Internal Medicine; Emergency Provider Emergency Medicine; PCP Physician Assistant; Visit Provider Student in an Organized Health Care Education/Training Program
PROC: 02HV33Z Insertion of Infusion Device into Superior Vena Cava, Percutaneous Approach (ICD-10-PCS; principal; 2023-07-04 14:10)
DX: I13.2 Hypertensive heart and chronic kidney disease with heart failure and with stage 5 chronic kidney disease, or end stage renal disease (principal); I50.23 Acute on chronic systolic (congestive) heart failure; N18.6 End stage renal disease; N17.9 Acute kidney failure, unspecified; J44.1 Chronic obstructive pulmonary disease with (acute) exacerbation; E11.22 Type 2 diabetes mellitus with diabetic chronic kidney disease; I48.91 Unspecified atrial fibrillation; I25.2 Old myocardial infarction; M48.062 Spinal stenosis, lumbar region with neurogenic claudication; R00.1 Bradycardia, unspecified; R01.1 Cardiac murmur, unspecified; Z79.51 Long term (current) use of inhaled steroids; Z79.01 Long term (current) use of anticoagulants; Z79.02 Long term (current) use of antithrombotics/antiplatelets; Z79.4 Long term (current) use of insulin; Z79.891 Long term (current) use of opiate analgesic; F17.210 Nicotine dependence, cigarettes, uncomplicated; Z86.73 Personal history of transient ischemic attack (TIA), and cerebral infarction without residual deficits; E66.9 Obesity, unspecified; K21.9 Gastro-esophageal reflux disease without esophagitis; E78.5 Hyperlipidemia, unspecified; E11.42 Type 2 diabetes mellitus with diabetic polyneuropathy; E11.51 Type 2 diabetes mellitus with diabetic peripheral angiopathy without gangrene; I25.10 Atherosclerotic heart disease of native coronary artery without angina pectoris; Z95.1 Presence of aortocoronary bypass graft
CPT/HCPCS: 36415; 36416; 51702; 71045; 76000; 77001; 80053; 82962; 83735; 83880; 84100; 85025; 85610; 86706; 87340; 87426; 87486; 87581; 87633; 90935; 93005; 94640; 96372; 96374; 96375; 96376; 97110; 97161; 97530; 99285; C1750; J0690; J1644; J1815; J1940; J2060; J2250; J2704; J3490; J7030; J7644; Q3014

== ENCOUNTER 2023-08-02 13:36 | Emergency (ER) | payer MEDICARE, OTHER, SELFPAY ==
[2023-08-02 13:38] VITALS: BP 146/67; PULSE 82; RESP 18; TEMP 36.6; O2SAT 98; BMI 35.3
--- NOTE | 2023-08-02 13:56 | W.ED.GENADLT ---
HPI - General Adult General: Chief complaint: General Medical Stated complaint: hypotension Time Seen by Provider: 08/02/23 13:44 Source: patient Limitations: no limitations History of Present Illness: This 78-year-old female with a history of end-stage renal disease on hemodialysis was brought in for evaluation of hypotension that was reported during dialysis. Patient was an hour into dialysis when they reported that her blood pressure was low. EMS reports that on arrival, patient had normal blood pressure. Here in the ER patient also has a normal blood pressure. Besides reporting that she feels weak, she has no fever, chest pain, shortness of breath or any other pertinent symptoms. Associated symptoms: Deny chest pain or headache(s) Review of Systems General: Reports: Other (low blood pressure) Const: Denies: chills, body aches or change in appetite Eyes: Denies: change in vision or eye discharge ENMT: Denies: throat pain, dental pain or nasal discharge Card: Denies: chest pain or lightheadedness : Denies: dysuria Musc: Denies: neck pain or back pain Neuro: Denies: headache(s) or weakness in extremities Psych: Denies: depression Shiva/Lymph: Denies: easy bruising All/Imm: Denies: urticaria, tongue swelling or facial swelling PFSH ED PFSH: Medical History ASHD (arteriosclerotic heart disease) Bilateral bunions Bilateral knee pain CAD (coronary artery disease) Callus of foot Carotid stenosis, bilateral Chest pain CHF (congestive heart failure) Chronic fatigue Chronic hip pain CKD (chronic kidney disease) COPD (chronic obstructive pulmonary disease) Diabetes Diabetic neuropathy Diabetic peripheral neuropathy associated with type 2 diabetes mellitus DJD (degenerative joint disease), lumbar Dyslipidemia Essential hypertension GERD (gastroesophageal reflux disease) Long-term current use of opiate analgesic Lumbar stenosis with neurogenic claudication Lupus anticoagulant disorder Myocardial infarction Non-STEMI (non-ST elevated myocardial infarction) Obesity Onychodystrophy PAD (peripheral artery disease) Pain management contract signed Pes planus of both feet Positive cardiac stress test Primary osteoarthritis of knees, bilateral TIA (transient ischemic attack) Tobacco use disorder V-tach Surgical History S/P CABG (coronary artery bypass graft) (~10/01/14) S/P carotid endarterectomy S/P carpal tunnel release (Unknown) LEFT S/P cataract extraction (Unknown) RIGHT DR BATISTA S/P cataract extraction S/P hysterectomy Family History Unknown Adopted Social History Smoking and tobacco status: current every day smoker cigarettes Packs smoked per day: 2 Quit status (tobacco): has tried quititng Alcohol intake: never Substance/Drug Use: never Adopted: Yes Lives independently: Yes Household members: spouse Marital status: Physical Exam Const: COMMON NORMALS: no acute distress, patient oriented x3, no limitations and alert HENMT: COMMON NORMALS: normocephalic HEAD & SCALP: normocephalic Eye: COMMON NORMALS: EOMs intact bilaterally Neck/C-Spine: COMMON NORMALS: full ROM and supple Chest: COMMONS NORMALS: normal inspection of the chest OTHER: Presence of dialysis catheter right anterior chest wall. Resp: COMMON NORMALS: normal respiratory effort, No retractions and No use of accessory muscles AUSCULTATION: wheezes expiratory wheezes and lower bilaterally OTHER: Patient is on her usual 4 L of oxygen. There is bilateral expiratory wheeze but no acute respiratory distress. Cardio: COMMON NORMALS: regular rate, regular rhythm and No murmurs present (Cardio) RATE: regular rate RHYTHM: regular rhythm GI: COMMON NORMALS: Normal to inspection, nondistended, normoactive bowel sounds present and non-tender : COMMON NORMALS: Yes no CVA tenderness BLADDER/KIDNEY EXAM: Yes no CVA tenderness Back/Pelvis: COMMON NORMALS: no CVA tenderness and no thoracic nor lumbar tenderness Extremity: GENERAL: Yes normal exam except as noted OTHER: Bilateral pitting pedal edema. Neuro: COMMON NORMALS: patient oriented x3 and no focal motor deficits SENSORIUM/ORIENTATION: Yes alert Psych: COMMON NORMALS: mental status grossly normal and cooperative Course Vital Signs: Vital signs: Vital Signs Temperature 97.8 F 08/02/23 13:38 Pulse Rate 74 08/02/23 18:09 Respiratory Rate 16 08/02/23 17:33 Blood Pressure 152/61 08/02/23 18:09 Pulse Oximetry 95 08/02/23 18:09 Oxygen Delivery Me thod Nasal Cannula 08/02/23 17:33 Oxygen Flow Rate 4 08/02/23 17:33 MDM - General Adult Medical Decision Making Medical decision making: Until a hypotensive measurement was reported during dialysis, patient's blood pressure was normal throughout her stay in the ER. She has no fever, chest pain, shortness of breath or any symptoms to suggest systemic sepsis. Completed blood tests are unremarkable and patient remained stable throughout her stay in the ER. She is happy to go home and so is the daughter and daughter's . At this time, there is no indication to admit her. She was advised to continue taking her home medications and to continue her dialysis as already scheduled. However, if her condition worsens she should return immediately. Patient verbalized understanding and agrees with the plan. Lab Data 08/02/23 14:42 08/02/23 14:42 Laboratory Results WBC 10.09 10^3/uL (3.29-11.43) 08/02/23 14:42 RBC 3.62 10^6/uL (3.85-5.65) L 08/02/23 14:42 Hgb 10.70 g/dL (11.27-16.99) L 08/02/23 14:42 Hct 35.2 % (36-47) L 08/02/23 14:42 MCV 97.2 fl (85-98) 08/02/23 14:42 MCH 29.6 pg (27-33) 08/02/23 14:42 MCHC 30.4 g/dL (30-55) 08/02/23 14:42 RDW 14.5 % (12.1-15.1) 08/02/23 14:42 Plt Count 264 10^3/cmm (157-399) 08/02/23 14:42 MPV 10.7 fL (7.4-10.4) H 08/02/23 14:42 Neut % (Auto) 61.9 % 08/02/23 14:42 Lymph % (Auto) 24.0 % 08/02/23 14:42 [place] % (Auto) 8.3 % 08/02/23 14:42 Eos % (Auto) 4.9 % 08/02/23 14:42 Baso % (Auto) 0.6 % 08/02/23 14:42 Neut # (Auto) 6.25 10^3/uL (1.8-7.7) 08/02/23 14:42 Lymph # (Auto) 2.4 10^3/uL (0.8-4.8) 08/02/23 14:42 [place] # (Auto) 0.8 10^3/uL (0.2-0.9) 08/02/23 14:42 Eos # (Auto) 0.5 10^3/uL (0.0-0.8) 08/02/23 14:42 Baso # (Auto) 0.1 10^3/uL (0.0-0.1) 08/02/23 14:42 Nucleated RBC % (auto) 0 % 08/02/23 14:42 Nucleated RBCs # 0.0 /100WBC 08/02/23 14:42 Sodium 135 mmol/L (136-145) L 08/02/23 14:42 Potassium 4.2 mmol/L (3.5-5.1) 08/02/23 14:42 Chloride 93 mmol/L (98-107) L 08/02/23 14:42 Carbon Dioxide 33 mmol/L (22-29) H 08/02/23 14:42 Anion Gap 13.2 (5-19) 08/02/23 14:42 BUN 23 mg/dL (8-23) 08/02/23 14:42 Creatinine 2.4 mg/dL (0.5-0.9) H 08/02/23 14:42 GFR Calculation Not Reportable 08/02/23 14:42 Glucose 95 mg/dL (65-115) 08/02/23 14:42 Calculated Osmolality 283 mOsm/kg (285-295) L 08/02/23 14:42 Calcium 8.7 mg/dL (8.5-10.5) 08/02/23 14:42 Total Bilirubin 0.2 mg/dL (0.15-1.2) 08/02/23 14:42 AST 11 U/L (0-32) 08/02/23 14:42 ALT 9 U/L (0-33) 08/02/23 14:42 Alkaline Phosphatase 94 U/L (35-105) 08/02/23 14:42 Troponin T Gen 5 ng/L 40 ng/L (0-10) H 08/02/23 16:44 Total Protein 6.2 g/dL (6.6-8.7) L 08/02/23 14:42 Albumin 3.5 g/dL (3.5-5.2) 08/02/23 14:42 Globulin 2.7 g/dL (1.3-4.6) 08/02/23 14:42 All radiology interpretation(s) finalized by discharge Discharge Plan Discharge Patient Disposition: Home Clinical Impression: ESRD on hemodialysis Condition: Stable Prescriptions: No Action One-A-Day Vitacraves [place]-3 200-16 mcg-mg tablet,chewable 1 tab PO DAILY magnesium oxide 400 mg magnesium capsule 400 mg PO BID fluticasone propion-salmeterol [Advair Diskus] 250-50 mcg/dose blister with device 1 inh INHALATION BID calcium carbonate 600 mg calcium (1,500 mg) tablet 600 mg PO DAILY cranberry extract 200 mg capsule 200 mg PO DAILY cholecalciferol (vitamin D3) 1,000 unit capsule 1,000 unit PO DAILY melatonin 5 mg tablet 5 mg PO BEDTIME pantoprazole [Protonix] 40 mg tablet,delayed release (DR/EC) 40 mg PO DAILY albuterol sulfate [Ventolin HFA] 90 mcg/actuation HFA aerosol inhaler 2 puff INHALATION Q6H PRN (Reason: Shortness Of Breath) ropinirole 0.5 mg tablet 0.5 mg PO TID vitamin B complex [B-Complex] Tablet 1 tab PO DAILY (DME) Diabetic Shoes with Inserts See Rx Instructions .Route .MEDSUPPLY Qty: 1 3RF Rx Instructions: As directed clopidogrel 75 mg tablet 75 mg PO QDAY 30 Days Qty: 30 0RF levothyroxine 25 mcg tablet 25 mcg PO DAILY 30 Days Qty: 30 0RF insulin aspart U-100 [Novolog FlexPen U-100 Insulin] 100 unit/mL (3 mL) insulin pen See Rx Instructions .ROUTE .COMPLEX Qty: 15 0RF Rx Instructions: inject subcut, three times daily after meals, based on sliding scale provided cyclobenzaprine 10 mg tablet 10 mg PO TID PRN (Reason: Muscle Spasm) atorvastatin 40 mg tablet 40 mg PO DAILY venlafaxine 75 mg capsule,extended release 24hr 75 mg PO DAILY trazodone 150 mg tablet 150 mg PO BEDTIME lisinopril 10 mg tablet 10 mg PO DAILY nitroglycerin [Nitrostat] 0.4 mg Tablet, Sublingual 0.4 mg SUBLINGUAL Q5M PRN (Reason: Chest Pain) Rx Instructions: do not exceed 3 doses per episode hydroxyzine HCl 25 mg tablet 25 mg PO BID PRN (Reason: Anxiety) insulin glargine [Lantus Solostar U-100 Insulin] 100 unit/mL (3 mL) insulin pen 4 unit SUBCUT BEDTIME hydrocodone bitartrate [Hysingla ER] 30 mg tablet,oral only,ext.rel.24 hr 30 mg PO DAILY gabapentin 400 mg Capsule 400 mg PO TID Qty: 90 0RF isosorbide mononitrate 30 mg tablet extended release 24 hr 30 mg PO QAM Qty: 60 0RF hydralazine 100 mg tablet 100 mg PO TID zolpidem 5 mg tablet 5 mg PO BEDTIME metolazone 10 mg tablet See Rx Instructions .ROUTE .COMPLEX Rx Instructions: 10 mg orally every other day on nondialysis days. amiodarone 100 mg tablet 100 mg PO DAILY Eliquis 5 mg tablet 5 mg PO BID Discharge Orders: Discharge ED (Routine); Ordered 08/02/23 Ordered By: Jose Jauregui Referrals: Leena Calderon PA [Primary Care Provider] - Discharge Diet: Usual diet Discharge Activity: Resume usual activity Patient Instructions: Opioid Safety, Pain Management Activity Restrictions/Additional Instructions: Continue taking your home medications and keep to your hemodialysis schedule. Follow-up with your primary care physician within a week for reevaluation. Return if you develop any new or worsening symptoms. Coding Level of Care Code ED Measurement Operator for Sera Harris
--- NOTE | 2023-08-02 14:04 | XR_ITS ---
WS: [id number] EXAMINATION: XR chest 1V portable [id number] REASON FOR EXAM: hypotension COMPARISON: 07/04/2023 ORDER DATE: 08/02/2023 2:04 PM TECHNIQUE: A single, portable frontal chest x-ray was obtained. Findings: The right dialysis catheter enters the internal jugular vein and ends in the superior vena cava. No pneumothorax is seen. Lungs are clear of infiltrate. There is postsurgical changes of CABG w ith atherosclerotic aortic change. Spinal scoliosis and degenerative change are present Scattered surgical clips are seen in the left cervical region. Impression: No acute pulmonary change
[2023-08-02 14:47] VITALS: BP 130/56; PULSE 83; RESP 16; O2SAT 99
--- NOTE | 2023-08-02 14:59 | PC.PHAR ---
FAMILY IS UNSURE OF WHAT MEDICATIONS PT IS TAKING. CALLING PHARMACY FOR VERIFICATION
[2023-08-02 15:03] LABS: Basophils # 0.1 10^3/uL (0.0-0.1); Basophils % 0.6 %; Eosinophils # 0.5 10^3/uL (0.0-0.8); Eosinophils % 4.9 %; Hematocrit 35.2 % (36-47); Lymphocytes # 2.4 10^3/uL (0.8-4.8); Mean Corpuscular HGB Conc 30.4 g/dL (30-55); Mean Corpuscular Hemoglobin 29.6 pg (27-33); Mean Corpuscular Volume 97.2 fl (85-98); Mean Platelet Volume 10.7 fL (7.4-10.4); Monocytes # 0.8 10^3/uL (0.2-0.9); Monocytes % 8.3 %; Neutrophils # 6.25 10^3/uL (1.8-7.7); Neutrophils % 61.9 %; Nucleated Red Blood Cells % 0 %; Platelet Count 264 10^3/cmm (157-399); Red Blood Count 3.62 10^6/uL (3.85-5.65); Red Cell Distribution Width 14.5 % (12.1-15.1); White Blood Count 10.09 10^3/uL (3.29-11.43)
[2023-08-02 15:21] VITALS: BP 94/46; PULSE 63; RESP 15; O2SAT 96
[2023-08-02 15:32] LABS: Troponin T (5th) Once 40 ng/L (0-10)
[2023-08-02 15:35] LABS: Alanine Aminotransferase 9 U/L (0-33); Albumin Level 3.5 g/dL (3.5-5.2); Alkaline Phosphatase 94 U/L (35-105); Anion Gap 13.2 (5-19); Aspartate Amino Transferase 11 U/L (0-32); Blood Urea Nitrogen 23 mg/dL (8-23); Calcium 8.7 mg/dL (8.5-10.5); Carbon Dioxide 33 mmol/L (22-29); Chloride 93 mmol/L (98-107); Globulin 2.7 g/dL (1.3-4.6); Glucose 95 mg/dL (65-115); Osmolality Calculated 283 mOsm/kg (285-295); Potassium 4.2 mmol/L (3.5-5.1); Sodium 135 mmol/L (136-145); Total Bilirubin 0.2 mg/dL (0.15-1.2); Total Protein 6.2 g/dL (6.6-8.7)
--- NOTE | 2023-08-02 15:35 | PC.PHAR ---
[facility] FILLED CYCLOBENZAPRINE 10 MG 05/20, HYDROXYZINE 25 MG, AND HYSINGLA ER 30MG. ALL OTHER PRESCRIPTION MEDICATIONS NOW FILLED AT [facility]. VERIFIED WITH PHARMACY ON 08/02/23. FAMILY PUT GABAPENTIN 400 MG ON HOLD DUE TO SIDE EFFECTS. METOLAZONE 10 MG NOT PICKED UP FROM PHARMACY. REMAINING MEDS ARE OVER THE COUNTER VITAMINS AND SUPPLEMENTS.
--- NOTE | 2023-08-02 15:58 | ECG_ITS ---
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 Measurements Intervals [place] Rate: 71 P: 81 SC: 162 QRS: -17 QRSD: 152 T: 116 QT: 456 QTc: 496 Interpretive Statements SINUS RHYTHM LEFT BUNDLE BRANCH BLOCK [120+ ms QRS DURATION, 80+ ms Q/S IN V1/V2, 85+ ms R IN I/aVL/V5/V6] Compared to ECG 07/03/2023 02:24:35 Ventricular premature complex(es) no longer present Electronically Signed On 08-03-2023 5:23:39 CDT by Selma Pandey M.D. [id number]
[2023-08-02 17:09] LABS: Troponin T (5th) Once 40 ng/L (0-10)
[2023-08-02 17:31] VITALS: BP 156/63; PULSE 71; RESP 16; O2SAT 97
[2023-08-02 17:33] VITALS: BP 147/61; PULSE 75; RESP 16; O2SAT 95
[2023-08-02 18:09] VITALS: BP 152/61; PULSE 74; O2SAT 95
== END 2023-08-02 18:10 | disposition home or self-care (01) ==
PROVIDERS: Emergency Provider Family Medicine; PCP Physician Assistant
DX: E11.22 Type 2 diabetes mellitus with diabetic chronic kidney disease (principal); I13.2 Hypertensive heart and chronic kidney disease with heart failure and with stage 5 chronic kidney disease, or end stage renal disease; I50.9 Heart failure, unspecified; N18.6 End stage renal disease; Z99.2 Dependence on renal dialysis; I25.10 Atherosclerotic heart disease of native coronary artery without angina pectoris; J44.9 Chronic obstructive pulmonary disease, unspecified; E78.5 Hyperlipidemia, unspecified; I25.2 Old myocardial infarction; Z86.73 Personal history of transient ischemic attack (TIA), and cerebral infarction without residual deficits; Z95.1 Presence of aortocoronary bypass graft; F17.210 Nicotine dependence, cigarettes, uncomplicated; Z79.02 Long term (current) use of antithrombotics/antiplatelets; Z79.4 Long term (current) use of insulin; Z79.01 Long term (current) use of anticoagulants
CPT/HCPCS: 36415; 71045; 80053; 84484; 85025; 93005; 99285